=== PATIENT | female | born 1940 | race Caucasian/White ===

== ENCOUNTER → 2016-11-07 | Outpatient (CLI) | payer MEDICARE, OTHER ==
[~2016-11-07] MED LIST: BUPR150T5 PO; BUPR300T34 PO; CALCTAB97 PO; COLA100C PO; GLUC500C98 PO; HYDR1OI TOP; OMEP10CASR PO; ONE50TAB PO; PERCOCET PO; SERT-141 PO; SIMV10TA2 PO; TYLE325T5 PO; VITA-130 PO; VITA200016 PO; VITATAB73 PO
== END | disposition home or self-care (01) ==
LOC: M WUC 14:34
PROVIDERS: ATTEND Physician Assistant Medical
DX: M81.0 Age-related osteoporosis without current pathological fracture (principal)

== ENCOUNTER → 2016-12-14 | Outpatient (CLI) | payer OTHER ==
--- NOTE | 2016-12-14 13:03 | REP ---
Clinical: Contusion. Technique: PA and lateral. Comparison: 12/24/2015. Findings: Mediastinum and cardiac silhouette stable with tortuous thoracic aorta again noted. Lung mccracken demonstrate diffuse chronic interstitial changes without focal consolidation. A subtle 1 cm nodular density in the periphery of the left lower lung zone cannot be excluded and may warrant chest CT follow-up. No effusion. No pneumothorax. Skeletal structures stable. Impression: 1. Chronic stable changes. 2. Cannot exclude subtle 1 cm density in the left lower lung zone. Consider chest CT for follow-up. Signed by Froylan Hayward MD 12/14/2016 12:53 P
--- NOTE | 2016-12-14 13:29 | REP ---
Clinical: Trauma. Contusion. Technique: AP, lateral, bilateral oblique views of the right hand. Findings: There is no bleed fracture at the base of the fifth metacarpal bone with overlying soft tissue swelling. Age-related changes to the interphalangeal joints and carpometacarpal joints noted. Impression: Acute oblique fracture at the base of the fifth metacarpal bone. Age-related degenerative changes. Signed by Froylan Hayward MD 12/14/2016 01:20 P
--- NOTE | 2016-12-14 13:30 | REP ---
Clinical: Contusion. Technique: AP, lateral, bilateral oblique views. Findings: There is a comminuted fracture of the patella with overlying soft tissue swelling and joint effusion. Distal femur and proximal tibia / fibula demonstrate age-related degenerative changes without obvious acute fracture. Impression: Comminuted fracture of the patella with swelling and joint effusion. Signed by Froylan Hayward MD 12/14/2016 01:22 P
== END ==
LOC: M WUC 11:57
PROVIDERS: ATTEND Physician Assistant
DX: S60.221A Contusion of right hand, initial encounter (principal); S20.211A Contusion of right front wall of thorax, initial encounter; Y92.009 Unspecified place in unspecified non-institutional (private) residence as the place of occurrence of the external cause; W18.30XA Fall on same level, unspecified, initial encounter

== ENCOUNTER → 2017-02-17 | Outpatient (CLI) | payer MEDICARE, OTHER ==
[~2017-02-17] MED LIST changes: -COLA100C PO; +COLA100C3 PO; -SERT-141 PO; +SERT50TA PO
--- NOTE | 2017-02-17 16:45 | REP ---
SKULL, SIX VIEWS: HISTORY: Fall. There is no acute fracture or bone lesion. The sinuses are clear. IMPRESSION: There is no acute fracture or bone lesion. Signed by Jarod Shah MD 02/17/2017 04:58 P
== END ==
LOC: M WUC 14:50
PROVIDERS: ATTEND Nurse Practitioner Family
DX: S09.90XA Unspecified injury of head, initial encounter (principal); W01.0XXA Fall on same level from slipping, tripping and stumbling without subsequent striking against object, initial encounter; Y92.9 Unspecified place or not applicable; Y93.9 Activity, unspecified; Y99.9 Unspecified external cause status

== ENCOUNTER → 2017-04-10 | Outpatient (CLI) | payer MEDICARE, OTHER ==
--- NOTE | 2017-04-12 09:06 | DEXA ---
AP SPINE L1 - L4 1.147 -0.4 1.4 LT FEMUR TOTAL Hip fracture. RT FEMUR TOTAL 0.715 -2.3 -0.6 TOTAL BODY TOTAL OTHER DUAL FEMUR FRAX* ASSESSMENT Risk factors: History of adult fracture, secondary osteoporosis. 10 year probability of fracture Major osteoporotic fracture 24.0 % Hip fracture 7.1 % COMMENTS: Normal bone densitometry of the spine. There is low bone density of the right hip. The increased density of the spine does represent a significant change. The increased density of the right hip does represent a significant change. The density of the spine has increased 29.6% since the initial exam on 08/2004. The spine density has increased 12.9% since the most recent exam on 01/2015. The density of the right hip has decreased 5.8% since the initial exam on 2003. The density of the right hip has increased 4.8% since the most recent exam on 2014. FOLLOW-UP: Recommendation for the next bone density exam: 2 years. JAVON
== END ==
LOC: M WHC 10:07
PROVIDERS: ATTEND Internal Medicine
DX: Z13.820 Encounter for screening for osteoporosis (principal); M85.80 Other specified disorders of bone density and structure, unspecified site

== ENCOUNTER → 2017-05-11 | Outpatient (CLI) | payer MEDICARE, OTHER ==
[~2017-05-11] MED LIST changes: -COLA100C3 PO; +COLA100C5 PO; -VITA-130 PO; +VITA500T PO
== END ==
LOC: M WUC 11:19
PROVIDERS: ATTEND Internal Medicine Endocrinology, Diabetes & Metabolism
DX: M81.0 Age-related osteoporosis without current pathological fracture (principal)

== ENCOUNTER → 2017-08-30 | Outpatient (CLI) | payer MEDICARE, OTHER ==
--- NOTE | 2017-08-30 14:37 | REPMRS ---
Patient History The patient states she had a clinical breast exam in 01/06 Patient is postmenopausal and has history of skin cancer at age 67. Family history of prostate cancer in father at age 62. Benign excisional biopsy, 2000. Took unspecified hormones for 5 years. Digital Woman Screen Mammo: August 30, 2017 - Exam #: [id number] Bilateral CC and MLO view(s) were taken. Technologist: Evelyne Luis, Technologist Prior study comparison: August 17, 2016, digital woman screen mammo performed at [facility]. July 06, 2015, digital woman screen mammo performed at [facility]. July 03, 2014, bilateral bilat screen digital mammo, performed at [facility] ([facility]). FINDINGS: There are scattered fibroglandular densities. There has been no change in the appearance of the mammogram from the prior studies. There is a mild amount of scattered fibroglandular density which is fairly symmetric. There is no interval development of dominant mass, architectural distortion, or clustered microcalcification suggestive of malignancy. ASSESSMENT: BI-RADS/ACR category 1 mammogram. Negative. Recommendation Routine screening mammogram in 1 year (for women over age 40). This mammogram was interpreted with the aid of an FDA-approved computer-aided dectection system. Electronically Signed By: Severino Dimas MD 08/30/17 [id number]
== END ==
LOC: M WHC 12:54
PROVIDERS: ATTEND Internal Medicine
DX: Z12.31 Encounter for screening mammogram for malignant neoplasm of breast (principal)

== ENCOUNTER → 2017-11-22 | Outpatient (CLI) | payer MEDICARE, OTHER ==
[2017-11-22 13:17] LABS: TOTAL 25(OH) VITAMIN D 56.6 NG/ML (30.0-100.0)
[2017-11-22 13:22] LABS: CALCIUM LEVEL 9.5 MG/DL (8.8-10.2)
== END ==
LOC: M WUC 10:16
DX: M81.0 Age-related osteoporosis without current pathological fracture (principal); E55.9 Vitamin D deficiency, unspecified
CPT/HCPCS: 82310

== ENCOUNTER → 2018-05-28 | Outpatient (CLI) | payer MEDICARE, OTHER ==
[2018-05-28 17:17] LABS: CALCIUM LEVEL 9.1 MG/DL (8.8-10.2)
== END ==
LOC: M WUC 13:52
DX: M81.0 Age-related osteoporosis without current pathological fracture (principal)
CPT/HCPCS: 82310

== ENCOUNTER → 2018-10-01 | Outpatient (CLI) | payer MEDICARE, OTHER | LOC: M WHC 13:44 | DX: Z12.31 Encounter for screening mammogram for malignant neoplasm of breast (principal); Z80.42 Family history of malignant neoplasm of prostate; Z86.018 Personal history of other benign neoplasm; Z92.29 Personal history of other drug therapy | CPT/HCPCS: 77067 ==

== ENCOUNTER → 2018-12-04 | Outpatient (CLI) | payer MEDICARE, OTHER ==
[2018-12-04 12:57] LABS: CALCIUM LEVEL 9.2 MG/DL (8.8-10.2)
[2018-12-04 13:13] LABS: TOTAL 25(OH) VITAMIN D 58.3 NG/ML (30.0-100.0)
== END ==
LOC: M WUC 09:50
PROVIDERS: ATTEND Internal Medicine Endocrinology, Diabetes & Metabolism
DX: M81.0 Age-related osteoporosis without current pathological fracture (principal); E55.9 Vitamin D deficiency, unspecified

== ENCOUNTER → 2019-06-05 | Outpatient (CLI) | payer MEDICARE, OTHER ==
[~2019-06-05] MED LIST changes: -HYDR1OI TOP; +HYDR1OIN2 TOP; +SERT-141 PO; -SERT50TA PO
== END ==
LOC: M WUC 14:38
PROVIDERS: ATTEND Internal Medicine Endocrinology, Diabetes & Metabolism
DX: M81.0 Age-related osteoporosis without current pathological fracture (principal)

== ENCOUNTER → 2019-10-14 | Outpatient (CLI) | payer MEDICARE, OTHER ==
[~2019-10-14] MED LIST changes: -SIMV10TA2 PO; +SIMV10TA21 PO
--- NOTE | 2019-10-14 11:16 | REPMRS ---
Patient History The patient states she had a clinical breast exam in September 2019.Family history of prostate cancer at age 62 in father. Benign excisional biopsy, 2000. Took unspecified hormones for 5 years. 3D TOMOSYNTHESIS WAS PERFORMED. [facility] lifetime risk for breast cancer is 3.1%. Digital Woman Screen Mammo: October 14, 2019 - Exam #: [id number] Bilateral CC and MLO view(s) were taken. Technologist: Adry Willis, Technologist Prior study comparison: October 01, 2018, bilateral digital woman screen mammo performed at [facility]. August 30, 2017, digital woman screen mammo performed at [facility]. FINDINGS: The breast tissue is heterogeneously dense. This may lower the sensitivity of mammography. There has been no change in the appearance of the mammogram from the prior studies. There is a moderate amount of residual fibroglandular tissue which is fairly symmetric. There is no interval development of dominant mass, areas of architectural distortion, or clustered microcalcification typical of malignancy. Assessment: BI-RADS/ACR category 1 mammogram. Negative Mammogram. Recommendation Routine screening mammogram in 1 year (for women over age 40). This mammogram was interpreted with the aid of an FDA-approved computer-aided dectection system. Electronically Signed By: Anish Carbone MD 10/14/19 [id number]
== END ==
LOC: M WHC 10:03
PROVIDERS: ATTEND Internal Medicine
DX: Z12.31 Encounter for screening mammogram for malignant neoplasm of breast (principal)

== ENCOUNTER → 2019-12-11 | Outpatient (CLI) | payer MEDICARE, OTHER ==
[~2019-12-11] MED LIST changes: -BUPR300T34 PO; +BUPR300T92 PO
[2019-12-11 15:24] LABS: CALCIUM LEVEL 9.6 MG/DL (8.8-10.2)
[2019-12-11 15:38] LABS: TOTAL 25(OH) VITAMIN D 51.5 NG/ML (30.0-100.0)
== END ==
LOC: M WUC 12:22
PROVIDERS: ATTEND Internal Medicine Endocrinology, Diabetes & Metabolism
DX: M81.0 Age-related osteoporosis without current pathological fracture (principal)

== ENCOUNTER → 2020-01-02 | Outpatient (REF) | payer MEDICARE, OTHER ==
[2020-01-02 19:02] LABS: INFLUENZA A AMPLIFICATION NEGATIVE (NEGATIVE); INFLUENZA B AMPLIFICATION NEGATIVE (NEGATIVE)
== END ==
LOC: M LAB REF 17:48
PROVIDERS: ATTEND Internal Medicine
DX: R05 Cough (principal); R50.9 Fever, unspecified

== ENCOUNTER → 2020-03-08 | Outpatient (CLI) | payer MEDICARE, OTHER ==
[~2020-03-08] MED LIST changes: +VITA-243 PO; -VITA500T PO
--- NOTE | 2020-03-09 10:00 | REP ---
LEFT WRIST SERIES: FOUR VIEWS. REPEAT DICTATION. HISTORY: Wrist pain. Preliminary report is provided at the time of the exam by Dr. Hayward. FINDINGS: Four views of the left wrist demonstrate an intra-articular, slightly comminuted and impacted fracture of the distal radial metaphysis. There is diffuse osteopenia. Advanced osteoarthritis is seen in the navicular multangular and at the 1st carpometacarpal articulations. An old-appearing dorsal triquetral chip fracture is seen on the lateral radiograph. IMPRESSION: Acute, slightly impacted intra-articular fracture of the distal radius with associated swelling. Old chip fracture dorsal surface of the carpal triquetrum. Osteoarthritis and osteoporosis. Electronically Signed by Scooter Dimas MD 03/09/2020 10:26 A
== END ==
LOC: M WUC 15:08
PROVIDERS: ATTEND Nurse Practitioner Family
DX: S52.572A Other intraarticular fracture of lower end of left radius, initial encounter for closed fracture (principal); X58.XXXA Exposure to other specified factors, initial encounter; Y92.9 Unspecified place or not applicable

== ENCOUNTER → 2020-06-10 | Outpatient (CLI) | payer MEDICARE, OTHER | LOC: M WUC 13:21 | PROVIDERS: ATTEND Internal Medicine Endocrinology, Diabetes & Metabolism | DX: M81.0 Age-related osteoporosis without current pathological fracture (principal) ==

== ENCOUNTER → 2020-10-19 | Outpatient (CLI) | payer MEDICARE, OTHER ==
--- NOTE | 2020-10-19 11:49 | REPMRS ---
Patient History The patient states she had a clinical breast exam in 07/12 Family history of prostate cancer at age 62 in father. Benign excisional biopsy, 2000. Took unspecified hormones for 5 years. Digital Woman Screen Mammo: October 19, 2020 - Exam #: [id number] Bilateral CC and MLO view(s) were taken. Technologist: Evelyne Luis, Technologist Prior study comparison: October 14, 2019, bilateral digital woman screen mammo performed at [facility]. October 01, 2018, bilateral digital woman screen mammo performed at [facility]. August 30, 2017, digital woman screen mammo performed at [facility]. FINDINGS: There are scattered fibroglandular densities. The [employer] volumetric breast density category is:B. There has been no change in the appearance of the mammogram from the prior studies. There is a mild amount of scattered fibroglandular density which is fairly symmetric. There is no interval development of dominant mass, architectural distortion, or grouped microcalcification suggestive of malignancy. 3-D tomosynthesis shows no additional findings. Assessment: BI-RADS/ACR category 1 mammogram. Negative Mammogram. Recommendation Routine screening mammogram of both breasts in 1 year (for women over age 40). This patient's [facility] Lifetime Breast Cancer Risk is estimated at 2.8 %. This mammogram was interpreted with the aid of an FDA-approved computer-aided dectection system. Electronically Signed By: Severino Dimas MD 10/19/20 0844
== END ==
LOC: M WHC 10:59
PROVIDERS: ATTEND Internal Medicine
DX: Z12.31 Encounter for screening mammogram for malignant neoplasm of breast (principal)

== ENCOUNTER → 2020-12-15 | Outpatient (CLI) | payer MEDICARE, OTHER ==
[2020-12-15 11:57] LABS: CALCIUM LEVEL 9.7 MG/DL (8.8-10.2)
[2020-12-15 12:11] LABS: TOTAL 25(OH) VITAMIN D 73.9 NG/ML (30.0-100.0)
== END ==
LOC: M WUC 10:16
PROVIDERS: ATTEND Internal Medicine Endocrinology, Diabetes & Metabolism
DX: M81.0 Age-related osteoporosis without current pathological fracture (principal); E55.9 Vitamin D deficiency, unspecified

== ENCOUNTER 2021-06-07 16:41 | Inpatient (IN) | payer MEDICARE, OTHER ==
[~2021-06-07] VITALS: Ht 149.9 cm; Wt 54.1 kg
[2021-06-07] MEDS ORDERED: BUSP10TA PO (17:02)
[2021-06-07] MEDS ORDERED: AMLO2.5T3 PO (17:02)
--- NOTE | 2021-06-07 18:02 | REP ---
INDICATION: DYSPNEA/COUGH. COMPARISON: 04/20/2020 TECHNIQUE: Portable FINDINGS: The technique utilized in obtaining the radiograph has magnified the cardiac silhouette and accentuated the interstitial markings. There is cardiomegaly accentuated by technique. There is interstitial fibrosis status quo. New airspace opacities and interstitial opacities are seen in the left lung. There is chronic CP angle blunting bilaterally. The osseous structures are unchanged IMPRESSION: There is evidence of pneumonia on the left superimposed upon chronic fibrotic changes. There is cardiomegaly. <Electronically signed by Lefty Roberts > 06/07/21 [id number]
[2021-06-07 18:12] LABS: BASO % 0.4 % (0.0-1.0); EOS # 0.1 10^3/uL (0.0-0.5); EOS % 0.5 % (0.0-3.0); HEMATOCRIT 43.8 % (36.0-47.0); HEMOGLOBIN 14.6 g/dl (12.0-15.5); LYMPH # 0.5 10^3/uL (1.5-5.0); LYMPH % 4.9 % (24.0-44.0); MEAN CORPUSCULAR HGB CONC 33.3 g/dl (32.0-36.5); MEAN CORPUSCULAR VOLUME 89.9 fl (80.0-96.0); MONO # 1.1 10^3/uL (0.0-0.8); MONO % 9.7 % (2.0-8.0); NEUTROPHILS # 9.1 10^3/uL (1.5-8.5); NEUTROPHILS % 83.5 % (36.0-66.0); PLATELET COUNT, AUTOMATED 255 10^3/uL (150-450); RED BLOOD COUNT 4.87 10^6/uL (4.00-5.40); WHITE BLOOD COUNT 10.9 10^3/uL (4.0-10.0)
[2021-06-07] MEDS ORDERED: LevoFLOXacin IV 750 MG in IV 1 EA IV ONE (18:20)
[2021-06-07 18:49] LABS: ALBUMIN 2.9 GM/DL (3.2-5.2); ALT/SGPT 26 U/L (12-78); BILIRUBIN,DIRECT 0.2 MG/DL (0.0-0.2); BILIRUBIN,TOTAL 0.8 MG/DL (0.2-1.0); BLOOD UREA NITROGEN 23 MG/DL (7-18); CALCIUM LEVEL 8.4 MG/DL (8.8-10.2); CARBON DIOXIDE LEVEL 26 MEQ/L (21-32); CHLORIDE LEVEL 105 MEQ/L (98-107); CK-MB VALUE MASS 3.3 NG/ML (<3.6); CPK CREATINE PHOSPHOKINASE 72 U/L (26-192); CREATININE FOR GFR 1.22 MG/DL (0.55-1.30); GLOMERULAR FILTRATION RATE 45.4 (>39); GLUCOSE, FASTING 97 MG/DL (70-100); MB/CK RELATIVE INDEX 4.58 (< OR =4); NT-PRO BNP 17544 PG/ML (<450); SODIUM LEVEL 138 MEQ/L (136-145); THYROID STIMULATING HORMONE 0.611 uIU/ML (0.358-3.740); TOTAL PROTEIN 6.3 GM/DL (6.4-8.2); TROPONIN I < 0.02 NG/ML (< 0.10)
[2021-06-07 19:39] LABS: RSV AMPLIFICATION NEGATIVE (NEGATIVE)
[2021-06-07] MEDS ORDERED: MAALOX 30 ML SUSP *UDC PO PRN (20:25)
[2021-06-07] MEDS ORDERED: ACETAMINOPHEN TAB 650MG DOSE (2X325MG) PO PRN (20:25)
[2021-06-07] MEDS ORDERED: VANCOMYCIN HCL 1,000 MG, VIAL MATE ADAPTER 1 EACH in NS 250 ML IV SCH (20:25)
[2021-06-07] MEDS ORDERED: MOM 30ML SUSPENSION UDC PO PRN (20:25)
--- NOTE | 2021-06-07 20:34 | HPEPDOC ---
[facility] Medical History & Physical Date of Admission Jun 07, 2021 Date of Service: Jun 07, 2021 Primary Care Physician: Ree Barillas Attending Physician: MILTON MCHUGH MD History and Physical TIME OF SERVICE 845PM CHIEF COMPLAINT: shortness of breath HISTORY OF PRESENT ILLNESS: is a 80 yr old F who presented w c/o shortness of breath for 2 or 3 years. Over the last 2 weeks her shortness of breath became worse. She has also had a cough productive of green sputum. She denied having night sweats, f/c/n/v/d lower extremity swelling, muscle aches, chest pain, abdominal pain, rash, sick contacts or traveling out of the state recently. She saw her PCP who started on a 10 day course of Doxycycline and steroids on May 27. Today she had a follow up visit with her PCP who noted that the patient had hypoxemia with a PCO2 in the 70s so she sent to the ER. ROS: 10 point ROS neg except as listed in HPI PAST MEDICAL/SURGICAL HISTORY: Essential HTN, DLP, She denies being diagnosed with COPD, CHF, CVA, AK, DM or surgeries SOCIAL HISTORY: She quit smoking 20 yrs ago, drinks alcohol occasionally and lives alone FAMILY HISTORY: She denied having a family history of medical problems ALLERGIES: Please see below. HOME MEDICATIONS: Please see below. PHYSICAL EXAMINATION: Vital Signs Date Time Temp Pulse Resp B/P (MAP) Pulse Ox O2 Delivery O2 Flow Rate FiO2 06/07/21 16:41 99.2 102 20 121/74 (90) 80 Room Air 06/07/21 17:20 2.0 GENERAL APPEARANCE: well nourished and developed/ NAD HEENT: EOMI / NC in place / she doesn't have elevated JVP CARDIOVASCULAR: RRR/NMRG / I don't appreciate S3 or P-pulmonale / she doesn't have BLE edema LUNGS: She is not using accessory muscles / she is able to speak full sentences w/o having to pause and take a breath / she has scattered inspiratory rhonchi / there are no crackles ABDOMEN: flat / soft & NT with palpation MUSCULOSKELETAL: NCAT / CARMELA in back and all extremities NEUROLOGICAL: CN 2-12 grossly intact / speech not dysarthric PSYCHIATRIC: A&Ox 3 / able to understand and follow all commands LABORATORY DATA: Immature Granulocyte % (Auto) 1.0, Neutrophils (%) (Auto) 83.5H, Lymphocytes (%) (Auto) 4.9L, Monocytes (%) (Auto) 9.7H, Eosinophils (%) (Auto) 0.5, Basophils (%) (Auto) 0.4, Neutrophils # (Auto) 9.1H, Lymphocytes # (Auto) 0.5L, Monocytes # (Auto) 1.1H, Eosinophils # (Auto) 0.1, Basophils # (Auto) 0.0, Nucleated Red Blood Cells % (auto) 0.0, Anion Gap 7L, Glomerular Filtration Rate 45.4, Calcium Level 8.4L, Total Bilirubin 0.8, Direct Bilirubin 0.2, Aspartate Amino Transf (AST/SGOT) 17, Alanine Aminotransferase (ALT/SGPT) 26, Alkaline Phosphatase 63, Total Creatine Kinase 72, Creatine Kinase MB 3.3, Creatine Kinase MB Relative Index 4.58H, Troponin I < 0.02, FB-Iqu-O-Type Natriuretic Peptide 74631T, Total Protein 6.3L, Albumin 2.9L, Albumin/Globulin Ratio 0.9L, Thyroid Stimulating Hormone (TSH) 0.611 IMAGING: Chest xray "IMPRESSION: There is evidence of pneumonia on the left superimposed upon chronic fibrotic changes. There is cardiomegaly." MICROBIOLOGY: Coronavirus (COVID-19)(PCR) NEGATIVE, Influenza Type A (RT-PCR) NEGATIVE, Influenza Type B (RT-PCR) NEGATIVE, Respiratory Syncytial Virus (PCR) NEGATIVE / Blood cx neg ASSESSMENT: is a 80 yr old w a hx of Essential HTN & DLP who was sent from her PCP's office for evaluation of hypoxemia possibly due to worsening left sided PNA. PLAN: 1. Hypoxemia likely 2/2 left sided PNA Her CURB 65 score to determine if patient should be admitted is 2 points therefore in-patient admission is reasonable. Her DRIP Score to predict risk of drug resistant CAP and need for extended spectrum antibiotics is only 3 points which is low risk there for she doesn't need coverage with extended spectrum antibiotics Her EMY index for intubation after HFNC to predict the need for intubation score is only 14.29 which indicates that she is at low risk of progressing to needing intubation Plan: admit to medical floor / continuous pulse ox & supplemental O2/ f/u sputum culture ( will not order strep pneumo or legionella because she doesn't have SIRS) / c/w Levofloxacin and add Vancomycin pending MRSA results/ Acetaminophen PRN for fever / per 2019 IDSA/ATS guidelines for CAP will not check procalcitonin to distinguish between viral and bacterial pathogens prior to c/w antibiotics 2. Chronic Dyspnea She has been struggling with dyspnea for the last 2 years I suspect that that this may be due to ILD (based on the chest xray findings) or COPD. Despite the elevated BNP, she doesn't have JVD, crackles, S3 or BLE therefore I think it is less likely that she has CHF. The elevated BNP could be due to COPD or ILD Plan: supplemental O2 / continuous pulse oximetry / aspiration precautions / Solumedrol today then switch to prednisone / DuoNebs Q6H, Albuterol Q1HP / she is on Levofloxacin because she has green sputum / f/u Echo / if her dyspnea persists after the PNA has resolved, and the Echo is neg/ her PCP may consider ordering PFTs 3. Chronic HTN Plan: c/w amlodipine DVT Px w lovenox Dispo: home after more than 2 midnight's stay LACE Index for Readmission score is 8 points = moderate risk of readmission. PFS consult has been placed for discharge planning LATE ENTRY #Tachycardia w worsening hypoxemia Plan: f/u EKG / IVF / switch from albuterol to levalbuterol PRN / f/u CTA chest to r/o PE Home Medications Scheduled Amlodipine Besylate (Amlodipine Besylate) 2.5 Mg Tablet, 2.5 MG PO QHS Ascorbic Acid (Vitamin C) 500 Mg Tab, 500 MG PO DAILY Bupropion Hcl (Bupropion Xl) 150 Mg Tab.er.24h, 150 MG PO DAILY Buspirone HCl (Buspirone HCl) 10 Mg Tablet, 10 MG PO BID Fluticasone/Vilanterol (Breo Ellipta 100-25 Mcg INH) 1 Each Blst.w.dev, 1 PUFF INH DAILY Omeprazole (Omeprazole) 20 Mg Capsule.dr, 20 MG PO DAILY Sertraline Hcl (Zoloft) 100 Mg Tablet, 150 MG PO QHS Scheduled PRN Docusate Sodium (Colace) 100 Mg Cap, 100 MG PO BID PRN for CONSTIPATION Allergies Coded Allergies: No Known Allergies (Verified , 05/18/04) A-FIB/CHADSVASC A-FIB History Current/History of A-Fib/PAF?: No Current PO Anticoag Therapy: No MILTON MCHUGH MD Jun 07, 2021 20:34
[2021-06-07] MEDS ORDERED: BREO1INH INH (20:44)
[2021-06-07] MEDS ORDERED: ZOLO100T PO (20:44)
[2021-06-07] MEDS ORDERED: BUPR150T12 PO (20:44)
[2021-06-07] MEDS ORDERED: OMEP-218 PO (20:44)
[2021-06-07] MEDS ORDERED: HOME MED LIST COMPLETE! XX SCH (20:50)
[2021-06-07] MEDS ORDERED: DOCUSATE SODIUM 100MG CAPSULE PO PRN (21:15)
[2021-06-07] MEDS ORDERED: methylPREDNISolone 125MG 2ML VIAL IV STA (21:16)
[2021-06-07] MEDS: busPIRone 10 MG TAB PO SCH (21:49)
[2021-06-07] MEDS: SERTRALINE HCL 50 MG TAB PO SCH (21:49)
[2021-06-07] MEDS ORDERED: VANCOMYCIN HCL 1,000 MG, VIAL MATE ADAPTER 1 EACH in NS 250 ML IV ONE (22:00)
[2021-06-07] MEDS: IPRATROPIUM 0.5MG/ALBUTEROL 2.5MG INH SOL UD 3ML (DUONEB) NEB SCH (22:23)
[2021-06-07] MEDS ORDERED: ALBUTEROL SULFATE 2.5 MG/0.5 ML INH NEB SOLN NEB PRN (22:50)
[2021-06-07 23:27] LABS: ABG BASE EXCESS -3.1 (-2.0-2.0); ABG HCO3 19.9 MEQ/L (22.0-26.0); ABG O2 SATURATION 82.2 % (95.0-99.0); ABG PARTIAL PRESSURE CO2 30.2 mmHg (35.0-45.0); ABG STANDARD HCO3 21.6 MEQ/L (22.0-26.0); ABG TOTAL CO2 20.8 MEQ/L (23.0-31.0); ABG pH (ARTERIAL) 7.437 UNITS (7.350-7.450)
[2021-06-07 23:30] LABS: ABG PARTIAL PRESSURE O2 45.9 mmHg (75.0-100.0)
[2021-06-08] VITALS (17 sets, daily range): BP systolic 84–142; BP diastolic 50–97; O2SAT 84–94
[2021-06-08] MEDS ORDERED: IPRATROPIUM 0.02% SOLN 0.5MG 2.5ML NEB NEB SCH (02:00)
[2021-06-08] MEDS: IPRATROPIUM 0.5MG/ALBUTEROL 2.5MG INH SOL UD 3ML (DUONEB) NEB SCH (06:10)
[2021-06-08] MEDS ORDERED: NS 1,000 ML IV SCH (06:50)
[2021-06-08] MEDS ORDERED: LEVALBUTEROL 1.25 MG/0.5 ML CONCENTRATE NEB INH PRN (07:00)
[2021-06-08 07:01] LABS: HEMATOCRIT 43.1 % (36.0-47.0); HEMOGLOBIN 14.2 g/dl (12.0-15.5); MEAN CORPUSCULAR HEMOGLOBIN 29.3 pg (27.0-33.0); MEAN CORPUSCULAR HGB CONC 32.9 g/dl (32.0-36.5); PLATELET COUNT, AUTOMATED 274 10^3/uL (150-450); RED BLOOD COUNT 4.84 10^6/uL (4.00-5.40); WHITE BLOOD COUNT 12.7 10^3/uL (4.0-10.0)
[2021-06-08 07:23] LABS: CALCIUM LEVEL 8.2 MG/DL (8.8-10.2); CREATININE FOR GFR 0.99 MG/DL (0.55-1.30); GLOMERULAR FILTRATION RATE 57.8 (>39); POTASSIUM SERUM 4.5 MEQ/L (3.5-5.1)
[2021-06-08] MEDS ORDERED: ISOVUE-370 76% 100ML VIAL As Ordered ONE (07:34)
--- NOTE | 2021-06-08 07:35 | ECGEPIP ---
[facility] - ED Test Date: 2021-06-07 Pat Name: TIMI VAZQUEZ Department: Room: - Gender: Female Pharmacy Scheduler: : 1940 Requested By: ARIE FERNANDEZ Order Number: [id number] Reading MD: Arie Garcia Measurements Intervals Dixon Rate: 94 P: 28 RI: 146 QRS: 48 QRSD: 78 T: 25 QT: 374 QTc: 467 Interpretive Statements Normal sinus rhythm with sinus arrhythmia Anteroseptal infarct , age undetermined Nonspecific ST-T wave abnormalities Baseline artifact Comparison tracing not on file Electronically Signed on 06-08-2021 7:35:06 EDT by Arie Garcia
[2021-06-08] MEDS ORDERED: AMIODARONE HCL 150 MG in IV 1 EA IV STA (07:44)
[2021-06-08] MEDS: busPIRone 10 MG TAB PO SCH ×2 (07:56→21:36)
[2021-06-08] MEDS: buPROPion **XL** TABLET 150MG (WELLBUTRIN XL) PO SCH (07:56)
[2021-06-08] MEDS ORDERED: FUROSEMIDE 40MG/4ML VIAL (J1940) IV ONE (08:00)
[2021-06-08] MEDS ORDERED: atenoloL 50 MG TAB PO ONE (08:00)
[2021-06-08] MEDS ORDERED: SLF 3 ML SYR IV PRN (08:55)
[2021-06-08] MEDS ORDERED: ENOXAPARIN 40MG/0.4ML SYRINGE (J1650 PER 10MG) SC SCH (09:00)
[2021-06-08] MEDS ORDERED: OMEPRAZOLE 20 MG CAP PO SCH (09:00)
[2021-06-08] MEDS ORDERED: predniSONE 20 MG TAB PO SCH (09:00)
--- NOTE | 2021-06-08 11:22 | REP ---
INDICATION: tachycardia and hypoxemia COMPARISON: 09/29/2009 a standard contrast-enhanced chest CT TECHNIQUE: CT angiography of the chest after the intravenous administration of 75 cc Isovue 370. Attention pulmonary arteries. FINDINGS: There is excellent visualization of the pulmonary arterial vasculature. There are no focal filling defects present that would be considered consistent with acute pulmonary emboli. Limited evaluation of the thoracic aorta shows no significant change compared to the prior exam. There is no evidence of mediastinal or hilar adenopathy. There is a dilated content filled esophagus. There is a minimal left pleural effusion. There is no evidence of a pericardial effusion. The imaged upper abdomen shows a 3.2 cm sized infrarenal abdominal aortic aneurysm. There is also evidence of mild left-sided hydronephrosis. Bone window technique throughout the exam shows a grade 3/4 L1 compression fracture. A grade 2/3 L2 compression fracture. A grade 1/2 T12 compression fracture. A grade 1 superior endplate compression fracture of T11. There is a grade 3/4 compression fracture of T9. there is a grade 4 compression fracture of T8. There is a grade 2 compression fracture of T7 and T6. There is an exaggerated thoracic kyphosis with its apex at the T8-9 level. The bones are markedly demineralized. There is evidence of multiple bilateral old rib fractures. Evaluation of the lung mccracken shows advanced emphysematous changes with parenchymal bulla and pleural blebs. There are are scattered ground-glass opacities seen in conjunction with septal opacities in a mosaic type pattern. These densities could obscure a significant nodule. All the aforementioned lung field findings have worsened significantly compared to the prior exam. IMPRESSION: 1. There is no evidence of a pulmonary embolism. 2. Advanced chronic lung field changes as described above. Pulmonary consultation is recommended. 3. Osseous abnormalities as described above. The age of the aforementioned vertebral body compression fractures cannot be determined by this exam. 4. Dilated content filled esophagus. Further investigation may be warranted. 5. Evidence of left-sided hydronephrosis etiology uncertain. 6. Infrarenal abdominal aortic aneurysm as described above. 7. Other findings as described above. <Electronically signed by Lefty Roberts > 06/08/21 [id number]
--- NOTE | 2021-06-08 11:35 | IPNPDOC ---
Date Seen The patient was seen on 06/08/21. Progress Note SUBJECTIVE: Patient was emergently transferred to PCU due to A. fib with RVR ventricular rate of 1 40-1 60 with complaints of worsening dyspnea. Patient denies any chest pain pressure tightness complains of palpitations without dizziness lightheadedness or near syncopal episode. OBJECTIVE PHYSICAL EXAMINATION: VITAL SIGNS: Please see below. GENERAL: Mild respiratory distress and able to complete 8 word sentences HEENT: Positive JVD moist mucous membranes no thyromegaly or cervical lymphad enopathy CARDIOVASCULAR: S1-S2 irregularly irregular tachycardic ventricular rate of 1 40-1 60 at the bedside RESPIRATORY: Diminished breath sounds crackles bilaterally ABDOMINAL: Positive bowel sounds soft nontender nondistended EXTREMITIES: No cyanosis or clubbing LABORATORY DATA, IMAGING STUDIES, MICROBIOLOGY: Please see below. ASSESSMENT AND PLAN: 80-year-old female admitted 06/07/2021 with dyspnea Left-sided community-acquired pneumonia -Status post Levaquin -Start on ceftriaxone and azithromycin on 06/09/2021 -Check Legionella antigen and streptococcal pneumonia antigen blood cultures x2 sets -Keep O2 saturations greater than 90% Prior history of smoking with acute hypoxic respiratory failure -Empirically being treated for possible acute COPD exacerbation on IV steroids every 6 hourly Xopenex every 4 and every 2 as needed -Supplemental oxygen to keep saturation greater than 90% New onset CHF unknown ejection fraction -Started on Lasix 40 IV every 6 hourly for net negative goal balance daily of at least 1 L strict I's and O's Daily weights 2 L fluid restriction [facility] -Echo ordered New onset atrial fibrillation -Patient was given atenolol 50 mg x 1 and IV amiodarone due to low blood pressure -Rate control with atenolol 50 twice daily if blood pressure permits -If mean after pressures less than 70 may try midodrine 5 mg 3 times daily and titrate up to 10 3 times daily -Renally dose Eliquis twice daily -Check TSH CT chest rule out PE Pulmonary hypertension -History of smoking -Check 2D echo -Check CT chest rule out PE Hypertension -Controlled VS, I&O, 24H, Fishbone Vital Signs/I&O Vital Signs Date Time Temp Pulse Resp B/P (MAP) Pulse Ox O2 Delivery O2 Flow Rate FiO2 06/08/21 08:20 98.2 160 22 137/61 (86) 90 High Flow Cannula 10.0 06/07/21 23:30 100 I&O- Last 24 Hours up to 6 AM 06/08/21 06:00 Intake Total 460 ml Output Total 175 ml Balance 285 ml Laboratory Data 24H LABS Laboratory Tests 2 06/07/21 17:29: Immature Granulocyte % (Auto) 1.0, Neutrophils (%) (Auto) 83.5H, Lymphocytes (%) (Auto) 4.9L, Monocytes (%) (Auto) 9.7H, Eosinophils (%) (Auto) 0.5, Basophils (%) (Auto) 0.4, Neutrophils # (Auto) 9.1H, Lymphocytes # (Auto) 0.5L, Monocytes # (Auto) 1.1H, Eosinophils # (Auto) 0.1, Basophils # (Auto) 0.0, Nucleated Red Blood Cells % (auto) 0.0, Anion Gap 7L, Glomerular Filtration Rate 45.4, Calcium Level 8.4L, Total Bilirubin 0.8, Direct Bilirubin 0.2, Aspartate Amino Transf (AST/SGOT) 17, Alanine Aminotransferase (ALT/SGPT) 26, Alkaline Phosphatase 63, Total Creatine Kinase 72, Creatine Kinase MB 3.3, Creatine Kinase MB Relative Index 4.58H, Troponin I < 0.02, RE-Wvb-X-Type Natriuretic Peptide 98262L, Total Protein 6.3L, Albumin 2.9L, Albumin/Globulin Ratio 0.9L, Thyroid Stimulating Hormone (TSH) 0.611 06/07/21 17:40: Coronavirus (COVID-19)(PCR) NEGATIVE, Influenza Type A (RT-PCR) NEGATIVE, Influenza Type B (RT-PCR) NEGATIVE, Respiratory Syncytial Virus (PCR) NEGATIVE 06/07/21 21:46: Methicillin-Resist S.aureus DNA PCR NOT DETECTED 06/07/21 23:11: Blood Gas Bicarbonate Standard 21.6L, Arterial Blood pH 7.437, Arterial Blood Partial Pressure CO2 30.2L, Arterial Blood Partial Pressure O2 45.9*L, Arterial Blood Total CO2 20.8L, Arterial Blood HCO3 19.9L, Arterial Blood Base Excess - 3.1L, Arterial Blood Oxygen Saturation 82.2L 06/08/21 06:08: Nucleated Red Blood Cells % (auto) 0.0, Anion Gap 9, Glomerular Filtration Rate 57.8, Calcium Level 8.2L CBC/BMP Laboratory Tests 06/07/21 17:29 06/08/21 06:08 Microbiology Microbiology 06/07/21 Blood Culture, Received Pending 06/07/21 Blood Culture, Received Pending JOSE FLORES MD Jun 08, 2021 11:35
[2021-06-08] MEDS ORDERED: FUROSEMIDE 40MG/4ML VIAL (J1940) IV SCH (12:00)
[2021-06-08] MEDS: LEVALBUTEROL 1.25 MG/0.5 ML CONCENTRATE NEB INH SCH ×3 (12:00→20:51)
[2021-06-08] MEDS: LACTOBACILLUS ACIDOPHILUS CAP (BACID) PO SCH ×2 (13:20→18:00)
[2021-06-08] MEDS: APIXABAN 5 MG TAB (ELIQUIS) PO SCH ×2 (13:20→20:38)
[2021-06-08] MEDS: DOXYCYCLINE HYCLATE 100 MG in D5W MINI-BAG PLUS 100 ML IV SCH ×2 (13:22→23:43)
[2021-06-08] MEDS: methylPREDNISolone 125MG 2ML VIAL IV SCH ×3 (13:22→23:43)
[2021-06-08] MEDS: SLF 3 ML SYR IV SCH ×2 (14:00→21:36)
[2021-06-08] MEDS ORDERED: MIDODRINE 5 MG TAB PO ONE (14:05)
[2021-06-08] MEDS ORDERED: LIDOCAINE 1% MDV 20ML VIAL As Ordered ONE (14:23)
[2021-06-08 14:38] LABS: ABG BASE EXCESS -1.9 (-2.0-2.0); ABG HCO3 21.7 MEQ/L (22.0-26.0); ABG O2 SATURATION 90.3 % (95.0-99.0); ABG PARTIAL PRESSURE CO2 33.7 mmHg (35.0-45.0); ABG PARTIAL PRESSURE O2 56.5 mmHg (75.0-100.0); ABG STANDARD HCO3 22.7 MEQ/L (22.0-26.0); ABG TOTAL CO2 22.7 MEQ/L (23.0-31.0); ABG pH (ARTERIAL) 7.426 UNITS (7.350-7.450)
[2021-06-08 14:51] LABS: COMPLEMENT C3 115 MG/DL (90-180); COMPLEMENT C4 32 MG/DL (10-40); RHEUMATOID FACTOR QUANT < 10.0 IU/ML (<15.0)
--- NOTE | 2021-06-08 16:53 | CR.PDOC ---
General Date of Consultation: Jun 08, 2021 Referring Provider: JOSE FLORES MD Primary Care Physician: Cary Rodgers Attending Physician: JOSE FLORES MD Consultation REASON FOR CONSULTATION/CHIEF COMPLAINT: Hypoxic respiratory failure. HISTORY OF PRESENT ILLNESS: This is a 80-year-old lady with past medical history of tobacco abuse (quit smoking back in 2004), COPD, hypertension, hyperlipidemia who presented to the hospital on 06/07/2021 with shortness of breath. She has been experiencing the symptoms for the last 2 weeks. Her symptoms are progressive. Associated symptom include dry cough. She denies of fever, chills, chest pain, diaphoresis, orthopnea, PND, lower extremity swelling, hemoptysis, weight loss, night sweats. Upon arrival to the hospital patient was found to be profoundly hypoxic requiring significant amount of supplemental oxygen. There was no evidence of leukocytosis. Basic electrolytes are all within normal limit. She did have a chest x-ray that shows reticulation with interstitial pattern suggestive of pneumonia. This was follow-up with CT scan of the chest that shows bilateral groundglass opacities predominantly in the upper lobe with evidence of biapical emphysema. Patient was started on ceftriaxone and doxycycline for community- acquired pneumonia. She was also started on systemic corticosteroid. Pulmonary was consulted for further recommendation. Upon further questioning, patient has lived in the same house for the last 23 years. She has a cat at home for the last 3 years. She denies of any exposure to mold or mildew at home. She has not traveled anywhere recently. 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 She used to smoke for 30 years but quit smoking in 2004 as well. She denies any occupational exposure when she was working. She denies any new pets or allergy. She has not relocated anywhere recently. ALLERGIES: Please see below. HOME MEDICATIONS: Please see below. PAST MEDICAL HISTORY: 1. COPD. 2. Hypertension. 3. Hyperlipidemia. 4. Former tobacco abuse. PAST SURGICAL HISTORY: 1. Multiple joint surgeries including hip and knee surgery FAMILY HISTORY: Father: Healthy Mother: Her mother of emphysema. She used to be a smoker. Siblings: She has a sister who is healthy. Children: Her children are healthy. SOCIAL HISTORY: Marital status and/or living arrangements: Single living by herself. She is completely independent. Children: She has children. 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 Tobacco use: She used to smoke for 30 years but quit smoking in 2004. ETOH: Denies history of alcohol use Illicit drug use: Denies history of illicit drug use IV drug use: Denies history of IV drug use REVIEW OF SYSTEMS: CONSTITUTIONAL: Fatigue, denies fever, chill, night sweat, weight loss. HEENT: Denies sore throat or sinusitis. CARDIOVASCULAR: Denies chest pain or palpitation. RESPIRATORY: Positive for shortness of breath and dry cough. Denies hemoptysis, wheezing. GENITOURINARY: Denies dysuria. MUSCULOSKELETAL: Denies arthralgia or myalgia. Denies joint swelling GASTROINTESTINAL: Denies nausea, vomiting, abdominal pain, diarrhea. SKIN: Denies any skin rash or tattoo. NEUROLOGICAL: Denies any slurred speech or focal weakness. PSYCHIATRIC: Denies depression. ENDOCRINE: Denies weight change. HEMATOLOGIC/LYMPHATIC: Denies bleeding. PHYSICAL EXAMINATION: VITAL SIGNS: Please see below. GENERAL APPEARANCE: Appears stated age. Not in any acute distress. Alert and oriented x3. HEENT: Negative for cervical adenopathy. No evidence of JVD RESPIRATORY: Bilateral rhonchi predominantly in the upper lung field. CARDIOVASCULAR: Regular rate rhythm with no evidence of murmur. ABDOMEN: Soft nontender normoactive bowel sounds. EXTREMITIES: No evidence of clubbing of the fingers or lower extremity edema. NEUROLOGICAL: No focal neurological deficit. PSYCHIATRIC: Alert and oriented x3. LABORATORY DATA: Please see below. ASSESSMENT/PLAN: This is a 80-year-old lady with past medical history of tobacco abuse (quit s moking back in 2004), COPD, hypertension, hyperlipidemia who presented to the hospital on 06/07/2021 with shortness of breath. 1. Hypoxic respiratory failure. 2. Bilateral groundglass opacity predominantly in the upper lobe. 3. Suspected aspiration Plan: -Differential in her case include aspiration pneumonitis, ILD exacerbation, atypical pneumonia. If it is related to ILD, differential include hypersensitive pneumonitis, eosinophilic pneumonia, sarcoidosis. Her symptoms and presentation are fairly acute to subacute. I do not think this is a chronic process. Recommend sending autoimmune panel to look for CTDILD. I recommend continuing her on a short course of ceftriaxone and azithromycin as well as systemic cortical steroid. Also recommend speech and swallow evaluation. Vital Signs/I&O Vital Signs Date Time Temp Pulse Resp B/P (MAP) Pulse Ox O2 Delivery O2 Flow Rate FiO2 06/08/21 16:00 97.8 65 18 98/68 (78) 92 High Flow Cannula 8.0 06/07/21 23:30 100 I&O- Last 24 Hours up to 6 AM 06/08/21 06:00 Intake Total 460 ml Output Total 175 ml Balance 285 ml Laboratory Data Labs 24H Laboratory Tests 2 06/07/21 17:29: Immature Granulocyte % (Auto) 1.0, Neutrophils (%) (Auto) 83.5H, Lymphocytes (%) (Auto) 4.9L, Monocytes (%) (Auto) 9.7H, Eosinophils (%) (Auto) 0.5, Basophils (%) (Auto) 0.4, Neutrophils # (Auto) 9.1H, Lymphocytes # (Auto) 0.5L, Monocytes # (Auto) 1.1H, Eosinophils # (Auto) 0.1, Basophils # (Auto) 0.0, Nucleated Red Blood Cells % (auto) 0.0, Anion Gap 7L, Glomerular Filtration Rate 45.4, Calcium Level 8.4L, Total Bilirubin 0.8, Direct Bilirubin 0.2, Aspartate Amino Transf (AST/SGOT) 17, Alanine Aminotransferase (ALT/SGPT) 26, Alkaline Phosphatase 63, Total Creatine Kinase 72, Creatine Kinase MB 3.3, Creatine Kinase MB Relative Index 4.58H, Troponin I < 0.02, CT-Lad-I-Type Natriuretic Peptide 94969C, Total Protein 6.3L, Albumin 2.9L, Albumin/Globulin Ratio 0.9L, Thyroid Stimulating Hormone (TSH) 0.611 06/07/21 17:40: Coronavirus (COVID-19)(PCR) NEGATIVE, Influenza Type A (RT-PCR) NEGATIVE, Influenza Type B (RT-PCR) NEGATIVE, Respiratory Syncytial Virus (PCR) NEGATIVE 06/07/21 21:46: Methicillin-Resist S.aureus DNA PCR NOT DETECTED 06/07/21 23:11: Blood Gas Bicarbonate Standard 21.6L, Arterial Blood pH 7.437, Arterial Blood Partial Pressure CO2 30.2L, Arterial Blood Partial Pressure O2 45.9*L, Arterial Blood Total CO2 20.8L, Arterial Blood HCO3 19.9L, Arterial Blood Base Excess - 3.1L, Arterial Blood Oxygen Saturation 82.2L 06/08/21 06:08: Nucleated Red Blood Cells % (auto) 0.0, Anion Gap 9, Glomerular Filtration Rate 57.8, Calcium Level 8.2L 06/08/21 13:55: Erythrocyte Sedimentation Rate 43H, C-Reactive Protein, Quantitative 15.10H, Rheumatoid Factor < 10.0, Complement C3 115, Complement C4 32 06/08/21 14:30: Blood Gas Bicarbonate Standard 22.7, Arterial Blood pH 7.426, Arterial Blood Partial Pressure CO2 33.7L, Arterial Blood Partial Pressure O2 56.5L, Arterial Blood Total CO2 22.7L, Arterial Blood HCO3 21.7L, Arterial Blood Base Excess - 1.9, Arterial Blood Oxygen Saturation 90.3L CBC/BMP Laboratory Tests 06/07/21 17:29 06/08/21 06:08 Microbiology Microbiology 06/07/21 Blood Culture, Received Pending 06/07/21 Blood Culture, Received Pending Allergies Coded Allergies: No Known Allergies (Verified , 05/18/04) Home Medications Scheduled Amlodipine Besylate (Amlodipine Besylate) 2.5 Mg Tablet, 2.5 MG PO QHS, (Reported) Ascorbic Acid (Vitamin C) 500 Mg Tab, 500 MG PO DAILY, (Reported) Bupropion Hcl (Bupropion Xl) 150 Mg Tab.er.24h, 150 MG PO DAILY, (Reported) Buspirone HCl (Buspirone HCl) 10 Mg Tablet, 10 MG PO BID, (Reported) Fluticasone/Vilanterol (Breo Ellipta 100-25 Mcg INH) 1 Each Blst.w.dev, 1 PUFF INH DAILY, (Reported) Omeprazole (Omeprazole) 20 Mg Capsule.dr, 20 MG PO DAILY, (Reported) Sertraline Hcl (Zoloft) 100 Mg Tablet, 150 MG PO QHS, (Reported) Scheduled PRN Docusate Sodium (Colace) 100 Mg Cap, 100 MG PO BID PRN for CONSTIPATION, (Re ported) ROMAINE CAMERON MD Jun 08, 2021 16:53
[2021-06-08] MEDS ORDERED: VANCOMYCIN HCL 1,000 MG, VIAL MATE ADAPTER 1 EACH in NS 250 ML IV SCH (17:00)
--- NOTE | 2021-06-08 17:24 | REP ---
INDICATION: need levophed iv gtt dual lumen. COMPARISON: None. TECHNIQUE: The procedure was performed under the direct supervision of Dr. Carbone. The risks and benefits of the procedure were explained to the patient and informed consent was obtained. The right basilic vein was localized using ultrasound guidance. The skin was prepped and draped in a sterile fashion. 1 mL of 1% lidocaine was used as a local anesthetic. Using ultrasound guidance the basilic vein was cannulated and a 0.018 guidewire was inserted and advanced to the SVC using fluoroscopic guidance, and last image hold technology. The needle was removed and a 5 Syrian dilator and peel-away sheath was inserted over the guide wire. A 5 Syrian dual lumen catheter was cut to length of 35 cm. The dilator was removed and the catheter was inserted over the guide wire with the tip ending in the SVC. The peel-away sheath was removed and the catheter was flushed with heparinized saline as per Hospital protocol. The catheter was affixed to the skin and a sterile dressing was applied. Estimated blood loss: Less than 1 mL The patient tolerated the procedure well and there were no immediate complications. 0.5 minutes of fluoro time was utilized for this procedure. FINDINGS: None IMPRESSION: PICC line insertion right basilic vein with the tip ending in the SVC. <Electronically signed by Zachariah العلي > 06/08/21 [id number] <Electronically signed by Anish Carbone > 06/08/21 [id number]
[2021-06-08] MEDS ORDERED: LevoFLOXacin IV 750 MG in IV 1 EA IV SCH (18:00)
[2021-06-08 18:19] LABS: CALCIUM LEVEL 8.5 MG/DL (8.8-10.2); CREATININE FOR GFR 1.1 MG/DL (0.55-1.30); GLOMERULAR FILTRATION RATE 51.1 (>39); MAGNESIUM LEVEL 2.1 MG/DL (1.8-2.4); POTASSIUM SERUM 4.2 MEQ/L (3.5-5.1)
[2021-06-08] MEDS: SERTRALINE HCL 50 MG TAB PO SCH (20:39)
[2021-06-09] VITALS (12 sets, daily range): BP systolic 92–135; BP diastolic 61–77; O2SAT 76–92
[2021-06-09] MEDS: LEVALBUTEROL 1.25 MG/0.5 ML CONCENTRATE NEB INH SCH ×6 (04:00→20:21)
[2021-06-09] MEDS: SODIUM CHLORIDE 0.9% INJ 10 ML SYR IV SCH ×2 (05:08→17:43)
[2021-06-09] MEDS: SLF 3 ML SYR IV SCH ×2 (05:08→14:00)
[2021-06-09] MEDS: methylPREDNISolone 125MG 2ML VIAL IV SCH ×3 (05:09→17:42)
[2021-06-09 06:04] LABS: CALCIUM LEVEL 8.2 MG/DL (8.8-10.2); GLOMERULAR FILTRATION RATE 57.1 (>39); MAGNESIUM LEVEL 2.3 MG/DL (1.8-2.4); POTASSIUM SERUM 4.1 MEQ/L (3.5-5.1)
--- NOTE | 2021-06-09 08:40 | REP ---
INDICATION: sob. COMPARISON: 06/07/2021 also portable TECHNIQUE: Portable FINDINGS: The technique utilized in obtaining the radiograph has magnified the cardiac silhouette and accentuated the interstitial markings. The cardiomediastinal silhouette lung mccracken are unchanged. Bilateral lung field opacities again noted particularly right upper and left upper and lower lobe regions. No new abnormal opacities have developed. There is no change in the osseous structures. Since the last examination a right-sided PICC line catheter has been placed the tip of which is in the superior vena cava. IMPRESSION: No significant change in the chest. PICC line catheter as described above. <Electronically signed by Lefty Roberts > 06/09/21 [id number]
[2021-06-09] MEDS: cefTRIAXone SOD 2 GM in D5W MINI-BAG PLUS 50 ML IV SCH (10:00)
[2021-06-09] MEDS ORDERED: FUROSEMIDE injection 250 MG in D5W 225 ML IV SCH (10:00)
[2021-06-09] MEDS: APIXABAN 5 MG TAB (ELIQUIS) PO SCH ×2 (10:01→21:14)
[2021-06-09] MEDS: busPIRone 10 MG TAB PO SCH ×2 (10:01→21:14)
[2021-06-09] MEDS: LACTOBACILLUS ACIDOPHILUS CAP (BACID) PO SCH ×3 (10:01→17:42)
[2021-06-09] MEDS: OMEPRAZOLE 20 MG CAP PO SCH (10:01)
[2021-06-09] MEDS: buPROPion **XL** TABLET 150MG (WELLBUTRIN XL) PO SCH (10:01)
[2021-06-09] MEDS: SODIUM CHLORIDE 0.9% INJ 10 ML SYR IV PRN ×2 (11:11→14:59)
--- NOTE | 2021-06-09 11:57 | IPNPDOC ---
Date Seen The patient was seen on 06/09/21. Progress Note SUBJECTIVE: Patient continues to be hypoxic requiring 10 to 11 L of supplemental oxygen via nasal cannula due to low oxygen saturation of 88 to 90% on pulse oximetry. She continues to have increased secretions with persistent cough productive of white yellow-green sputum without fever chills overnight no significant change in her dyspnea despite IV steroids with Solu-Medrol and IV ceftriaxone and doxycycline. Denies any nausea vomiting headache chills or diarrhea. She complains of slight pleuritic chest pain with deep inspiration CT chest showed bilateral groundglass opacities and thoracic and lumbar compression fractures. Patient says she sees Dr. Farhan Hinojosa at [facility] who had operated on her previously she denies any neurological complaints of bilateral upper extremity paresthesias or motor dysfunction with weakness and does not wish this to be looked at during this admission. OBJECTIVE PHYSICAL EXAMINATION: VITAL SIGNS: Please see below. GENERAL: Mild respiratory distress some difficulty completing her sentences significant amount of oral secretions with frequent throat clearing HEENT: moist mucous membranes no thyromegaly or cervical lymphadenopathy CARDIOVASCULAR: S1-S2 irregularly irregular not tachycardic RESPIRATORY: Diminished breath sounds crackles bilaterally ABDOMINAL: Positive bowel sounds soft nontender nondistended EXTREMITIES: No cyanosis or clubbing LABORATORY DATA, IMAGING STUDIES, MICROBIOLOGY: Please see below. ASSESSMENT AND PLAN: 80-year-old female admitted 06/07/2021 with dyspnea Acute hypoxic respiratory failure secondary to possible atypical pneumonia versus pneumonitis -Chocolate Finisher consulted and recommended continuation of antibiotics and IV steroids with autoimmune or rheumatological work-up -Keep O2 sat at greater than 90% ideally 88 to 92% -May need Vapotherm with increasing FiO2 if saturations remain less than 88% on nasal cannula -CT chest showed no pulmonary embolism. -Groundglass opacities noted. Atypical pneumonia rule out aspiration pneumonia -Status post Levaquin -Started on ceftriaxone and azithromycin on 06/09/2021 -Awaiting results of urine Legionella antigen and streptococcal pneumonia antigen blood cultures x2 sets -Keep O2 saturations greater than 90% Bullous emphysema with acute COPD exacerbation -On supplemental oxygen IV steroids and antibiotics -Bronchodilators New onset CHF unknown ejection fraction -Awaiting echo report BNP was 17,000 most likely due to pulmonary hypertension from emphysema -Patient did not tolerate bolus Lasix with resultant low blood pressure of 85 mmHg yesterday given 1 dose of midodrine. -Diuresing well and will monitor for azotemia with repeat basic metabolic panel -BNP is improved to over 3000. Lasix drip to prevent hypoglycemia until patient is euvolemic New onset atrial fibrillation -Patient was given atenolol 50 mg x 1 and IV amiodarone due to low blood pressure -Rate controlled on atenolol 50 twice daily if blood pressure permits -On renally dose Eliquis twice daily -Reviewed TSH -Negative CT chest rule for PE Pulmonary hypertension -History of smoking -Awaiting report of 2D echo -Per rubber cutter acute groundglass opacities unlikely to be chronic illness Hypertension -Controlled Multiple thoracic and lumbar compression fractures -Assisted ambulation only -No neurological complaints -Medically unstable for any surgical intervention due to severe respiratory distress and hypoxia requiring 11 L of supplemental oxygen -Patient prefers to follow-up with her orthopedic surgeon Dr. Farhan Hinojosa of [facility] orthopedics once her respiratory status is improved VS, I&O, 24H, Fishbone Vital Signs/I&O Vital Signs Date Time Temp Pulse Resp B/P (MAP) Pulse Ox O2 Delivery O2 Flow Rate FiO2 06/09/21 11:37 130 108/77 (87) 92 High Flow Cannula 12.0 06/09/21 08:34 97.4 18 06/07/21 23:30 100 I&O- Last 24 Hours up to 6 AM 06/09/21 06:00 Intake Total 480 ml Output Total 700 ml Balance -220 ml Laboratory Data 24H LABS Laboratory Tests 2 06/08/21 13:55: Erythrocyte Sedimentation Rate 43H, C-Reactive Protein, Quantitative 15.10H, Rheumatoid Factor < 10.0, Complement C3 115, Complement C4 32 06/08/21 14:30: Blood Gas Bicarbonate Standard 22.7, Arterial Blood pH 7.426, Arterial Blood Partial Pressure CO2 33.7L, Arterial Blood Partial Pressure O2 56.5L, Arterial Blood Total CO2 22.7L, Arterial Blood HCO3 21.7L, Arterial Blood Base Excess - 1.9, Arterial Blood Oxygen Saturation 90.3L 06/08/21 17:44: Anion Gap 7L, Glomerular Filtration Rate 51.1, Calcium Level 8.5L, Magnesium Level 2.1 06/09/21 05:07: Anion Gap 8, Glomerular Filtration Rate 57.1, Calcium Level 8.2L, Magnesium Lev el 2.3, NQ-Wtn-G-Type Natriuretic Peptide 3861H CBC/BMP Laboratory Tests 06/08/21 17:44 06/09/21 05:07 Microbiology Microbiology 06/07/21 Blood Culture - Preliminary, Resulted No growth after 24 hours . All specim... 06/07/21 Blood Culture - Preliminary, Resulted No growth after 24 hours . All specim... JOSE FLORES MD Jun 09, 2021 11:55
[2021-06-09] MEDS: MIDODRINE 5 MG TAB PO SCH ×2 (12:00→17:42)
[2021-06-09] MEDS: DOXYCYCLINE HYCLATE 100 MG in D5W MINI-BAG PLUS 100 ML IV SCH (13:23)
[2021-06-09] MEDS ORDERED: AMIODARONE HCL 150 MG in IV 1 EA IV STA (14:17)
--- NOTE | 2021-06-09 16:43 | IPNPDOC ---
Subjective Date Seen The patient was seen on 06/09/21. Subjective Chief Complaint/HPI Patient states she's feeling better. She's less short of breath and not coughing as much. General: Denies: Chills, Fatigue Constitutional: Denies: Fever ENT: Denies: Post Nasal Drip, Sore Throat Skin: Denies: Rash Pulmonary: Reports: Dyspnea, Cough Cardiovascular: Denies: Chest Pain, Palpitations, Orthopnea Gastrointestinal: Denies: Nausea, Vomiting, Abdominal Pain Neurological: Denies: Weakness Objective Physical Examination General Exam: Positive: Alert, Cooperative, No Acute Distress Eye Exam: Negative: Sclera icteric ENT Exam: Positive: Atraumatic Neck Exam: Positive: Supple; Negative: JVD Chest Exam: Positive: Rales (bilateral rales) Heart Exam: Positive: Rate Normal, Regular Rhythm Abdomen Exam: Positive: Normal bowel sounds, Soft; Negative: Tenderness Extremity Exam: Negative: Clubbing, Cyanosis, Edema Skin Exam: Negative: Rash Neuro Exam: Positive: Normal Speech Psych Exam: Positive: Mental status NL, Oriented x 3 Assessment /Plan Assessment This is a 80-year-old lady with past medical history of tobacco abuse (quit smoking back in 2004), COPD, hypertension, hyperlipidemia who presented to the hospital on 06/07/2021 with shortness of breath. 1. Hypoxic respiratory failure. 2. 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 Suspected aspiration, hiatal hernia Plan/VTE VTE Prophylaxis Ordered?: Yes Plan -Differential in her case include aspiration pneumonitis, ILD exacerbation, atypical pneumonia. If it is related to ILD, differential include CTD-ILD, hypersensitive pneumonitis, eosinophilic pneumonia, sarcoidosis. Her symptoms and presentation are fairly acute to subacute. I do not think this is a chronic process. -pending swallow evaluation. She's going for Barium swallow tomorrow. -Autoimmune panel pending. -continue with sterid and abx. Disposition continue hospital care. VS, I&O, 24H, Fishbone Vital Signs/I&O Vital Signs Date Time Temp Pulse Resp B/P (MAP) Pulse Ox O2 Delivery O2 Flow Rate FiO2 06/09/21 14:07 144 18 110/70 (83) 93 High Flow Cannula 15.0 06/09/21 13:22 98.5 06/07/21 23:30 100 I&O- Last 24 Hours up to 6 AM 06/09/21 06:00 Intake Total 480 ml Output Total 700 ml Balance -220 ml Laboratory Data 24H LABS Laboratory Tests 2 06/08/21 17:44: Anion Gap 7L, Glomerular Filtration Rate 51.1, Calcium Level 8.5L, Magnesium Level 2.1 06/09/21 05:07: Anion Gap 8, Glomerular Filtration Rate 57.1, Calcium Level 8.2L, Magnesium Level 2.3, EE-Tzm-M-Type Natriuretic Peptide 3861H CBC/BMP Laboratory Tests 06/08/21 17:44 06/09/21 05:07 Microbiology Microbiology 06/07/21 Blood Culture - Preliminary, Resulted No growth after 24 hours . All specim... 06/07/21 Blood Culture - Preliminary, Resulted No growth after 24 hours . All specim... ROMAINE CAMERON MD Jun 09, 2021 16:43
[2021-06-09] MEDS ORDERED: LevoFLOXacin IV 750 MG in IV 1 EA IV SCH (18:00)
[2021-06-09] MEDS ORDERED: AMIODARONE HCL 150 MG in IV 1 EA IV ONE (19:00)
[2021-06-09] MEDS ORDERED: AMIODARONE HCL 360 MG in IV 1 EA IV SCH (19:00)
[2021-06-09] MEDS: SERTRALINE HCL 50 MG TAB PO SCH (21:14)
--- NOTE | 2021-06-09 23:32 | ECGEPIP ---
[facility] Test Date: 2021-06-08 Pat Name: TIMI VAZQUEZ Department: Room: [place] [address] Gender: Female Flare Maker: DAVID : 1940 Requested By: SERG Lanier Order Number: [id number] Reading MD: Arie Villasenor Measurements Intervals [place] Rate: 159 P: 83 NV: QRS: 128 QRSD: 82 T: -75 QT: 288 QTc: 468 Interpretive Statements Atrial fibrillation with rapid ventricle response. Right axis deviation Possible Anteroseptal infarct , age undetermined Nonspecific ST & T wave abnormality. Atrial fibrillation new compared with 06/07/2021. Electronically Signed on 06-09-2021 23:32:21 EDT by Arie Villasenor
--- NOTE | 2021-06-09 23:35 | ECGEPIP ---
[facility] Test Date: 2021-06-08 Pat Name: TIMI VAZQUEZ Department: Room: [place] [address] Gender: Female It Service Technician: hernan : 1940 Requested By: JOSE Mariano Order Number: [id number] Reading MD: Arie Villasenor Measurements Intervals [place] Rate: 147 P: [place]: QRS: 98 QRSD: 82 T: -56 QT: 296 QTc: 463 Interpretive Statements Atrial fibrillation with rapid ventricular response. Rightward axis Possible Anteroseptal infarct , age undetermined Nonspecific T Wave abnormality. No significant change compared with 06/08/2021 at 6:44 AM Electronically Signed on 06-09-2021 23:35:11 EDT by Arie Villasenor
[2021-06-10] VITALS (17 sets, daily range): BP systolic 118–140; BP diastolic 61–98; O2SAT 85–98
[2021-06-10] MEDS: LEVALBUTEROL 1.25 MG/0.5 ML CONCENTRATE NEB INH SCH ×6 (00:19→20:48)
[2021-06-10] MEDS: methylPREDNISolone 125MG 2ML VIAL IV SCH ×5 (00:56→23:16)
[2021-06-10] MEDS: SLF 3 ML SYR IV SCH ×4 (00:56→20:48)
[2021-06-10] MEDS: DOXYCYCLINE HYCLATE 100 MG in D5W MINI-BAG PLUS 100 ML IV SCH ×3 (00:57→23:17)
[2021-06-10] MEDS: AMIODARONE HCL 360 MG in IV 1 EA IV SCH ×2 (04:00→08:28)
[2021-06-10] MEDS: SODIUM CHLORIDE 0.9% INJ 10 ML SYR IV SCH ×2 (05:54→18:34)
[2021-06-10 06:43] LABS: CALCIUM LEVEL 8.2 MG/DL (8.8-10.2); CREATININE FOR GFR 1.06 MG/DL (0.55-1.30); GLOMERULAR FILTRATION RATE 53.4 (>39); MAGNESIUM LEVEL 2.3 MG/DL (1.8-2.4); POTASSIUM SERUM 3.9 MEQ/L (3.5-5.1)
[2021-06-10] MEDS: MIDODRINE 5 MG TAB PO SCH ×4 (08:00→16:00)
--- NOTE | 2021-06-10 08:00 | IPNPDOC ---
Date Seen The patient was seen on 06/10/21. Progress Note SUBJECTIVE: c/o confusion this am. says she didn't know where she was when she woke up this morning. on amiodarone iv gtt due to aflutter w rvr yesterday hr 140's bpm. improved today. no chest pain. sob same. still w productive cough and throat clearing all day yesterday. no fever or chills. OBJECTIVE PHYSICAL EXAMINATION: VITAL SIGNS: Please see below. GENERAL: mild distress but able to complete 6word sentences HEENT: moist mucous membranes no thyromegaly or cervical lymphadenopathy CARDIOVASCULAR: S1-S2 sinus today RESPIRATORY: Diminished breath sounds crackles bilaterally diminished AE. kyphosis ABDOMINAL: Positive bowel sounds soft nontender nondistended EXTREMITIES: No cyanosis or clubbing LABORATORY DATA, IMAGING STUDIES, MICROBIOLOGY: Please see below. ASSESSMENT AND PLAN: 80-year-old female admitted 06/07/2021 with dyspnea Acute hypoxic respiratory failure secondary to possible atypical pneumonia versus pneumonitis -on iv abx steroids -pulm consulted -keep o2 sat around 90% Atypical pneumonia rule out aspiration pneumonia -Status post Levaquin -on ceftriaxone and azithromycin on 06/09/2021 -checked urine Legionella antigen and streptococcal pneumonia antigen blood cultures x2 sets -Keep O2 saturations greater than 90% -awaiting modified barium swallow per speech recommendation Bullous emphysema with acute COPD exacerbation -On supplemental oxygen IV steroids and antibiotics -Bronchodilators New onset CHF unknown ejection fraction -on midodrine to increase MAP to allow diuresis. -did not tolerate lasix boluses -lasix iv gtt -keep net neg balance, i/o , weigh daily, 2l fluid restriction New onset atrial fibrillation/a flutter w rvr -refractory to atenolol -echo report pending -on eliquis -needed iv amio gtt for rate control due to low bp -started on midodrine to allow increase bp for beta johnny Pulmonary hypertension -History of smoking -Awaiting report of 2D echo -Per python programmer acute groundglass opacities appears acute Hypertension -Controlled Multiple thoracic and lumbar compression fractures -Assisted ambulation only -No neurological complaints -Medically unstable for any surgical intervention due to severe respiratory distress and hypoxia requiring 11 L of supplemental oxygen -Patient prefers to follow-up with her orthopedic surgeon Dr. Farhan Hinojosa of [facility] once her respiratory status is improved VS, I&O, 24H, Fishbonanita Vital Signs/I&O Vital Signs Date Time Temp Pulse Resp B/P (MAP) Pulse Ox O2 Delivery O2 Flow Rate FiO2 06/10/21 04:11 97.6 60 20 132/81 (98) 94 High Flow Cannula 15.0 06/07/21 23:30 100 I&O- Last 24 Hours up to 6 AM 06/10/21 06:00 Intake Total 1405 ml Output Total 1050 ml Balance 355 ml Laboratory Data 24H LABS Laboratory Tests 2 06/10/21 05:56: Anion Gap 6L, Glomerular Filtration Rate 53.4, Calcium Level 8.2L, Magnesium Level 2.3 CBC/BMP Laboratory Tests 06/10/21 05:56 Microbiology Microbiology 06/07/21 Blood Culture - Preliminary, Resulted No Growth after 48 hours. All Specime... 06/07/21 Blood Culture - Preliminary, Resulted No Growth after 48 hours. All Specime... JOSE FLORES MD Jun 10, 2021 08:00
[2021-06-10] MEDS: buPROPion **XL** TABLET 150MG (WELLBUTRIN XL) PO SCH (08:14)
[2021-06-10] MEDS: cefTRIAXone SOD 2 GM in D5W MINI-BAG PLUS 50 ML IV SCH (08:14)
[2021-06-10] MEDS: LACTOBACILLUS ACIDOPHILUS CAP (BACID) PO SCH ×3 (08:14→18:34)
[2021-06-10] MEDS: APIXABAN 5 MG TAB (ELIQUIS) PO SCH ×2 (08:14→20:47)
[2021-06-10] MEDS: OMEPRAZOLE 20 MG CAP PO SCH (08:14)
[2021-06-10] MEDS: busPIRone 10 MG TAB PO SCH ×2 (08:14→20:48)
[2021-06-10] MEDS ORDERED: VARIBAR PUDDING 40% w/v 230ML TUBE As Ordered ONE (10:20)
[2021-06-10] MEDS ORDERED: BARIUM SULFATE 700 MG TABLET (E-Z-DISK) As Ordered ONE (10:21)
[2021-06-10] MEDS ORDERED: VARIBAR NECTAR 40% w/v 240ML SUSP BTL As Ordered ONE (10:21)
[2021-06-10] MEDS ORDERED: E-Z-PAQUE 96% w/w SUSP 176GM BTL As Ordered ONE (10:21)
[2021-06-10] MEDS ORDERED: atenoloL 50 MG TAB PO SCH (11:20)
--- NOTE | 2021-06-10 11:29 | IPNPDOC ---
Subjective Date Seen The patient was seen on 06/10/21. Subjective Chief Complaint/HPI She states she's feeling better despite being on the same amount of oxygen. Has dry cough. Denies, fever, chills, chest pain, LE swelling. General: Denies: Chills Constitutional: Denies: Fever Skin: Denies: Rash Pulmonary: Reports: Dyspnea, Cough Cardiovascular: Denies: Chest Pain, Orthopnea, Edema Gastrointestinal: Denies: Nausea, Abdominal Pain, Diarrhea Objective Physical Examination General Exam: Positive: Alert, Cooperative, No Acute Distress Eye Exam: Negative: Sclera icteric ENT Exam: Positive: Atraumatic Neck Exam: Positive: Supple; Negative: JVD Chest Exam: Positive: Rales (bilateral rales), Rhonchi Heart Exam: Positive: Rate Normal, Regular Rhythm Abdomen Exam: Positive: Normal bowel sounds, Soft; Negative: Tenderness Extremity Exam: Negative: Clubbing, Cyanosis, Edema Skin Exam: Negative: Rash Neuro Exam: Positive: Normal Speech Psych Exam: Positive: Mental status NL, Oriented x 3 Assessment /Plan Assessment This is a 80-year-old lady with past medical history of tobacco abuse (quit smoking back in 2004), COPD, hypertension, hyperlipidemia who presented to the hospital on 06/07/2021 with shortness of breath. 1. Hypoxic respiratory failure. 2. 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 Suspected aspiration, hiatal hernia 4. New onset of A-fib Plan/VTE VTE Prophylaxis Ordered?: Yes Plan -Differential in her case include aspiration pneumonitis, ILD exacerbation, atypical pneumonia. If it is related to ILD, differential include CTD-ILD, hypersensitive pneumonitis, eosinophilic pneumonia, sarcoidosis. -pending swallow evaluation. She's going for Barium swallow today. -Autoimmune panel pending. -continue with sterid and abx. -would avoid pnuemotoxic drugs such as amiodarone if we can in the setting of acute respiratory failure and NSIP. Recommend alternative antiarrhythmic agent or rate control for her new onset of A-fib. Disposition continue hospital care. VS, I&O, 24H, Fishbone Vital Signs/I&O Vital Signs Date Time Temp Pulse Resp B/P (MAP) Pulse Ox O2 Delivery O2 Flow Rate FiO2 06/10/21 09:00 15.0 06/10/21 08:00 97.8 61 22 125/71 (89) 96 High Flow Cannula 06/07/21 23:30 100 I&O- Last 24 Hours up to 6 AM 06/10/21 06:00 Intake Total 1405 ml Output Total 1050 ml Balance 355 ml Laboratory Data 24H LABS Laboratory Tests 2 06/10/21 05:56: Anion Gap 6L, Glomerular Filtration Rate 53.4, Calcium Level 8.2L, Magnesium Level 2.3 CBC/BMP Laboratory Tests 06/10/21 05:56 Microbiology Microbiology 06/07/21 Blood Culture - Preliminary, Resulted No Growth after 48 hours. All Specime... 06/07/21 Blood Culture - Preliminary, Resulted No Growth after 48 hours. All Specime... ROMAINE CAMERON MD Jun 10, 2021 11:29
[2021-06-10] MEDS ORDERED: DIGOXIN INJ 0.5 MG/2 ML AMP (J1160) IV SCH (12:00)
[2021-06-10] MEDS: FUROSEMIDE injection 250 MG in D5W 225 ML IV SCH (12:41)
[2021-06-10] MEDS: METOPROLOL TART 25 MG TABLET PO SCH ×3 (12:42→23:17)
[2021-06-10 13:00] LABS: BASO % 0.1 % (0.0-1.0); HEMATOCRIT 40.2 % (36.0-47.0); HEMOGLOBIN 13.1 g/dl (12.0-15.5); LYMPH # 0.4 10^3/uL (1.5-5.0); LYMPH % 2.4 % (24.0-44.0); MEAN CORPUSCULAR HEMOGLOBIN 29.6 pg (27.0-33.0); MEAN CORPUSCULAR HGB CONC 32.6 g/dl (32.0-36.5); MONO # 0.4 10^3/uL (0.0-0.8); MONO % 2.8 % (2.0-8.0); NEUTROPHILS # 13.8 10^3/uL (1.5-8.5); NEUTROPHILS % 93.8 % (36.0-66.0); PLATELET COUNT, AUTOMATED 284 10^3/uL (150-450); RED BLOOD COUNT 4.42 10^6/uL (4.00-5.40); WHITE BLOOD COUNT 14.8 10^3/uL (4.0-10.0)
[2021-06-10] MEDS: SERTRALINE HCL 50 MG TAB PO SCH (20:48)
[2021-06-10] MEDS ORDERED: METOPROLOL 5 MG/5 ML VIAL IV STA (22:12)
[2021-06-11] VITALS (23 sets, daily range): BP systolic 96–140; BP diastolic 56–96; O2SAT 80–98
[2021-06-11] MEDS: LEVALBUTEROL 1.25 MG/0.5 ML CONCENTRATE NEB INH SCH ×6 (00:31→20:00)
[2021-06-11 05:15] LABS: BASO % 0.2 % (0.0-1.0); HEMATOCRIT 46.2 % (36.0-47.0); HEMOGLOBIN 15.4 g/dl (12.0-15.5); LYMPH # 0.5 10^3/uL (1.5-5.0); LYMPH % 3.1 % (24.0-44.0); MEAN CORPUSCULAR HEMOGLOBIN 29.8 pg (27.0-33.0); MEAN CORPUSCULAR HGB CONC 33.3 g/dl (32.0-36.5); MEAN CORPUSCULAR VOLUME 89.4 fl (80.0-96.0); MONO # 0.5 10^3/uL (0.0-0.8); NEUTROPHILS # 13.9 10^3/uL (1.5-8.5); NEUTROPHILS % 92.9 % (36.0-66.0); PLATELET COUNT, AUTOMATED 336 10^3/uL (150-450); RED BLOOD COUNT 5.17 10^6/uL (4.00-5.40)
[2021-06-11] MEDS: METOPROLOL TART 25 MG TABLET PO SCH ×4 (05:28→23:52)
[2021-06-11] MEDS: SODIUM CHLORIDE 0.9% INJ 10 ML SYR IV SCH ×2 (05:28→16:56)
[2021-06-11] MEDS: methylPREDNISolone 125MG 2ML VIAL IV SCH ×4 (05:29→23:53)
[2021-06-11] MEDS: SLF 3 ML SYR IV SCH ×3 (05:29→20:29)
[2021-06-11 05:33] LABS: CALCIUM LEVEL 8.3 MG/DL (8.8-10.2); CREATININE FOR GFR 1.28 MG/DL (0.55-1.30); GLOMERULAR FILTRATION RATE 42.9 (>39); MAGNESIUM LEVEL 2.2 MG/DL (1.8-2.4); POTASSIUM SERUM 3.7 MEQ/L (3.5-5.1)
--- NOTE | 2021-06-11 08:26 | REP ---
INDICATION: sob. COMPARISON: 06/09/2021. TECHNIQUE: Single portable AP view of the chest was performed. FINDINGS: Bilateral parenchymal opacities are stable. The heart mediastinum are unchanged. Right arm PICC line is again noted unchanged in position, with the tip in the superior vena cava. IMPRESSION: Stable exam. <Electronically signed by Anish Carbone > 06/11/21 0822
[2021-06-11] MEDS: cefTRIAXone SOD 2 GM in D5W MINI-BAG PLUS 50 ML IV SCH (08:33)
[2021-06-11] MEDS: MIDODRINE 5 MG TAB PO SCH ×3 (08:34→16:56)
[2021-06-11] MEDS: buPROPion **XL** TABLET 150MG (WELLBUTRIN XL) PO SCH (08:34)
[2021-06-11] MEDS: APIXABAN 5 MG TAB (ELIQUIS) PO SCH ×2 (08:34→20:28)
[2021-06-11] MEDS: LACTOBACILLUS ACIDOPHILUS CAP (BACID) PO SCH ×3 (08:34→16:56)
[2021-06-11] MEDS: OMEPRAZOLE 20 MG CAP PO SCH (08:34)
[2021-06-11] MEDS: busPIRone 10 MG TAB PO SCH ×2 (08:34→20:29)
[2021-06-11 09:22] LABS: ABG BASE EXCESS 4.7 (-2.0-2.0); ABG O2 SATURATION 91.5 % (95.0-99.0); ABG PARTIAL PRESSURE CO2 37.2 mmHg (35.0-45.0); ABG PARTIAL PRESSURE O2 59.2 mmHg (75.0-100.0); ABG STANDARD HCO3 28.5 MEQ/L (22.0-26.0); ABG TOTAL CO2 29.1 MEQ/L (23.0-31.0); ABG pH (ARTERIAL) 7.494 UNITS (7.350-7.450)
--- NOTE | 2021-06-11 10:18 | IPN ---
PROGRESS NOTE DATE: 06/11/2021 SUBJECTIVE: Sujatha is a 80-year-old female with severe hypoxic respiratory failure, prior history of emphysema and had a few days of not feeling well, presented to the Emergency Room with increased shortness of breath on the and since that time has had significant hypoxia. Currently, she is requiring 20 liters at 75% oxygen saturation on Vapotherm with her oxygen saturation being 93%. She is awake, talking full sentences without dyspnea. She is eating well. She states she feels better than she did when she first came in. She tells me that she is a DNR and would not want to be intubated on mechanical ventilation. She has an outpatient DNR. She states however she wants all therapy up until that point in time. She cannot recall having any preceding viral illnesses. No fevers. Her chest CT is consistent with increase interstitial markings and a pneumonitis type pattern at this point in time and it has not been determined whether this is a viral pneumonitis, hypersensitivity pneumonitis or an acute interstitial pneumonia. She is on high dose steroids. She remains on antibiotics. I discussed with the primary care physician about getting a procalcitonin and possibly deescalating off antibiotics as this does not appear to be bacterial in nature. She is not coughing up much sputum for testing, she states it is mostly clear thin mucous that she is coughing up. She has had no hemoptysis. She denies any chest pain. She has had no lower extremity edema although this is an occasional occurrence for her. OBJECTIVE: VITAL SIGNS: Temperature is 98.7, pulse 110, respiratory 18, blood pressure is 108/65 with a MAP of 79, oxygen saturations 93% on 20 liters at 0.75 FIO2 via Vapotherm. GENERAL: Awake, alert and oriented. Affect and mood appropriate. Nutrition and hygiene are good. HEENT: Oral and nasal mucosa pink and moist without lesions. Oropharynx without erythema or exudate. NECK: Supple. No tracheal deviation or mass. LYMPH NODES: No cervical, supraclavicular or axillary adenopathy. CARDIAC: Distant S1 without audible murmur, rub or gallop. No discernible elevated JVP. No systemic edema. PULMONARY: Decreased breath sounds throughout but surprisingly no rales. I do not auscultate any wheezes. There is increased thoracic kyphosis which causes an increased AP diameter of the chest. There is no prolongation of the expiratory phase. There is no accessory muscle use. Patient's breathing appears rested. ABDOMEN: Soft, nontender and nondistended. No hepatosplenomegaly. No masses or hernia. EXTREMITIES: No cyanosis, clubbing or edema. SKIN: No rashes, jaundice or bruising. MUSCULOSKELETAL: Normal for stated age with increased thoracic kyphosis as mentioned above, osteoarthritic changes without evidence of joint effusion. LABORATORY DATA: Laboratory evaluation shows a white blood cell count of 15.0, hemoglobin is 15.4, platelet count of 93, sodium is 140, potassium is 3.7, chloride 101, bicarbonate is 33, BUN 35, creatinine of 1.28. BNP was 3861. Glucose was 142. Chest CT from 06/08 shows diffuse emphysema in the background of a diffuse patchy ground-glass infiltrate. There are large amounts of food in the distal esophagus. There is no peripheral fibrosis to suggest IPF. Chest x-ray today shows increased interstitial markings without dependent edema. IMPRESSION: 1. Severe hypoxic respiratory failure likely from pneumonitis, it is difficult to know whether this is a viral pneumonitis, hypersensitivity pneumonitis or AIP. Workup has been initiated, I added a viral panel. Patient's prognosis is extremely guarded due to the severity of her hypoxia and her age, although clinically she appears better than her oxygen requirements tell us. I will add easy PAP and EzPAP and other devices to help recruit lung. 2. Advance directives. Patient states she is a DNR, does not want to be resuscitated and is willing to have therapy up until the point of resuscitation. At this point in time, this includes bilevel noninvasive therapy, however she is doing much better on Vapotherm.
[2021-06-11] MEDS: FUROSEMIDE injection 250 MG in D5W 225 ML IV SCH (12:00)
[2021-06-11] MEDS: DOXYCYCLINE HYCLATE 100 MG in D5W MINI-BAG PLUS 100 ML IV SCH ×2 (12:04→23:53)
[2021-06-11 12:12] LABS: ANA (HEP2) Negative (.); ANTI DS-DNA AB Negative (Negative); ANTINUCLEAR ANTIBODIES DIRECT Negative (Negative); CYCLIC CITRULLINATED PEPTIDE 4 units (0-19); RNP ANTIBODIES 0.3 AI (0.0-0.9); SJOGREN'S ANTI SS-A <0.2 AI (0.0-0.9); SJOGREN'S ANTI SS-B <0.2 AI (0.0-0.9); SMITH ANTIBODIES <0.2 AI (0.0-0.9)
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
[2021-06-11 17:49] LABS: IMMUNOGLOBULIN M 76.6 MG/DL (40-230)
[2021-06-11] MEDS: SERTRALINE HCL 50 MG TAB PO SCH (20:29)
[2021-06-12] VITALS (23 sets, daily range): BP systolic 105–148; BP diastolic 61–78; O2SAT 88–99
[2021-06-12] MEDS: LEVALBUTEROL 1.25 MG/0.5 ML CONCENTRATE NEB INH SCH ×7 (00:26→23:26)
[2021-06-12] MEDS: METOPROLOL TART 25 MG TABLET PO SCH ×4 (05:37→23:14)
[2021-06-12] MEDS: SLF 3 ML SYR IV SCH ×3 (05:38→20:25)
[2021-06-12] MEDS: SODIUM CHLORIDE 0.9% INJ 10 ML SYR IV SCH ×2 (05:38→18:07)
[2021-06-12] MEDS: methylPREDNISolone 125MG 2ML VIAL IV SCH ×4 (05:39→23:22)
[2021-06-12 06:16] LABS: BASO % 0.1 % (0.0-1.0); HEMOGLOBIN 14.1 g/dl (12.0-15.5); LYMPH # 0.3 10^3/uL (1.5-5.0); MEAN CORPUSCULAR HEMOGLOBIN 29.6 pg (27.0-33.0); MEAN CORPUSCULAR HGB CONC 33.6 g/dl (32.0-36.5); MEAN CORPUSCULAR VOLUME 88.1 fl (80.0-96.0); MONO # 0.4 10^3/uL (0.0-0.8); MONO % 3.6 % (2.0-8.0); NEUTROPHILS # 9.9 10^3/uL (1.5-8.5); NEUTROPHILS % 91.8 % (36.0-66.0); PLATELET COUNT, AUTOMATED 259 10^3/uL (150-450); RED BLOOD COUNT 4.77 10^6/uL (4.00-5.40); WHITE BLOOD COUNT 10.8 10^3/uL (4.0-10.0)
[2021-06-12 07:01] LABS: CALCIUM LEVEL 8.1 MG/DL (8.8-10.2); CREATININE FOR GFR 1.46 MG/DL (0.55-1.30); GLOMERULAR FILTRATION RATE 36.9 (>39); MAGNESIUM LEVEL 2.2 MG/DL (1.8-2.4); POTASSIUM SERUM 3.3 MEQ/L (3.5-5.1)
[2021-06-12] MEDS: MIDODRINE 5 MG TAB PO SCH ×3 (08:00→16:00)
[2021-06-12] MEDS ORDERED: POTASSIUM CHLORIDE 10 MEQ SR TABLET PO ONE (09:00)
[2021-06-12] MEDS: OMEPRAZOLE 20 MG CAP PO SCH (09:00)
[2021-06-12] MEDS: LACTOBACILLUS ACIDOPHILUS CAP (BACID) PO SCH ×3 (09:49→18:07)
[2021-06-12] MEDS: busPIRone 10 MG TAB PO SCH ×2 (09:50→20:24)
[2021-06-12] MEDS: cefTRIAXone SOD 2 GM in D5W MINI-BAG PLUS 50 ML IV SCH (09:50)
[2021-06-12] MEDS: buPROPion **XL** TABLET 150MG (WELLBUTRIN XL) PO SCH (09:51)
[2021-06-12] MEDS: APIXABAN 5 MG TAB (ELIQUIS) PO SCH ×2 (09:51→20:24)
--- NOTE | 2021-06-12 10:55 | IPN ---
PROGRESS NOTE DATE: 06/12/2021 SUBJECTIVE: Patient continues to require increasing amounts of oxygen, currently on Vapotherm with FIO2 of 75%. She still complains of shortness of breath, unable to get up and ambulate due to dyspnea. Patient denies any
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
--- NOTE | 2021-06-12 11:42 | IPN ---
PROGRESS NOTE DATE: 06/12/2021 SUBJECTIVE: Patient continues to require increasing amounts of oxygen, currently on Vapotherm with FIO2 of 75%. She still complains of shortness of breath, unable to get up and ambulate due to dyspnea. Cough is improved with decrease in sputum production. No fever or chills overnight. She denies any chest pain, pressure or tightness. OBJECTIVE: VITAL SIGNS: Temperature 96.8, pulse 58, respiratory rate 16, blood pressure 129/74, 91% on Vapotherm 20% flow rate, FIO2 of 75%. GENERAL: Patient is awake, alert and oriented to person, place and time. Positive use of respiratory accessory muscles, with conversational dyspnea of about 6-7 words. She currently has a face mask on Vapotherm. HEENT: Moist mucous membranes. No JVD, thyromegaly or cervical lymphadenopathy. LUNGS: Diminished bilateral crackles, kyphosis, diminished air entry bilaterally. HEART: S1, S2, irregularly irregular. Not tachycardic. No S3. ABDOMEN: Soft, nontender, nondistended. EXTREMITIES: No edema. INPUT/OUTPUT: Negative 1880 overnight. Current weight is 61.8 kilos. ASSESSMENT: This is a 80-year-old, do not resuscitate/do no intubate, female admitted with dyspnea on 06/07, found to have acute hypoxemic respiratory failure with Coronavirus being negative. Patient is found to have pneumonitis and possible atypical pneumonia. CURRENT ISSUES: 1. Acute hypoxic respiratory failure. 2. Atypical pneumonia. 3. Pneumonitis. 4. Bullous emphysema/COPD. 5. New onset CHF. 6. Atrial fibrillation with RVR; new onset. 7. Pulmonary hypertension. 8. Multiple thoracic and lumbar compression fractures. 9. Acute kidney injury secondary to over diuresis. 10.Hypokalemia secondary to Lasix. PLAN: Rheumatic workup was negative. DARRELL was negative. She is currently on I.V. steroids and being treated for atypical pneumonia. She is needing increasing amounts of supplemental oxygen, now at 75%. FIO2 on Vapotherm with saturation of 90% to 92%. Review of the CT by two pulmonologists; Dr. Dwight Melendez and Dr. Isaias Connelly, shows increase in interstitial markings. She has been diuresed and now has developed acute kidney injury and Lasix drip has been discontinued. Per pulmonologists, patient has a very poor oral prognosis due to her significant hypoxia. Await further recommendations from pulmonology. Patient has been given potassium supplement and Lasix has been discontinued. MTDD
[2021-06-12] MEDS: DOXYCYCLINE HYCLATE 100 MG in D5W MINI-BAG PLUS 100 ML IV SCH ×2 (12:05→23:22)
--- NOTE | 2021-06-12 16:42 | ECHO ---
ECHOCARDIOGRAM DATE OF PROCEDURE: 06/09/2021 Age: 80 Gender: Female Height: 150 cm Weight: 59 kg REFERRING PHYSICIAN: Dr. Roberta Avila INDICATION: Dyspnea unspecified MEASUREMENTS: Left atrium 3.9 cm Left atrial volume index 41 Intraventricular septum 1.31 cm Posterior wall 1.29 cm Aortic root 3.1 cm Aortic annulus 1.8 cm Inferior vena cava 1.2 cm 2D Doppler Measurements: No aortic regurgitation No aortic stenosis Aortic valve velocity 110 cm/s LVOT velocity 95.3 cm/s Very mild mitral regurgitation Severe tricuspid regurgitation Estimated right ventricular systolic pressure 64 mmHg Estimated aortic pressure 15 mmHg Pulmonic regurgitation MITRAL ANNULAR TISSUE DOPPLER E prime septal 6.2 cm/sec DESCRIPTION: Rhythm was either atrial flutter or atrial fibrillation with rapid ventricular response. No pericardial effusion. This was a moderately technically difficult echocardiogram. This was a 2D, M-mode, color flow Doppler and pulsed wave Doppler examination and included mitral annular tissue Doppler. CONCLUSIONS: 1. Hyperdynamic LV systolic function. LVEF 70-75% by visual estimate. Mild concentric left ventricular hypertrophy. No regional LV wall motion abnormalities. 2. Mild aortic valve sclerosis of a 3-cusp aortic valve. No aortic regurgitation. 3. Mild mitral annular calcification. Very mild mitral regurgitation. 4. Severe left atrial dilatation by left atrial volume index. 5. Suggestive of severe elevation of estimated right ventricular systolic pressure (estimated RV systolic pressure of 64 mmHg). Severe tricuspid regurgitation. Severe right atrial dilatation. Normal right ventricle size and systolic function.
[2021-06-12] MEDS: SERTRALINE HCL 50 MG TAB PO SCH (20:24)
[2021-06-13] VITALS (26 sets, daily range): BP systolic 105–170; BP diastolic 60–106; O2SAT 80–98
[2021-06-13] MEDS: LEVALBUTEROL 1.25 MG/0.5 ML CONCENTRATE NEB INH SCH ×6 (03:36→23:07)
[2021-06-13] MEDS: methylPREDNISolone 125MG 2ML VIAL IV SCH ×3 (05:06→17:14)
[2021-06-13] MEDS: METOPROLOL TART 25 MG TABLET PO SCH ×3 (05:06→17:15)
[2021-06-13] MEDS: SLF 3 ML SYR IV SCH (05:07)
[2021-06-13] MEDS: SODIUM CHLORIDE 0.9% INJ 10 ML SYR IV SCH ×2 (05:07→17:15)
[2021-06-13 05:33] LABS: HEMATOCRIT 40.5 % (36.0-47.0); HEMOGLOBIN 13.7 g/dl (12.0-15.5); LYMPH % 2.4 % (24.0-44.0); MEAN CORPUSCULAR HEMOGLOBIN 30.1 pg (27.0-33.0); MEAN CORPUSCULAR HGB CONC 33.8 g/dl (32.0-36.5); MONO % 3.8 % (2.0-8.0); NEUTROPHILS # 8.4 10^3/uL (1.5-8.5); NEUTROPHILS % 92.7 % (36.0-66.0); PLATELET COUNT, AUTOMATED 226 10^3/uL (150-450); RED BLOOD COUNT 4.55 10^6/uL (4.00-5.40); WHITE BLOOD COUNT 9.1 10^3/uL (4.0-10.0)
[2021-06-13 05:34] LABS: LYMPH # 0.2 10^3/uL (1.5-5.0); MONO # 0.3 10^3/uL (0.0-0.8)
[2021-06-13 05:58] LABS: CREATININE FOR GFR 1.1 MG/DL (0.55-1.30); GLOMERULAR FILTRATION RATE 51.1 (>39); MAGNESIUM LEVEL 2.4 MG/DL (1.8-2.4); POTASSIUM SERUM 3.9 MEQ/L (3.5-5.1)
--- NOTE | 2021-06-13 08:29 | IPNPDOC ---
Date Seen The patient was seen on 06/13/21. Progress Note SUBJECTIVE: decreased fio2 need overnight on vapotherm decreased from 75% to 65%. still sob but stable no cp, pressure. s no fever, cough, or chills. no pnd, orthopnea, or LE edema.still c/o kay. OBJECTIVE: VITAL SIGNS: see below GENERAL:conversational dyspnea no pallor or icterus HEENT: Moist mucous membranes. No JVD, thyromegaly or cervical lymphadenopathy. LUNGS:kyphosis no rales. diminished. b/l crackles unchanged HEART: S1, S2, irregularly irregular. Not tachycardic. No S3. ABDOMEN: Soft, nontender, nondistended. EXTREMITIES: No edema. INPUT/OUTPUT:reviewed ASSESSMENT: This is a 80-year-old, do not resuscitate/do no intubate, female admitted with dyspnea on 06/07, found to have acute hypoxemic respiratory failure with Coronavirus being negative. Patient is found to have pneumonitis and possible atypical pneumonia. CURRENT ISSUES: 1. Acute hypoxic respiratory failure. needing vapotherm 2. Atypical pneumonia. 3. Pneumonitis. r/o hypersensitivity pneumonitis 4. Bullous emphysema/COPD. 5. New onset CHF s/p lasix iv gtt 6. Atrial fibrillation with RVR; new onset, controlled 7. Pulmonary hypertension. 8. Multiple thoracic and lumbar compression fractures. 9. Acute kidney injury secondary to over diuresis, resolved 10.Hypokalemia secondary to Lasix, resolved PLAN: unknown etiology of pt's pneumonitis. hypersensitivy pneumonitis workup sent. pulmonolgist managing pt's acute hypoxia with conservative measures with iv abx w atypical coverage, iv steroids, but minimal clinical response. poor overall prognoses. afib is rate controlled and on eliquis. euvolemic off lasix due to recent hussein. cardiology dr orr recommended metoprolol. defer to pulm for further eval and mgt. pt is dnr dni. VS, I&O, 24H, Fishbone Vital Signs/I&O Vital Signs Date Time Temp Pulse Resp B/P (MAP) Pulse Ox O2 Delivery O2 Flow Rate FiO2 06/13/21 07:18 96 HVNI-Vapotherm 20.0 65 06/13/21 05:06 58 06/13/21 04:00 96.7 16 123/60 (81) I&O- Last 24 Hours up to 6 AM 06/13/21 06:00 Intake Total 1370 ml Output Total 650 ml Balance 720 ml Laboratory Data 24H LABS Laboratory Tests 2 06/12/21 09:57: 06/13/21 05:10: Immature Granulocyte % (Auto) 1.1, Neutrophils (%) (Auto) 92.7H, Lymphocytes (%) (Auto) 2.4L, Monocytes (%) (Auto) 3.8, Eosinophils (%) (Auto) 0.0, Basophils (%) (Auto) 0.0, Neutrophils # (Auto) 8.4, Lymphocytes # (Auto) 0.2L, Monocytes # (Auto) 0.3, Eosinophils # (Auto) 0.0, Basophils # (Auto) 0.0, Nucleated Red Blood Cells % (auto) 0.0, Anion Gap 4L, Glomerular Filtration Rate 51.1, Calcium Level 8.0L, Magnesium Level 2.4 CBC/BMP Laboratory Tests 06/13/21 05:10 Microbiology Microbiology 06/11/21 Respiratory Virus Panel (PCR) ([facility]) - Final, Complete 06/07/21 Blood Culture - Final, Complete NO GROWTH AFTER 5 DAYS 06/07/21 Blood Culture - Final, Complete NO GROWTH AFTER 5 DAYS JOSE FLORES MD Jun 13, 2021 08:13
[2021-06-13] MEDS: busPIRone 10 MG TAB PO SCH ×2 (08:31→20:15)
[2021-06-13] MEDS: APIXABAN 5 MG TAB (ELIQUIS) PO SCH ×2 (08:32→20:15)
[2021-06-13] MEDS: cefTRIAXone SOD 2 GM in D5W MINI-BAG PLUS 50 ML IV SCH (08:32)
[2021-06-13] MEDS: buPROPion **XL** TABLET 150MG (WELLBUTRIN XL) PO SCH (08:32)
[2021-06-13] MEDS: LACTOBACILLUS ACIDOPHILUS CAP (BACID) PO SCH ×3 (08:32→17:15)
[2021-06-13] MEDS: MIDODRINE 5 MG TAB PO SCH ×3 (08:32→15:52)
[2021-06-13] MEDS: OMEPRAZOLE 20 MG CAP PO SCH (08:32)
--- NOTE | 2021-06-13 10:19 | IPN ---
PULMONARY PROGRESS NOTE DATE OF SERVICE: 06/13/2021 SUBJECTIVE: Sujatha is resting when I come to her bedside. She states she is ambulating in her room. She continues to believe that she has slow improvement of her breathing. She is requiring less oxygen now at 0.65 at 20 liters minimal improvement. She has had no cough, fever, chills, no new respiratory symptoms, no lower extremity edema or calf pain. She remains on a Lasix drip and bicarb is increasing. This is prescribed by the primary team. OBJECTIVE: Temperature 96.7, pulse 58, respiratory rate 16, blood pressure 123/60, oxygen saturation 96% on 0.65 FiO2, 20 liters bled in. HEENT: Sclerae are clear and anicteric, pupils are equal and reactive to light. Mucous membranes are moist without lesions. Neck: Supple, no tracheal deviation or mass. No elevated JVP. No thyromegaly. Lymph: No cervical, supraclavicular or axillary adenopathy. Cardiac: Irregularly irregular S1 and S2 without audible murmur, rub or gallop. Pulmonary: Bibasilar rales, no rhonchi or wheeze, no dullness to percussion. Abdomen: Soft, nontender, nondistended, no hepatosplenomegaly, no masses or hernia. Extremities: No clubbing, cyanosis, or edema. Patient was net positive yesterday 870 mL; negative 1.8 liters the day before. LABORATORY DATA: Laboratory evaluation shows: Sodium 145, potassium 3.9, chloride 108, bicarb 33, BUN 51, creatinine 1.10. White count is down to 9.1, hemoglobin 13.7, hematocrit 40.5 with a platelet count of 226. RADIOLOGY STUDIES: No imaging today. IMPRESSION AND PLAN: Severe hypoxic respiratory failure likely secondary to acute interstitial pneumonia versus NSIP: A hypersensitive pneumonitis panel is still pending as part of the differential. There is no evidence of rheumatologic disease. Rheumatoid panel was unremarkable. Viral panel was also unremarkable. I do not believe she has evidence of bacterial infection. Awaiting procalcitonin level to deescalate antibiotics. I decreased her Solu-Medrol as she has had some clinical improvement to 60 q6h from 80 q6h. This should be tapered as the patient continues to improve. We will continue to follow.
[2021-06-13] MEDS: DOXYCYCLINE HYCLATE 100 MG in D5W MINI-BAG PLUS 100 ML IV SCH (11:55)
[2021-06-13] MEDS: SERTRALINE HCL 50 MG TAB PO SCH (20:15)
[2021-06-13] MEDS ORDERED: METOPROLOL 5 MG/5 ML VIAL IV STA (20:42)
[2021-06-14] VITALS (23 sets, daily range): BP systolic 111–140; BP diastolic 61–76; O2SAT 72–100
[2021-06-14] MEDS: methylPREDNISolone 125MG 2ML VIAL IV SCH ×4 (01:45→17:42)
[2021-06-14] MEDS: DOXYCYCLINE HYCLATE 100 MG in D5W MINI-BAG PLUS 100 ML IV SCH (01:45)
[2021-06-14] MEDS: LEVALBUTEROL 1.25 MG/0.5 ML CONCENTRATE NEB INH SCH ×6 (03:01→23:47)
[2021-06-14 04:17] LABS: BASO % 0.1 % (0.0-1.0); HEMATOCRIT 39.2 % (36.0-47.0); LYMPH # 0.3 10^3/uL (1.5-5.0); LYMPH % 1.9 % (24.0-44.0); MEAN CORPUSCULAR HEMOGLOBIN 29.7 pg (27.0-33.0); MEAN CORPUSCULAR HGB CONC 33.2 g/dl (32.0-36.5); MEAN CORPUSCULAR VOLUME 89.5 fl (80.0-96.0); MONO # 1.1 10^3/uL (0.0-0.8); MONO % 7.5 % (2.0-8.0); NEUTROPHILS % 89.7 % (36.0-66.0); PLATELET COUNT, AUTOMATED 214 10^3/uL (150-450); RED BLOOD COUNT 4.38 10^6/uL (4.00-5.40); WHITE BLOOD COUNT 14.5 10^3/uL (4.0-10.0)
[2021-06-14 04:37] LABS: BLOOD UREA NITROGEN 43 MG/DL (7-18); CARBON DIOXIDE LEVEL 32 MEQ/L (21-32); CHLORIDE LEVEL 107 MEQ/L (98-107); CREATININE FOR GFR 0.92 MG/DL (0.55-1.30); GLOMERULAR FILTRATION RATE > 60.0 (>39); GLUCOSE, FASTING 109 MG/DL (70-100); MAGNESIUM LEVEL 2.3 MG/DL (1.8-2.4); POTASSIUM SERUM 4.2 MEQ/L (3.5-5.1); SODIUM LEVEL 145 MEQ/L (136-145)
[2021-06-14] MEDS: METOPROLOL TART 25 MG TABLET PO SCH ×4 (05:18→17:41)
[2021-06-14] MEDS: SODIUM CHLORIDE 0.9% INJ 10 ML SYR IV SCH ×2 (05:19→17:42)
--- NOTE | 2021-06-14 08:10 | REP ---
INDICATION: pneumonitis COMPARISON: 06/11/2021 TECHNIQUE: PA and lateral. FINDINGS: Right PICC line in stable position. Mediastinum and cardiac silhouette are stable. Chronic changes with bilateral parenchymal opacities are relatively unchanged. No new acute process appreciated. Skeletal structures again demonstrate osteopenia, advanced kyphosis, chronic compression fractures, and old healed sternal fracture. IMPRESSION: No significant change from prior examination. <Electronically signed by Froylan Hayward > 06/14/21 0806
--- NOTE | 2021-06-14 09:27 | IPN ---
PROGRESS NOTE DATE: 06/07/2021 SUBJECTIVE: Patient said she had night sweats last night and heart rate was uncontrolled; given one dose of metoprolol; documented at 2053 to be 124 beats per minute; atrial fibrillation with rapid ventricular response (RVR). Patient otherwise denies any worsening shortness of breath. Remains on Vapotherm with FiO2 of 65%. Input and output have been reviewed. She remained in positive balance for the past three days. OBJECTIVE: Vital Signs: Temperature 97.3, pulse 54, respiratory 20, blood pressure 133/69, 87% on 65% FiO2 Vapotherm, 20 liters nasal cannula. GENERAL: Patient is sitting up, 45 degree angle, having her breakfast in bed. She has no tripod positioning today. She does continue to have some conversational dyspnea but able to speak about eight words before taking a deep breath. She appears to be much more comfortable. No jugular venous distension (JVD) noted. Dry mucous membranes. LUNGS: Diminished. She has some kyphosis and some coarse rhonchi bilaterally. HEART: S1, S2; irregularly irregular; bradycardic. ABDOMEN: Soft, nontender, nondistended. Positive bowel sounds. EXTREMITIES: No cyanosis, clubbing or pitting edema. Laboratory data, microbiology and imaging studies have been reviewed. ASSESSMENT AND PLAN: This is a 80-year-old female, DO NOT RESUSCITATE (DNR)/DO NOT INTUBATE (DNI) admitted on 06/07/2021 with complains of dyspnea; was found to have severe acute hypoxic respiratory failure with coronavirus being negative; initially treated for atypical pneumonia with doxycycline and ceftriaxone; started on IV steroids. CT chest showed atypical pneumonitis, possibly hypersensitivity but now diagnosed with acute interstitial pneumonia. CURRENT ACUTE ISSUES: 1. Acute hypoxic respiratory failure currently on Vapotherm, FiO2 of 65% followed by refractory manager, Dr. Connelly. Rheumatologic workup had been negative. Hypersensitivity panel has been sent. 2. Acute interstitial pneumonia Research Manager does not believe that this is a bacterial infection; awaiting procalcitonin level; currently being treated with ceftriaxone and doxycycline. Procalcitonin is still pending; will deescalate as needed. 3. Elevated brain natriuretic peptide (BNP) with new-onset congestive heart failure in the setting of atrial fibrillation with rapid ventricular response (RVR). Patient's echocardiogram has been reviewed. She has severe tricuspid regurgitation with ejection fraction of 70-75%; had been diuresed with IV Lasix due to hypotension and subsequently been negative; off Lasix now due to acute kidney injury with renal function coming back to normal at 0.92. Brain natriuretic peptide (BNP) level on admission was 17,544; brain natriuretic peptide (BNP) as of 06/11/2021 was 4594. Repeat chest x-ray is unchanged. 4. Atrial fibrillation with rapid ventricular response (RVR)/atrial flutter with rapid ventricular response (RVR). Dr. Schmitz had been consulted and agreed with metoprolol 25 every six hours. Due to prior hypotension, patient was kept on midodrine, which we will decrease to 5 mg three times a day today since her mean arterial pressure is greater than 90. 5. Chronic obstructive pulmonary disease (COPD)/emphysema complicating care, currently on IV steroids. MTDD
[2021-06-14] MEDS: buPROPion **XL** TABLET 150MG (WELLBUTRIN XL) PO SCH (09:42)
[2021-06-14] MEDS: LACTOBACILLUS ACIDOPHILUS CAP (BACID) PO SCH ×3 (09:42→17:41)
[2021-06-14] MEDS: cefTRIAXone SOD 2 GM in D5W MINI-BAG PLUS 50 ML IV SCH (09:42)
[2021-06-14] MEDS: OMEPRAZOLE 20 MG CAP PO SCH (09:42)
[2021-06-14] MEDS: APIXABAN 5 MG TAB (ELIQUIS) PO SCH ×2 (09:42→20:29)
[2021-06-14] MEDS: MIDODRINE 5 MG TAB PO SCH ×3 (09:42→15:49)
[2021-06-14] MEDS: busPIRone 10 MG TAB PO SCH ×2 (10:43→20:29)
[2021-06-14] MEDS ORDERED: CALCIUM CARBONATE 500 MG CHEW U/D PO PRN (12:30)
--- NOTE | 2021-06-14 13:34 | IPN ---
PULMONARY PROGRESS NOTE DATE: 06/14/2021 SUBJECTIVE: The patient was seen and examined this morning during bedside rounds. Patient reported yesterday overnight having an episode of heartburn and reflux. She was also noted to have an episode of tachycardia on telemetry with an episode of atrial fibrillation with rapid ventricular response with a heart rate in the 120s. She denied having any palpitations at that time, but felt her symptoms may have been triggered by her heartburn and reflux overnight. She does have a history of persistent heartburn and reflux symptoms chronically. She had not noticed any significant chest pain or worsening shortness of breath or dyspnea. She did not have any fevers overnight. She continued to have an occasional cough with no significant sputum production. She does in general feel her breathing has been improving in terms of her dyspnea. She has not had any abdominal pain, no nausea or vomiting and no symptoms of dysphagia. PHYSICAL EXAMINATION: Vitals: Temperature 97.3, pulse 54, respirations 20, blood pressure 133/69, O2 sat is 97% on 20 liters a minute and 65% FiO2. In 1.2 liters, out 1.2 liters. General: Patient is an elderly female sitting in bed in no acute distress. She is able to speak in short sentences and does not appear to be using any accessory muscles for respiration currently. Patient is awake, alert and oriented times 3. HEENT: Normocephalic, atraumatic. Pupils are reactive to light bilaterally. Moist mucous membranes noted. Neck: Supple, no palpable cervical adenopathy and no JVD appreciated. Cardiac: Irregularly irregular normal S1 and S2 with no appreciable murmurs. Pulmonary: There are fine crackles noted bilaterally in the bases. There is no significant rhonchi. There is a coarse intermittent inspiratory wheeze. Abdomen: Soft, nontender, nondistended. No palpable masses. Extremities: There is +1 to 2 pitting edema in the ankles bilaterally. LABS: WBC 14.5, hemoglobin 13, platelets 214. Chemistries: Sodium 145, potassium 4.2, chloride 107, bicarb 32, BUN 43, creatinine 0.92, glucose 109. IMAGING: No images today. ASSESSMENT AND PLAN: Miss Strickland is a 80-year-old female with a history of hypertension, hyperlipidemia and prior nicotine dependence who presented with worsening shortness of breath and dyspnea for several weeks as well as a cough. Patient was found to have acute hypoxemic respiratory failure on admission with concern on imaging for possible pneumonitis versus pneumonia or pulmonary edema. Acute hypoxemic respiratory failure: Patient's CT shows chronic emphysematous changes as well as some areas of fibrosis. Patient did have areas of bilateral ground glass opacity and so there was concern for a possible acute interstitial pneumonitis versus an NSIP. There was also suspicion initially for a possible infection or pulmonary edema and patient has been on broad spectrum antibiotics and was also on diuretics. Patient is on antibiotics currently with ceftriaxone and doxycycline. We will follow up the procalcitonin and if negative we will likely discontinue antibiotics. We will continue patient on corticosteroids. Her steroids have been tapered down to Solu-Medrol 60 mg q6h and we will continue tapering corticosteroids. We will continue patient on nebulized bronchodilators. Continue with incentive spirometer and acapella device. Patient is on high flow nasal cannula oxygen and we will continue to taper and wean her down on the oxygen supplementation to maintain an O2 sat above 90%. Patient's initial CT did show a dilated esophagus with material within it. She has a history of chronic heartburn and reflux and suspect she did have a degree of perhaps reflux and aspiration contributing to some of her findings clinically as well as a potential contribution to acute pneumonitis. We did discuss head of bed elevation and continue her on PPI. We will also add additional p.r.n. medication for her heartburn and reflux as needed. Patient was on diuretics initially given concern for possible pulmonary edema with increased BNP. She had developed some AMAURI so her diuretics were on-hold and her renal function has improved. She does have some pitting edema in her ankles today so would continue to closely monitor and consider p.r.n. diuretics as needed. DVT prophylaxis on AC with Eliquis. CODE STATUS: DNR/DNI.
[2021-06-14] MEDS: SERTRALINE HCL 50 MG TAB PO SCH (20:29)
[2021-06-15] VITALS (21 sets, daily range): BP systolic 100–152; BP diastolic 60–76; O2SAT 75–97
[2021-06-15] MEDS: methylPREDNISolone 125MG 2ML VIAL IV SCH ×5 (00:13→23:31)
[2021-06-15] MEDS: LEVALBUTEROL 1.25 MG/0.5 ML CONCENTRATE NEB INH SCH ×5 (03:05→19:57)
[2021-06-15 05:02] LABS: BASO % 0.1 % (0.0-1.0); HEMATOCRIT 40.4 % (36.0-47.0); LYMPH # 0.3 10^3/uL (1.5-5.0); LYMPH % 2.6 % (24.0-44.0); MEAN CORPUSCULAR HEMOGLOBIN 29.3 pg (27.0-33.0); MEAN CORPUSCULAR HGB CONC 32.2 g/dl (32.0-36.5); MEAN CORPUSCULAR VOLUME 91.2 fl (80.0-96.0); MONO # 0.4 10^3/uL (0.0-0.8); MONO % 3.9 % (2.0-8.0); NEUTROPHILS # 10.2 10^3/uL (1.5-8.5); NEUTROPHILS % 92.4 % (36.0-66.0); PLATELET COUNT, AUTOMATED 200 10^3/uL (150-450); RED BLOOD COUNT 4.43 10^6/uL (4.00-5.40); WHITE BLOOD COUNT 11.1 10^3/uL (4.0-10.0)
[2021-06-15 05:22] LABS: BLOOD UREA NITROGEN 36 MG/DL (7-18); CALCIUM LEVEL 7.8 MG/DL (8.8-10.2); CARBON DIOXIDE LEVEL 34 MEQ/L (21-32); CHLORIDE LEVEL 107 MEQ/L (98-107); CREATININE FOR GFR 0.75 MG/DL (0.55-1.30); GLOMERULAR FILTRATION RATE > 60.0 (>39); GLUCOSE, FASTING 114 MG/DL (70-100); MAGNESIUM LEVEL 2.4 MG/DL (1.8-2.4); POTASSIUM SERUM 4.6 MEQ/L (3.5-5.1); SODIUM LEVEL 143 MEQ/L (136-145)
[2021-06-15] MEDS: METOPROLOL TART 25 MG TABLET PO SCH ×3 (05:57→18:00)
[2021-06-15] MEDS: SODIUM CHLORIDE 0.9% INJ 10 ML SYR IV SCH ×2 (06:05→17:59)
[2021-06-15] MEDS: buPROPion **XL** TABLET 150MG (WELLBUTRIN XL) PO SCH (08:59)
[2021-06-15] MEDS: OMEPRAZOLE 20 MG CAP PO SCH (08:59)
[2021-06-15] MEDS: APIXABAN 5 MG TAB (ELIQUIS) PO SCH ×2 (08:59→20:20)
[2021-06-15] MEDS: MIDODRINE 5 MG TAB PO SCH ×3 (08:59→17:59)
[2021-06-15] MEDS: LACTOBACILLUS ACIDOPHILUS CAP (BACID) PO SCH ×3 (08:59→17:59)
[2021-06-15] MEDS: busPIRone 10 MG TAB PO SCH ×2 (09:00→20:20)
[2021-06-15] MEDS ORDERED: TORSEMIDE 20 MG TAB PO SCH ×2 (09:00→17:00)
--- NOTE | 2021-06-15 10:29 | IPN ---
PROGRESS NOTE DATE: 06/15/2021 SUBJECTIVE: Sujatha is seen in the PCU, I reviewed her hospitalization and records to date. She is a 80-year-old with COPD/emphysema admitted with hypersensitivity/acute interstitial pneumonia and tapering dose of steroids still requiring Vapotherm but decreasing oxygen requirements. She has been followed by Pulmonology, Dr. Schmitz from Cardiology has seen her as well, that note is still pending. She did have an exacerbation of diastolic congestive heart failure in the context of atrial fibrillation with rapid ventricular response. She seems to have diuresed her way out of that. She currently is on a stable dose of torsemide. She is anticoagulated with Eliquis, no epistaxis, rectal bleeding or urinary bleeding. She has had some bradycardic episodes on her metoprolol. Heart rates are down into the 40s. I am reducing the dose of her metoprolol today. Denies significant cough. She says she is still short of breath but better than yesterday. OBJECTIVE: VITAL SIGNS: Blood pressure 117/70, pulse 55, respiratory rate 20, 93% O2 saturation. GENERAL: She is alert and conversant. NECK: There is no JVD. LUNGS: Scattered rhonchi. HEART: Regular rate and rhythm, rate around 70. ABDOMEN: Soft, nontender, no masses. No peripheral edema. LABORATORY DATA: White count 11.1, hemoglobin 13, platelets 200,000. Sodium is 143, potassium is 4.6, BUN 36, creatinine is 0.75. Creatinine has been steadily improving from 06/12. IMPRESSION: 1. Acute interstitial pneumonia, clinically improved on her current regimen which includes intravenous steroids which are being tapered with the assistance of Pulmonology. 2. Atrial fibrillation, she is intermittently bradycardic now. I am reducing the dose of metoprolol. She is on Eliquis for DVT prophylaxis. 3. Congestive heart failure, preserved ejection fraction. She is currently stable on the current dose of torsemide. Renal function is improved on a daily basis. She got a little dry a few days ago and this is improved. 4. Acute kidney injury, this is resolved by reducing the dose of her diuretic. ADDENDUM: Antibiotics were discontinued yesterday, this was her first full day off antibiotic coverage.
[2021-06-15] MEDS: guaiFENesin ER 600 MG TAB PO SCH ×2 (10:54→20:20)
--- NOTE | 2021-06-15 13:56 | IPN ---
PULMONARY PROGRESS NOTE DATE: 06/15/2021 SUBJECTIVE: Patient was seen and examined this morning during bedside rounds. Overnight, the patient did not have any reported acute events. She denied noticing any significant chest pain or worsening dyspnea. She does continue to have an occasional cough and does feel that her mucous has been looser although she does have difficulty at times expectorating it. She does notice some more mucous production compared to previously. She has not had any fevers or chills overnight. She denied any abdominal pain, no nausea or vomiting. OBJECTIVE: VITAL SIGNS: Temperature is 97.5, pulse is 47, respirations are 20, blood pressure is 152/72. O2 sat is 97% on 18 liters a minute and 60% FIO2. INPUT AND OUTPUT: In 1.1 liters, out 200 ml, net positive 910 ml. GENERAL: Patient is an elderly female who is sitting in bed and speaking in short complete sentences. She does not appear to be in any acute respiratory distress but does occasionally have some pursed lip breathing. She is awake, alert and oriented x3. HEENT: Normocephalic, atraumatic. Pupils react to light bilaterally. Moist mucous membranes. NECK: Supple. No palpable cervical adenopathy. CARDIAC: Irregularly irregular. Normal S1 and S2 with no appreciable murmurs. PULMONARY: Patient has fine crackles noted in the bases bilaterally. She also has some coarse occasional rhonchi noted now bilaterally. ABDOMEN: Soft, nontender and nondistended. No palpable masses. EXTREMITIES: Patient has +1 pitting edema in the ankles bilaterally. LABORATORY DATA: WBC is 11.1, hemoglobin is 13.0, platelets are 200,000. Chemistries: Sodium is 143, potassium is 4.5, chloride is 107, bicarbonate is 34, BUN 36, creatinine 0.75, glucose is 114. Procalcitonin was less than 0.05. Hypersensitivity pneumonitis panel is pending. QuantiFERON gold is pending. ASSESSMENT AND PLAN: Mr. Strickland is a 80-year-old female with a history of hypertension, hyperlipidemia, and prior nicotine dependence who presented with worsening shortness of breath and dyspnea as well as a cough for several weeks. Patient had acute hypoxemic respiratory failure on admission with imaging findings concerning for possible pneumonitis versus pneumonia versus pulmonary edema. 1. Acute hypoxemic respiratory failure with CT imaging showing chronic emphysematous changes as well as some areas of fibrosis. There was also bilateral ground-glass opacity and concern for an acute interstitial pneumonitis versus NSIP. There was also a concern as well for pulmonary edema as the patient did have significantly elevated BNP on admission. She was treated with antibiotics as well as with high dose corticosteroids and initially was on Lasix for diuresis. She has been on high flow nasal cannula oxygen and has had some slow improvement in her oxygen requirements. Antibiotics have been discontinued with her normal procalcitonin. She has already received Ceftriaxone and Azithromycin for about a week. The patient is on Solu-Medrol, will be weaned down to 40 mg q. 6 hours but will need very slow tapering of corticosteroids. The patient has been noted to have some pitting edema in her ankles and lower extremities today. She did have significantly elevated BNP on admission which did improve with aggressive diuresis. She did develop AMAURI and so diuretics have been on hold and her renal function has now improved. Will restart with more gentle diuresis as she has been net positive. Will start her on torsemide 20 mg b.i.d. and continue to monitor her urine output and renal function. Will continue with high flow nasal cannula oxygen with Vapotherm and continue weaning down her FIO2 and flow rates as tolerated to maintain an O2 sat above 88%. Continue with aspiration precautions and head of bed elevation and with PPI. She was added additional medications for heartburn and reflux as needed. Will continue with nebulized bronchodilators. Will add Mucinex to help with her mucous clearance. She is using an Acapella device and incentive spirometer which we will encourage her to continue. 2. DVT prophylaxis, on anticoagulation with Eliquis. 3. Code Status: DNR/DNI.
[2021-06-15] MEDS: SERTRALINE HCL 50 MG TAB PO SCH (20:20)
[2021-06-16] VITALS (19 sets, daily range): BP systolic 99–134; BP diastolic 56–90; O2SAT 85–97
[2021-06-16] MEDS: LEVALBUTEROL 1.25 MG/0.5 ML CONCENTRATE NEB INH SCH ×6 (00:04→20:00)
[2021-06-16 05:25] LABS: BASO % 0.2 % (0.0-1.0); HEMATOCRIT 44.3 % (36.0-47.0); HEMOGLOBIN 14.5 g/dl (12.0-15.5); LYMPH # 0.4 10^3/uL (1.5-5.0); LYMPH % 3.1 % (24.0-44.0); MEAN CORPUSCULAR HEMOGLOBIN 29.4 pg (27.0-33.0); MEAN CORPUSCULAR HGB CONC 32.7 g/dl (32.0-36.5); MEAN CORPUSCULAR VOLUME 89.7 fl (80.0-96.0); MONO # 0.7 10^3/uL (0.0-0.8); MONO % 5.1 % (2.0-8.0); NEUTROPHILS # 11.7 10^3/uL (1.5-8.5); NEUTROPHILS % 90.4 % (36.0-66.0); PLATELET COUNT, AUTOMATED 240 10^3/uL (150-450); RED BLOOD COUNT 4.94 10^6/uL (4.00-5.40)
[2021-06-16] MEDS: METOPROLOL TART 25 MG TABLET PO SCH ×2 (06:00→17:36)
[2021-06-16] MEDS: methylPREDNISolone 125MG 2ML VIAL IV SCH ×3 (06:08→17:35)
[2021-06-16] MEDS: SODIUM CHLORIDE 0.9% INJ 10 ML SYR IV SCH ×2 (06:08→17:36)
[2021-06-16 06:23] LABS: CALCIUM LEVEL 9.4 MG/DL (8.8-10.2); CREATININE FOR GFR 1.19 MG/DL (0.55-1.30); GLOMERULAR FILTRATION RATE 46.7 (>39); POTASSIUM SERUM 4.1 MEQ/L (3.5-5.1)
[2021-06-16] MEDS: busPIRone 10 MG TAB PO SCH ×2 (08:30→21:06)
[2021-06-16] MEDS: buPROPion **XL** TABLET 150MG (WELLBUTRIN XL) PO SCH (08:30)
[2021-06-16] MEDS: LACTOBACILLUS ACIDOPHILUS CAP (BACID) PO SCH ×3 (08:30→17:36)
[2021-06-16] MEDS: OMEPRAZOLE 20 MG CAP PO SCH (08:30)
[2021-06-16] MEDS: MIDODRINE 5 MG TAB PO SCH ×3 (08:30→15:47)
[2021-06-16] MEDS: APIXABAN 5 MG TAB (ELIQUIS) PO SCH ×2 (08:31→21:06)
[2021-06-16] MEDS: guaiFENesin ER 600 MG TAB PO SCH ×2 (08:31→21:06)
--- NOTE | 2021-06-16 10:04 | IPN ---
PROGRESS NOTE DATE: 06/16/2021 SUBJECTIVE: Sujatha is feeling a little better, a little less short of breath. She was on high flow nasal inhaler with Vapotherm. She was given a little diuretic yesterday with good results. She had about a 900 ml net diuresis. Her creatinine has risen a little bit as a consequence so we are backing off on her diuretics today. Overall, she feels slightly better than yesterday, which is the second day in a row of improvement. OBJECTIVE: VITAL SIGNS: Afebrile, blood pressure 99/56, 93% O2 saturation on 25 liter high flow nasal. GENERAL APPEARANCE: Alert, conversant, in no distress at all. NECK: No JVD. LUNGS: Decreased breath sounds, a few rhonchi. HEART: Regular rate and rhythm. ABDOMEN: Soft, nontender. EXTREMITIES: No peripheral edema. LABORATORY DATA: White count __ on steroids, hemoglobin 14.5, platelets 240,000, sodium 141, potassium 4.1, BUN 55, creatinine is 1.1, it was 0.75 yesterday. IMPRESSION: 1. Acute respiratory hypoxic respiratory failure, suspected acute interstitial pneumonia versus nonspecific interstitial pneumonia. She is improved on intravenous steroids, those are being slowly weaned. She is still requiring high flow oxygen. I do not anticipate her discharge anytime before the weekend at the earliest. 2. Atrial fibrillation, rate is under adequate control. 3. Congestive heart failure with preserved ejection fraction. She had a good diuresis yesterday. We are going to hold her torsemide today. She had acute kidney injury secondary to diuresis earlier in her hospitalization. The case was discussed with Dr. Strickland with pulmonary consultation. I also spoke with Sujatha's daughter, Adry, I discussed the case at length and answered any questions she might have.
[2021-06-16] MEDS ORDERED: METOPROLOL 5 MG/5 ML VIAL IV ONE (12:50)
[2021-06-16] MEDS ORDERED: DIGOXIN INJ 0.5 MG/2 ML AMP (J1160) IV STA (12:59)
[2021-06-16] MEDS ORDERED: METOPROLOL TART 25 MG TABLET PO ONE (13:00)
--- NOTE | 2021-06-16 15:18 | REP ---
INDICATION: DYSPHAGIA R/O ASPIRATION. COMPARISON: NONE TECHNIQUE: The procedure was performed under the direct supervision of . The procedure was performed with Josefina hCeng from speech pathology present. 2.2 minutes of fluoroscopy time was utilized for this procedure. FINDINGS: The patient was assessed upon entering the room. The patient is in an upright position and conversing appropriately. A video pharyngo esophagram was then performed. Thin consistency: Patient was instructed to take a swallow from the cup. The patient was able to form a bolus by cupping of the tongue and manipulated the bolus well. There is minimal delay of triggering. Passavant's pad justine and shifted anteriorly normally with no nasopharyngeal aspiration. The patient was then instructed to take a swallow from a strong. Again the patient was able to form a bolus by cupping of the tongue and minute plated the bowel as well. There is a small amount of residual in the vallecula. Pudding consistency: The patient was able to form a bolus by cupping of the tongue and manipulated the bolus well. The patient cleared the bolus immediately. Passavant's pad justine and shifted anteriorly normally with no nasopharyngeal aspiration. Mixed fruit consistency: The patient was able to form a bolus by cupping of the tongue and manipulated the bolus well. There is delay in triggering. There was pooling in the vallecula. Passavant's pad justine and shifted anteriorly normally with no nasopharyngeal aspiration. Soft consistency: The patient was able to form a bolus by cupping of the tongue and manipulated the bolus well. There is delay of triggering. There is pooling in the vallecula. Passavant's pad justine and shifted anteriorly normally with no nasopharyngeal aspiration. Solid consistency: The patient was able to form a bolus by cupping of the tongue and manipulated the bolus well. There is delay of triggering. There is pooling in the vallecular. This cleared completely. Passavant's pad justine and shifted anteriorly normally with no nasopharyngeal aspiration. The patient was then given a barium pill with tap water. The barium pill passed without delay. A detailed report of this examination will be provided by speech pathology. IMPRESSION: With mixed fruit, soft and solid consistency barium there is delay in triggering. There is pooling in the vallecular. 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 A detailed report of this examination will be provided by speech pathology. <Electronically signed by Zachariah العلي > 06/10/21 [id number] <Electronically signed by Anish Carbone > 06/10/21 [id number]
[2021-06-16] MEDS ORDERED: DIGOXIN INJ 0.5 MG/2 ML AMP (J1160) IV ONE (15:35)
[2021-06-16] MEDS: SERTRALINE HCL 50 MG TAB PO SCH (21:06)
[2021-06-17] VITALS (16 sets, daily range): BP systolic 90–113; BP diastolic 53–77; O2SAT 90–98
[2021-06-17] MEDS: methylPREDNISolone 125MG 2ML VIAL IV SCH ×5 (00:02→23:43)
[2021-06-17] MEDS: LEVALBUTEROL 1.25 MG/0.5 ML CONCENTRATE NEB INH SCH ×6 (04:31→19:14)
[2021-06-17 04:56] LABS: BASO % 0.3 % (0.0-1.0); HEMATOCRIT 47.2 % (36.0-47.0); HEMOGLOBIN 15.3 g/dl (12.0-15.5); LYMPH # 0.5 10^3/uL (1.5-5.0); LYMPH % 3.5 % (24.0-44.0); MEAN CORPUSCULAR HEMOGLOBIN 29.7 pg (27.0-33.0); MEAN CORPUSCULAR HGB CONC 32.4 g/dl (32.0-36.5); MEAN CORPUSCULAR VOLUME 91.5 fl (80.0-96.0); MONO # 0.5 10^3/uL (0.0-0.8); MONO % 3.5 % (2.0-8.0); NEUTROPHILS % 91.5 % (36.0-66.0); PLATELET COUNT, AUTOMATED 257 10^3/uL (150-450); RED BLOOD COUNT 5.16 10^6/uL (4.00-5.40); WHITE BLOOD COUNT 15.3 10^3/uL (4.0-10.0)
[2021-06-17 05:18] LABS: CALCIUM LEVEL 9.4 MG/DL (8.8-10.2); CREATININE FOR GFR 1.15 MG/DL (0.55-1.30); GLOMERULAR FILTRATION RATE 48.6 (>39); POTASSIUM SERUM 4.6 MEQ/L (3.5-5.1)
--- NOTE | 2021-06-17 05:46 | IPN ---
PULMONARY PROGRESS NOTE DATE: 06/16/2021 SUBJECTIVE: Patient was seen and examined this morning during bedside rounds. Yesterday, the patient was started on torsemide and she did have urine output overnight. She denies noticing any worsening shortness of breath or dyspnea today. She does get short of breath with exertion and activity and does continue to have episodes of desaturation with any physical activity. She continues to have an occasional cough and mucous productive although feels that has been improving. She has not had any fevers or chills overnight. She denies any abdominal pain. No nausea or vomiting. OBJECTIVE: VITAL SIGNS: Temperature is 97.6, pulse is 60, respirations are 18, blood pressure is 99/56, O2 sat 93% on 25 liters a minute and 50% FIO2. INTAKE AND OUTPUT: In 1.4 liters, out 2.4 liters, net negative 985 ml. GENERAL: Patient is an elderly female who is sitting in bed and speaking in complete sentences. She does not appear to be in any acute respiratory distress at rest although she does get dyspneic with exertion. She is awake, alert and oriented x3. HEENT: Normocephalic, atraumatic. Pupils equal and reactive to light bilaterally. Moist membranes noted. NECK: Supple. No palpable cervical adenopathy. CARDIAC: Regular rate and rhythm. Normal S1 and S2 without appreciable murmurs. PULMONARY: Improvement in the rhonchorous breath sounds noted previously. There are a few crackles noted at the bases bilaterally although improved. ABDOMEN: Soft, nontender and nondistended. No palpable masses. EXTREMITIES: There is improvement in the previous pitting edema in the lower extremities bilaterally with very trace edema. LABORATORY DATA: WBC is 13.0, hemoglobin is 14.5, platelets are 240,000. Chemistries: Sodium is 141, potassium is 4.1, chloride is 99, bicarbonate is 38, BUN 55, creatinine is 1.19. Glucose is 143. HP panel pending QuantiFERON gold pending. ASSESSMENT AND PLAN: Ms. Strickland is a 80-year-old female with a history of hypertension, hyperlipidemia and prior nicotine dependence who presented with worsening shortness of breath and cough for several weeks prior to admission. The patient was found to have acute hypoxemic respiratory failure with imaging findings concerning for possible pneumonitis versus pneumonia versus pulmonary edema. 1. Acute hypoxemic respiratory failure with CT imaging initially showing chronic emphysematous changes as well as some areas of fibrosis. There is bilateral ground-glass opacity and concern for an acute interstitial pneumonitis versus NSIP from other ILD. There was also a concern for pulmonary edema. The patient did have a very significant elevated BNP on admission. She was treated with high doses of corticosteroids as well as antibiotics and was on IV Lasix as well for diuretics. She has had some improvement in her oxygen requirements although is still on Vapotherm currently. The patient's ILD panel in terms of connective tissue disease is negative. Her hypersensitivity pneumonitis panel is still pending. Patient has completed a course of Ceftriaxone and Azithromycin and has normal procalcitonin. She is off antibiotics now and will continue to monitor. Patient is on Solumedrol still at 40 mg q. 6 hours and will continue with the current dosage. The patient was given torsemide yesterday for diuretics given some increased lower extremity edema. She did have improvement in her edema with good urine output noted overnight, however did develop some mild increase in her BUN and creatinine today. Will hold her diuretics and continue to monitor and given p.r.n. doses as needed. Will continue the patient on Vapotherm and continue weaning down her settings to maintain an O2 sat above 88%. We did go over correct incentive spirometer usage as well to help with atelectasis and further weaning. Continue with aspiration precautions and head of bed elevation. Continue with PPI for a history of heartburn and reflux. Continue with nebulized bronchodilators and Acapella device as well as Mucinex for mucous clearance. She did have some improvement in her rhonchi noted today. DVT, on anticoagulation with Eliquis. Code status: DNR/DNI.
[2021-06-17] MEDS: SODIUM CHLORIDE 0.9% INJ 10 ML SYR IV SCH ×2 (06:07→18:27)
[2021-06-17] MEDS: METOPROLOL TART 25 MG TABLET PO SCH ×2 (06:15→18:27)
[2021-06-17] MEDS: buPROPion **XL** TABLET 150MG (WELLBUTRIN XL) PO SCH (08:10)
[2021-06-17] MEDS: OMEPRAZOLE 20 MG CAP PO SCH (08:10)
[2021-06-17] MEDS: busPIRone 10 MG TAB PO SCH ×2 (08:10→21:39)
[2021-06-17] MEDS: MIDODRINE 5 MG TAB PO SCH ×3 (08:10→16:20)
[2021-06-17] MEDS: LACTOBACILLUS ACIDOPHILUS CAP (BACID) PO SCH ×3 (08:10→18:27)
[2021-06-17] MEDS: guaiFENesin ER 600 MG TAB PO SCH ×2 (08:10→21:39)
[2021-06-17] MEDS: APIXABAN 5 MG TAB (ELIQUIS) PO SCH ×2 (08:10→21:39)
--- NOTE | 2021-06-17 13:31 | IPN ---
PROGRESS NOTE DATE: 06/17/2021 SUBJECTIVE: Sujatha continues to make slow progress. She feels a little better than yesterday. She said she had a rough time in the afternoon but seems to be a little better than she was yesterday. No fevers. OBJECTIVE: VITAL SIGNS: Afebrile. BP is 90/53. GENERAL: She is resting comfortably in no distress. Looks well perfused. LUNGS: Decreased breath sounds, scattered rhonchi. HEART: Regular rhythm. ABDOMEN: Soft, nontender. EXTREMITIES: No peripheral edema. LABORATORY DATA: CBC and CMP unremarkable. BUN/creatinine continue to rise some. BNP is down to 2035, it is about half of what it was six days ago. IMPRESSION: She is making slow gradual progress. I appreciate the input of pulmonology. I am hesitant to reduce her steroid dose at this point as I think she needs a very slow wean. Will continue with the Vapotherm, try to wean down her settings, continue the steroids, hold off on diuretics for now.
[2021-06-17] MEDS: SERTRALINE HCL 50 MG TAB PO SCH (21:39)
[2021-06-18] VITALS (18 sets, daily range): BP systolic 101–132; BP diastolic 59–97; O2SAT 92–99
[2021-06-18] MEDS: LEVALBUTEROL 1.25 MG/0.5 ML CONCENTRATE NEB INH SCH ×4 (01:28→19:13)
[2021-06-18] MEDS: methylPREDNISolone 125MG 2ML VIAL IV SCH ×4 (05:15→23:48)
[2021-06-18] MEDS: METOPROLOL TART 25 MG TABLET PO SCH ×2 (05:15→16:36)
[2021-06-18] MEDS: SODIUM CHLORIDE 0.9% INJ 10 ML SYR IV SCH ×2 (05:15→16:36)
[2021-06-18 05:41] LABS: BASO % 0.2 % (0.0-1.0); HEMATOCRIT 44.4 % (36.0-47.0); HEMOGLOBIN 14.5 g/dl (12.0-15.5); LYMPH # 0.6 10^3/uL (1.5-5.0); MEAN CORPUSCULAR HGB CONC 32.7 g/dl (32.0-36.5); MEAN CORPUSCULAR VOLUME 91.7 fl (80.0-96.0); MONO # 0.5 10^3/uL (0.0-0.8); MONO % 3.7 % (2.0-8.0); NEUTROPHILS # 13.1 10^3/uL (1.5-8.5); NEUTROPHILS % 90.4 % (36.0-66.0); PLATELET COUNT, AUTOMATED 226 10^3/uL (150-450); RED BLOOD COUNT 4.84 10^6/uL (4.00-5.40); WHITE BLOOD COUNT 14.5 10^3/uL (4.0-10.0)
[2021-06-18 06:07] LABS: BLOOD UREA NITROGEN 49 MG/DL (7-18); CALCIUM LEVEL 8.8 MG/DL (8.8-10.2); CARBON DIOXIDE LEVEL 34 MEQ/L (21-32); CHLORIDE LEVEL 101 MEQ/L (98-107); CREATININE FOR GFR 0.89 MG/DL (0.55-1.30); GLOMERULAR FILTRATION RATE > 60.0 (>39); GLUCOSE, FASTING 119 MG/DL (70-100); POTASSIUM SERUM 4.7 MEQ/L (3.5-5.1); SODIUM LEVEL 141 MEQ/L (136-145)
--- NOTE | 2021-06-18 06:19 | IPN ---
PROGRESS NOTE DATE: 06/17/2021 SUBJECTIVE: The patient was seen and examined this morning during bedside rounds. Yesterday, afternoon and evening, the patient was noted to have episodes of atrial fibrillation with a rapid ventricular response. She reports that she was asymptomatic during these episodes and denied noticing any chest pain or significant palpitations. She feels that she may have had some improvement in her shortness of breath and dyspnea. She does notice some improvement in her cough although she did not receive her nebulizer treatments yesterday evening due to her tachycardia. She had not had any fevers or chills overnight. She denies any abdominal pain. No nausea or vomiting. No significant lower extremity edema. OBJECTIVE: VITAL SIGNS: Temperature is 97.1, pulse is 95, respirations 20, blood pressure is 128/82. O2 sat 96% on 25 liters a minute and 65% FIO2. INTAKE AND OUT: In 240, out 350, net negative 100 ml. GENERAL: Patient is an elderly female who is sitting in bed, appears awake and alert and is speaking in complete sentences. She does not appear to be in any acute respiratory distress at rest. HEENT: Normocephalic, atraumatic. Pupils are equal and reactive to light bilaterally. Moist mucous membranes. NECK: Supple. No palpable lymphadenopathy. CARDIAC: Irregularly irregular, normal S1 and S2 without appreciable murmurs. PULMONARY: There are a few crackles noted at the bases bilaterally. No significant rhonchi or wheezing noted. ABDOMEN: Soft, nontender and nondistended. No palpable masses. EXTREMITIES: There is trace edema in the bilateral ankles. LABORATORY DATA: WBC is 15.3, hemoglobin is 15.3, platelets are 257,000. Chemistries: Sodium 140, potassium 4.6, chloride 102, bicarbonate 37, BUN 53, creatinine 1.15, glucose is 119, BNP trended down to 2036. ASSESSMENT AND PLAN: Mrs. Strickland is a 80-year-old female with a history of hypertension, hyperlipidemia and prior nicotine dependence who presented with worsening shortness of breath and cough for several weeks. She was found to have acute hypoxemic respiratory failure likely secondary to possible acute interstitial pneumonitis or other ILD versus pneumonia versus pulmonary edema. 1. Acute hypoxemic respiratory failure with CT findings on admission of bilateral ground-glass opacities with underlying chronic emphysematous and fibrotic changes concerning for an acute interstitial pneumonitis versus NSIP from other ILD. There is also the possibility of pulmonary edema as she had elevated BNP on admission. She was treated with high doses of IV corticosteroids as well as IV Lasix for diuretics. She was also given antibiotics and completed a seven day course of Ceftriaxone and Azithromycin. Patient has had some clinical improvement in her oxygen requirements. She was 96 to 98% now on her 25 liters a minute and 65% FIO2 and so would be able to continue with more aggressive weaning of her FIO2 and flow rates on the Vapotherm. Would continue to titrate for an O2 sat above 88%. Will continue patient on Solu-Medrol 40 mg IV q. 6 hours for now. If she has continued improvement tomorrow, would consider very slow weaning of steroid. Patient has been receiving diuretics intermittently. She did develop some AMAURI with her diuretic. Her renal function has improved and so will continue to monitor and give p.r.n. doses of diuretics when noted to have increasing lower extremity edema and other signs of fluid overload. Continue with incentive spirometry and with nebulized bronchodilators. Will change her Xopenex to q. 6 hours given her issues with atrial fibrillation and rapid ventricular response. I will continue with Acapella device as well as Mucinex and for mucous clearance. Continue aspirations, head of bed elevation. DVT prophylaxis on anticoagulation with Eliquis. Code status: DNR/DNI.
[2021-06-18 09:11] LABS: ASPERGILLUS FUMIGATUS AB Negative (Negative); AUREOBASIDIUM PULLULANS Negative (Negative); MICROPOLYSPORA FAENI AB Negative (Negative); PIGEON SERUM AB Negative (Negative); THERMOACTINOMYCES SACCHARI Negative (Negative); THERMOACTINOMYCES VULGARIS Negative (Negative)
--- NOTE | 2021-06-18 09:16 | IPN ---
PROGRESS NOTE DATE: 06/18/2021 SUBJECTIVE: Sujatha again feels incrementally better, less short of breath, feels she is a little stronger than yesterday. She is tolerating the wean of her steroids, really no new issues today. OBJECTIVE: VITAL SIGNS: Afebrile. Vital signs stable, 95% O2 saturation on Vapotherm. GENERAL APPEARANCE: Alert, conversant, smiling. LUNGS: Clear. Still some rhonchi and wheezes. HEART: Regular rhythm. ABDOMEN: Soft, nontender. No peripheral edema. IMPRESSION: 1. Acute hypoxic respiratory failure. I appreciate Dr. Strickland's involvement. We are trying to wean her with a goal O2 saturation of greater than 88%. Tomorrow would consider reducing the IV Solu-Medrol to 40 mg IV every 8 hours. 2. Volume overload/congestive heart failure with preserved ejection fraction. She developed acute kidney injury when she was diuresed earlier. I do not see much of any edema today. Her renal function is back to baseline. Her lower extremity edema seems to be a fairly good indicator when she needs more diuretic which she has required every few days.
[2021-06-18] MEDS: guaiFENesin ER 600 MG TAB PO SCH ×2 (09:17→20:39)
[2021-06-18] MEDS: MIDODRINE 5 MG TAB PO SCH ×3 (09:17→16:35)
[2021-06-18] MEDS: LACTOBACILLUS ACIDOPHILUS CAP (BACID) PO SCH ×3 (09:17→16:36)
[2021-06-18] MEDS: OMEPRAZOLE 20 MG CAP PO SCH (09:17)
[2021-06-18] MEDS: buPROPion **XL** TABLET 150MG (WELLBUTRIN XL) PO SCH (09:17)
[2021-06-18] MEDS: busPIRone 10 MG TAB PO SCH ×2 (09:17→20:38)
[2021-06-18] MEDS: APIXABAN 5 MG TAB (ELIQUIS) PO SCH ×2 (09:17→20:38)
[2021-06-18] MEDS: SERTRALINE HCL 50 MG TAB PO SCH (20:39)
[2021-06-19] VITALS (18 sets, daily range): BP systolic 105–124; BP diastolic 63–89; O2SAT 93–98
[2021-06-19] MEDS: LEVALBUTEROL 1.25 MG/0.5 ML CONCENTRATE NEB INH SCH ×4 (01:53→19:28)
[2021-06-19] MEDS: SODIUM CHLORIDE 0.9% INJ 10 ML SYR IV SCH ×2 (05:10→18:27)
[2021-06-19] MEDS: methylPREDNISolone 125MG 2ML VIAL IV SCH (05:21)
[2021-06-19] MEDS: METOPROLOL TART 25 MG TABLET PO SCH ×2 (05:25→18:26)
[2021-06-19 05:42] LABS: BASO % 0.2 % (0.0-1.0); HEMATOCRIT 44.1 % (36.0-47.0); HEMOGLOBIN 14.5 g/dl (12.0-15.5); LYMPH # 0.6 10^3/uL (1.5-5.0); LYMPH % 3.4 % (24.0-44.0); MEAN CORPUSCULAR HEMOGLOBIN 29.9 pg (27.0-33.0); MEAN CORPUSCULAR HGB CONC 32.9 g/dl (32.0-36.5); MEAN CORPUSCULAR VOLUME 90.9 fl (80.0-96.0); MONO # 0.6 10^3/uL (0.0-0.8); MONO % 3.7 % (2.0-8.0); NEUTROPHILS # 14.4 10^3/uL (1.5-8.5); NEUTROPHILS % 89.8 % (36.0-66.0); PLATELET COUNT, AUTOMATED 228 10^3/uL (150-450); RED BLOOD COUNT 4.85 10^6/uL (4.00-5.40); WHITE BLOOD COUNT 16.1 10^3/uL (4.0-10.0)
[2021-06-19 05:59] LABS: BLOOD UREA NITROGEN 40 MG/DL (7-18); CALCIUM LEVEL 8.8 MG/DL (8.8-10.2); CARBON DIOXIDE LEVEL 36 MEQ/L (21-32); CHLORIDE LEVEL 103 MEQ/L (98-107); CREATININE FOR GFR 0.78 MG/DL (0.55-1.30); GLOMERULAR FILTRATION RATE > 60.0 (>39); GLUCOSE, FASTING 121 MG/DL (70-100); POTASSIUM SERUM 4.9 MEQ/L (3.5-5.1); SODIUM LEVEL 140 MEQ/L (136-145)
[2021-06-19] MEDS: guaiFENesin ER 600 MG TAB PO SCH ×2 (08:30→20:47)
[2021-06-19] MEDS: LACTOBACILLUS ACIDOPHILUS CAP (BACID) PO SCH ×3 (08:30→17:19)
[2021-06-19] MEDS: APIXABAN 5 MG TAB (ELIQUIS) PO SCH ×2 (08:30→20:47)
[2021-06-19] MEDS: OMEPRAZOLE 20 MG CAP PO SCH (08:30)
[2021-06-19] MEDS: buPROPion **XL** TABLET 150MG (WELLBUTRIN XL) PO SCH (08:31)
[2021-06-19] MEDS: busPIRone 10 MG TAB PO SCH ×2 (08:31→20:47)
[2021-06-19] MEDS: MIDODRINE 5 MG TAB PO SCH ×3 (08:31→17:19)
--- NOTE | 2021-06-19 10:15 | REP ---
INDICATION: Hypoxemia COMPARISON: 06/14/2021 TECHNIQUE: Portable AP view of the chest FINDINGS: Examination is significantly limited by portable technique, underpenetration and positioning. Chronic appearing interstitial changes and chronic appearing pleuroparenchymal changes primarily involving the bilateral upper lung zones and to a lesser extent the left infrahilar region are again noted on unchanged. Findings may represent subtle acute on chronic process. No discrete consolidation. No obvious effusion. No pneumothorax. The mediastinum and cardiac silhouette are stable. Right PICC line again identified with tip in the SVC. Skeletal structures stable. IMPRESSION: Limited examination demonstrates presumed chronic and relatively stable changes. Subtle superimposed process cannot definitively be excluded. However, no discrete consolidation or effusion identified. <Electronically signed by Froylan Hayward > 06/19/21 1011
--- NOTE | 2021-06-19 11:29 | IPN ---
PULMONARY PROGRESS NOTE DATE: 06/19/2021 SUBJECTIVE: I attended Sujatha Strickland here in the progressive care unit. Patient has been examined, chart has been reviewed and I have spoken at length with the nurse at the bedside. She is feeling better this morning, she tells me. They have been able to wean her FiO2. OBJECTIVE: VITAL SIGNS: Maximum temperature (T-max) overnight 98.5, blood pressure generally 120s to 130s, heart rates in the 80s and 90s with atrial fibrillation as her rhythm, respirations generally in the mid to upper teens. Pulse oximetry generally in the upper 90s currently on 10 liters hi-flow. INTAKE AND OUTPUT: Midnight to midnight 1340 mL in with 700 mL out. PHYSICAL EXAMINATION: GENERAL: She is seated up in bed, quite comfortable and conversant. VITAL SIGNS: As outlined above. HEENT: Shows a nasal cannula oxygen in place. Pupils react. Sclerae clear. Trachea is midline. Airway is class 2-3. CHEST: Shows a very significant kyphosis. Hyperresonant to percussion. Breath sounds have a tendency to diminish. There is some occasional crackles at the bases that improve with inspiration. A faint end-expiratory wheeze that clears completely after cough and deep inspiration. No other focal adventitious breath sounds are identified. The expansion is markedly diminished but symmetric. CARDIAC EXAM: Distant. Irregularly irregular. Peripheral pulses are palpable. Minimal edema. ABDOMEN: Soft with active bowel sounds. No clear evidence of organomegaly or masses. EXTREMITIES: Without cyanosis or clubbing. NEUROLOGIC: She is awake, alert, and appropriate. PSYCHIATRIC: Shows a normal mood and affect. LABORATORY DATA: Most recent laboratories: White blood cell count 16.1, hemoglobin 14.5, platelet count 220,000, 89.9% segs, no bands. Sodium 140, potassium 4.9, chloride 103, CO2 36, BUN 40, creatinine 0.78, glucose 121. No recent imaging. Previous chest x-rays reviewed. She has a marked kyphosis with multiple wedge compression fractures. IMPRESSION: 1. Obstructive lung disease. 2. Previous tobacco history. 3. Atrial fibrillation. 4. Chronic anticoagulation. 5. Hypoxemic respiratory failure, acute on chronic, multifactorial. 6. Congestive heart failure. 7. Renal insufficiency, improved. PLAN: At this point, we will decrease her steroids. I believe much of her issues regarding her dyspnea is rate control with her atrial fibrillation, complicated by her underlying lung disease. I had a long discussion with her in this regard. At this point, I would continue general diuresis as she tolerates it from a renal function standpoint. We will continue to wean her steroids and I will place her on orals tomorrow. We will repeat her imaging. At this point, she does not require antibiotics, but we await her repeat imaging. I believe her elevated white count most likely is on the basis of her steroids. Her procalcitonin originally was less than 0.05. At this point, we will proceed as outlined above. Further recommendations will be made in the progress record as new information becomes available.
[2021-06-19] MEDS: methylPREDNISolone 40MG 1ML VIAL IV SCH ×2 (13:26→20:47)
--- NOTE | 2021-06-19 17:00 | IPNPDOC ---
Subjective Date Seen The patient was seen on 06/19/21. Subjective Chief Complaint/HPI Ms. Strickland reports she is feeling quite a bit better today. Nursing was able to wean her off the Vapotherm this morning and now she is maintaining her saturations on 5 L via nasal cannula. This is a substantial improvement. She is hopeful that she might be able to go home soon, although she is not pushing to be discharged before we think she is ready. Dr. Coppola of pulmonology saw her today. He is concerned that atrial fibrillation and heart failure plan larger role in her condition then we are acknowledging. He made some adjustments to her medications and we appreciate his assistance. General: Reports: Normal Appetite Constitutional: Denies: Chills, Fever Pulmonary: Reports: Dyspnea; Denies: Pleuritic Chest Pain Cardiovascular: Denies: Chest Pain, Palpitations, Lt Headedness Gastrointestinal: Denies: Nausea, Vomiting, Abdominal Pain, Diarrhea, Constipation Genitourinary: Denies: Dysuria, Hematuria Psych: Reports: Mood Normal Objective Physical Examination General Exam: Positive: Alert, Cooperative (sitting in her bed watching a yarsanism program on her tablet when I entered the room), No Acute Distress Eye Exam: Positive: Conjunctiva & lids normal; Negative: Sclera icteric ENT Exam: Positive: Atraumatic, Mucous membr. moist/pink Neck Exam: Positive: Supple; Negative: Lymphadenopathy Chest Exam: Positive: Rales (bilateral faint bibasilar crackles), Wheezing (expiratory), Diminished Heart Exam: Positive: Rate Normal, Regular Rhythm Abdomen Exam: Positive: Normal bowel sounds, Soft; Negative: Tenderness Extremity Exam: Negative: Cyanosis, Edema Skin Exam: Positive: Nl turgor and temperature; Negative: Rash Neuro Exam: Positive: Normal Speech, Normal Tone Psych Exam: Positive: Mental status NL, Oriented x 3 Assessment /Plan Problems (1) Acute on chronic respiratory failure with hypoxia Response to Treatment: Improving Discussed With: Nurse, Auto Brake Technician, Patient Problem Specific Plan: Consult Specialist, Monitor Clinically Problem Text: She seems to making good progress now. She is off Vapotherm and on 5 L of supplemental oxygen findings are cannula. Her steroids were changed to 40 mg every 8 hours IV today and she will start 40 mg of oral steroids daily tomorrow. (2) (HFpEF) heart failure with preserved ejection fraction Status: Chronic Response to Treatment: Compensated Problem Text: Clinically her heart failure is relatively well compensated. We will continue to monitor to see whether additional diuresis is needed, but it did not seem necessary today. (3) Atrial fibrillation Status: Chronic Problem Text: She is in atrial fibrillation at this time, but her rate is reasonably controlled in the 80s. She is on Eliquis. Continue current regimen, monitor. (4) COPD (chronic obstructive pulmonary disease) Status: Chronic Problem Text: She has COPD and seems to be getting over an exacerbation, however, I do not think that she has an underlying pulmonary infection. As Dr. Coppola noted her pro-calcitonin level was quite low on admission. We will continue the regimen as outlined above. (5) Leukocytosis Status: Acute Problem Text: Her leukocytosis is likely related to demargination rather than reaction to an infection. We will continue to monitor for other signs of infection. Plan/VTE VTE Prophylaxis Ordered?: Yes VS, I&O, 24H, Fishbone Vital Signs/I&O Vital Signs Date Time Temp Pulse Resp B/P (MAP) Pulse Ox O2 Delivery O2 Flow Rate FiO2 06/19/21 16:23 94 Nasal Cannula 4.0 06/19/21 16:00 98.3 91 20 105/65 (78) 06/19/21 04:08 45 I&O- Last 24 Hours up to 6 AM 06/19/21 06:00 Intake Total 1340 ml Output Total 1050 ml Balance 290 ml Laboratory Data 24H LABS Laboratory Tests 2 06/19/21 05:20: Immature Granulocyte % (Auto) 2.9, Neutrophils (%) (Auto) 89.8H, Lymphocytes (%) (Auto) 3.4L, Monocytes (%) (Auto) 3.7, Eosinophils (%) (Auto) 0.0, Basophils (%) (Auto) 0.2, Neutrophils # (Auto) 14.4H, Lymphocytes # (Auto) 0.6L, Monocytes # (Auto) 0.6, Eosinophils # (Auto) 0.0, Basophils # (Auto) 0.0, Nucleated Red Blood Cells % (auto) 0.0, Anion Gap 1L, Glomerular Filtration Rate > 60.0, Calcium Level 8.8 CBC/BMP Laboratory Tests 06/19/21 05:20 Microbiology Microbiology 06/11/21 Respiratory Virus Panel (PCR) ([facility]) - Final, Complete Efra Coyle MD Jun 19, 2021 5:00 pm
[2021-06-19] MEDS: SERTRALINE HCL 50 MG TAB PO SCH (20:47)
[2021-06-20] VITALS (16 sets, daily range): BP systolic 92–128; BP diastolic 59–86; O2SAT 91–99
[2021-06-20] MEDS: LEVALBUTEROL 1.25 MG/0.5 ML CONCENTRATE NEB INH SCH ×4 (01:56→19:19)
[2021-06-20] MEDS: METOPROLOL TART 25 MG TABLET PO SCH ×2 (05:03→18:05)
[2021-06-20] MEDS: SODIUM CHLORIDE 0.9% INJ 10 ML SYR IV SCH ×2 (05:32→18:06)
[2021-06-20 05:58] LABS: BASO # 0.1 10^3/uL (0.0-0.2); BASO % 0.5 % (0.0-1.0); HEMATOCRIT 44.7 % (36.0-47.0); HEMOGLOBIN 14.4 g/dl (12.0-15.5); LYMPH # 0.8 10^3/uL (1.5-5.0); LYMPH % 5.4 % (24.0-44.0); MEAN CORPUSCULAR HEMOGLOBIN 29.5 pg (27.0-33.0); MEAN CORPUSCULAR HGB CONC 32.2 g/dl (32.0-36.5); MEAN CORPUSCULAR VOLUME 91.6 fl (80.0-96.0); MONO # 0.8 10^3/uL (0.0-0.8); MONO % 5.4 % (2.0-8.0); NEUTROPHILS # 12.6 10^3/uL (1.5-8.5); NEUTROPHILS % 86.1 % (36.0-66.0); PLATELET COUNT, AUTOMATED 225 10^3/uL (150-450); RED BLOOD COUNT 4.88 10^6/uL (4.00-5.40); WHITE BLOOD COUNT 14.7 10^3/uL (4.0-10.0)
[2021-06-20 06:11] LABS: BLOOD UREA NITROGEN 43 MG/DL (7-18); CALCIUM LEVEL 8.4 MG/DL (8.8-10.2); CARBON DIOXIDE LEVEL 34 MEQ/L (21-32); CHLORIDE LEVEL 105 MEQ/L (98-107); CREATININE FOR GFR 0.77 MG/DL (0.55-1.30); GLOMERULAR FILTRATION RATE > 60.0 (>39); GLUCOSE, FASTING 107 MG/DL (70-100); POTASSIUM SERUM 4.9 MEQ/L (3.5-5.1); SODIUM LEVEL 140 MEQ/L (136-145)
[2021-06-20] MEDS: OMEPRAZOLE 20 MG CAP PO SCH (08:33)
[2021-06-20] MEDS: predniSONE 20 MG TAB PO SCH (08:33)
[2021-06-20] MEDS: APIXABAN 5 MG TAB (ELIQUIS) PO SCH ×2 (08:33→20:35)
[2021-06-20] MEDS: guaiFENesin ER 600 MG TAB PO SCH ×2 (08:33→20:35)
[2021-06-20] MEDS: LACTOBACILLUS ACIDOPHILUS CAP (BACID) PO SCH ×3 (08:33→18:05)
[2021-06-20] MEDS: buPROPion **XL** TABLET 150MG (WELLBUTRIN XL) PO SCH (08:33)
[2021-06-20] MEDS: busPIRone 10 MG TAB PO SCH ×2 (08:33→20:34)
[2021-06-20] MEDS: MIDODRINE 5 MG TAB PO SCH ×3 (08:33→16:26)
--- NOTE | 2021-06-20 08:56 | IPN ---
PROGRESS NOTE DATE: 06/20/2021 SUBJECTIVE: Sujatha is seen in PCU. She continues improved. Her oxygenation is stable on 2 liters nasal cannula. She notes that she feels a little less dyspneic every day. She feels she will be ready for discharge tomorrow. OBJECTIVE: VITAL SIGNS: Afebrile. Vital signs stable. LUNGS: Clear. HEART: Regular rate and rhythm. ABDOMEN: Soft and nontender. LABORATORY DATA: Labs look unremarkable. PLAN: Discharge tomorrow on prednisone.
[2021-06-20] MEDS: SERTRALINE HCL 50 MG TAB PO SCH (20:35)
[2021-06-21 00:08] VITALS: O2SAT 96
[2021-06-21 00:11] VITALS: O2SAT 97
[2021-06-21 00:24] VITALS: O2SAT 94
[2021-06-21] MEDS: LEVALBUTEROL 1.25 MG/0.5 ML CONCENTRATE NEB INH SCH ×3 (01:30→14:30)
[2021-06-21 05:05] VITALS: O2SAT 95
[2021-06-21] MEDS: SODIUM CHLORIDE 0.9% INJ 10 ML SYR IV SCH (05:30)
[2021-06-21 05:31] VITALS: BP 127/83
[2021-06-21] MEDS: METOPROLOL TART 25 MG TABLET PO SCH (05:31)
[2021-06-21 06:18] VITALS: BP 109/74
[2021-06-21 06:34] LABS: HEMATOCRIT 45.8 % (36.0-47.0); HEMOGLOBIN 14.7 g/dl (12.0-15.5); MEAN CORPUSCULAR HEMOGLOBIN 29.3 pg (27.0-33.0); MEAN CORPUSCULAR HGB CONC 32.1 g/dl (32.0-36.5); MEAN CORPUSCULAR VOLUME 91.2 fl (80.0-96.0); PLATELET COUNT, AUTOMATED 233 10^3/uL (150-450); RED BLOOD COUNT 5.02 10^6/uL (4.00-5.40); WHITE BLOOD COUNT 14.2 10^3/uL (4.0-10.0)
[2021-06-21 06:56] LABS: BLOOD UREA NITROGEN 34 MG/DL (7-18); CALCIUM LEVEL 8.7 MG/DL (8.8-10.2); CARBON DIOXIDE LEVEL 35 MEQ/L (21-32); CHLORIDE LEVEL 103 MEQ/L (98-107); CREATININE FOR GFR 0.91 MG/DL (0.55-1.30); GLOMERULAR FILTRATION RATE > 60.0 (>39); GLUCOSE, FASTING 84 MG/DL (70-100); POTASSIUM SERUM 4.9 MEQ/L (3.5-5.1); SODIUM LEVEL 139 MEQ/L (136-145)
[2021-06-21] MEDS: OMEPRAZOLE 20 MG CAP PO SCH (08:02)
[2021-06-21] MEDS: predniSONE 20 MG TAB PO SCH (08:02)
[2021-06-21] MEDS: buPROPion **XL** TABLET 150MG (WELLBUTRIN XL) PO SCH (08:02)
[2021-06-21] MEDS: guaiFENesin ER 600 MG TAB PO SCH (08:02)
[2021-06-21] MEDS: busPIRone 10 MG TAB PO SCH (08:02)
[2021-06-21] MEDS: LACTOBACILLUS ACIDOPHILUS CAP (BACID) PO SCH ×2 (08:02→12:42)
[2021-06-21] MEDS: MIDODRINE 5 MG TAB PO SCH ×2 (08:02→12:42)
[2021-06-21] MEDS: APIXABAN 5 MG TAB (ELIQUIS) PO SCH (08:02)
[2021-06-21] MEDS ORDERED: PRED20TA PO (10:05)
[2021-06-21] MEDS ORDERED: ELIQ5TAB PO (10:05)
[2021-06-21] MEDS ORDERED: METO1TAB87 PO (10:05)
[2021-06-21] MEDS ORDERED: MIDO5TA PO (10:05)
--- NOTE | 2021-06-21 11:26 | DSES ---
DISCHARGE SUMMARY DATE OF ADMISSION: 06/07/2021 DATE OF DISCHARGE: 06/21/2021 PRINCIPAL DIAGNOSIS: 1. Acute hypoxic respiratory failure, suspected acute interstitial pneumonia versus nonspecific interstitial pneumonia. 2. Atrial fibrillation. 3. Congestive heart failure with preserved ejection fraction. 4. Acute kidney injury secondary to diuresis. HISTORY: Sujatha Strickland was admitted with hypoxemia. Details per history and physical on admission. HOSPITAL COURSE: The patient was treated for bacterial pneumonia. She did not respond to prescribed therapy. She was in the ICU, followed by Pulmonology. It was also suspected that she had acute interstitial or nonspecific interstitial pneumonia. Antibiotics were discontinued. She was treated with steroids. She had a slow but gradual response to the intravenous steroids. She had an echocardiogram done that showed severe elevation of right sided pressure, severe pulmonary hypertension with a right ventricular systolic pressure of 64, severe right atrial dilatation, severe left atrial dilatation, aortic sclerosis without stenosis, left ventricular ejection fraction 70 to 75%. Angiographic CT showed no pulmonary embolism, chronic lung changes, vertebral compression fractures. The esophagus was dilated and contained food. She had a swallowing study done as well. PHYSICAL EXAMINATION: GENERAL: On the day of discharge she is eager to go home. VITAL SIGNS: Her BP is 109/74, pulse is 99, respiratory rate 15 to 18, 90% O2 saturation on 2 liters. LUNGS: Rales on both sides. HEART: Regular rhythm. ABDOMEN: Soft, nontender. EXTREMITIES: Trace peripheral edema. LABORATORY DATA: White count 14.2 on steroids, hemoglobin 14.7, platelets are 233,000. Sodium is 139, potassium is 4.9, BUN is 54, creatinine is 0.9, glucose is 84. Rheumatology panel was negative. DARRELL negative. Rheumatoid factor negative. Complement levels normal. TB GOLD test was indeterminate. It was due to the way the specimen was handled. I have ordered a repeat one, those results will need to be followed up as an outpatient. She has not had any known exposure or risk factors for this. DISPOSITION: She is discharged home in an improved and stable condition. She will follow-up with primary care provider in a week, activity as tolerated. She is on a 2 gram sodium diet, 1800 ml per day fluid restriction. DISCHARGE MEDICATIONS: O2 at 2 liters nasal cannula, Wellbutrin XL 150 mg daily, BuSpar 10 mg b.i.d., Breo Ellipta 100-25 one inhalation daily, omeprazole 20 mg daily, Sertraline 150 mg q.h.s. She remains on Eliquis 5 mg b.i.d. Metoprolol 25 mg q. 12 hours, Midodrine 5 mg three times a day, prednisone 20 mg tablets two daily (40 mg daily) with dose reduce through her primary care provider. She passed her home safety and is ready for discharge. Repeat TB GOLD test needs to be followed up as an outpatient.
[2021-06-21] MEDS ORDERED: NEOSPORIN TOP OINT 15GM TOP ONE (13:00)
== END 2021-06-21 15:38 | disposition home health service (06) | DRG 196 ==
LOC: M ED 16:41 → M ED INP 20:25 → M MSPAV 06-08 01:03 → M PCU 06-08 08:10 → M MSPAV 06-20 12:00
PROVIDERS: ADMIT Internal Medicine; ATTEND Family Medicine
PROC: 02HV33Z Insertion of Infusion Device into Superior Vena Cava, Percutaneous Approach (ICD-10-PCS; principal; 2021-06-08 14:13)
DX: J84.9 Interstitial pulmonary disease, unspecified (principal); J96.01 Acute respiratory failure with hypoxia; J44.0 Chronic obstructive pulmonary disease with (acute) lower respiratory infection; J44.1 Chronic obstructive pulmonary disease with (acute) exacerbation; N17.9 Acute kidney failure, unspecified; I50.32 Chronic diastolic (congestive) heart failure; I48.20 Chronic atrial fibrillation, unspecified; M48.56XA Collapsed vertebra, not elsewhere classified, lumbar region, initial encounter for fracture; M48.54XA Collapsed vertebra, not elsewhere classified, thoracic region, initial encounter for fracture; E78.5 Hyperlipidemia, unspecified; Z66 Do not resuscitate; I11.0 Hypertensive heart disease with heart failure; K44.9 Diaphragmatic hernia without obstruction or gangrene; K21.9 Gastro-esophageal reflux disease without esophagitis; E87.6 Hypokalemia; I27.20 Pulmonary hypertension, unspecified; T50.1X5A Adverse effect of loop [high-ceiling] diuretics, initial encounter; Z87.891 Personal history of nicotine dependence; Z20.822 Contact with and (suspected) exposure to COVID-19; Z79.899 Other long term (current) drug therapy

== ENCOUNTER 2021-06-25 11:30 | Inpatient (IN) | payer MEDICARE, OTHER ==
[~2021-06-25] VITALS: Ht 149.9 cm; Wt 56.5 kg
[~2021-06-25 11:30] MED LIST changes: +AMLO2.5T3 PO; +BREO1INH INH; +BUPR150T12 PO; +BUSP10TA PO; +ELIQ5TAB PO; +METO1TAB87 PO; +MIDO5TA PO; +OMEP-218 PO; +PRED20TA PO; +ZOLO100T PO
[2021-06-25 12:54] LABS: BASO % 0.1 % (0.0-1.0); EOS % 0.1 % (0.0-3.0); HEMATOCRIT 36.2 % (36.0-47.0); HEMOGLOBIN 11.8 g/dl (12.0-15.5); LYMPH # 0.3 10^3/uL (1.5-5.0); LYMPH % 1.2 % (24.0-44.0); MEAN CORPUSCULAR HEMOGLOBIN 29.5 pg (27.0-33.0); MEAN CORPUSCULAR HGB CONC 32.6 g/dl (32.0-36.5); MEAN CORPUSCULAR VOLUME 90.5 fl (80.0-96.0); MONO # 0.6 10^3/uL (0.0-0.8); NEUTROPHILS # 19.6 10^3/uL (1.5-8.5); NEUTROPHILS % 93.6 % (36.0-66.0); PLATELET COUNT, AUTOMATED 185 10^3/uL (150-450); WHITE BLOOD COUNT 20.9 10^3/uL (4.0-10.0)
--- NOTE | 2021-06-25 13:14 | REP ---
INDICATION: SOB. COMPARISON: Comparison chest x-ray June 19, 2021 and June 14, 2021. TECHNIQUE: Portable upright AP radiograph. FINDINGS: EKG electrodes are seen. The previously visible right-sided PICC line has been removed. Oxygen delivery tubing is seen. There is a moderate pattern of increased interstitial markings bilaterally. This appears more pronounced than on the June 19, 2021 study. Superimposed interstitial edema suspected versus progressive interstitial infiltrates. Moderate cardiomegaly is again observed. There is no evidence of pleural effusion. IMPRESSION: Progressive interstitial changes in the lung mccracken diffusely question interstitial edema superimposed on fibrosis. Cardiomegaly is observed. <Electronically signed by Severino Dimas > 06/25/21 1770
[2021-06-25 13:26] LABS: ALBUMIN 2.1 GM/DL (3.2-5.2); ALT/SGPT 40 U/L (12-78); BILIRUBIN,TOTAL 0.4 MG/DL (0.2-1.0); BLOOD UREA NITROGEN 20 MG/DL (7-18); CALCIUM LEVEL 8.6 MG/DL (8.8-10.2); CARBON DIOXIDE LEVEL 31 MEQ/L (21-32); CHLORIDE LEVEL 106 MEQ/L (98-107); CK-MB VALUE MASS 2.8 NG/ML (<3.6); CPK CREATINE PHOSPHOKINASE 36 U/L (26-192); CREATININE FOR GFR 0.77 MG/DL (0.55-1.30); GLOMERULAR FILTRATION RATE > 60.0 (>39); GLUCOSE, FASTING 158 MG/DL (70-100); MAGNESIUM LEVEL 2.1 MG/DL (1.8-2.4); MB/CK RELATIVE INDEX 7.78 (< OR =4); NT-PRO BNP 2681 PG/ML (<450); POTASSIUM SERUM 4.5 MEQ/L (3.5-5.1); SODIUM LEVEL 141 MEQ/L (136-145); TROPONIN I 0.02 NG/ML (< 0.10)
[2021-06-25] MEDS ORDERED: PRED20TA PO (13:51)
[2021-06-25] MEDS ORDERED: MIDO5TA PO (13:51)
[2021-06-25] MEDS ORDERED: ELIQ5TAB PO (13:51)
[2021-06-25] MEDS ORDERED: METO25TA4 PO (13:51)
[2021-06-25] MEDS ORDERED: LEVALBUTEROL 1.25 MG/0.5 ML CONCENTRATE NEB INH PRN (13:55)
--- NOTE | 2021-06-25 14:26 | REP ---
INDICATION: sob. COMPARISON: 06/08/2021. TECHNIQUE: CT chest performed without the use of intravenous contrast. Sagittal and coronal reconstruction images are performed. FINDINGS: Lungs: Once again noted in both lungs are advanced emphysematous and fibrotic changes. However the there is evidence of superimposed scattered ground-glass and interstitial infiltrate. These have improved in the upper lobes bilaterally. These have also improved in the left lower lobe, although there is mild patchy atelectasis or infiltrate in this region. There is increased ground-glass and interstitial infiltrate in the right middle lobe. Mediastinum: No gross adenopathy. Gaye: No gross adenopathy. Axilla: No gross adenopathy. Pleura: There is a very small left pleural effusion. Heart: Not enlarged. Thoracic aorta: No aneurysm. Upper abdominal structures: Grossly unremarkable. Visualized osseous structures: There are diffuse degenerative changes of the spine with multiple compression deformities appearing stable since the prior study. IMPRESSION: Advanced emphysematous and fibrotic changes in the lungs. Superimposed scattered ground-glass and interstitial infiltrates bilaterally have improved in the bilateral upper lobes and left lower lobe. However there is increased interstitial and ground-glass infiltrate in the right middle lobe compared to the prior study. There is mild patchy somewhat consolidative atelectasis or infiltrate in the left lower lobe. There is a very small left pleural effusion. <Electronically signed by Anish Carbone > 06/25/21 1400
[2021-06-25 14:32] LABS: ABG BASE EXCESS 5.1 (-2.0-2.0); ABG HCO3 28.5 MEQ/L (22.0-26.0); ABG O2 SATURATION 92.9 % (95.0-99.0); ABG PARTIAL PRESSURE CO2 37.5 mmHg (35.0-45.0); ABG PARTIAL PRESSURE O2 60.1 mmHg (75.0-100.0); ABG STANDARD HCO3 28.9 MEQ/L (22.0-26.0); ABG TOTAL CO2 29.6 MEQ/L (23.0-31.0); ABG pH (ARTERIAL) 7.498 UNITS (7.350-7.450)
[2021-06-25] MEDS ORDERED: SIMV10TA21 PO (14:32)
[2021-06-25] MEDS ORDERED: HOME MED LIST COMPLETE! XX SCH (14:35)
[2021-06-25] MEDS: LEVALBUTEROL 1.25 MG/0.5 ML CONCENTRATE NEB INH SCH ×2 (15:13→22:25)
[2021-06-25 15:41] VITALS: BP 120/64
[2021-06-25] MEDS: MIDODRINE 5 MG TAB PO SCH (16:00)
[2021-06-25 16:22] LABS: ERYTHROCYTE SEDIMENTATION RATE 49 mm/hr (0-30)
[2021-06-25 17:41] VITALS: O2SAT 88
--- NOTE | 2021-06-25 17:45 | HPEPDOC ---
[facility] Medical History & Physical Date of Admission Jun 25, 2021 Date of Service: Jun 25, 2021 History and Physical CHIEF COMPLAINT: shortness of breath HISTORY OF PRESENT ILLNESS: 80F brought in by ambulance w c/o worsening sob since hospital discharge on 06/21/21, when she was treated from 06/07-06/21/21 for idiopathic acute interstitial pneumonia versus nonspecific interstitial pneumonitis, new onset afib, and new onset chf w preserved systolic function, requiring 3liters supplemental oxygen at discharge. [employer] evaluation during that admission was done by Dr. Dwight Melendez, Dr. Connelly, Dr. Strickland, and Dr Coppola included negative rheumatolic workup, negative fungal, negative complement and ig deficiency workup, with slow improvement with steroids making hypersensitivity pneumonitis unlikely. Pt completed a full course of intravenous antibiotics, and tolerated tapering doses of steroids, with successful titration from vapotherm 75% fio2 to 3liters at discharge. Due to elevated bnp, she was diuresed but need ed midodrine due to hypotension, and developed hussein which resolved prior to discharge. Since discharge, pt has had increasing sob, PND, 2pillow orthopnea, kay, w/o cp, fever, chills, n/v/abd pain, diaphoresis, palpitations, lightheadedness, brbpr, melena, black tarry stools, hematemesis, coffee ground emesis. No weight changes, and denies LE edema. Pt admits to eating saltines to increase her appetite with peanut butter, and has not adhered to salt and water restriction, although she says she rarely drinks more than a liter of liquids a day. In the ER, pt was found to be at baseline 3l nc 94%o2 sat, but cxr: progressive interstitial changes with possible edema superimposed on fibrosis, cardiomegaly, steroid-induced wbc 20.9, bnp 2681, and neg troponin <0.2. EKG: sinus brady57 septal infact, age undetermined, nonspecific st-t changes. PAST MEDICAL HISTORY: acute interstitial pneumonia idiopathic interstitial pneumonitis Afib CHF w preserved EF 75% Emphysema/copd 3liter o2 dependent/chronic hypoxic respiratory failure severe tricuspid regurgitation pulmonary hypertension rv pressure 64mmhg on 06/09/21 echo-Dr. 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 FAMILY HISTORY: Father: healthy Mother: smoker, emphysema ALLERGIES: Please see below. REVIEW OF SYSTEMS: CONSTITUTIONAL: no wt gain/wt loss HEENT:no changes in vision, sore throat, ear pain/dc/tinnitus CARDIOVASCULAR: sob. denies cp, pressure,tightness, diaphoresis. admits to KAY RESPIRATORY: sob. dry cough. no hemoptysis GASTROINTESTINAL: denies n/v/abd pain/diarrhea/constipation GENITOURINARY: denies dysuria/urgency/frequency SKIN: denies rash. some bruising since eliquis started MUSCULOSKELETAL: chronic back pain, multiple compression wedge fractgures NEUROLOGICAL:denies confusion, ue/le paresthesias. left radiculopathy PSYCHIATRIC: anxiety depress ENDOCRINE:no h/o hypothyroidism or dm2. admits to dyslipidemia HEMATOLOGIC/LYMPHATIC: denies LAD, or symptoms of anemia. HOME MEDICATIONS: Please see below. PHYSICAL EXAMINATION: VITAL SIGNS: see below GENERAL APPEARANCE: AAOx3, answers questions appropriately. mild conversational dyspnea, but able to speak 7-8 words no cyanosis, pallor, or tripod positioning HEENT: mild JVD, moist mm, no carotid bruit, tracheal deviation, cervical LAD, thyromegaly CARDIOVASCULAR: S1S2, irregularly irregular. S3 . mildly displaced point of maximum impulse. LLSB HARVINDER 3/6. LUNGS: kyphosis. diminished air entry. coarse rhonchi b/l. ABDOMEN: +bs x 4 quadrants, soft, nt, nd. no hsm. EXTREMITIES: no pitting edema, cyanosis,or clubbing LABORATORY DATA: See below. IMAGING:see below EKG: AFib, Right axis deviation, anteroseptal changes, old MICROBIOLOGY: Please see below. ASSESSMENT: 80F brought in by ambulance w c/o worsening sob since hospital discharge on 06/21/21, when she was treated from 06/07-06/21/21 for idiopathic acute interstitial pneumonia versus nonspecific interstitial pneumonitis, new onset afib, and new onset chf w preserved systolic function, requiring 3liters supplemental oxygen at discharge. [employer] evaluation during that admission was done by Dr. Dwight Melendez, Dr. Connelly, Dr. Strickland, and Dr Coppola included negative rheumatolic workup, negative fungal, negative complement and ig deficiency workup, with slow improvement with steroids making hypersensitivity pneumonitis unlikely. Pt completed a full course of intravenous antibiotics, and tolerated tapering doses of steroids, with successful titration from vapotherm 75% fio2 to 3liters at discharge. Due to elevated bnp, she was diuresed but needed midodrine due to hypotension, and developed hussein which resolved prior to discharge. Since discharge, pt has had increasing sob, PND, 2pillow orthopnea, kay, w/o cp, fever, chills, n/v/abd pain, diaphoresis, palpitations, lightheadedness, brbpr, melena, black tarry stools, hematemesis, coffee ground emesis. No weight changes, and denies LE edema. Pt admits to eating saltines to increase her appetite with peanut butter, and has not adhered to salt and water restriction, although she says she rarely drinks more than a liter of liquids a day. In the ER, pt was found to be at baseline 3l nc 94%o2 sat, but cxr: progressive interstitial changes with possible edema superimposed on fibrosis, cardiomegaly, steroid-induced wbc 20.9, bnp 2681, and neg troponin <0.2. EKG: sinus brady57 septal infact, age undetermined, nonspecific st-t changes. Pt has been admitted for acute on chronic chf exacerbation due to dietary noncompliance. acute on chronic chf exacerbation w preserved EF 75% -lasix iv gtt due to episodes of hypotension -cycle card rivers q6hrs to r/o acs -telemetry -serial electrolytes monitoring to replete k, mg, ca if needed -strict i/o weigh daily 2liter fluid restriction -chf teaching and counselling to adhere to fluid and salt restriction -most likely due to cor pulmonale w severe pulm htn , severe TR and dietary and fluid indiscretion -metoprolol needed for rate control of afib, if becomes hypotensive midodrine to allow for diuresis w lasix severe TR -nonoperative -severe pulm htn rv pressure 64mmhg -med mgt emphysema -tapered dose of steroids -resume inhalers -nebs while awake chronic hypoxic resp failure -recently treated for acute interstitial pna and discharged on 3l o2 -keep sat 88-92% -diuresing for chf exacerbation -on tapering dose of prednisone -continue bronchodilators acute interstitial pneumonia idiopathic interstitial pneumonitis -oupt fu w pulm Afib paroxysmal -sinus -on metoprolol -on eliquis GERD Hiatal Hernia -ppi HTN -on metoprolol Dyslipidemia -statin Multiple wedge compression fractures chronic low back pain with left radiculopathy -pt/ot -prn pain meds-avoid opioids due to risk of co2 retention anxiety/depression -resumed home meds code status: dnr/dni hcp: sister Vital Signs Vital Signs Date Time Temp Pulse Resp B/P (MAP) Pulse Ox O2 Delivery O2 Flow Rate FiO2 06/25/21 11:53 3.0 06/25/21 11:51 57 18 122/70 (87) 94 Nasal Cannula Laboratory Data Labs 24H Laboratory Tests 2 06/25/21 12:40: Immature Granulocyte % (Auto) 2.0, Neutrophils (%) (Auto) 93.6H, Lymphocytes (%) (Auto) 1.2L, Monocytes (%) (Auto) 3.0, Eosinophils (%) (Auto) 0.1, Basophils (%) (Auto) 0.1, Neutrophils # (Auto) 19.6H, Lymphocytes # (Auto) 0.3L, Monocytes # (Auto) 0.6, Eosinophils # (Auto) 0.0, Basophils # (Auto) 0.0, Nucleated Red Blood Cells % (auto) 0.0, Anion Gap 4L, Glomerular Filtration Rate > 60.0, Calcium Level 8.6L, Magnesium Level 2.1, Total Bilirubin 0.4, Aspartate Amino Transf (AST/SGOT) 22, Alanine Aminotransferase (ALT/SGPT) 40, Alkaline Phosphatase 59, Total Creatine Kinase 36, Creatine Kinase MB 2.8, Creatine Kinase MB Relative Index 7.78H, Troponin I 0.02, HI-Qmy-F-Type Natriuretic Peptide 2681H, Total Protein 5.0L, Albumin 2.1L, Albumin/Globulin Ratio 0.7L CBC/BMP Laboratory Tests 06/25/21 12:40 Microbiology Microbiology 06/25/21 Respiratory Virus Panel (PCR) ([facility]) - Final, Complete Home Medications Scheduled Apixaban (Eliquis) 5 Mg Tablet, 5 MG PO BID Ascorbic Acid (Vitamin C) 500 Mg Tab, 500 MG PO DAILY Bupropion Hcl (Bupropion Xl) 150 Mg Tab.er.24h, 150 MG PO DAILY Buspirone HCl (Buspirone HCl) 10 Mg Tablet, 10 MG PO BID Fluticasone/Vilanterol (Breo Ellipta 100-25 Mcg INH) 1 Each Blst.w.dev, 1 PUFF INH DAILY Metoprolol Tartrate (Metoprolol Tartrate) 25 Mg Tablet, 25 MG PO BID Midodrine HCl (Midodrine HCl) 5 Mg Tablet, 5 MG PO TID 0800, 1200, 1600 Omeprazole (Omeprazole) 20 Mg Capsule.dr, 20 MG PO DAILY Prednisone (Prednisone) 20 Mg Tablet, 40 MG PO DAILY Sertraline Hcl (Zoloft) 100 Mg Tablet, 150 MG PO QHS Simvastatin (Simvastatin) 10 Mg Tablet, 10 MG PO QHS Scheduled PRN Docusate Sodium (Colace) 100 Mg Cap, 100 MG PO BID PRN for CONSTIPATION Allergies Coded Allergies: No Known Allergies (Verified , 05/18/04) A-FIB/CHADSVASC A-FIB History Current/History of A-Fib/PAF?: Yes Current PO Anticoag Therapy: Yes Age/Risk Factor Scoring CHADSVASC: CHADSVASC Response (Comments) Value Age Risk Factor Age >/= 75 years old 2 Gender Risk Factor Female 1 Hx of CHF Yes 1 Hx of HTN Yes 1 Hx of Stroke/TIA/or VTE No 0 Hx of Diabetes No 0 Hx of Vascular Disease No 0 Total 5 Treatment Treatment ordered: Apixaban JOSE FLORES MD Jun 25, 2021 14:46
[2021-06-25] MEDS ORDERED: FUROSEMIDE injection 250 MG in D5W 225 ML IV SCH (18:00)
[2021-06-25 18:41] VITALS: O2SAT 94
[2021-06-25 18:57] VITALS: BP 96/54
[2021-06-25 19:17] LABS: CK-MB VALUE MASS 3.2 NG/ML (<3.6); CPK CREATINE PHOSPHOKINASE 43 U/L (26-192); MB/CK RELATIVE INDEX 7.44 (< OR =4); TROPONIN I < 0.02 NG/ML (< 0.10)
[2021-06-25 20:00] VITALS: BP 98/55
[2021-06-25] MEDS ORDERED: NS 500 ML IV ONE (20:55)
[2021-06-25] MEDS: SIMVASTATIN 10 MG TAB PO SCH (21:00)
[2021-06-25] MEDS: METOPROLOL TART 25 MG TABLET PO SCH ×2 (21:00→22:58)
[2021-06-25] MEDS: busPIRone 10 MG TAB PO SCH (21:01)
[2021-06-25] MEDS: guaiFENesin ER 600 MG TAB PO SCH (21:01)
[2021-06-25] MEDS: SERTRALINE HCL 50 MG TAB PO SCH (21:01)
[2021-06-25] MEDS: APIXABAN 5 MG TAB (ELIQUIS) PO SCH (21:01)
[2021-06-25] MEDS: ADVAIR HFA 45/21MCG INHALER INH SCH (22:25)
[2021-06-26] VITALS (17 sets, daily range): BP systolic 108–128; BP diastolic 57–69; O2SAT 76–96
[2021-06-26 00:26] LABS: MB/CK RELATIVE INDEX 6.9 (< OR =4); TROPONIN I 0.02 NG/ML (< 0.10)
[2021-06-26 06:22] LABS: BASO % 0.2 % (0.0-1.0); EOS # 0.2 10^3/uL (0.0-0.5); EOS % 0.9 % (0.0-3.0); HEMATOCRIT 39.4 % (36.0-47.0); HEMOGLOBIN 12.9 g/dl (12.0-15.5); LYMPH # 0.6 10^3/uL (1.5-5.0); LYMPH % 3.4 % (24.0-44.0); MEAN CORPUSCULAR HEMOGLOBIN 29.3 pg (27.0-33.0); MEAN CORPUSCULAR HGB CONC 32.7 g/dl (32.0-36.5); MEAN CORPUSCULAR VOLUME 89.5 fl (80.0-96.0); MONO # 0.8 10^3/uL (0.0-0.8); MONO % 4.5 % (2.0-8.0); NEUTROPHILS # 15.8 10^3/uL (1.5-8.5); PLATELET COUNT, AUTOMATED 209 10^3/uL (150-450); WHITE BLOOD COUNT 17.7 10^3/uL (4.0-10.0)
[2021-06-26 06:53] LABS: BLOOD UREA NITROGEN 21 MG/DL (7-18); CARBON DIOXIDE LEVEL 36 MEQ/L (21-32); CHLORIDE LEVEL 101 MEQ/L (98-107); CK-MB VALUE MASS 1.7 NG/ML (<3.6); CPK CREATINE PHOSPHOKINASE 23 U/L (26-192); CREATININE FOR GFR 0.84 MG/DL (0.55-1.30); GLOMERULAR FILTRATION RATE > 60.0 (>39); GLUCOSE, FASTING 98 MG/DL (70-100); MB/CK RELATIVE INDEX 7.39 (< OR =4); POTASSIUM SERUM 3.8 MEQ/L (3.5-5.1); SODIUM LEVEL 141 MEQ/L (136-145); TROPONIN I < 0.02 NG/ML (< 0.10)
[2021-06-26] MEDS: LEVALBUTEROL 1.25 MG/0.5 ML CONCENTRATE NEB INH SCH ×4 (07:09→19:16)
[2021-06-26] MEDS: ADVAIR HFA 45/21MCG INHALER INH SCH ×2 (07:09→19:16)
[2021-06-26] MEDS: MIDODRINE 5 MG TAB PO SCH ×3 (08:00→16:32)
[2021-06-26] MEDS: guaiFENesin ER 600 MG TAB PO SCH ×2 (08:10→21:37)
[2021-06-26] MEDS: APIXABAN 5 MG TAB (ELIQUIS) PO SCH ×2 (08:10→21:37)
[2021-06-26] MEDS: OMEPRAZOLE 20 MG CAP PO SCH (08:10)
[2021-06-26] MEDS: busPIRone 10 MG TAB PO SCH ×2 (08:10→21:37)
[2021-06-26] MEDS: METOPROLOL TART 25 MG TABLET PO SCH ×2 (08:10→21:37)
[2021-06-26] MEDS: buPROPion **XL** TABLET 150MG (WELLBUTRIN XL) PO SCH (08:10)
[2021-06-26] MEDS ORDERED: predniSONE 20 MG TAB PO SCH (09:00)
--- NOTE | 2021-06-26 10:16 | IPNPDOC ---
Date Seen The patient was seen on 06/26/21. Progress Note SUBJECTIVE: despite net negative balance, pt has not seen much improvement w chronic dyspnea. still w KAY even going from bed to commode. no c/o dizziness, lightheadedness, chest pain. still wdifficult to expectorate sputum. no chills. no h/a,n/v, diaphoresis PHYSICAL EXAMINATION: VITAL SIGNS: see below GENERAL APPEARANCE: AAOx3,no pallor or cyanosis answers questions appropriately. mild conversational dyspnea, but able to speak 7-8 words no cyanosis, pallor, or tripod positioning. HEENT: mild JVD, moist mm, no carotid bruit, tracheal deviation, cervical LAD, thyromegaly CARDIOVASCULAR: S1S2, irregularly irregular. S3 . mildly displaced point of maximum impulse. LLSB HARVINDER 12/26. LUNGS: kyphosis. diminished air entry. coarse rhonchi b/l. ABDOMEN: +bs x 4 quadrants, soft, nt, nd. no hsm. EXTREMITIES: no pitting edema, cyanosis,or clubbing LABORATORY DATA: See below. IMAGING:see below EKG: AFib, Right axis deviation, anteroseptal changes, old MICROBIOLOGY: Please see below. ASSESSMENT: 80F brought in by ambulance w c/o worsening sob since hospital discharge on 06/21/21, when she was treated from 06/07-06/21/21 for idiopathic acute interstitial pneumonia versus nonspecific interstitial pneumonitis, new onset afib, and new onset chf w preserved systolic function, requiring 3liters supplemental oxygen at discharge. [employer] evaluation during that admission was done by Dr. Dwight Melendez, Dr. Connelly, Dr. Strickland, and Dr Coppola included negative rheumatolic workup, negative fungal, negative complement and ig deficiency workup, with slow improvement with steroids making hypersensitivity pneumonitis unlikely. Pt completed a full course of intravenous antibiotics, and tolerated tapering doses of steroids, with successful titration from vapotherm 75% fio2 to 3liters at discharge. Due to elevated bnp, she was diuresed but needed midodrine due to hypotension, and developed hussein which resolved prior to discharge. Since discharge, pt has had increasing sob, PND, 2pillow orthopnea, kay, w/o cp, fever, chills, n/v/abd pain, diaphoresis, palpitations, lightheadedness, brbpr, melena, black tarry stools, hematemesis, coffee ground emesis. No weight changes, and denies LE edema. Pt admits to eating saltines to increase her appetite with peanut butter, and has not adhered to salt and water restriction, although she says she rarely drinks more than a liter of liquids a day. In the ER, pt was found to be at baseline 3l nc 94%o2 sat, but cxr: progressive interstitial changes with possible edema superimposed on fibrosis, cardiomegaly, steroid-induced wbc 20.9, bnp 2681, and neg troponin <0.2. EKG: sinus brady57 septal infact, age undetermined, nonspecific st-t changes. Pt has been admitted for acute on chronic chf exacerbation due to dietary noncompliance. acute on chronic chf exacerbation w preserved EF 75% -lasix iv gtt due to episodes of hypotension was started from admission, but developed contraction alkalosis so changed to decreased daily dose of lasix to 20 mg iv q6hrs with holding parameters -telemetry -serial electrolytes monitoring to replete k, mg, ca if needed -strict i/o weigh daily 2liter fluid restriction -chf teaching and counselling to adhere to fluid and salt restriction -most likely due to cor pulmonale w severe pulm htn , severe TR and dietary and fluid indiscretion -metoprolol needed for rate control of afib,and midodrine added to have enough blood pressure to diurese with lasix Contraction alkalosis -due to lasix -decreased dose of lasix severe TR -nonoperative -severe pulm htn rv pressure 64mmhg -med mgt emphysema -tapered dose of steroids -resume inhalers -nebs while awake chronic hypoxic resp failure -recently treated for acute interstitial pna and discharged on 3l o2 -keep sat 88-92% -diuresing for chf exacerbation -on tapering dose of prednisone -continue bronchodilators acute interstitial pneumonia idiopathic interstitial pneumonitis -oupt fu w pulm Afib paroxysmal -sinus -on metoprolol -on eliquis GERD Hiatal Hernia -ppi HTN -on metoprolol Dyslipidemia -statin Multiple wedge compression fractures chronic low back pain with left radiculopathy -pt/ot -prn pain meds-avoid opioids due to risk of co2 retention anxiety/depression -resumed home meds code status: dnr/dni hcp: sister VS, I&O, 24H, [facility] Vital Signs/I&O Vital Signs Date Time Temp Pulse Resp B/P (MAP) Pulse Ox O2 Delivery O2 Flow Rate FiO2 06/26/21 08:10 61 112/68 06/26/21 07:21 97.7 20 91 Nasal Cannula 3.0 I&O- Last 24 Hours up to 6 AM 06/26/21 06:00 Intake Total 480 ml Output Total 2100 ml Balance -1620 ml Laboratory Data 24H LABS Laboratory Tests 2 06/25/21 12:40: Immature Granulocyte % (Auto) 2.0, Neutrophils (%) (Auto) 93.6H, Lymphocytes (%) (Auto) 1.2L, Monocytes (%) (Auto) 3.0, Eosinophils (%) (Auto) 0.1, Basophils (%) (Auto) 0.1, Neutrophils # (Auto) 19.6H, Lymphocytes # (Auto) 0.3L, Monocytes # (Auto) 0.6, Eosinophils # (Auto) 0.0, Basophils # (Auto) 0.0, Nucleated Red Blood Cells % (auto) 0.0, Erythrocyte Sedimentation Rate 49H, Anion Gap 4L, Glomerular Filtration Rate > 60.0, Calcium Level 8.6L, Magnesium Level 2.1, Total Bilirubin 0.4, Aspartate Amino Transf (AST/SGOT) 22, Alanine Aminotransferase (ALT/SGPT) 40, Alkaline Phosphatase 59, Total Creatine Kinase 36, Creatine Kinase MB 2.8, Creatine Kinase MB Relative Index 7.78H, Troponin I 0.02, C-Reactive Protein, Quantitative 14.10H, ZJ-Nyz-Q-Type Natriuretic Peptide 2681H, Total Protein 5.0L, Albumin 2.1L, Albumin/Globulin Ratio 0.7L, Procalcitonin 0.08 06/25/21 14:20: Blood Gas Bicarbonate Standard 28.9H, Arterial Blood pH 7.498H, Arterial Blood Partial Pressure CO2 37.5, Arterial Blood Partial Pressure O2 60.1L, Arterial Blood Total CO2 29.6, Arterial Blood HCO3 28.5H, Arterial Blood Base Excess 5.1H, Arterial Blood Oxygen Saturation 92.9L 06/25/21 18:03: Total Creatine Kinase 43, Creatine Kinase MB 3.2, Creatine Kinase MB Relative Index 7.44H, Troponin I < 0.02 06/25/21 23:34: Total Creatine Kinase 29, Creatine Kinase MB 2.0, Creatine Kinase MB Relative Index 6.90H, Troponin I 0.02 06/26/21 05:46: Immature Granulocyte % (Auto) 2.0, Neutrophils (%) (Auto) 89.0H, Lymphocytes (%) (Auto) 3.4L, Monocytes (%) (Auto) 4.5, Eosinophils (%) (Auto) 0.9, Basophils (%) (Auto) 0.2, Neutrophils # (Auto) 15.8H, Lymphocytes # (Auto) 0.6L, Monocytes # (Auto) 0.8, Eosinophils # (Auto) 0.2, Basophils # (Auto) 0.0, Nucleated Red Blood Cells % (auto) 0.0, Anion Gap 4L, Glomerular Filtration Rate > 60.0, Naif cium Level 9.0, Magnesium Level 2.0, Total Creatine Kinase 23L, Creatine Kinase MB 1.7, Creatine Kinase MB Relative Index 7.39H, Troponin I < 0.02 CBC/BMP Laboratory Tests 06/25/21 12:40 06/26/21 05:46 Microbiology Microbiology 06/25/21 Respiratory Virus Panel (PCR) ([facility]) - Final, Complete JOSE FLORES MD Jun 26, 2021 10:16
[2021-06-26 10:31] LABS: NT-PRO BNP 1598 PG/ML (<450)
--- NOTE | 2021-06-26 10:42 | REP ---
INDICATION: sob. COMPARISON: Portable chest, 06/25/2021. TECHNIQUE: Upright portable AP chest image was obtained. FINDINGS: There are findings of severe chronic interstitial lung disease. Some element of superimposed acute interstitial lung disease and/or congestive heart failure can not be excluded. There are no pleural effusions. IMPRESSION: Severe chronic interstitial lung disease. Superimposed acute interstitial lung disease and or congestive heart failure not excluded. No significant change. <Electronically signed by Eric Flores > 06/26/21 1038
[2021-06-26] MEDS: FUROSEMIDE 20MG/2ML VIAL (J1940) IV SCH ×2 (12:29→17:25)
[2021-06-26 18:55] LABS: CALCIUM LEVEL 8.9 MG/DL (8.8-10.2); CREATININE FOR GFR 1.08 MG/DL (0.55-1.30); GLOMERULAR FILTRATION RATE 52.2 (>39); MAGNESIUM LEVEL 1.9 MG/DL (1.8-2.4); POTASSIUM SERUM 3.4 MEQ/L (3.5-5.1)
[2021-06-26] MEDS: SIMVASTATIN 10 MG TAB PO SCH (21:37)
[2021-06-26] MEDS: SERTRALINE HCL 50 MG TAB PO SCH (21:37)
[2021-06-27] VITALS (8 sets, daily range): BP systolic 106–121; BP diastolic 63–82; O2SAT 74–90
[2021-06-27] MEDS: FUROSEMIDE 20MG/2ML VIAL (J1940) IV SCH ×3 (00:59→12:08)
[2021-06-27 05:24] LABS: BASO # 0.1 10^3/uL (0.0-0.2); BASO % 0.4 % (0.0-1.0); EOS # 0.2 10^3/uL (0.0-0.5); EOS % 1.3 % (0.0-3.0); HEMATOCRIT 41.2 % (36.0-47.0); HEMOGLOBIN 13.5 g/dl (12.0-15.5); LYMPH # 0.6 10^3/uL (1.5-5.0); LYMPH % 3.9 % (24.0-44.0); MEAN CORPUSCULAR HEMOGLOBIN 29.3 pg (27.0-33.0); MEAN CORPUSCULAR HGB CONC 32.8 g/dl (32.0-36.5); MEAN CORPUSCULAR VOLUME 89.4 fl (80.0-96.0); MONO # 0.7 10^3/uL (0.0-0.8); MONO % 4.1 % (2.0-8.0); NEUTROPHILS # 14.2 10^3/uL (1.5-8.5); NEUTROPHILS % 88.7 % (36.0-66.0); PLATELET COUNT, AUTOMATED 205 10^3/uL (150-450); RED BLOOD COUNT 4.61 10^6/uL (4.00-5.40)
[2021-06-27 05:48] LABS: CALCIUM LEVEL 8.4 MG/DL (8.8-10.2); CREATININE FOR GFR 0.98 MG/DL (0.55-1.30); GLOMERULAR FILTRATION RATE 58.4 (>39); POTASSIUM SERUM 3.6 MEQ/L (3.5-5.1)
[2021-06-27] MEDS: ADVAIR HFA 45/21MCG INHALER INH SCH ×2 (07:07→19:41)
[2021-06-27] MEDS: LEVALBUTEROL 1.25 MG/0.5 ML CONCENTRATE NEB INH SCH ×5 (07:07→19:41)
[2021-06-27] MEDS: buPROPion **XL** TABLET 150MG (WELLBUTRIN XL) PO SCH (08:33)
[2021-06-27] MEDS: guaiFENesin ER 600 MG TAB PO SCH ×2 (08:33→21:16)
[2021-06-27] MEDS: OMEPRAZOLE 20 MG CAP PO SCH (08:33)
[2021-06-27] MEDS: APIXABAN 5 MG TAB (ELIQUIS) PO SCH ×2 (08:33→21:13)
[2021-06-27] MEDS: MIDODRINE 5 MG TAB PO SCH ×3 (08:33→15:59)
[2021-06-27] MEDS: busPIRone 10 MG TAB PO SCH ×2 (08:33→21:13)
[2021-06-27] MEDS: METOPROLOL TART 25 MG TABLET PO SCH (08:34)
[2021-06-27] MEDS: methylPREDNISolone 125MG 2ML VIAL IV SCH ×3 (09:16→21:40)
--- NOTE | 2021-06-27 12:53 | REP ---
INDICATION: SOB. COMPARISON: Portable chest, 06/26/2021. TECHNIQUE: Upright AP portable chest image was obtained. FINDINGS: There is chronic interstitial lung disease. Some element of superimposed acute interstitial lung disease and/or congestive heart failure can not be excluded. There is no lobar consolidation or pleural effusion. The heart size is unclear. There is calcific vascular disease of the thoracic aorta. The upper abdominal bowel gas pattern is normal. IMPRESSION: Chronic interstitial lung disease. Some element of superimposed acute interstitial lung disease and/or congestive heart failure can not be excluded. There is no significant change. <Electronically signed by Eric Flores > 06/27/21 [id number]
[2021-06-27 13:00] LABS: ABG BASE EXCESS 7.7 (-2.0-2.0); ABG HCO3 31.1 MEQ/L (22.0-26.0); ABG O2 SATURATION 93.6 % (95.0-99.0); ABG PARTIAL PRESSURE CO2 39.2 mmHg (35.0-45.0); ABG PARTIAL PRESSURE O2 64.5 mmHg (75.0-100.0); ABG STANDARD HCO3 31.5 MEQ/L (22.0-26.0); ABG TOTAL CO2 32.4 MEQ/L (23.0-31.0); ABG pH (ARTERIAL) 7.518 UNITS (7.350-7.450)
--- NOTE | 2021-06-27 13:50 | IPN ---
PROGRESS NOTE DATE: 06/27/2021 SUBJECTIVE: Patient still complains of significant dyspnea despite being on intravenous (IV) Lasix. A net negative balance has been noted for the past few days. She denies any chest pain, pressure or tightness. She has a cough, but nonproductive. No fever or chills overnight. No nausea, vomiting, headache or diarrhea. Overnight, nursing has noted desaturation with oxygen saturation decreasing to 88% and was placed on hi-flow cannula. Nursing has noted apneic episodes. She did recover after a few minutes; however, she did dip down to 75% and was placed on Venturi mask. Patient has been given nebulizer treatments with some improvement as well as IV Solu-Medrol this morning. PHYSICAL EXAMINATION: VITAL SIGNS: Temperature 98.7, pulse 54, respiratory rate 24, blood pressure 106/63, 93% on Venturi mask 15 liters of oxygen. INTAKE AND OUTPUT: Has been negative 2.33 liters yesterday, negative 685 since midnight. Weight is 55.2 kg from admission weight of 57.2 kg. GENERAL: Patient is using her respiratory accessory muscles. She is sitting at a 45 degree elevation. HEENT: Mild jugular venous distention. No thyromegaly. Dry mucous membranes. LUNGS: Diminished with kyphosis. Crackles bilaterally noted. HEART: S1, S2. Sinus bradycardia. ABDOMEN: Soft, nontender, nondistended. EXTREMITIES: No cyanosis or clubbing. No pitting edema. LABORATORY DATA: Laboratory data and metabolic panel has been noted. BNP has been decreased from 1598 to 885. Respiratory panel is negative. ASSESSMENT: This is a 80-year-old female with history of idiopathic acute interstitial pneumonia admitted to the hospital 06/07/2021 to 06/21/2021, treated with antibiotics, Solu-Medrol, Vapotherm, as well as diuresis for congestive heart failure with preserved systolic function. Echocardiogram showed a pulmonary arterial pressure of 64 mmHg. Patient completed a full course of intravenous (IV) antibiotics and was discharged on a tapering dose of steroids when she represented with shortness of breath. At that time, she was discharged on 3 liters of oxygen. Patient admits to not having salt and water restriction at home, but said that she rarely drinks more than a liter of liquids a day. She was found to be at baseline oxygen saturation, 94%, 3 liters, in the emergency room, but chest x-ray showed progressive interstitial changes with possible edema superimposed on fibrosis. She had a white count of 20,000, which was thought to be steroid-induced, but BNP was elevated, 2681, with negative troponin. EKG was sinus bradycardia with ventricular rate of 57. Acute issues are as follows: 1. Chronic congestive heart failure with preserved systolic function with ejection fraction 75%. 2. Severe pulmonary hypertension with pulmonary artery (PA) pressure 64 mmHg. 3. Emphysema/chronic obstructive pulmonary disease (COPD). 4. Contraction alkalosis due to diuresis. 5. Severe tricuspid regurgitation. 6. Chronic hypoxic respiratory failure on 3 liters of oxygen at home. 7. Recent acute interstitial pneumonia/idiopathic interstitial pneumonitis. 8. Atrial fibrillation currently with sinus bradycardia. 9. Gastroesophageal reflux disease. 10. Hypertension. 11. Dyslipidemia. 12. Multiple wedge compression fractures. 13. Anxiety/depression. 14. Possible obstructive sleep apnea with nocturnal oxygen desaturation. PLAN: Patient is maximized on Lasix therapy and has had episodes of low blood pressure due to diuresis. In order to continue with diuresis to improve her respiratory status, she has been started on midodrine. Her atrial fibrillation is currently rate controlled and currently sinus bradycardia. Holding parameters have been placed on her beta johnny, and will decrease to 12.[address] Melendez, who is ourpulmonologist on all this weekend, patient is to be placed on the same medications she was on last time. Therefore, she has been placed on Solu-Medrol again. Procalcitonin is 0.08 and no antibiotics have been given. She is continued on Xopenex, supplemental oxygen and Lasix changed to iv gtt due to lower blood pressure despite midodrine. Vapotherm if needed to keep o2sat at 88-92%. We willneed to monitor her for electrolyte abnormalities and supplement as needed. Nocturnal oximetry this evening. Continue diuresis for now. Strict intake and output (I's and O's), fluid restriction and weigh the patient daily. DNR/DNI MTDD
[2021-06-27] MEDS ORDERED: FUROSEMIDE injection 250 MG in D5W 225 ML IV SCH (16:00)
[2021-06-27] MEDS: METOPROLOL TART 12.5 MG PER 1/2 TAB PO SCH (21:15)
[2021-06-27] MEDS: SIMVASTATIN 10 MG TAB PO SCH (21:16)
[2021-06-27] MEDS: SERTRALINE HCL 50 MG TAB PO SCH (21:17)
[2021-06-28] VITALS: BP 119/73
[2021-06-28] MEDS: LEVALBUTEROL 1.25 MG/0.5 ML CONCENTRATE NEB INH SCH ×7 (03:31→23:54)
[2021-06-28] MEDS: methylPREDNISolone 125MG 2ML VIAL IV SCH ×2 (03:45→10:32)
[2021-06-28 04:00] VITALS: BP 132/78
[2021-06-28 06:06] LABS: BASO % 0.2 % (0.0-1.0); HEMATOCRIT 38.9 % (36.0-47.0); LYMPH # 0.5 10^3/uL (1.5-5.0); LYMPH % 2.8 % (24.0-44.0); MEAN CORPUSCULAR HEMOGLOBIN 29.4 pg (27.0-33.0); MEAN CORPUSCULAR HGB CONC 33.4 g/dl (32.0-36.5); MONO # 0.2 10^3/uL (0.0-0.8); MONO % 1.1 % (2.0-8.0); NEUTROPHILS # 15.1 10^3/uL (1.5-8.5); NEUTROPHILS % 94.4 % (36.0-66.0); PLATELET COUNT, AUTOMATED 219 10^3/uL (150-450); RED BLOOD COUNT 4.42 10^6/uL (4.00-5.40)
[2021-06-28 06:26] LABS: CALCIUM LEVEL 8.5 MG/DL (8.8-10.2); CREATININE FOR GFR 1.06 MG/DL (0.55-1.30); GLOMERULAR FILTRATION RATE 53.4 (>39); MAGNESIUM LEVEL 2.1 MG/DL (1.8-2.4); POTASSIUM SERUM 3.5 MEQ/L (3.5-5.1)
[2021-06-28] MEDS: ADVAIR HFA 45/21MCG INHALER INH SCH ×2 (07:32→19:33)
[2021-06-28 08:00] VITALS: BP 113/70
[2021-06-28] MEDS: MIDODRINE 5 MG TAB PO SCH ×2 (08:00→17:36)
[2021-06-28] MEDS: METOPROLOL TART 12.5 MG PER 1/2 TAB PO SCH ×2 (09:00→21:39)
[2021-06-28] MEDS: guaiFENesin ER 600 MG TAB PO SCH ×2 (10:32→21:39)
[2021-06-28] MEDS: buPROPion **XL** TABLET 150MG (WELLBUTRIN XL) PO SCH (10:32)
[2021-06-28] MEDS: OMEPRAZOLE 20 MG CAP PO SCH (10:33)
[2021-06-28] MEDS: busPIRone 10 MG TAB PO SCH ×2 (10:33→21:38)
[2021-06-28] MEDS: APIXABAN 5 MG TAB (ELIQUIS) PO SCH ×2 (10:33→21:38)
[2021-06-28] MEDS ORDERED: MIDODRINE 5 MG TAB PO ONE (11:00)
[2021-06-28 12:00] VITALS: BP 100/65
--- NOTE | 2021-06-28 12:05 | IPNPDOC ---
Date Seen The patient was seen on 06/28/21. Progress Note ADDENDUM TO PROGRESS NOTE: Per bar welder recommendations secondary to: -Decrease Solu-Medrol -Review of CT chest shows possible aspiration in the right lung. Recheck esophagram but avoid barium. Ordered n.p.o. after midnight esophagram with Gastrografin on 06/29/2021 -Aspiration precautions. - decide on daily basis clinically if patient requires Lasix since she is diuresing well VS, I&O, 24H, Fishbone Vital Signs/I&O Vital Signs Date Time Temp Pulse Resp B/P (MAP) Pulse Ox O2 Delivery O2 Flow Rate FiO2 06/28/21 09:00 77 97/57 06/28/21 08:00 97.7 18 95 HVNI-Vapotherm 40.0 100 I&O- Last 24 Hours up to 6 AM 06/28/21 06:00 Intake Total 1020 ml Output Total 1925 ml Balance -905 ml Laboratory Data 24H LABS Laboratory Tests 2 06/27/21 12:56: Blood Gas Bicarbonate Standard 31.5H, Arterial Blood pH 7.518H, Arterial Blood Partial Pressure CO2 39.2, Arterial Blood Partial Pressure O2 64.5L, Arterial Blood Total CO2 32.4H, Arterial Blood HCO3 31.1H, Arterial Blood Base Excess 7.7H, Arterial Blood Oxygen Saturation 93.6L 06/28/21 05:05: Immature Granulocyte % (Auto) 1.5, Neutrophils (%) (Auto) 94.4H, Lymphocytes (%) (Auto) 2.8L, Monocytes (%) (Auto) 1.1L, Eosinophils (%) (Auto) 0.0, Basophils (%) (Auto) 0.2, Neutrophils # (Auto) 15.1H, Lymphocytes # (Auto) 0.5L, Monocytes # (Auto) 0.2, Eosinophils # (Auto) 0.0, Basophils # (Auto) 0.0, Nucleated Red Blood Cells % (auto) 0.0, Anion Gap 8, Glomerular Filtration Rate 53.4, Calcium Level 8.5L, Magnesium Level 2.1 CBC/BMP Laboratory Tests 06/28/21 05:05 Microbiology Microbiology 06/25/21 Respiratory Virus Panel (PCR) ([facility]) - Final, Complete JOSE FLORES MD Jun 28, 2021 12:05
--- NOTE | 2021-06-28 12:41 | IPN ---
PROGRESS NOTE DATE: 06/28/2021 SUBJECTIVE: The patient remains very dyspneic with significant dyspnea on exertion even from getting up from her bed to the bedside commode. Boles catheter had to be placed yesterday due to significant hypoxia with saturations dropping down to 77% on nasal cannula and face mask. She had to be placed on Vapotherm last night. Current FiO2 is 100% with O2 saturation of 92-95%, flow rate of 40 liters. The patient denies any chest pain but complains of dyspnea and dyspnea on exertion, no chest pressure or tightness. She felt a little lightheaded getting up yesterday. Blood pressure was 97 on midodrine. Lasix has been held due to low blood pressure yesterday. Output since midnight was only 235. Current weight is 53.3 kg from admission weight of 57.2. OBJECTIVE: VITAL SIGNS: Temperature 97.7, pulse 68, irregularly irregular, respiratory rate 18, blood pressure 97/57, 95% on 40 liters FiO2 100% on Vapotherm. GENERAL: Generally the patient is in distress. She is in tripod position at 90 degrees with positive use of respiratory accessory muscles without any cyanosis. She has five to six word conversational dyspnea, not able to complete her sentences. HEENT: Mild JVD, thyromegaly. LUNGS: Diminished breath sounds, fine crackles bilaterally. HEART: S1, S2, irregularly irregular, not tachycardic. ABDOMEN: Soft, nontender, nondistended. Positive bowel sounds. EXTREMITIES: No cyanosis, clubbing, or pitting edema. CBC, metabolic panel, microbiology, imaging studies have been reviewed. ASSESSMENT AND PLAN: This is a 80-year-old female with history of idiopathic acute interstitial pneumonia admitted to the hospital 06/07 to 06/21, treated with antibiotics, Solu-Medrol, Vapotherm, and diuresed for congestive heart failure with preserved systolic function. Echocardiogram showed pulmonary arterial pressures 64 mmHg. She completed a full course of antibiotics and discharged on tapering dose of steroids and supplemental oxygen 3 liters during the previous admission. She presents with dyspnea on exertion and has not been compliant with her salt and water restriction at home but says she rarely drinks a liter of liquids a day. The patient was found to be at baseline oxygen level on admission but required more and more oxygen, now on Vapotherm due to significant hypoxia dropping down to 77% on supplemental oxygen. Chest x-ray showed progressive interstitial changes with possible edema superimposed on fibrosis. She had a white count of 28,000 which was felt to be steroid-induced but BNP was elevated at 2681 with negative troponin. An EKG showed bradycardia with ventricular rate of 57. ACTIVE ISSUES ARE FOLLOWS: 1. Acute decompensated congestive heart failure with preserved systolic function, diastolic function, EF of 75% secondary to cor pulmonale with severe pulmonary hypertension and PA pressure 64 mmHg. The patient is currently kept on strict I's and O's, daily weights, and 2 liter fluid restriction. She admits to salt and dietary indiscretion with not following water restriction at home. She is currently net negative balance but blood pressure being low prevents use of Lasix. Lasix boluses have been discontinued due to sudden drop in her blood pressure. She has been placed on midodrine 10 mg three times a day and Lasix drip at 5 mg per hour if the mean arterial pressure is greater than 75. 2. Bqqvc-xf-ghkupws hypoxic respiratory failure. She was discharged home on 3 liters of oxygen now requiring Vapotherm due to severe emphysema as well as pulmonary hypertension and qwddk-oy-gyrzqxu diastolic congestive heart failure exacerbation. The patient is requiring 100% FiO2 with 40 liters of oxygen. Photography Colorist Dr. Dwight Melendez will be consulted. She is currently being treated conservatively with Solu-Medrol for COPD and pneumonitis as well as congestive heart failure with Lasix drip. 3. Emphysema. Recent acute interstitial pneumonitis. The patient has completed full course of antibiotics. Procalcitonin level is negative. No antibiotics have been restarted. She is currently on Solu-Medrol 100 mg every 6 hours with Xopenex every 4 hours and every 1 hour as needed and Vapotherm. 4. Severe pulmonary hypertension with PA pressure 64 mmHg complicating her care and causing cor pulmonale with right-sided heart failure, currently being diuresed. 5. Contraction alkalosis due to over-diuresis. At this time the patient is extremely hypoxic. We will continue with current Lasix drip so long as the blood pressure is well maintained with systolic pressure greater than 106. 6. Severe tricuspid regurg as a consequence of severe pulmonary hypertension, PA pressures 64 mmHg. No pulmonary embolism noted on CT chest. The patient is on chronic Eliquis for atrial fibrillation. Atrial fibrillation currently rate controlled on metoprolol which we decreased to 12.5 twice a day due to bradycardia with ventricular rate in the 50s. The patient is currently on telemetry with no acute issues. 7. Recent acute interstitial pneumonia. Idiopathic interstitial pneumonitis, currently on steroids. Photography Colorist Dr. Dwight Melendez has been re-consulted. 8. Gastroesophageal reflux on PPI. 9. Hypertension, currently on metoprolol with low blood pressure. Midodrine has been given. Metoprolol is continued for rate control for atrial fibrillation. 10. Multiple wedge compression fractures with kyphosis complicating her respiratory status. 11. Anxiety and depression, chronic. 12. Nocturnal oxygen desaturation. Cannot do a nocturnal oximetry study because she is currently on Vapotherm.
--- NOTE | 2021-06-28 13:06 | CR.PDOC ---
General Date of Consultation: Jun 28, 2021 Attending Physician: ROMAINE CAMERON MD Consultation REASON FOR CONSULTATION/CHIEF COMPLAINT: hypoxia HISTORY OF PRESENT ILLNESS: This is a 72-year-old elderly female who presents to [facility] ER for shortness of breath and cough productive of sparse brown sputum x2 to 3 days. Patient was recently discharged from the hospital on 06/21/2021 for a similar presentation. She was found to be in acute hypoxemic respiratory failure likely secondary to possible acute interstitial pneumonitis or other ILD versus versus pulmonary edema from HFpEF. Her CT findings show diffuse bilateral grou nd glass opacities with underlying chronic emphysematous and fibrotic changes. She was worked up for rheumatologic, fungal, immunodeficiency, all of which were unremarkable. She was given a course of antibiotics and corticosteroids and was able to be weaned off of high flow and was DC'd on 3 L of oxygen and a course of prednisone taper. She presents this hospital course with sob and orthponea and cough productive of sparse brown sputum. She states that she initially required 4L to breath comfort ably but was able to be weaned to 2L. She denies any recent travel or been in contact with anyone sick. She denies hemopytsis, difficulty swallowing, heart burn, abdominal pain, lower extremity edema. In the ER, was was satting >90% on 3L NC with CXR showing progressive interstitial changes with possible edema superimposed on fibrosis ad cardiomegaly and she was placed on supplemental oxygenation and admitted under hospitalist team for further workup. ALLERGIES: Please see below. HOME MEDICATIONS: Please see below. PAST MEDICAL HISTORY A. fib on anticoagulation COPD Hypertension. Hyperlipidemia. Former tobacco abuse PAST SURGICAL HISTORY: Multiple joint surgeries including hip and knee surgery FAMILY HISTORY: Father: Healthy Mother: Her mother passed from emphysema. She used to be a smoker Siblings: 1 sisterhealthy Children: Her children are healthy. SOCIAL HISTORY: Marital status and/or living arrangements: Single living by herself. She is completely independent. Children: She has children. 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 Tobacco use: She used to smoke for 30 years but quit smoking in 2004. ETOH: Denies history of alcohol use Illicit drug use: Denies history of illicit drug use IV drug use: Denies history of IV drug use REVIEW OF SYSTEMS General: Denies fever, shaking chills, unintentional weight loss HEENT: Denies changes in vision including blurry vision or double vision, or hearing loss nasal congestion or sore throat, dysphagia, odynophagia Heart: Denies chest pain or chest pressure or discomfort, or palpitations, or lower extremity edema Pulm: Cough productive of sparse brown sputum, orthopnea GI: Denies nausea vomiting diarrhea abdominal pain or bloody stools OBJECTIVE: VITAL SIGNS: See below INTAKE AND OUT: In 900 ; out approximate 2200; net negative proximately 1300ml GENERAL: Patient is an elderly female who is sitting in bed, on high flow Vapotherm 40 L 100% FiO2 satting above 90%. Awake alert speaking complete sentences without accessory muscle use. Does not appear in any acute respiratory distress appears at rest HEENT: Normocephalic, atraumatic. Pupils are equal and reactive to light bilaterally. Moist mucous membranes. NECK: Supple. No palpable lymphadenopathy. CARDIAC: Irregularly irregular, rate controlled, no significant murmurs gallops rubs appreciated. No JVD appreciated PULMONARY: There are a few crackles at the bases bilaterally. No tactile fremitus or dullness to percussion Diffuse expiratory wheezes more prominent in the upper lung ABDOMEN: Soft, nontender and nondistended. No palpable masses. EXTREMITIES: Trace edema in the bilateral ankles. LABORATORY DATA: Please see below. ASSESSMENT/PLAN: This is a 80-year-old female who presented with worsening shortness of breath and cough x2 to 3 days. She was found to have acute hypoxemic respiratory failure likely secondary to possible acute interstitial pneumonitis or other ILD versus versus pulmonary edema from HFpEF. She was placed on high-dose corticosteroids and lasix and pulmonary was consulted for persistent hypoxia. 1. Acute hypoxemic respiratory failure with CT findings on this admission of improved ground glass opacities on the left side; however, with new ground glass opacities in the R middle lobe compared to the previous CT of chest with still underlying chronic emphysematous and fibrotic changes. This is a concern for aspiration and on further review of CT neck region, there's food particles seen in the esophagus concerning for possible dysphagia and pulmonary aspiration. Patient did have a bedside swallow study last admission prior to discharge however would recommend an esophagram without barium as we do not want barium to extravasate and cause further lung irritation. Continue titrating O2 to maintain O2 saturation between 88 to 92%. Consider decreasing steroids to 50 to 60 mg IV daily and continue with incentive spirometry and with nebulized bronchodilators. Consider placing patient on aspiration precautions and elevate head of bed above 30 degrees. Again patient's BNP is elevated and possibility of pulmonary edema cannot be excluded. Patient is currently being diuresed with lasix and she has diuresed well with approximately net negative of 1.3 L. She can continue with diuretics intermittently with close monitoring of her ins and outs and renal function. She is not currently showing signs of fluid overload and has trace pedal edema. DVT prophylaxis with Eliquis CODE STATUS: DNR/DNI Thank you for this consultation please do not hesitate if you have any further questions. Attending attestation: This is a 80-year-old female with very remote history of tobacco smoking, atrial fibrillation, hypertension and hyperlipidemia presented to hospital with worsening shortness of breath. Patient is very well-known to me from previous hospital admission about 3 weeks ago with similar presentation. She was previously admitted for ILD/NSIP exacerbation. She briefly received 7 days course of empiric antibiotic for community-acquired pneumonia along with aggressive diuresis and systemic corticosteroid. Her hypoxia dramatically improved and she was sent home with 3 L oxygen and regimen for steroid taper. Extensive work-up was done during her last hospital admission including infectious work-up for tuberculosis, immunodeficiency, connective tissue disease, hypersensitivity panel which all came back within normal limits. Upon mission, patient was found to be profoundly hypoxic and was put on high flow nasal cannula. She has been getting diuretic therapy along with systemic corticosteroid. Repeat CT scan of the chest show dramatic improvement of bilateral groundglass opacity. However, there appears to be a new groundglass infiltrate in the right middle lobe along with dilated esophagus with air- fluid/food level. Pulmonary was consulted for further recommendation. Assessment and plan: 1. Hypoxic respiratory failure 2. ILD exacerbation 3. Decompensated right heart failure Recommendations: -Given dramatic improvement on the CT scan of the chest compared to 3 weeks ago, I recommend continue on with systemic corticosteroid at a lower dose than what she is currently getting with methylprednisolone 100 mg every 6 hours. I recommend dropping the dose to 50 mg every 6 hours. Bigger concern is the new groundglass infiltrate solely in the right middle lobe which could be attributed by aspiration. She did have a swallow evaluation done during her last hospitalization which was normal. I recommend patient to undergo esophagogram in order to assess her swallowing function. I recommend to continue on with a ggressive diuresis with close monitoring of I's and O's as well as renal function. Vital Signs/I&O Vital Signs Date Time Temp Pulse Resp B/P (MAP) Pulse Ox O2 Delivery O2 Flow Rate FiO2 06/28/21 09:00 77 97/57 06/28/21 08:00 97.7 18 95 HVNI-Vapotherm 40.0 100 I&O- Last 24 Hours up to 6 AM 06/28/21 06:00 Intake Total 1020 ml Output Total 1925 ml Balance -905 ml Laboratory Data Labs 24H Laboratory Tests 2 06/27/21 12:56: Blood Gas Bicarbonate Standard 31.5H, Arterial Blood pH 7.518H, Arterial Blood Partial Pressure CO2 39.2, Arterial Blood Partial Pressure O2 64.5L, Arterial Blood Total CO2 32.4H, Arterial Blood HCO3 31.1H, Arterial Blood Base Excess 7.7H, Arterial Blood Oxygen Saturation 93.6L 06/28/21 05:05: Immature Granulocyte % (Auto) 1.5, Neutrophils (%) (Auto) 94.4H, Lymphocytes (%) (Auto) 2.8L, Monocytes (%) (Auto) 1.1L, Eosinophils (%) (Auto) 0.0, Basophils (%) (Auto) 0.2, Neutrophils # (Auto) 15.1H, Lymphocytes # (Auto) 0.5L, Monocytes # (Auto) 0.2, Eosinophils # (Auto) 0.0, Basophils # (Auto) 0.0, Nucleated Red Blood Cells % (auto) 0.0, Anion Gap 8, Glomerular Filtration Rate 53.4, Calcium Level 8.5L, Magnesium Level 2.1 CBC/BMP Laboratory Tests 06/28/21 05:05 Microbiology Microbiology 06/25/21 Respiratory Virus Panel (PCR) ([facility]) - Final, Complete Allergies Coded Allergies: No Known Allergies (Verified , 05/18/04) Home Medications Scheduled Apixaban (Eliquis) 5 Mg Tablet, 5 MG PO BID, (Reported) Ascorbic Acid (Vitamin C) 500 Mg Tab, 500 MG PO DAILY, (Reported) Bupropion Hcl (Bupropion Xl) 150 Mg Tab.er.24h, 150 MG PO DAILY, (Reported) Buspirone HCl (Buspirone HCl) 10 Mg Tablet, 10 MG PO BID, (Reported) Fluticasone/Vilanterol (Breo Ellipta 100-25 Mcg INH) 1 Each Blst.w.dev, 1 PUFF INH DAILY, (Reported) Metoprolol Tartrate (Metoprolol Tartrate) 25 Mg Tablet, 25 MG PO BID, (Reported) Midodrine HCl (Midodrine HCl) 5 Mg Tablet, 5 MG PO TID, (Reported) 0800, 1200, 1600 Omeprazole (Omeprazole) 20 Mg Capsule.dr, 20 MG PO DAILY, (Reported) Prednisone (Prednisone) 20 Mg Tablet, 40 MG PO DAILY, (Reported) Sertraline Hcl (Zoloft) 100 Mg Tablet, 150 MG PO QHS, (Reported) Simvastatin (Simvastatin) 10 Mg Tablet, 10 MG PO QHS, (Reported) Scheduled PRN Docusate Sodium (Colace) 100 Mg Cap, 100 MG PO BID PRN for CONSTIPATION, (Reported) Paul Babcock DO Jun 28, 2021 10:46 ROMAINE CAMERON MD Jun 28, 2021 15:46
[2021-06-28] MEDS ORDERED: MOM 30ML SUSPENSION UDC PO PRN (13:10)
[2021-06-28] MEDS ORDERED: SENOKOT S TAB PO PRN (13:10)
[2021-06-28] MEDS ORDERED: METAMUCIL (PSYLLIUM) PACKET PO PRN (13:10)
--- NOTE | 2021-06-28 13:54 | ECGEPIP ---
[facility] - ED Test Date: 2021-06-25 Pat Name: TIMI VAZQUEZ Department: Room: - Gender: Female Machine Stuffer: SILVIA : 1940 Requested By: DAVID Mariano Order Number: [id number] Reading MD: Marta Rutledge Measurements Intervals [place] Rate: 57 P: 25 IN: 148 QRS: 3 QRSD: 80 T: 34 QT: 386 QTc: 375 Interpretive Statements Sinus bradycardia Septal infarct , age undetermined ST & T wave abnormality, consider anterior ischemia. clinical correlation 06/08/21 low voltage limb Electronically Signed on 06-28-2021 13:53:43 EDT by Marta Rutledge
[2021-06-28 16:00] VITALS: BP 123/72
[2021-06-28] MEDS ORDERED: FUROSEMIDE 20MG/2ML VIAL (J1940) IV SCH (17:00)
[2021-06-28] MEDS ORDERED: DIGOXIN INJ 0.5 MG/2 ML AMP (J1160) IV STA (17:53)
--- NOTE | 2021-06-28 17:56 | IPNPDOC ---
Date Seen The patient was seen on 06/28/21. Progress Note RN called re: afib w rvr 120 bpm sbp 112 mmhg. plan: Rn just gave lasix for chf. if blood pressure remains stable, may give iv lopressor 5mg for more immediate control. for longer rate control, additional metoprolol 12.5 mg po. if sbp low, may give digoxin 0.25 iv x 1, and repeat 0.125 mg iv in 6hrs, and check digoxin level in am. VS, I&O, [facility] Vital Signs/I&O Vital Signs Date Time Temp Pulse Resp B/P (MAP) Pulse Ox O2 Delivery O2 Flow Rate FiO2 06/28/21 16:00 97.9 93 20 123/72 (89) 100 HVNI-Vapotherm 35.0 100 I&O- Last 24 Hours up to 6 AM 06/28/21 06:00 Intake Total 1020 ml Output Total 1925 ml Balance -905 ml Laboratory Data 24H LABS Laboratory Tests 2 06/28/21 05:05: Immature Granulocyte % (Auto) 1.5, Neutrophils (%) (Auto) 94.4H, Lymphocytes (%) (Auto) 2.8L, Monocytes (%) (Auto) 1.1L, Eosinophils (%) (Auto) 0.0, Basophils (%) (Auto) 0.2, Neutrophils # (Auto) 15.1H, Lymphocytes # (Auto) 0.5L, Monocytes # (Auto) 0.2, Eosinophils # (Auto) 0.0, Basophils # (Auto) 0.0, Nucleated Red Blood Cells % (auto) 0.0, Anion Gap 8, Glomerular Filtration Rate 53.4, Calcium Level 8.5L, Magnesium Level 2.1 CBC/BMP Laboratory Tests 06/28/21 05:05 Microbiology Microbiology 06/25/21 Respiratory Virus Panel (PCR) ([facility]) - Final, Complete JOSE FLORES MD Jun 28, 2021 17:56
[2021-06-28] MEDS ORDERED: METOPROLOL 5 MG/5 ML VIAL IV PRN (18:00)
[2021-06-28 20:00] VITALS: BP 111/65
[2021-06-28] MEDS ORDERED: SENOKOT S TAB PO SCH (21:00)
[2021-06-28] MEDS ORDERED: methylPREDNISolone 40MG 1ML VIAL IV SCH (21:00)
[2021-06-28] MEDS: SIMVASTATIN 10 MG TAB PO SCH (21:39)
[2021-06-28] MEDS: DOCUSATE SODIUM 100MG CAPSULE PO SCH (21:40)
[2021-06-28] MEDS: SERTRALINE HCL 50 MG TAB PO SCH (21:40)
[2021-06-29] VITALS (16 sets, daily range): BP systolic 96–139; BP diastolic 59–90; O2SAT 84–100
[2021-06-29] MEDS: LEVALBUTEROL 1.25 MG/0.5 ML CONCENTRATE NEB INH SCH ×6 (03:49→23:24)
[2021-06-29 05:43] LABS: BASO % 0.2 % (0.0-1.0); HEMATOCRIT 38.6 % (36.0-47.0); HEMOGLOBIN 12.7 g/dl (12.0-15.5); LYMPH # 0.4 10^3/uL (1.5-5.0); LYMPH % 1.9 % (24.0-44.0); MEAN CORPUSCULAR HEMOGLOBIN 29.4 pg (27.0-33.0); MEAN CORPUSCULAR HGB CONC 32.9 g/dl (32.0-36.5); MEAN CORPUSCULAR VOLUME 89.4 fl (80.0-96.0); MONO # 0.4 10^3/uL (0.0-0.8); MONO % 2.2 % (2.0-8.0); NEUTROPHILS % 94.6 % (36.0-66.0); PLATELET COUNT, AUTOMATED 222 10^3/uL (150-450); RED BLOOD COUNT 4.32 10^6/uL (4.00-5.40); WHITE BLOOD COUNT 20.1 10^3/uL (4.0-10.0)
[2021-06-29 06:28] LABS: CALCIUM LEVEL 8.6 MG/DL (8.8-10.2); CREATININE FOR GFR 1.01 MG/DL (0.55-1.30); DIGOXIN LEVEL 0.8 NG/ML (0.5-2.0); GLOMERULAR FILTRATION RATE 56.4 (>39); MAGNESIUM LEVEL 2.3 MG/DL (1.8-2.4); POTASSIUM SERUM 3.6 MEQ/L (3.5-5.1)
[2021-06-29] MEDS: ADVAIR HFA 45/21MCG INHALER INH SCH ×2 (08:17→19:23)
[2021-06-29] MEDS: MIDODRINE 5 MG TAB PO SCH ×3 (09:23→16:58)
[2021-06-29] MEDS: methylPREDNISolone 125MG 2ML VIAL IV SCH ×3 (09:24→21:14)
[2021-06-29] MEDS: guaiFENesin ER 600 MG TAB PO SCH ×2 (09:24→21:16)
[2021-06-29] MEDS: METOPROLOL TART 12.5 MG PER 1/2 TAB PO SCH ×2 (09:24→21:00)
[2021-06-29] MEDS: busPIRone 10 MG TAB PO SCH ×2 (09:25→21:16)
[2021-06-29] MEDS: buPROPion **XL** TABLET 150MG (WELLBUTRIN XL) PO SCH (09:25)
[2021-06-29] MEDS: OMEPRAZOLE 20 MG CAP PO SCH (09:25)
[2021-06-29] MEDS: DOCUSATE SODIUM 100MG CAPSULE PO SCH ×2 (09:25→21:16)
[2021-06-29] MEDS: APIXABAN 5 MG TAB (ELIQUIS) PO SCH ×2 (09:31→21:16)
--- NOTE | 2021-06-29 10:54 | IPNPDOC ---
Subjective Date Seen The patient was seen on 06/29/21. Subjective Chief Complaint/HPI Patient has significant improvement in her respiratory symptoms. She is not coughing. She denies of fever chills, chest pain or palpitation. General: Denies: Chills Constitutional: Denies: Chills, Fever Skin: Denies: Rash Pulmonary: Reports: Dyspnea; Denies: Cough Cardiovascular: Denies: Chest Pain, Palpitations, Orthopnea Gastrointestinal: Denies: Nausea, Abdominal Pain, Diarrhea Neurological: Denies: Weakness Objective Physical Examination General Exam: Positive: Alert, Cooperative, No Acute Distress Eye Exam: Negative: Sclera icteric ENT Exam: Positive: Atraumatic Neck Exam: Positive: Supple; Negative: JVD Chest Exam: Positive: Rales (Bibasilar) Heart Exam: Positive: Rate Normal, Regular Rhythm, Murmurs Abdomen Exam: Positive: Normal bowel sounds, Soft, Tenderness Extremity Exam: Negative: Clubbing, Cyanosis, Edema Neuro Exam: Positive: Normal Speech Assessment /Plan Assessment This is a 80-year-old female with past medical history hypertension, hyperlipidemia, remote history of tobacco smoking, atrial fibrillation admitted to hospital with worsening shortness of breath. 1. Hypoxic respiratory failure 2. ILD with NSIP feature + exacerbation 3. Decompensated right heart failure Plan/VTE VTE Prophylaxis Ordered?: Yes Plan Given dramatic improvement on the CT scan of the chest compared to CT scan of the chest done 3 weeks ago, she should be continue systemic corticosteroid. She is currently on methylprednisolone 60 mg every 6 hours. Only exception to her improvement of her underlying ILD is a significant worsening of right middle lobe groundglass infiltrate which I suspect could be triggered by aspiration given dilated proximal esophagus. She should be evaluated by barium esophagogram to ensure she is not aspirating that may be triggering this exacerbation. Continue aggressive diuresis with strict monitoring I's and O's along with close monitoring of renal function. Disposition Continue hospital care. VS, I&O, 24H, Fishbone Vital Signs/I&O Vital Signs Date Time Temp Pulse Resp B/P (MAP) Pulse Ox O2 Delivery O2 Flow Rate FiO2 06/29/21 10:43 97 HVNI-Vapotherm 30.0 75 06/29/21 09:24 103 06/29/21 08:00 97.8 17 130/85 (100) l I&O- Last 24 Hours up to 6 AM 06/29/21 06:00 Intake Total 1270 ml Output Total 400 ml Balance 870 ml Laboratory Data 24H LABS Laboratory Tests 2 06/29/21 05:24: Immature Granulocyte % (Auto) 1.1, Neutrophils (%) (Auto) 94.6H, Lymphocytes (%) (Auto) 1.9L, Monocytes (%) (Auto) 2.2, Eosinophils (%) (Auto) 0.0, Basophils (%) (Auto) 0.2, Neutrophils # (Auto) 19.0H, Lymphocytes # (Auto) 0.4L, Monocytes # (Auto) 0.4, Eosinophils # (Auto) 0.0, Basophils # (Auto) 0.0, Nucleated Red Blood Cells % (auto) 0.0, Anion Gap 6L, Glomerular Filtration Rate 56.4, Calcium Level 8.6L, Magnesium Level 2.3, Digoxin Level 0.8 CBC/BMP Laboratory Tests 06/29/21 05:24 Microbiology Microbiology 06/25/21 Respiratory Virus Panel (PCR) ([facility]) - Final, Complete ROMAINE CAMERON MD Jun 29, 2021 10:54
--- NOTE | 2021-06-29 14:36 | IPNPDOC ---
Subjective Date Seen The patient was seen on 06/29/21. Subjective Chief Complaint/HPI Patient reports that her shortness of breath is a little better though she is very weak and tired. Denies any cough or phlegm. Says she is able to eat and denies any episodes of choking or aspiration. Objective Physical Examination General Exam: Positive: Alert, Cooperative, No Acute Distress Eye Exam: Positive: PERRLA, Conjunctiva & lids normal; Negative: Sclera icteric ENT Exam: Positive: Atraumatic, Mucous membr. moist/pink, Pharynx Normal Neck Exam: Positive: Supple; Negative: JVD Chest Exam: Positive: Rales (Bibasilar), Diminished Heart Exam: Positive: Tachycardic, Irregular Rhythm, Murmurs Telemetry: Positive: Atrial fibrillation Abdomen Exam: Positive: Normal bowel sounds, Soft; Negative: Tenderness Extremity Exam: Negative: Clubbing, Cyanosis, Edema Neuro Exam: Positive: Normal Speech, Strength at 5/5 X4 ext, Normal Tone Psych Exam: Positive: Memory Intact, Oriented x 3 Assessment /Plan Assessment This is a 80-year-old female with history of ILD ( acute interstitial pneumonitis vs Idiopathic interstitial pneumonitis), COPD/emphysema, diastolic CHF, severe pulmonary hypertension, chronic hypoxic respiratory failure was recently admitted to the hospital from 06/07 to 06/21, shortness of breath and dyspnea on exertion. During that admission she was treated with antibiotics steroids and diuretics. She improved somewhat and was discharged home with 3 L oxygen presents again this time on 06/25/2021 with ongoing shortness of breath and dyspnea on exertion and was diagnosed with ILD exacerbation and acute on chronic respiratory failure and possible diastolic CHF exacerbation. ILD exacerbation Appreciate pulmonary consultation Patient CT scan has improved this admission from that 3 weeks ago seems like he has responded well to steroids Solu-Medrol dose has been reduced Continue Vapotherm Possible aspiration Due to asymmetric changes in the CT scan Barium swallow ordered Leukocytosis Is due to steroids No other signs of infection Diastolic CHF exacerbation Patient seems to be euvolemic at this time Seems to have resolved Continue to monitor daily weights and intake and output. [id number] hypoxic respiratory failure. She was discharged home on 3 liters of oxygen now requiring Vapotherm Multifactorial due to ILD exacerbation on the background of severe emphysema and recent diastolic CHF exacerbation COPD/corpulmonale Continue neb and steroids Severe pulmonary hypertension /severe tricuspid regurgitation with PA pressure 64 mmHg complicating her care and causing cor pulmonale with right-sided heart failure, Atrial fibrillation/atrial flutter currently rate controlled on metoprolol which we decreased to 12.5 twice a day due to bradycardia with ventricular rate in the 50s. Continue Eliquis Gastroesophageal reflux on PPI. Hypertension On metoprolol Multiple wedge compression fractures with kyphosis complicating her respiratory status. Anxiety and depression, chronic. Plan/VTE VTE Prophylaxis Ordered?: Yes VS, I&O, 24H, Fishbone Vital Signs/I&O Vital Signs Date Time Temp Pulse Resp B/P (MAP) Pulse Ox O2 Delivery O2 Flow Rate FiO2 06/29/21 12:00 127/88 (101) HVNI-Vapotherm 06/29/21 11:25 97 30.0 70 06/29/21 09:24 103 06/29/21 08:00 97.8 17 I&O- Last 24 Hours up to 6 AM 06/29/21 06:00 Intake Total 1270 ml Output Total 400 ml Balance 870 ml Laboratory Data 24H LABS Laboratory Tests 2 06/29/21 05:24: Immature Granulocyte % (Auto) 1.1, Neutrophils (%) (Auto) 94.6H, Lymphocytes (%) (Auto) 1.9L, Monocytes (%) (Auto) 2.2, Eosinophils (%) (Auto) 0.0, Basophils (%) (Auto) 0.2, Neutrophils # (Auto) 19.0H, Lymphocytes # (Auto) 0.4L, Monocytes # (Auto) 0.4, Eosinophils # (Auto) 0.0, Basophils # (Auto) 0.0, Nucleated Red Blood Cells % (auto) 0.0, Anion Gap 6L, Glomerular Filtration Rate 56.4, Calcium Level 8.6L, Magnesium Level 2.3, Digoxin Level 0.8 CBC/BMP Laboratory Tests 06/29/21 05:24 Microbiology Microbiology 06/25/21 Respiratory Virus Panel (PCR) ([facility]) - Final, Complete Mirella Adams MD Jun 29, 2021 14:36
[2021-06-29] MEDS ORDERED: E-Z-PAQUE 96% w/w SUSP 176GM BTL As Ordered ONE (15:57)
[2021-06-29] MEDS ORDERED: E-Z-HD 98% w/w 340GM SUSP BTL As Ordered ONE (15:57)
[2021-06-29] MEDS ORDERED: E-Z-GAS II EFFERVESCENT PACKET (SODIUM BICARB./CITRIC ACID/SIMETHICONE) As Ordered ONE (15:57)
--- NOTE | 2021-06-29 17:06 | REP ---
INDICATION: possible aspiration pneumonia. COMPARISON: None. TECHNIQUE: This procedure was performed under the direct supervision of Dr. Carbone. Images were reviewed with Dr. Carbone. Liquid barium was erect position as well as liquid barium in the right lateral recumbent position in order to perform a single contrast esophagram examination. A combination of fluoroscopy, spot films and last image hold technology was utilized. 0.5 minutes of fluoro time was utilized for this procedure. FINDINGS: During the oral and pharyngeal stages of deglutition there is laryngeal penetration. There is cricopharyngeal hypertrophy. During esophageal transport there are tertiary waves demonstrated. There is tortuosity of the distal esophagus due to kyphosis. There is no esophagitis, stricture, mucosal ring or hiatal hernia. Gastroesophageal reflux is not demonstrated on this examination. IMPRESSION: 1. There is laryngeal penetration. 2. Cricopharyngeal hypertrophy. 3. Tertiary waves. There is tortuosity of the esophagus due to kyphosis. <Electronically signed by Zachariah العلي > 06/29/21 1701 <Electronically signed by Anish Carbone > 06/29/21 1700
[2021-06-29] MEDS: SERTRALINE HCL 50 MG TAB PO SCH (21:14)
[2021-06-29] MEDS: SIMVASTATIN 10 MG TAB PO SCH (21:16)
[2021-06-30] VITALS (11 sets, daily range): BP systolic 96–131; BP diastolic 65–76; O2SAT 86–96
[2021-06-30] MEDS: methylPREDNISolone 125MG 2ML VIAL IV SCH ×4 (01:41→21:07)
[2021-06-30] MEDS: LEVALBUTEROL 1.25 MG/0.5 ML CONCENTRATE NEB INH SCH ×4 (03:45→20:00)
[2021-06-30 05:58] LABS: BASO % 0.1 % (0.0-1.0); EOS % 0.1 % (0.0-3.0); HEMATOCRIT 39.3 % (36.0-47.0); HEMOGLOBIN 12.9 g/dl (12.0-15.5); LYMPH # 0.3 10^3/uL (1.5-5.0); LYMPH % 1.8 % (24.0-44.0); MEAN CORPUSCULAR HEMOGLOBIN 29.5 pg (27.0-33.0); MEAN CORPUSCULAR HGB CONC 32.8 g/dl (32.0-36.5); MEAN CORPUSCULAR VOLUME 89.7 fl (80.0-96.0); MONO # 0.2 10^3/uL (0.0-0.8); MONO % 1.4 % (2.0-8.0); NEUTROPHILS # 15.4 10^3/uL (1.5-8.5); NEUTROPHILS % 95.4 % (36.0-66.0); PLATELET COUNT, AUTOMATED 227 10^3/uL (150-450); RED BLOOD COUNT 4.38 10^6/uL (4.00-5.40); WHITE BLOOD COUNT 16.2 10^3/uL (4.0-10.0)
[2021-06-30 06:25] LABS: CREATININE FOR GFR 0.97 MG/DL (0.55-1.30); GLOMERULAR FILTRATION RATE 59.1 (>39); MAGNESIUM LEVEL 2.5 MG/DL (1.8-2.4); POTASSIUM SERUM 3.8 MEQ/L (3.5-5.1)
[2021-06-30] MEDS: ADVAIR HFA 45/21MCG INHALER INH SCH ×2 (07:20→20:13)
[2021-06-30] MEDS: guaiFENesin ER 600 MG TAB PO SCH ×2 (07:53→21:06)
[2021-06-30] MEDS: buPROPion **XL** TABLET 150MG (WELLBUTRIN XL) PO SCH (07:53)
[2021-06-30] MEDS: OMEPRAZOLE 20 MG CAP PO SCH ×2 (07:53→21:06)
[2021-06-30] MEDS: METOPROLOL TART 12.5 MG PER 1/2 TAB PO SCH ×2 (07:53→21:07)
[2021-06-30] MEDS: MIDODRINE 5 MG TAB PO SCH ×3 (07:53→16:03)
[2021-06-30] MEDS: busPIRone 10 MG TAB PO SCH ×2 (07:54→21:07)
[2021-06-30] MEDS: APIXABAN 5 MG TAB (ELIQUIS) PO SCH ×2 (07:54→21:07)
[2021-06-30] MEDS: DOCUSATE SODIUM 100MG CAPSULE PO SCH ×2 (07:54→21:06)
[2021-06-30] MEDS ORDERED: DIGOXIN INJ 0.5 MG/2 ML AMP (J1160) IV ONE ×2 (11:05→14:00)
--- NOTE | 2021-06-30 11:06 | IPNPDOC ---
Subjective Date Seen The patient was seen on 06/30/21. Subjective Chief Complaint/HPI Patient states she feeling better with in terms of her shortness of breath and cough. She denies of fever, chills, chest pain, palpitation, orthopnea. General: Denies: Chills Constitutional: Denies: Chills, Fever Skin: Denies: Rash Pulmonary: Reports: Dyspnea; Denies: Cough Cardiovascular: Denies: Chest Pain, Palpitations, Orthopnea Gastrointestinal: Denies: Nausea, Vomiting, Abdominal Pain, Diarrhea Neurological: Denies: Weakness, Numbness Objective Physical Examination General Exam: Positive: Alert, Cooperative, No Acute Distress Eye Exam: Positive: PERRLA, Conjunctiva & lids normal; Negative: Sclera icteric ENT Exam: Positive: Atraumatic, Mucous membr. moist/pink, Pharynx Normal Neck Exam: Positive: Supple; Negative: JVD Chest Exam: Positive: Rales (Bibasilar), Diminished Heart Exam: Positive: Tachycardic, Irregular Rhythm, Murmurs Telemetry: Positive: Atrial fibrillation Abdomen Exam: Positive: Normal bowel sounds, Soft; Negative: Tenderness Extremity Exam: Negative: Clubbing, Cyanosis, Edema Neuro Exam: Positive: Normal Speech, Strength at 5/5 X4 ext, Normal Tone Psych Exam: Positive: Memory Intact, Oriented x 3 Assessment /Plan Assessment This is a 80-year-old female with past medical history hypertension, hyperlipidemia, remote history of tobacco smoking, atrial fibrillation admitted to hospital with worsening shortness of breath. 1. Hypoxic respiratory failure 2. ILD with NSIP feature + exacerbation 3. Decompensated right heart failure 4. Aspiration Plan/VTE VTE Prophylaxis Ordered?: Yes Plan -Given dramatic improvement on the CT scan of the chest compared to CT scan of the chest done 3 weeks ago, she should be continue systemic corticosteroid. She is currently on methylprednisolone 60 mg every 6 hours. Only exception to her improvement of her underlying ILD is a significant worsening of right middle lobe groundglass infiltrate which I suspect could be triggered by aspiration given dilated proximal esophagus. She did have a barium esophagram which show there is evidence of laryngeal penetration which did confirm the suspicion of aspiration. -Continue aggressive diuresis with strict monitoring I's and O's along with close monitoring of renal function. Disposition continue hospital care. VS, I&O, 24H, Fishbone Vital Signs/I&O Vital Signs Date Time Temp Pulse Resp B/P (MAP) Pulse Ox O2 Delivery O2 Flow Rate FiO2 06/30/21 08:00 97.0 129 18 127/75 (92) 89 HVNI-Vapotherm 30.0 06/30/21 07:20 80 I&O- Last 24 Hours up to 6 AM 06/30/21 06:00 Intake Total 120 ml Output Total 425 ml Balance -305 ml Laboratory Data 24H LABS Laboratory Tests 2 06/30/21 05:10: Immature Granulocyte % (Auto) 1.2, Neutrophils (%) (Auto) 95.4H, Lymphocytes (%) (Auto) 1.8L, Monocytes (%) (Auto) 1.4L, Eosinophils (%) (Auto) 0.1, Basophils (%) (Auto) 0.1, Neutrophils # (Auto) 15.4H, Lymphocytes # (Auto) 0.3L, Monocytes # (Auto) 0.2, Eosinophils # (Auto) 0.0, Basophils # (Auto) 0.0, Nucleated Red Blood Cells % (auto) 0.0, Anion Gap 7L, Glomerular Filtration Rate 59.1, Calcium Level 9.0, Magnesium Level 2.5H CBC/BMP Laboratory Tests 06/30/21 05:10 Microbiology Microbiology 06/25/21 Respiratory Virus Panel (PCR) ([facility]) - Final, Complete ROMAINE CAMERON MD Jun 30, 2021 11:06
--- NOTE | 2021-06-30 11:14 | IPNPDOC ---
Subjective Date Seen The patient was seen on 06/30/21. Subjective Chief Complaint/HPI Respiratory status remains about the same. Still on Vapotherm 30 L/ 80%. Has pursed lip breathing. Objective Physical Examination General Exam: Positive: Alert, Cooperative, No Acute Distress Eye Exam: Positive: PERRLA, Conjunctiva & lids normal; Negative: Sclera icteric ENT Exam: Positive: Atraumatic, Mucous membr. moist/pink, Pharynx Normal Neck Exam: Positive: Supple; Negative: JVD Chest Exam: Positive: Diminished, Other (Diffuse bilateral crackles slightly more on the right, severe kyphosis) Heart Exam: Positive: Tachycardic, Irregular Rhythm, Murmurs Telemetry: Positive: Atrial fibrillation Abdomen Exam: Positive: Normal bowel sounds, Soft; Negative: Tenderness Extremity Exam: Negative: Clubbing, Cyanosis, Edema Neuro Exam: Positive: Normal Speech, Strength at 5/5 X4 ext, Normal Tone Psych Exam: Positive: Memory Intact, Oriented x 3 Assessment /Plan Assessment This is a 80-year-old female with recent diagnosis of ILD ( acute interstitial pneumonia vs Nonspecific interstitial pneumonia) in May 2021 responded to [facility], COPD/emphysema, diastolic CHF, severe pulmonary hypertension, chronic hypoxic respiratory failure was recently admitted to the hospital from 06/07 to 06/21, shortness of breath and dyspnea on exertion. During that admission she was treated with antibiotics, steroids and diuretics and finally diagnosed as ILD with negative rheumatological work up and negative hypersensitivity pneumonitis work up. She improved with steroids and was discharged home with 3 L oxygen presents again on 06/25/2021 with ongoing shortness of breath and dyspnea on exertion and was diagnosed with ILD exacerbation and acute on chronic respiratory failure and possible diastolic CHF exacerbation. ILD exacerbation Appreciate pulmonary consultation Patient CT scan has improved this admission from that 3 weeks ago seems like he has responded well to steroids Solu-Medrol dose has been reduced Continue Vapotherm Aspiration asymmetric changes in the CT scan Barium swallow showed laryngeal penetration. swallow evaluation Leukocytosis Is due to steroids No other signs of infection Diastolic CHF exacerbation Patient seems to be euvolemic at this time Continue to monitor daily weights and intake and output. [id number]-txujscw hypoxic respiratory failure. She was discharged home on 3 liters of oxygen now requiring Vapotherm Multifactorial due to ILD exacerbation on the background of severe emphysema and recent diastolic CHF exacerbation COPD/corpulmonale Continue neb and steroids Severe pulmonary hypertension /severe tricuspid regurgitation with PA pressure 64 mmHg complicating her care and causing cor pulmonale with right-sided heart failure, Atrial fibrillation/atrial flutter Rate not well controlled. Cannot increase metoprolol dose because of blood pressure Will start on dig loading Continue Eliquis Gastroesophageal reflux on PPI. Hypertension On metoprolol for rate control of A. fib If blood pressure drops will give midodrine Multiple wedge compression fractures with severe kyphosis complicating her respiratory status. Anxiety and depression, chronic. Plan/VTE VTE Prophylaxis Ordered?: Yes VS, I&O, 24H, Fishbone Vital Signs/I&O Vital Signs Date Time Temp Pulse Resp B/P (MAP) Pulse Ox O2 Delivery O2 Flow Rate FiO2 06/30/21 08:00 97.0 129 18 127/75 (92) 89 HVNI-Vapotherm 30.0 06/30/21 07:20 80 I&O- Last 24 Hours up to 6 AM 06/30/21 06:00 Intake Total 120 ml Output Total 425 ml Balance -305 ml Laboratory Data 24H LABS Laboratory Tests 2 06/30/21 05:10: Immature Granulocyte % (Auto) 1.2, Neutrophils (%) (Auto) 95.4H, Lymphocytes (%) (Auto) 1.8L, Monocytes (%) (Auto) 1.4L, Eosinophils (%) (Auto) 0.1, Basophils (%) (Auto) 0.1, Neutrophils # (Auto) 15.4H, Lymphocytes # (Auto) 0.3L, Monocytes # (Auto) 0.2, Eosinophils # (Auto) 0.0, Basophils # (Auto) 0.0, Nucleated Red Blood Cells % (auto) 0.0, Anion Gap 7L, Glomerular Filtration Rate 59.1, Calcium Level 9.0, Magnesium Level 2.5H CBC/BMP Laboratory Tests 06/30/21 05:10 Microbiology Microbiology 06/25/21 Respiratory Virus Panel (PCR) ([facility]) - Final, Complete Mirella Adams MD Jun 30, 2021 11:07
[2021-06-30] MEDS: SERTRALINE HCL 50 MG TAB PO SCH (21:06)
[2021-06-30] MEDS: SIMVASTATIN 10 MG TAB PO SCH (21:07)
[2021-07-01] VITALS: BP 120/76
[2021-07-01] MEDS: methylPREDNISolone 125MG 2ML VIAL IV SCH ×4 (01:12→20:06)
[2021-07-01] MEDS: LEVALBUTEROL 1.25 MG/0.5 ML CONCENTRATE NEB INH SCH ×4 (01:56→20:00)
[2021-07-01 04:00] VITALS: BP 133/89
[2021-07-01 05:58] LABS: BASO % 0.1 % (0.0-1.0); HEMATOCRIT 38.3 % (36.0-47.0); HEMOGLOBIN 12.7 g/dl (12.0-15.5); LYMPH # 0.3 10^3/uL (1.5-5.0); LYMPH % 2.2 % (24.0-44.0); MEAN CORPUSCULAR HEMOGLOBIN 29.7 pg (27.0-33.0); MEAN CORPUSCULAR HGB CONC 33.2 g/dl (32.0-36.5); MEAN CORPUSCULAR VOLUME 89.5 fl (80.0-96.0); MONO # 0.3 10^3/uL (0.0-0.8); MONO % 1.9 % (2.0-8.0); NEUTROPHILS # 13.5 10^3/uL (1.5-8.5); NEUTROPHILS % 94.5 % (36.0-66.0); PLATELET COUNT, AUTOMATED 212 10^3/uL (150-450); RED BLOOD COUNT 4.28 10^6/uL (4.00-5.40); WHITE BLOOD COUNT 14.2 10^3/uL (4.0-10.0)
[2021-07-01 06:20] LABS: BLOOD UREA NITROGEN 44 MG/DL (7-18); CALCIUM LEVEL 8.6 MG/DL (8.8-10.2); CARBON DIOXIDE LEVEL 32 MEQ/L (21-32); CHLORIDE LEVEL 103 MEQ/L (98-107); CREATININE FOR GFR 0.88 MG/DL (0.55-1.30); GLOMERULAR FILTRATION RATE > 60.0 (>39); GLUCOSE, FASTING 127 MG/DL (70-100); MAGNESIUM LEVEL 2.5 MG/DL (1.8-2.4); POTASSIUM SERUM 4.3 MEQ/L (3.5-5.1); SODIUM LEVEL 139 MEQ/L (136-145)
[2021-07-01] MEDS: ADVAIR HFA 45/21MCG INHALER INH SCH ×2 (07:16→20:00)
[2021-07-01 07:37] VITALS: BP 118/75
[2021-07-01] MEDS: MIDODRINE 5 MG TAB PO SCH ×3 (08:00→16:53)
[2021-07-01] MEDS: busPIRone 10 MG TAB PO SCH ×2 (10:03→20:05)
[2021-07-01] MEDS: APIXABAN 5 MG TAB (ELIQUIS) PO SCH ×2 (10:04→20:05)
[2021-07-01] MEDS: guaiFENesin ER 600 MG TAB PO SCH ×2 (10:04→20:05)
[2021-07-01] MEDS: OMEPRAZOLE 20 MG CAP PO SCH ×2 (10:04→20:05)
[2021-07-01] MEDS: buPROPion **XL** TABLET 150MG (WELLBUTRIN XL) PO SCH (10:04)
[2021-07-01] MEDS: DOCUSATE SODIUM 100MG CAPSULE PO SCH ×2 (10:04→20:06)
[2021-07-01] MEDS: METOPROLOL TART 12.5 MG PER 1/2 TAB PO SCH ×2 (10:06→20:06)
--- NOTE | 2021-07-01 10:49 | IPNPDOC ---
Subjective Date Seen The patient was seen on 07/01/21. Subjective Chief Complaint/HPI Patient is doing well with no complaint today. She's eating and drinking well. She denies fever, chills, cough, chest pain, palpitation. General: Denies: Chills Constitutional: Denies: Chills, Fever, Night Sweats Eyes: Denies: Pain ENT: Denies: Sore Throat Skin: Denies: Rash Pulmonary: Reports: Dyspnea; Denies: Cough Cardiovascular: Denies: Chest Pain, Palpitations, Orthopnea Gastrointestinal: Denies: Nausea, Abdominal Pain, Diarrhea Psych: Reports: Mood Normal Objective Physical Examination General Exam: Positive: Alert, Cooperative, No Acute Distress Eye Exam: Positive: PERRLA, Conjunctiva & lids normal; Negative: Sclera icteric ENT Exam: Positive: Atraumatic, Mucous membr. moist/pink, Pharynx Normal Neck Exam: Positive: Supple; Negative: JVD Chest Exam: Positive: Diminished, Other (Diffuse bilateral crackles slightly more on the right, severe kyphosis) Heart Exam: Positive: Rate Normal, Irregular Rhythm, Murmurs Abdomen Exam: Positive: Normal bowel sounds, Soft; Negative: Tenderness Extremity Exam: Negative: Clubbing, Cyanosis, Edema Neuro Exam: Positive: Normal Speech, Strength at 5/5 X4 ext, Normal Tone Psych Exam: Positive: Memory Intact, Oriented x 3 Assessment /Plan Assessment This is a 80-year-old female with past medical history hypertension, hyperlipidemia, remote history of tobacco smoking, atrial fibrillation admitted to hospital with worsening shortness of breath. 1. Hypoxic respiratory failure 2. ILD with NSIP feature + exacerbation 3. Decompensated right heart failure 4. Aspiration Plan/VTE VTE Prophylaxis Ordered?: Yes Plan -Significant laryngeal penetration on barium swallow. I believe this hospital admission with solely RML GGO infiltrate is likely due to aspiration pneumonitis . The rest of the lungs are improved compared to previous CT of the chest. Support care with Vapotherm to target oxygen Sat > 90%. Continue with systemic corticosteroid. No evidence of infectious etiology for this admission. -continue with diuresis with strict I&O and electrolytes. -Aspiration precaution. She'd benefit from daily speech therapy. Disposition continue hospital care. VS, I&O, 24H, Fishbone Vital Signs/I&O Vital Signs Date Time Temp Pulse Resp B/P (MAP) Pulse Ox O2 Delivery O2 Flow Rate FiO2 07/01/21 10:06 69 118/75 07/01/21 07:37 98.1 18 91 HVNI-Vapotherm 07/01/21 07:18 30.0 70 I&O- Last 24 Hours up to 6 AM 07/01/21 05:59 Intake Total 1620 ml Output Total 1100 ml Balance 520 ml Laboratory Data 24H LABS Laboratory Tests 2 07/01/21 05:28: Immature Granulocyte % (Auto) 1.3, Neutrophils (%) (Auto) 94.5H, Lymphocytes (%) (Auto) 2.2L, Monocytes (%) (Auto) 1.9L, Eosinophils (%) (Auto) 0.0, Basophils (%) (Auto) 0.1, Neutrophils # (Auto) 13.5H, Lymphocytes # (Auto) 0.3L, Monocytes # (Auto) 0.3, Eosinophils # (Auto) 0.0, Basophils # (Auto) 0.0, Nucleated Red Blood Cells % (auto) 0.0, Anion Gap 4L, Glomerular Filtration Rate > 60.0, Calcium Level 8.6L, Magnesium Level 2.5H CBC/BMP Laboratory Tests 07/01/21 05:28 Microbiology Microbiology 06/25/21 Respiratory Virus Panel (PCR) ([facility]) - Final, Complete ROMAINE CAMERON MD Jul 01, 2021 10:49
--- NOTE | 2021-07-01 11:01 | IPNPDOC ---
Subjective Date Seen The patient was seen on 07/01/21. Subjective Chief Complaint/HPI Overall feeling better sitting up in bed in no distress. Less conversational dyspnea today. We have been able to come down on her Vapotherm settings to 30 L/70% Objective Physical Examination General Exam: Positive: Alert, Cooperative, No Acute Distress Eye Exam: Positive: PERRLA, Conjunctiva & lids normal; Negative: Sclera icteric ENT Exam: Positive: Atraumatic, Mucous membr. moist/pink, Pharynx Normal Neck Exam: Positive: Supple; Negative: JVD Chest Exam: Positive: Diminished, Other (Diffuse bilateral crackles slightly more on the right, severe kyphosis) Heart Exam: Positive: Rate Normal, Irregular Rhythm, Murmurs Abdomen Exam: Positive: Normal bowel sounds, Soft; Negative: Tenderness Extremity Exam: Negative: Clubbing, Cyanosis, Edema Neuro Exam: Positive: Normal Speech, Strength at 5/5 X4 ext, Normal Tone Psych Exam: Positive: Memory Intact, Oriented x 3 Assessment /Plan Assessment This is a 80-year-old female with recent diagnosis of ILD ( acute interstitial pneumonia vs Nonspecific interstitial pneumonia) in May 2021 responded to [facility], COPD/emphysema, diastolic CHF, severe pulmonary hypertension, chronic hypoxic respiratory failure was recently admitted to the hospital from 06/07 to 06/21, shortness of breath and dyspnea on exertion. During that admission she was treated with antibiotics, steroids and diuretics and finally diagnosed as ILD with negative rheumatological work up and negative hypersensitivity pneumonitis work up. She improved with steroids and was discharged home with 3 L oxygen presents again on 06/25/2021 with ongoing shortness of breath and dyspnea on exertion and was diagnosed with ILD exacerbation and acute on chronic respiratory failure and possible diastolic CHF exacerbation. [id number] hypoxic respiratory failure. She was discharged home on 3 liters of oxygen now requiring Vapotherm Multifactorial due to ILD exacerbation on the background of severe emphysema and recent diastolic CHF exacerbation ILD exacerbation Appreciate pulmonary consultation Patient CT scan has improved this admission from that 3 weeks ago seems like he has responded well to steroids Solu-Medrol dose has been reduced Continue Vapotherm Aspiration with aspiration pneumonitis. asymmetric changes in the CT scan with involvement of the right middle lobe rest of the lung picture improved from prior CT last month. Barium swallow showed laryngeal penetration though no signs at bedside evaluation. So likely has silent aspiration episodes. ST to continue Atrial fibrillation/atrial flutter Rate not well controlled. Cannot increase metoprolol dose because of blood pressure continue dig 0.125 Continue Eliquis Diastolic CHF exacerbation Patient seems to be euvolemic at this time Continue to monitor daily weights and intake and output. Leukocytosis Is due to steroids No other signs of infection COPD/corpulmonale Continue neb and steroids Severe pulmonary hypertension /severe tricuspid regurgitation with PA pressure 64 mmHg complicating her care and causing cor pulmonale with right-sided heart failure, Gastroesophageal reflux on PPI. H/o Hypertension Now BP normal to low normal. On metoprolol for rate control of A. fib If blood pressure drops will give midodrine Multiple wedge compression fractures with severe kyphosis complicating her respiratory status. Anxiety and depression, chronic. Plan/VTE VTE Prophylaxis Ordered?: Yes VS, I&O, 24H, Fishbone Vital Signs/I&O Vital Signs Date Time Temp Pulse Resp B/P (MAP) Pulse Ox O2 Delivery O2 Flow Rate FiO2 07/01/21 10:06 69 118/75 07/01/21 07:37 98.1 18 91 HVNI-Vapotherm 07/01/21 07:18 30.0 70 I&O- Last 24 Hours up to 6 AM 07/01/21 05:59 Intake Total 1620 ml Output Total 1100 ml Balance 520 ml Laboratory Data 24H LABS Laboratory Tests 2 07/01/21 05:28: Immature Granulocyte % (Auto) 1.3, Neutrophils (%) (Auto) 94.5H, Lymphocytes (%) (Auto) 2.2L, Monocytes (%) (Auto) 1.9L, Eosinophils (%) (Auto) 0.0, Basophils (%) (Auto) 0.1, Neutrophils # (Auto) 13.5H, Lymphocytes # (Auto) 0.3L, Monocytes # (Auto) 0.3, Eosinophils # (Auto) 0.0, Basophils # (Auto) 0.0, Nucleated Red Blood Cells % (auto) 0.0, Anion Gap 4L, Glomerular Filtration Rate > 60.0, Calcium Level 8.6L, Magnesium Level 2.5H CBC/BMP Laboratory Tests 07/01/21 05:28 Microbiology Microbiology 06/25/21 Respiratory Virus Panel (PCR) ([facility]) - Final, Complete Mirella Adams MD Jul 01, 2021 11:01
[2021-07-01 11:27] VITALS: BP 96/62
[2021-07-01] MEDS: DIGOXIN 0.125 MG TAB PO SCH (14:21)
[2021-07-01 15:14] VITALS: BP 121/70
[2021-07-01 20:00] VITALS: BP 109/66
[2021-07-01] MEDS: SERTRALINE HCL 50 MG TAB PO SCH (20:05)
[2021-07-01] MEDS: SIMVASTATIN 10 MG TAB PO SCH (20:05)
[2021-07-02] VITALS (19 sets, daily range): BP systolic 103–139; BP diastolic 61–77; O2SAT 86–100
[2021-07-02] MEDS: LEVALBUTEROL 1.25 MG/0.5 ML CONCENTRATE NEB INH SCH ×4 (00:56→20:00)
[2021-07-02] MEDS: methylPREDNISolone 125MG 2ML VIAL IV SCH ×4 (02:58→20:17)
[2021-07-02 05:26] LABS: BASO % 0.2 % (0.0-1.0); HEMATOCRIT 36.7 % (36.0-47.0); HEMOGLOBIN 12.1 g/dl (12.0-15.5); LYMPH # 0.3 10^3/uL (1.5-5.0); LYMPH % 2.5 % (24.0-44.0); MEAN CORPUSCULAR HEMOGLOBIN 29.5 pg (27.0-33.0); MEAN CORPUSCULAR VOLUME 89.5 fl (80.0-96.0); MONO # 0.4 10^3/uL (0.0-0.8); MONO % 3.9 % (2.0-8.0); NEUTROPHILS % 91.6 % (36.0-66.0); PLATELET COUNT, AUTOMATED 214 10^3/uL (150-450)
[2021-07-02 05:46] LABS: BLOOD UREA NITROGEN 36 MG/DL (7-18); CALCIUM LEVEL 8.6 MG/DL (8.8-10.2); CARBON DIOXIDE LEVEL 35 MEQ/L (21-32); CHLORIDE LEVEL 103 MEQ/L (98-107); CREATININE FOR GFR 0.76 MG/DL (0.55-1.30); GLOMERULAR FILTRATION RATE > 60.0 (>39); GLUCOSE, FASTING 128 MG/DL (70-100); MAGNESIUM LEVEL 2.4 MG/DL (1.8-2.4); POTASSIUM SERUM 4.6 MEQ/L (3.5-5.1); SODIUM LEVEL 139 MEQ/L (136-145)
[2021-07-02] MEDS: ADVAIR HFA 45/21MCG INHALER INH SCH ×2 (07:26→19:39)
[2021-07-02] MEDS: DOCUSATE SODIUM 100MG CAPSULE PO SCH ×2 (09:12→20:17)
[2021-07-02] MEDS: APIXABAN 5 MG TAB (ELIQUIS) PO SCH ×2 (09:12→20:18)
[2021-07-02] MEDS: METOPROLOL TART 12.5 MG PER 1/2 TAB PO SCH ×2 (09:12→20:18)
[2021-07-02] MEDS: buPROPion **XL** TABLET 150MG (WELLBUTRIN XL) PO SCH (09:12)
[2021-07-02] MEDS: guaiFENesin ER 600 MG TAB PO SCH ×2 (09:12→20:18)
[2021-07-02] MEDS: DIGOXIN 0.125 MG TAB PO SCH (09:12)
[2021-07-02] MEDS: busPIRone 10 MG TAB PO SCH ×2 (09:12→21:46)
[2021-07-02] MEDS: OMEPRAZOLE 20 MG CAP PO SCH ×2 (09:12→20:18)
--- NOTE | 2021-07-02 11:39 | IPNPDOC ---
Subjective Date Seen The patient was seen on 07/02/21. Subjective Chief Complaint/HPI Patient has no complaint today. She is comfortable and denies of fever, chills, chest pain, shortness of breath, palpitation, orthopnea. General: Denies: Chills Constitutional: Denies: Chills, Fever ENT: Denies: Head Aches, Sore Throat Skin: Denies: Rash Pulmonary: Denies: Dyspnea, Cough Cardiovascular: Denies: Chest Pain, Palpitations, Orthopnea Gastrointestinal: Denies: Nausea, Abdominal Pain, Diarrhea Neurological: Denies: Weakness Objective Physical Examination General Exam: Positive: Alert, Cooperative, No Acute Distress Eye Exam: Positive: PERRLA, Conjunctiva & lids normal; Negative: Sclera icteric ENT Exam: Positive: Atraumatic, Mucous membr. moist/pink, Pharynx Normal Neck Exam: Positive: Supple; Negative: JVD Chest Exam: Positive: Other (Diffuse bilateral crackles slightly more on the right, severe kyphosis) Heart Exam: Positive: Rate Normal, Irregular Rhythm, Murmurs Abdomen Exam: Positive: Normal bowel sounds, Soft; Negative: Tenderness Extremity Exam: Negative: Clubbing, Cyanosis, Edema Neuro Exam: Positive: Normal Speech, Strength at 5/5 X4 ext, Normal Tone Psych Exam: Positive: Memory Intact, Oriented x 3 Assessment /Plan Assessment This is a 80-year-old female with past medical history hypertension, hyperlipidemia, remote history of tobacco smoking, atrial fibrillation admitted to hospital with worsening shortness of breath. 1. Hypoxic respiratory failure 2. ILD with NSIP feature + exacerbation 3. Decompensated right heart failure 4. Aspiration Plan/VTE VTE Prophylaxis Ordered?: Yes Plan -Continue with supportive care. Vapotherm can be weaned down to target oxygen saturation above 90%. Continue with current dose of steroid. She is currently off Lasix. She appears euvolemic. Recommend ongoing speech therapy for swallow training as she is high risk for aspiration with aspiration pneumonitis. -Optimize rate control for atrial fibrillation. Disposition Continue hospital care. VS, I&O, 24H, Fishbone Vital Signs/I&O Vital Signs Date Time Temp Pulse Resp B/P (MAP) Pulse Ox O2 Delivery O2 Flow Rate FiO2 07/02/21 10:00 95 30.0 70 07/02/21 09:12 86 07/02/21 08:00 HVNI-Vapotherm 07/02/21 08:00 97.4 20 116/77 (90) I&O- Last 24 Hours up to 6 AM0 07/02/21 06:00 Intake Total 480 ml Output Total 1000 ml Balance -520 ml Laboratory Data 24H LABS Laboratory Tests 2 07/02/21 04:58: Immature Granulocyte % (Auto) 1.8, Neutrophils (%) (Auto) 91.6H, Lymphocytes (%) (Auto) 2.5L, Monocytes (%) (Auto) 3.9, Eosinophils (%) (Auto) 0.0, Basophils (%) (Auto) 0.2, Neutrophils # (Auto) 10.0H, Lymphocytes # (Auto) 0.3L, Monocytes # (Auto) 0.4, Eosinophils # (Auto) 0.0, Basophils # (Auto) 0.0, Nucleated Red Blood Cells % (auto) 0.0, Anion Gap 1L, Glomerular Filtration Rate > 60.0, Calcium Level 8.6L, Magnesium Level 2.4 CBC/BMP Laboratory Tests 07/02/21 04:58 Microbiology Microbiology 06/25/21 Respiratory Virus Panel (PCR) ([facility]) - Final, Complete ROMAINE CAMERON MD Jul 02, 2021 11:39
--- NOTE | 2021-07-02 13:21 | IPNPDOC ---
Subjective Date Seen The patient was seen on 07/02/21. Subjective Chief Complaint/HPI No acute events overnight. Sitting up in bed comfortably. No conversational dyspnea with current setting of Vapotherm. Patient still on 30 L /70%. No fever or chills no cough or phlegm. Heart rate better controlled. Objective Physical Examination General Exam: Positive: Alert, Cooperative, No Acute Distress Eye Exam: Positive: PERRLA, Conjunctiva & lids normal; Negative: Sclera icteric ENT Exam: Positive: Atraumatic, Mucous membr. moist/pink, Pharynx Normal Neck Exam: Positive: Supple; Negative: JVD Chest Exam: Positive: Other (Diffuse bilateral crackles slightly more on the right, severe kyphosis) Heart Exam: Positive: Rate Normal, Irregular Rhythm, Murmurs Abdomen Exam: Positive: Normal bowel sounds, Soft; Negative: Tenderness Extremity Exam: Negative: Clubbing, Cyanosis, Edema Neuro Exam: Positive: Normal Speech, Strength at 5/5 X4 ext, Normal Tone Psych Exam: Positive: Memory Intact, Oriented x 3 Assessment /Plan Assessment This is a 80-year-old female with recent diagnosis of ILD ( acute interstitial pneumonia vs Nonspecific interstitial pneumonia) in May 2021 responded to steroids, COPD/emphysema, diastolic CHF, severe pulmonary hypertension, chronic hypoxic respiratory failure was recently admitted to the hospital from 06/07 to 06/21, shortness of breath and dyspnea on exertion. During that admission she was treated with antibiotics, steroids and diuretics and finally diagnosed as ILD with negative rheumatological work up and negative hypersensitivity pneumonitis work up. She improved with steroids and was discharged home with 3 L oxygen presents again on 06/25/2021 with ongoing shortness of breath and dyspnea on exertion and was diagnosed with ILD exacerbation and acute on chronic respiratory failure and possible diastolic CHF exacerbation. [id number] hypoxic respiratory failure. She was discharged home on 3 liters of oxygen now requiring Vapotherm Multifactorial due to ILD exacerbation on the background of severe emphysema and recent diastolic CHF exacerbation ILD exacerbation Appreciate pulmonary consultation Patient CT scan has improved this admission from that 3 weeks ago seems like he has responded well to steroids Solu-Medrol dose has been reduced Continue Vapotherm Aspiration with aspiration pneumonitis. asymmetric changes in the CT scan with involvement of the right middle lobe rest of the lung picture improved from prior CT last month. Barium swallow showed laryngeal penetration though no signs at bedside evaluation. So likely has silent aspiration episodes. ST to continue Atrial fibrillation/atrial flutter Rate better controlled Cannot increase metoprolol dose because of blood pressure so started on digoxin also Continue Eliquis Diastolic CHF exacerbation Patient seems to be euvolemic at this time Continue to monitor daily weights and intake and output. Leukocytosis Improving Is due to steroids No other signs of infection COPD/corpulmonale Continue neb and steroids Severe pulmonary hypertension /severe tricuspid regurgitation with PA pressure 64 mmHg complicating her care and causing cor pulmonale with right-sided heart failure, Gastroesophageal reflux on PPI. H/o Hypertension Now BP normal to low normal. On metoprolol for rate control of A. fib If blood pressure drops will stop her metoprolol Multiple wedge compression fractures with severe kyphosis complicating her respiratory status. Anxiety and depression, chronic. Plan/VTE VTE Prophylaxis Ordered?: Yes VS, I&O, 24H, Fishbone Vital Signs/I&O Vital Signs Date Time Temp Pulse Resp B/P (MAP) Pulse Ox O2 Delivery O2 Flow Rate FiO2 07/02/21 12:00 30.0 68 07/02/21 12:00 HVNI-Vapotherm 07/02/21 12:00 86 07/02/21 09:12 86 07/02/21 08:00 97.4 20 116/77 (90) I&O- Last 24 Hours up to 6 AM 07/02/21 05:59 Intake Total 480 ml Output Total 1000 ml Balance -520 ml Laboratory Data 24H LABS Laboratory Tests 2 07/02/21 04:58: Immature Granulocyte % (Auto) 1.8, Neutrophils (%) (Auto) 91.6H, Lymphocytes (%) (Auto) 2.5L, Monocytes (%) (Auto) 3.9, Eosinophils (%) (Auto) 0.0, Basophils (%) (Auto) 0.2, Neutrophils # (Auto) 10.0H, Lymphocytes # (Auto) 0.3L, Monocytes # (Auto) 0.4, Eosinophils # (Auto) 0.0, Basophils # (Auto) 0.0, Nucleated Red Blood Cells % (auto) 0.0, Anion Gap 1L, Glomerular Filtration Rate > 60.0, Calcium Level 8.6L, Magnesium Level 2.4 CBC/BMP Laboratory Tests 07/02/21 04:58 Microbiology Microbiology 9/3/21 Respiratory Virus Panel (PCR) ([facility]) - Final, Complete Mirella Adams MD Jul 02, 2021 13:21
[2021-07-02] MEDS: SIMVASTATIN 10 MG TAB PO SCH (20:17)
[2021-07-02] MEDS: SERTRALINE HCL 50 MG TAB PO SCH (20:18)
[2021-07-03] VITALS (15 sets, daily range): BP systolic 99–144; BP diastolic 61–86; O2SAT 86–99
[2021-07-03] MEDS: LEVALBUTEROL 1.25 MG/0.5 ML CONCENTRATE NEB INH SCH ×4 (01:27→20:02)
[2021-07-03] MEDS: methylPREDNISolone 125MG 2ML VIAL IV SCH ×4 (01:41→20:42)
[2021-07-03 04:35] LABS: HEMATOCRIT 36.8 % (36.0-47.0); MEAN CORPUSCULAR HEMOGLOBIN 29.3 pg (27.0-33.0); MEAN CORPUSCULAR HGB CONC 32.6 g/dl (32.0-36.5); MEAN CORPUSCULAR VOLUME 89.8 fl (80.0-96.0); PLATELET COUNT, AUTOMATED 199 10^3/uL (150-450); WHITE BLOOD COUNT 10.7 10^3/uL (4.0-10.0)
[2021-07-03 05:04] LABS: BLOOD UREA NITROGEN 33 MG/DL (7-18); CALCIUM LEVEL 8.5 MG/DL (8.8-10.2); CARBON DIOXIDE LEVEL 31 MEQ/L (21-32); CHLORIDE LEVEL 105 MEQ/L (98-107); CREATININE FOR GFR 0.66 MG/DL (0.55-1.30); GLOMERULAR FILTRATION RATE > 60.0 (>39); GLUCOSE, FASTING 118 MG/DL (70-100); POTASSIUM SERUM 4.7 MEQ/L (3.5-5.1); SODIUM LEVEL 139 MEQ/L (136-145)
[2021-07-03] MEDS: ADVAIR HFA 45/21MCG INHALER INH SCH ×2 (07:10→20:02)
[2021-07-03] MEDS: DOCUSATE SODIUM 100MG CAPSULE PO SCH ×2 (08:02→20:32)
[2021-07-03] MEDS: APIXABAN 5 MG TAB (ELIQUIS) PO SCH ×2 (08:02→20:32)
[2021-07-03] MEDS: busPIRone 10 MG TAB PO SCH ×2 (08:02→20:32)
[2021-07-03] MEDS: guaiFENesin ER 600 MG TAB PO SCH ×2 (08:02→20:31)
[2021-07-03] MEDS: DIGOXIN 0.125 MG TAB PO SCH (08:03)
[2021-07-03] MEDS: METOPROLOL TART 12.5 MG PER 1/2 TAB PO SCH ×2 (08:03→20:31)
[2021-07-03] MEDS: buPROPion **XL** TABLET 150MG (WELLBUTRIN XL) PO SCH (08:03)
[2021-07-03] MEDS: OMEPRAZOLE 20 MG CAP PO SCH ×2 (08:03→20:31)
--- NOTE | 2021-07-03 11:11 | IPNPDOC ---
Subjective Date Seen The patient was seen on 07/03/21. Subjective Chief Complaint/HPI No acute overnight events. Continues to require Vapotherm however slowly coming down. Patient is awake alert and oriented sitting up in chair in no distress. Objective Physical Examination General Exam: Positive: Alert, Cooperative, No Acute Distress Eye Exam: Positive: PERRLA, Conjunctiva & lids normal; Negative: Sclera icteric ENT Exam: Positive: Atraumatic, Mucous membr. moist/pink, Pharynx Normal Neck Exam: Positive: Supple; Negative: JVD Chest Exam: Positive: Other (Diffuse bilateral crackles slightly more on the right, severe kyphosis) Heart Exam: Positive: Rate Normal, Irregular Rhythm, Murmurs Abdomen Exam: Positive: Normal bowel sounds, Soft; Negative: Tenderness Extremity Exam: Negative: Clubbing, Cyanosis, Edema Neuro Exam: Positive: Normal Speech, Strength at 5/5 X4 ext, Normal Tone Psych Exam: Positive: Memory Intact, Oriented x 3 Assessment /Plan Assessment This is a 80-year-old female with recent diagnosis of ILD ( acute interstitial pneumonia vs Nonspecific interstitial pneumonia) in May 2021 responded to steroids, COPD/emphysema, diastolic CHF, severe pulmonary hypertension, chronic hypoxic respiratory failure was recently admitted to the hospital from 06/07 to 06/21, shortness of breath and dyspnea on exertion. During that admission she was treated with antibiotics, steroids and diuretics and finally diagnosed as ILD with negative rheumatological work up and negative hypersensitivity pneumonitis work up. She improved with steroids and was discharged home with 3 L oxygen presents again on 06/25/2021 with ongoing shortness of breath and dyspnea on exertion and was diagnosed with ILD exacerbation and acute on chronic respiratory failure and possible diastolic CHF exacerbation. [id number] hypoxic respiratory failure. She was discharged home on 3 liters of oxygen now requiring Vapotherm Multifactorial due to ILD exacerbation on the background of severe emphysema and recent diastolic CHF exacerbation ILD exacerbation Appreciate pulmonary consultation Patient CT scan has improved this admission from that 3 weeks ago seems like he has responded well to steroids continue Solu-Medrol 60 q 6 Continue Vapotherm Aspiration with aspiration pneumonitis. asymmetric changes in the CT scan with involvement of the right middle lobe rest of the lung picture improved from prior CT last month. Barium swallow showed laryngeal penetration though no signs at bedside evaluation. So likely has silent aspiration episodes. ST to continue Atrial fibrillation/atrial flutter Rate better controlled Cannot increase metoprolol dose because of blood pressure so started on digoxin also Continue Eliquis Diastolic CHF exacerbation Patient seems to be euvolemic at this time Continue to monitor daily weights and intake and output. Leukocytosis Improving Is due to steroids No other signs of infection COPD/corpulmonale Continue neb and steroids Severe pulmonary hypertension /severe tricuspid regurgitation with PA pressure 64 mmHg complicating her care and causing cor pulmonale with right-sided heart failure, Gastroesophageal reflux on PPI. H/o Hypertension Now BP normal to low normal. On metoprolol for rate control of A. fib If blood pressure drops will stop her metoprolol Multiple wedge compression fractures with severe kyphosis complicating her respiratory status. Anxiety and depression, chronic. Plan/VTE VTE Prophylaxis Ordered?: Yes VS, I&O, 24H, Fishbone Vital Signs/I&O Vital Signs Date Time Temp Pulse Resp B/P (MAP) Pulse Ox O2 Delivery O2 Flow Rate FiO2 07/03/21 10:00 95 HVNI-Vapotherm 30.0 66 07/03/21 08:03 90 07/03/21 08:03 108/72 07/03/21 08:00 97.1 16 I&O- Last 24 Hours up to 6 AM 07/03/21 06:00 Intake Total 680 ml Output Total 760 ml Balance -80 ml Laboratory Data 24H LABS Laboratory Tests 2 07/03/21 04:23: Nucleated Red Blood Cells % (auto) 0.0, Anion Gap 3L, Glomerular Filtration Rate > 60.0, Calcium Level 8.5L CBC/BMP Laboratory Tests 07/03/21 04:23 Microbiology Microbiology 06/25/21 Respiratory Virus Panel (PCR) ([facility]) - Final, Complete Mirella Adams MD Jul 03, 2021 11:11
[2021-07-03] MEDS: SIMVASTATIN 10 MG TAB PO SCH (20:32)
[2021-07-03] MEDS: SERTRALINE HCL 50 MG TAB PO SCH (20:32)
[2021-07-04] VITALS (24 sets, daily range): BP systolic 107–133; BP diastolic 69–86; O2SAT 85–99
[2021-07-04] MEDS: LEVALBUTEROL 1.25 MG/0.5 ML CONCENTRATE NEB INH SCH ×4 (01:10→19:30)
[2021-07-04] MEDS: methylPREDNISolone 125MG 2ML VIAL IV SCH ×4 (01:19→20:23)
[2021-07-04 03:27] LABS: HEMATOCRIT 40.6 % (36.0-47.0); HEMOGLOBIN 13.2 g/dl (12.0-15.5); MEAN CORPUSCULAR HEMOGLOBIN 29.2 pg (27.0-33.0); MEAN CORPUSCULAR HGB CONC 32.5 g/dl (32.0-36.5); MEAN CORPUSCULAR VOLUME 89.8 fl (80.0-96.0); PLATELET COUNT, AUTOMATED 240 10^3/uL (150-450); RED BLOOD COUNT 4.52 10^6/uL (4.00-5.40); WHITE BLOOD COUNT 14.4 10^3/uL (4.0-10.0)
[2021-07-04 04:23] LABS: BLOOD UREA NITROGEN 32 MG/DL (7-18); CALCIUM LEVEL 8.6 MG/DL (8.8-10.2); CARBON DIOXIDE LEVEL 27 MEQ/L (21-32); CHLORIDE LEVEL 106 MEQ/L (98-107); CREATININE FOR GFR 0.72 MG/DL (0.55-1.30); DIGOXIN LEVEL 1.5 NG/ML (0.5-2.0); GLOMERULAR FILTRATION RATE > 60.0 (>39); GLUCOSE, FASTING 164 MG/DL (70-100); POTASSIUM SERUM 4.5 MEQ/L (3.5-5.1); SODIUM LEVEL 140 MEQ/L (136-145)
[2021-07-04] MEDS: ADVAIR HFA 45/21MCG INHALER INH SCH ×2 (07:01→19:30)
[2021-07-04] MEDS: METOPROLOL TART 12.5 MG PER 1/2 TAB PO SCH ×2 (09:00→20:22)
[2021-07-04] MEDS: OMEPRAZOLE 20 MG CAP PO SCH ×2 (09:29→20:23)
[2021-07-04] MEDS: DIGOXIN 0.125 MG TAB PO SCH (09:29)
[2021-07-04] MEDS: buPROPion **XL** TABLET 150MG (WELLBUTRIN XL) PO SCH (09:29)
[2021-07-04] MEDS: busPIRone 10 MG TAB PO SCH ×2 (09:29→20:23)
[2021-07-04] MEDS: APIXABAN 5 MG TAB (ELIQUIS) PO SCH ×2 (09:29→20:23)
[2021-07-04] MEDS: DOCUSATE SODIUM 100MG CAPSULE PO SCH ×2 (09:29→20:23)
[2021-07-04] MEDS: guaiFENesin ER 600 MG TAB PO SCH ×2 (09:30→20:22)
--- NOTE | 2021-07-04 10:44 | IPNPDOC ---
Subjective Date Seen The patient was seen on 07/04/21. Subjective Chief Complaint/HPI Feels better today. We have been able to come down on the oxygen settings and Vapotherm. She denies any shortness of breath cough or phlegm. Remains on Solu-Medrol. Boles has been out and she has voided normally after that. Objective Physical Examination General Exam: Positive: Alert, Cooperative, No Acute Distress Eye Exam: Positive: PERRLA, Conjunctiva & lids normal; Negative: Sclera icteric ENT Exam: Positive: Atraumatic, Mucous membr. moist/pink, Pharynx Normal Neck Exam: Positive: Supple; Negative: JVD Chest Exam: Positive: Other (Diffuse bilateral crackles slightly more on the right, severe kyphosis) Heart Exam: Positive: Rate Normal, Irregular Rhythm, Murmurs Abdomen Exam: Positive: Normal bowel sounds, Soft; Negative: Tenderness Extremity Exam: Negative: Clubbing, Cyanosis, Edema Neuro Exam: Positive: Normal Speech, Strength at 5/5 X4 ext, Normal Tone Psych Exam: Positive: Memory Intact, Oriented x 3 Assessment /Plan Assessment This is a 80-year-old female with recent diagnosis of ILD ( acute interstitial pneumonia vs Nonspecific interstitial pneumonia) in May 2021 responded to steroids, COPD/emphysema, diastolic CHF, severe pulmonary hypertension, chronic hypoxic respiratory failure was recently admitted to the hospital from 06/07 to 06/21, shortness of breath and dyspnea on exertion. During that admission she was treated with antibiotics, steroids and diuretics and finally diagnosed as ILD with negative rheumatological work up and negative hypersensitivity pneumonitis work up. She improved with steroids and was discharged home with 3 L oxygen presents again on 06/25/2021 with ongoing shortness of breath and dyspnea on exertion and was diagnosed with ILD exacerbation and acute on chronic respiratory failure and possible diastolic CHF exacerbation. [id number] hypoxic respiratory failure. She was discharged home on 3 liters of oxygen now on Vapotherm Multifactorial due to ILD exacerbation on the background of severe emphysema and recent diastolic CHF exacerbation Oxygen requirement is coming down slowly. ILD exacerbation Appreciate pulmonary consultation Patient CT scan has improved this admission from that 3 weeks ago seems like he has responded well to steroids continue Solu-Medrol 60 q 6 Continue Vapotherm Aspiration with aspiration pneumonitis. asymmetric changes in the CT scan with involvement of the right middle lobe rest of the lung picture improved from prior CT last month. Barium swallow showed laryngeal penetration though no signs at bedside evaluation. So likely has silent aspiration episodes. ST to continue Atrial fibrillation/atrial flutter Rate better controlled Cannot increase metoprolol dose because of blood pressure so started on digoxin also Continue Eliquis Diastolic CHF exacerbation Patient seems to be euvolemic at this time Continue to monitor daily weights and intake and output. Leukocytosis Improving Is due to steroids No other signs of infection COPD/corpulmonale Continue neb and steroids Severe pulmonary hypertension /severe tricuspid regurgitation with PA pressure 64 mmHg complicating her care and causing cor pulmonale with right-sided heart failure, Gastroesophageal reflux on PPI. H/o Hypertension Now BP normal to low normal. On metoprolol for rate control of A. fib If blood pressure drops will stop her metoprolol Multiple wedge compression fractures with severe kyphosis complicating her respiratory status. Anxiety and depression, chronic. Plan/VTE VTE Prophylaxis Ordered?: Yes VS, I&O, 24H, Fishbone Vital Signs/I&O Vital Signs Date Time Temp Pulse Resp B/P (MAP) Pulse Ox O2 Delivery O2 Flow Rate FiO2 07/04/21 09:29 91 07/04/21 09:00 107/74 07/04/21 08:00 98.0 17 96 HVNI-Vapotherm 35.0 55 I&O- Last 24 Hours up to 6 AM 07/04/21 05:59 Intake Total 1150 ml Output Total 970 ml Balance 180 ml Laboratory Data 24H LABS Laboratory Tests 2 07/04/21 03:00: Nucleated Red Blood Cells % (auto) 0.0, Anion Gap 7L, Glomerular Filtration Rate > 60.0, Calcium Level 8.6L, Digoxin Level 1.5 CBC/BMP Laboratory Tests 07/04/21 03:00 Microbiology Microbiology 06/25/21 Respiratory Virus Panel (PCR) ([facility]) - Final, Complete Mirella Adams MD Jul 04, 2021 10:44
[2021-07-04] MEDS: SIMVASTATIN 10 MG TAB PO SCH (20:22)
[2021-07-04] MEDS: SERTRALINE HCL 50 MG TAB PO SCH (20:23)
[2021-07-05] VITALS (29 sets, daily range): BP systolic 103–132; BP diastolic 59–86; O2SAT 84–98
[2021-07-05] MEDS: methylPREDNISolone 125MG 2ML VIAL IV SCH (01:21)
[2021-07-05] MEDS: LEVALBUTEROL 1.25 MG/0.5 ML CONCENTRATE NEB INH SCH ×4 (03:08→19:22)
[2021-07-05 05:33] LABS: HEMATOCRIT 37.4 % (36.0-47.0); HEMOGLOBIN 12.3 g/dl (12.0-15.5); MEAN CORPUSCULAR HEMOGLOBIN 29.4 pg (27.0-33.0); MEAN CORPUSCULAR HGB CONC 32.9 g/dl (32.0-36.5); MEAN CORPUSCULAR VOLUME 89.5 fl (80.0-96.0); PLATELET COUNT, AUTOMATED 213 10^3/uL (150-450); RED BLOOD COUNT 4.18 10^6/uL (4.00-5.40); WHITE BLOOD COUNT 12.2 10^3/uL (4.0-10.0)
[2021-07-05 05:50] LABS: BLOOD UREA NITROGEN 28 MG/DL (7-18); CALCIUM LEVEL 8.7 MG/DL (8.8-10.2); CARBON DIOXIDE LEVEL 30 MEQ/L (21-32); CHLORIDE LEVEL 106 MEQ/L (98-107); CREATININE FOR GFR 0.53 MG/DL (0.55-1.30); GLOMERULAR FILTRATION RATE > 60.0 (>39); GLUCOSE, FASTING 145 MG/DL (70-100); POTASSIUM SERUM 4.9 MEQ/L (3.5-5.1); SODIUM LEVEL 141 MEQ/L (136-145)
[2021-07-05] MEDS: ADVAIR HFA 45/21MCG INHALER INH SCH ×2 (07:43→19:22)
[2021-07-05] MEDS: methylPREDNISolone 40MG 1ML VIAL IV SCH ×3 (09:10→20:43)
[2021-07-05] MEDS: DIGOXIN 0.125 MG TAB PO SCH (09:11)
[2021-07-05] MEDS: buPROPion **XL** TABLET 150MG (WELLBUTRIN XL) PO SCH (09:11)
[2021-07-05] MEDS: DOCUSATE SODIUM 100MG CAPSULE PO SCH ×2 (09:11→20:44)
[2021-07-05] MEDS: APIXABAN 5 MG TAB (ELIQUIS) PO SCH ×2 (09:11→20:44)
[2021-07-05] MEDS: guaiFENesin ER 600 MG TAB PO SCH ×2 (09:11→20:44)
[2021-07-05] MEDS: busPIRone 10 MG TAB PO SCH ×2 (09:12→20:45)
[2021-07-05] MEDS: OMEPRAZOLE 20 MG CAP PO SCH ×2 (09:12→20:43)
[2021-07-05] MEDS: METOPROLOL TART 12.5 MG PER 1/2 TAB PO SCH ×2 (09:12→20:44)
--- NOTE | 2021-07-05 12:05 | IPNPDOC ---
Subjective Date Seen The patient was seen on 07/05/21. Subjective Chief Complaint/HPI Patient is breathing better but unable to walk well or stand steady. She denies of cough, fever, chills, chest pain. Constitutional: Denies: Chills, Fever Eyes: Denies: Pain ENT: Denies: Head Aches Skin: Denies: Rash Pulmonary: Denies: Dyspnea, Cough Cardiovascular: Denies: Chest Pain, Palpitations, Orthopnea, Edema Neurological: Reports: Weakness (Bilateral lower extremity weakness) Psych: Reports: Mood Normal Objective Physical Examination General Exam: Positive: Alert, Cooperative, No Acute Distress Eye Exam: Positive: PERRLA, Conjunctiva & lids normal; Negative: Sclera icteric ENT Exam: Positive: Atraumatic, Mucous membr. moist/pink, Pharynx Normal Neck Exam: Positive: Supple; Negative: JVD Chest Exam: Positive: Normal air movement, Rales (Bibasilar), Other (Diffuse bilateral crackles slightly more on the right, severe kyphosis) Heart Exam: Positive: Rate Normal, Murmurs Abdomen Exam: Positive: Normal bowel sounds, Soft; Negative: Tenderness Extremity Exam: Negative: Clubbing, Cyanosis, Edema Neuro Exam: Positive: Normal Speech, Strength at 5/5 X4 ext, Normal Tone Psych Exam: Positive: Memory Intact, Oriented x 3 Assessment /Plan Assessment This is a 80-year-old female with past medical history hypertension, hyperlipidemia, remote history of tobacco smoking, atrial fibrillation admitted to hospital with worsening shortness of breath. 1. Hypoxic respiratory failure 2. ILD with NSIP feature + exacerbation 3. Decompensated right heart failure 4. Aspiration Plan/VTE VTE Prophylaxis Ordered?: Yes Plan -Improving with supportive care. She is down to 2 L oxygen to nasal cannula. -Recommend to taper steroid over the next 2 weeks. Extremely cautious with aspiration as she is high risk for aspiration. Continue with daily speech therapy. -DC planning. Disposition DC planning VS, I&O, 24H, Fishbone Vital Signs/I&O Vital Signs Date Time Temp Pulse Resp B/P (MAP) Pulse Ox O2 Delivery O2 Flow Rate FiO2 07/05/21 11:57 97.6 95 18 103/59 (74) 90 Nasal Cannula 3.0 07/05/21 00:00 I&O- Last 24 Hours up to 6 AM 07/05/21 06:00 Intake Total 750 ml Output Total 900 ml Balance -150 ml Laboratory Data 24H LABS Laboratory Tests 2 07/05/21 05:02: Nucleated Red Blood Cells % (auto) 0.0, Anion Gap 5L, Glomerular Filtration Rate > 60.0, Calcium Level 8.7L CBC/BMP Laboratory Tests 07/05/21 05:02 Microbiology Microbiology 06/25/21 Respiratory Virus Panel (PCR) ([facility]) - Final, Complete ROMAINE CAMERON MD Jul 05, 2021 12:05
--- NOTE | 2021-07-05 12:53 | IPNPDOC ---
Subjective Date Seen The patient was seen on 07/05/21. Subjective Chief Complaint/HPI Patient's oxygenation has improved significantly since yesterday she has been off Vapotherm and this morning she is only on 2 to 3 L oxygen by nasal cannula. She is extremely deconditioned condition and will need PT and OT and likely will need rehab before she can go home. Have started tapering Solu-Medrol which. Steroid should be tapered slowly over the next 2 weeks. No fever or chills. Pulse rate is controlled. Patient remains in a flutter. Objective Physical Examination General Exam: Positive: Alert, Cooperative, No Acute Distress Eye Exam: Positive: PERRLA, Conjunctiva & lids normal; Negative: Sclera icteric ENT Exam: Positive: Atraumatic, Mucous membr. moist/pink, Pharynx Normal Neck Exam: Positive: Supple; Negative: JVD Chest Exam: Positive: Normal air movement, Rales (Bibasilar), Other (Diffuse bilateral crackles slightly more on the right, severe kyphosis) Heart Exam: Positive: Rate Normal, Murmurs Abdomen Exam: Positive: Normal bowel sounds, Soft; Negative: Tenderness Extremity Exam: Negative: Clubbing, Cyanosis, Edema Neuro Exam: Positive: Normal Speech, Strength at 5/5 X4 ext, Normal Tone Psych Exam: Positive: Memory Intact, Oriented x 3 Assessment /Plan Assessment This is a 80-year-old female with recent diagnosis of ILD ( acute interstitial pneumonia vs Nonspecific interstitial pneumonia) in May 2021 responded to stero ids, COPD/emphysema, diastolic CHF, severe pulmonary hypertension, chronic hypoxic respiratory failure was recently admitted to the hospital from 06/07 to 06/21, shortness of breath and dyspnea on exertion. During that admission she was treated with antibiotics, steroids and diuretics and finally diagnosed as ILD with negative rheumatological work up and negative hypersensitivity pneumonitis work up. She improved with steroids and was discharged home with 3 L oxygen presents again on 06/25/2021 with ongoing shortness of breath and dyspnea on exertion and was diagnosed with ILD exacerbation and acute on chronic respiratory failure and possible diastolic CHF exacerbation. [id number] hypoxic respiratory failure. She was discharged home on 3 liters of oxygen now on Vapotherm Multifactorial due to ILD exacerbation on the background of severe emphysema and recent diastolic CHF exacerbation She is off Vapotherm since yesterday and currently only on 2 L by nasal cannula. ILD exacerbation Appreciate pulmonary consultation Patient CT scan has improved this admission from that 3 weeks ago seems like he has responded well to steroids Started tapering Solu-Medrol 40 q 6 As per Pulmonary slow taper of steroids over next 2 weeks. Aspiration with aspiration pneumonitis. asymmetric changes in the CT scan with involvement of the right middle lobe rest of the lung picture improved from prior CT last month. Barium swallow showed laryngeal penetration though no signs at bedside eval uation. So likely has silent aspiration episodes. ST to continue Atrial fibrillation/atrial flutter Rate better controlled Cannot increase metoprolol dose because of blood pressure so started on digoxin also. Dig level OK. Continue Eliquis Diastolic CHF exacerbation Patient seems to be euvolemic at this time Continue to monitor daily weights and intake and output. Leukocytosis Improving Is due to steroids No other signs of infection COPD/corpulmonale Continue neb and steroids Severe pulmonary hypertension /severe tricuspid regurgitation with PA pressure 64 mmHg complicating her care and causing cor pulmonale with right-sided heart failure, Gastroesophageal reflux on PPI. H/o Hypertension Now BP normal to low normal. On metoprolol for rate control of A. fib If blood pressure drops will stop her metoprolol Multiple wedge compression fractures with severe kyphosis complicating her respiratory status. Anxiety and depression, chronic. Plan/VTE VTE Prophylaxis Ordered?: Yes VS, I&O, 24H, Fishbone Vital Signs/I&O Vital Signs Date Time Temp Pulse Resp B/P (MAP) Pulse Ox O2 Delivery O2 Flow Rate FiO2 07/05/21 12:00 3.0 07/05/21 11:57 97.6 95 18 103/59 (74) 90 Nasal Cannula 07/05/21 00:00 I&O- Last 24 Hours up to 6 AM 07/05/21 05:59 Intake Total 750 ml Output Total 900 ml Balance -150 ml Laboratory Data 24H LABS Laboratory Tests 2 07/05/21 05:02: Nucleated Red Blood Cells % (auto) 0.0, Anion Gap 5L, Glomerular Filtration Rate > 60.0, Calcium Level 8.7L CBC/BMP Laboratory Tests 07/05/21 05:02 Microbiology Microbiology 06/25/21 Respiratory Virus Panel (PCR) ([facility]) - Final, Complete Mirella Adams MD Jul 05, 2021 12:53
[2021-07-05] MEDS: SERTRALINE HCL 50 MG TAB PO SCH (20:43)
[2021-07-05] MEDS: SIMVASTATIN 10 MG TAB PO SCH (20:44)
[2021-07-06] VITALS (18 sets, daily range): BP systolic 97–140; BP diastolic 60–98; O2SAT 85–98
[2021-07-06] MEDS: LEVALBUTEROL 1.25 MG/0.5 ML CONCENTRATE NEB INH SCH ×4 (00:28→20:00)
[2021-07-06] MEDS: methylPREDNISolone 40MG 1ML VIAL IV SCH ×4 (01:00→20:25)
[2021-07-06 05:37] LABS: HEMATOCRIT 36.9 % (36.0-47.0); HEMOGLOBIN 12.2 g/dl (12.0-15.5); MEAN CORPUSCULAR HEMOGLOBIN 29.5 pg (27.0-33.0); MEAN CORPUSCULAR HGB CONC 33.1 g/dl (32.0-36.5); MEAN CORPUSCULAR VOLUME 89.3 fl (80.0-96.0); PLATELET COUNT, AUTOMATED 234 10^3/uL (150-450); RED BLOOD COUNT 4.13 10^6/uL (4.00-5.40); WHITE BLOOD COUNT 10.8 10^3/uL (4.0-10.0)
[2021-07-06 06:10] LABS: BLOOD UREA NITROGEN 27 MG/DL (7-18); CALCIUM LEVEL 8.7 MG/DL (8.8-10.2); CARBON DIOXIDE LEVEL 30 MEQ/L (21-32); CHLORIDE LEVEL 107 MEQ/L (98-107); CREATININE FOR GFR 0.53 MG/DL (0.55-1.30); DIGOXIN LEVEL 1.6 NG/ML (0.5-2.0); GLOMERULAR FILTRATION RATE > 60.0 (>39); GLUCOSE, FASTING 147 MG/DL (70-100); POTASSIUM SERUM 5.1 MEQ/L (3.5-5.1); SODIUM LEVEL 140 MEQ/L (136-145)
[2021-07-06] MEDS: ADVAIR HFA 45/21MCG INHALER INH SCH ×2 (07:23→20:35)
[2021-07-06] MEDS: APIXABAN 5 MG TAB (ELIQUIS) PO SCH ×2 (09:07→20:28)
[2021-07-06] MEDS: METOPROLOL TART 12.5 MG PER 1/2 TAB PO SCH ×2 (09:07→20:27)
[2021-07-06] MEDS: busPIRone 10 MG TAB PO SCH ×2 (09:08→20:25)
[2021-07-06] MEDS: DOCUSATE SODIUM 100MG CAPSULE PO SCH ×2 (09:08→20:27)
[2021-07-06] MEDS: OMEPRAZOLE 20 MG CAP PO SCH ×2 (09:08→20:28)
[2021-07-06] MEDS: guaiFENesin ER 600 MG TAB PO SCH ×2 (09:08→20:28)
[2021-07-06] MEDS: buPROPion **XL** TABLET 150MG (WELLBUTRIN XL) PO SCH (09:08)
[2021-07-06] MEDS: DIGOXIN 0.125 MG TAB PO SCH (09:08)
--- NOTE | 2021-07-06 14:17 | IPNPDOC ---
Subjective Date Seen The patient was seen on 07/06/21. Subjective Chief Complaint/HPI Patient was seen and examined at bedside this morning. She reports significant improvement in her breathing since admission. However, did endorse feeling short of breath with movement/ambulation. She denied chest pain, abdominal pain, nausea, vomiting, problem with urination or bowel movements. Overnight no acute events were reported. Other systems 10 point review of system was negative except for what is noted in the HPI Objective Physical Examination Other physical findings General: Lying in bed, no acute distress Head/Neck/Throat: Trachea midline, mucous membranes moist Eyes: Sclera anicteric, no erythema or discharge appreciated bilaterally. Thorax: On 3 L nasal cannula, inspiratory crackles appreciated bilaterally Cardiovascular: Normal rate, regular rhythm, normal S1, S2; no S3, S4, rubs/gallops/murmurs Abdomen: Bowel sounds present, soft/nontender/nondistended Genitourinary: No CVA tenderness, no Boles in place Musculoskeletal: Moving all extremities, no edema Skin: Warm, dry Neurologic: AAOx3, speech fluent and goal-directed, no focal deficits, grossly intact Assessment /Plan Assessment #Acute on chronic respiratory failure -Multifactorial including ILD exacerbation, possible aspiration, and CHF exacerbation; she probably also has a component of restrictive lung disease secondary to her kyphosis -Management as below #ILD exacerbation -Continue with Solu-Medrol 40 mg every 6. She will require a slow taper upon discharge; continue levalbuterol. #Acute on chronic congestive heart failure -HFpEF. Echo on 06/09/21 noted LVEF of 75%. Euvolemic on exam -Furosemide as needed #Aspiration pneumonitis -Worked with speech therapy, signed off now. #Atrial fibrillation/atrial flutter -Rate is controlled with digoxin. Anticoagulated with apixaban. #Leukocytosis -Likely reactive, and secondary from the steroids she has received #COPD/corpulmonale -Continue nebulizer support and steroid #Severe pulmonary hypertension /severe tricuspid regurgitation -PA pressure 64 mmHg likely leading to cor pulmonale with right-sided heart failure. -She will need follow-up with grain picker as outpatient for ongoing ma nagement. #GERD -Continue PPI therapy #HTN -Metoprolol was discontinued due to her low blood pressure. Continue to monitor at this time as no additional antihypertensives are required as of now. #Anxiety and depression, -Continue sertraline #DVT ppx -Apixaban Plan/VTE VTE Prophylaxis Ordered?: Yes VS, I&O, 24H, Fishbone Vital Signs/I&O Vital Signs Date Time Temp Pulse Resp B/P (MAP) Pulse Ox O2 Delivery O2 Flow Rate FiO2 07/06/21 12:00 3.5 07/06/21 12:00 92 Nasal Cannula 07/06/21 09:08 81 07/06/21 09:07 132/86 07/06/21 08:00 96.8 20 07/05/21 00:00 I&O- Last 24 Hours up to 6 AM 07/06/21 06:00 Intake Total 240 ml Output Total 1350 ml Balance -1110 ml Laboratory Data 24H LABS Laboratory Tests 2 07/06/21 05:16: Nucleated Red Blood Cells % (auto) 0.0, Anion Gap 3L, Glomerular Filtration Rate > 60.0, Calcium Level 8.7L, Digoxin Level 1.6 CBC/BMP Laboratory Tests 07/06/21 05:16 ESTHELA BIARRA M.D. Jul 06, 2021 13:54
[2021-07-06] MEDS: SERTRALINE HCL 50 MG TAB PO SCH (20:25)
[2021-07-06] MEDS: SIMVASTATIN 10 MG TAB PO SCH (20:27)
[2021-07-07] VITALS (16 sets, daily range): BP systolic 93–134; BP diastolic 67–85; O2SAT 88–98
[2021-07-07] MEDS: LEVALBUTEROL 1.25 MG/0.5 ML CONCENTRATE NEB INH SCH ×4 (01:20→20:38)
[2021-07-07] MEDS: methylPREDNISolone 40MG 1ML VIAL IV SCH ×2 (02:49→09:03)
[2021-07-07 06:12] LABS: HEMATOCRIT 40.2 % (36.0-47.0); HEMOGLOBIN 13.1 g/dl (12.0-15.5); MEAN CORPUSCULAR HGB CONC 32.6 g/dl (32.0-36.5); MEAN CORPUSCULAR VOLUME 89.1 fl (80.0-96.0); PLATELET COUNT, AUTOMATED 278 10^3/uL (150-450); RED BLOOD COUNT 4.51 10^6/uL (4.00-5.40); WHITE BLOOD COUNT 12.1 10^3/uL (4.0-10.0)
[2021-07-07 06:24] LABS: BLOOD UREA NITROGEN 29 MG/DL (7-18); CALCIUM LEVEL 8.9 MG/DL (8.8-10.2); CARBON DIOXIDE LEVEL 28 MEQ/L (21-32); CHLORIDE LEVEL 106 MEQ/L (98-107); CREATININE FOR GFR 0.44 MG/DL (0.55-1.30); GLOMERULAR FILTRATION RATE > 60.0 (>39); GLUCOSE, FASTING 116 MG/DL (70-100); MAGNESIUM LEVEL 2.1 MG/DL (1.8-2.4); PHOSPHORUS LEVEL 3.4 MG/DL (2.5-4.9); POTASSIUM SERUM 5.1 MEQ/L (3.5-5.1); SODIUM LEVEL 140 MEQ/L (136-145)
[2021-07-07] MEDS: ADVAIR HFA 45/21MCG INHALER INH SCH ×2 (07:44→20:00)
[2021-07-07] MEDS: DOCUSATE SODIUM 100MG CAPSULE PO SCH ×2 (09:03→20:26)
[2021-07-07] MEDS: guaiFENesin ER 600 MG TAB PO SCH ×2 (09:03→20:27)
[2021-07-07] MEDS: buPROPion **XL** TABLET 150MG (WELLBUTRIN XL) PO SCH (09:04)
[2021-07-07] MEDS: DIGOXIN 0.125 MG TAB PO SCH (09:04)
[2021-07-07] MEDS: METOPROLOL TART 12.5 MG PER 1/2 TAB PO SCH ×2 (09:04→20:27)
[2021-07-07] MEDS: APIXABAN 5 MG TAB (ELIQUIS) PO SCH ×2 (09:04→20:24)
[2021-07-07] MEDS: busPIRone 10 MG TAB PO SCH ×2 (09:04→20:26)
[2021-07-07] MEDS: OMEPRAZOLE 20 MG CAP PO SCH ×2 (09:04→20:25)
[2021-07-07] MEDS ORDERED: DIGO0.123 PO (11:44)
[2021-07-07] MEDS ORDERED: PRED20TA PO (11:44)
[2021-07-07] MEDS ORDERED: METO1TAB32 PO (11:44)
[2021-07-07] MEDS ORDERED: METH40VIAL IV (11:44)
[2021-07-07] MEDS ORDERED: OMEP40CA4 PO (11:45)
--- NOTE | 2021-07-07 11:48 | DS.PDOC ---
Discharge Summary General Date of Admission Jun 25, 2021 at 13:44 Date of Discharge 07/07/21 Discharge Summary PROCEDURES PERFORMED DURING STAY: [None]. DISCHARGE DIAGNOSES: 1. Hypoxic respiratory failure 2. ILD exacerbation 3. CHF exacerbation 4. Atrial fibrillation with rapid ventricular response 5. GERD 6. Silent aspiration COMPLICATIONS/CHIEF COMPLAINT: Acute On Chronic Respiratory Failure With Hypoxia. HOSPITAL COURSE: Ms. Strickland, is a 80-year-old female who presented to [facility] on 06/25/2021 with complaints of shortness of breath. Of note, she was previously seen from 06/07-06/21 for which she was treated for idiopathic acute interstitial pneumonia versus nonspecific interstitial pneumonitis, new onset atrial fibrillation, and new onset congestive heart failure with preserved systolic function, and was discharged with supplemental oxygen. During this hospitalization, she had an exacerbation of her interstitial lung disease, CHF and possibly may be silently aspirating. For this, she was treated with IV steroids, Lasix, and was evaluated by speech therapy whom have recommended an appropriate diet. Of note, she also required supplemental oxygen with Vapotherm which she was liberated and at the time of discharge she was back to her baseline oxygen requirements of 3 L. She was followed by the pulmonology team and it was recommended for her to go on a 2-week steroid taper upon discharge, as well as to have aspiration precautions as there was laryngeal penetration seen on an esophagram barium swallow. She was evaluated by the ARU team and rehab was recommended. Therefore, she will be transferred to ARU where she would resume her steroid taper. Of note, at the time of discharge her white count was 12.1, this is likely reactive a repeat CBC is recommended in 2 to 3 days to ensure it is trending down. Of note, she had uncontrolled atrial fibrillation. However, due to her blood pressure her metoprolol dose was not able to be increased therefore she was started on digoxin. She is encouraged to follow-up with her inspector motor vehicles for further management of atrial fibrillation. Please note, her metoprolol tartrate 25 mg twice daily has been changed to metoprolol succinate 25 mg daily. Also, her omeprazole has been increased to 40 mg daily. Her blood pressure after adjustment to her metoprolol was stable. Her midodrine has been discontinued. She will go on a steroid taper as prescribed and to discharge medications. Please obtain speech therapy consult once in ARU. DISCHARGE MEDICATIONS: Please see below. ALLERGIES: Please see below. PHYSICAL EXAMINATION ON DISCHARGE: VITAL SIGNS: Please see below. General: Lying in bed, no acute distress Head/Neck/Throat: Trachea midline, mucous membranes moist Eyes: Sclera anicteric, no erythema or discharge appreciated bilaterally. Thorax: On 3 L nasal cannula, rhonchi appreciated bilaterally Cardiovascular: Normal rate, regular rhythm, normal S1, S2; no S3, S4, rubs/gallops/murmurs Abdomen: Bowel sounds present, soft/nontender/nondistended Genitourinary: No CVA tenderness, no Boles in place Musculoskeletal: Moving all extremities, no edema Skin: Warm, dry Neurologic: AAOx3, speech fluent and goal-directed, no focal deficits, grossly intact LABORATORY DATA: Please see below. IMAGIN06/27/2021 chest x-ray FINDINGS: There is chronic interstitial lung disease. Some element of superimposed acute interstitial lung disease and/or congestive heart failure can not be excluded. There is no lobar consolidation or pleural effusion. The heart size is unclear. There is calcific vascular disease of the thoracic aorta. The upper abdominal bowel gas pattern is normal. IMPRESSION: Chronic interstitial lung disease. Some element of superimposed acute inte rstitial lung disease and/or congestive heart failure can not be excluded. There is no significant change. 06/29/2021 barium esophagram FINDINGS: During the oral and pharyngeal stages of deglutition there is laryngeal penetration. There is cricopharyngeal hypertrophy. During esophageal transport there are tertiary waves demonstrated. There is tortuosity of the distal esophagus due to kyphosis. There is no esophagitis, stricture, mucosal ring or hiatal hernia. Gastroesophageal reflux is not demonstrated on this examination. IMPRESSION: 1. There is laryngeal penetration. 2. Cricopharyngeal hypertrophy. 3. Tertiary waves. There is tortuosity of the esophagus due to kyphosis. ACTIVITY: As tolerated DIET: Mechanical soft level 3 diet DISCHARGE PLAN: ARU DISCHARGE INSTRUCTIONS: 1. Patient is to follow-up with her primary care physician in 5 days of discharge 2. She will need to follow-up with a hospital pharmacist in 10 to 14 days of discharge for ongoing care of her interstitial lung disease as well as pulmonary hypertension 3. She will need follow-up with a inspector motor vehicles 10 to 14 days for ongoing care of her CHF ITEMS TO FOLLOWUP ON ON OUTPATIENT: 1. Repeat CBC in 2 to 3 days DISCHARGE CONDITION: [Stable]. TIME SPENT ON DISCHARGE: 30 minutes. Vital Signs/I&Os Vital Signs Date Time Temp Pulse Resp B/P (MAP) Pulse Ox O2 Delivery O2 Flow Rate FiO2 07/07/21 09:04 84 07/07/21 09:04 134/79 07/07/21 07:37 97.7 18 98 Nasal Cannula 3.0 07/05/21 00:00 I&O- Last 24 Hours up to 6 AM 07/07/21 06:00 Intake Total 660 ml Output Total 2050 ml Balance -1390 ml Laboratory Data Labs 24H Laboratory Tests 2 07/07/21 05:43: Nucleated Red Blood Cells % (auto) 0.0, Anion Gap 6L, Glomerular Filtration Rate > 60.0, Calcium Level 8.9, Phosphorus Level 3.4, Magnesium Level 2.1 CBC/BMP Laboratory Tests 07/07/21 05:43 Discharge Medications Scheduled Apixaban (Eliquis) 5 Mg Tablet, 5 MG PO BID, (Reported) Ascorbic Acid (Vitamin C) 500 Mg Tab, 500 MG PO DAILY, (Reported) Bupropion Hcl (Bupropion Xl) 150 Mg Tab.er.24h, 150 MG PO DAILY, (Reported) Buspirone HCl (Buspirone HCl) 10 Mg Tablet, 10 MG PO BID, (Reported) Digoxin (Digoxin) 125 Mcg Tablet, 0.125 MG PO DAILY Fluticasone/Vilanterol (Breo Ellipta 100-25 Mcg INH) 1 Each Blst.w.dev, 1 PUFF INH DAILY, (Reported) Methylprednisolone (Solu-Medrol 40 mg Vial) 40 Mg/1 Ml Vial, 40 MG IV Q8H 40mg q 8 x 2 days 40mg q 12 x 2 days 40mg daily x 2 Metoprolol Succinate (Metoprolol Succinate) 25 Mg Tab.er.24h, 1 TAB PO DAILY Metoprolol Tartrate (Metoprolol Tartrate) 25 Mg Tablet, 25 MG PO BID, (Reported) Midodrine HCl (Midodrine HCl) 5 Mg Tablet, 5 MG PO TID, (Reported) 0800, 1200, 1600 Omeprazole (Omeprazole) 40 Mg Capsule.dr, 40 MG PO DAILY Prednisone (Prednisone) 20 Mg Tablet, 40 MG PO DAILY, (Reported) Prednisone (Prednisone) 20 Mg Tablet, 20 MG PO ASDIRECTED To be started on 07/14/21 40mg x 1 day 30mg x 2 days 20mg x 2 days 10mg x 2 days Sertraline Hcl (Zoloft) 100 Mg Tablet, 150 MG PO QHS, (Reported) Simvastatin (Simvastatin) 10 Mg Tablet, 10 MG PO QHS, (Reported) Scheduled PRN Docusate Sodium (Colace) 100 Mg Cap, 100 MG PO BID PRN for CONSTIPATION, (Reported) Allergies Coded Allergies: No Known Allergies (Verified , 05/18/04) ESTHELA IBARRA M.D. Jul 07, 2021 11:33
[2021-07-07] MEDS ORDERED: methylPREDNISolone 40MG 1ML VIAL IV SCH (16:00)
[2021-07-07] MEDS: SERTRALINE HCL 50 MG TAB PO SCH (20:24)
[2021-07-07] MEDS: SIMVASTATIN 10 MG TAB PO SCH (20:26)
== END 2021-07-07 22:53 | DRG 177 ==
LOC: M ED 11:30 → M ED INP 13:44 → ENRESERV 14:49 → M PCU 15:35
PROVIDERS: ADMIT General Practice; ATTEND Internal Medicine
DX: J69.0 Pneumonitis due to inhalation of food and vomit (principal); I50.33 Acute on chronic diastolic (congestive) heart failure; J96.21 Acute and chronic respiratory failure with hypoxia; E87.3 Alkalosis; J84.9 Interstitial pulmonary disease, unspecified; I48.91 Unspecified atrial fibrillation; J43.9 Emphysema, unspecified; I27.29 Other secondary pulmonary hypertension; K21.9 Gastro-esophageal reflux disease without esophagitis; K44.9 Diaphragmatic hernia without obstruction or gangrene; I11.0 Hypertensive heart disease with heart failure; Z66 Do not resuscitate; E78.5 Hyperlipidemia, unspecified; I36.1 Nonrheumatic tricuspid (valve) insufficiency; F41.9 Anxiety disorder, unspecified; M54.16 Radiculopathy, lumbar region; F32.9 Major depressive disorder, single episode, unspecified; Z99.81 Dependence on supplemental oxygen; Z87.891 Personal history of nicotine dependence; Z91.14 Patient's other noncompliance with medication regimen; Z79.01 Long term (current) use of anticoagulants; Z79.52 Long term (current) use of systemic steroids; Z79.899 Other long term (current) drug therapy

== ENCOUNTER 2021-07-07 10:19 | Inpatient (IN) | payer MEDICARE, OTHER ==
[~2021-07-07] VITALS: Ht 149.9 cm; Wt 54.9 kg
[~2021-07-07 10:19] MED LIST changes: +METO25TA4 PO
[2021-07-07] MEDS ORDERED: METH40VIAL IV (11:44)
[2021-07-07] MEDS ORDERED: METO1TAB32 PO (11:44)
[2021-07-07] MEDS ORDERED: PRED20TA PO (11:44)
[2021-07-07] MEDS ORDERED: DIGO0.123 PO (11:44)
[2021-07-07] MEDS ORDERED: OMEP40CA4 PO (11:45)
[2021-07-07] MEDS ORDERED: GLUCOSE 4GM CHEW TABLET PO PRN (17:00)
[2021-07-07] MEDS ORDERED: BISACODYL 10 MG SUPP PR PRN (17:00)
[2021-07-07] MEDS ORDERED: DEXTROSE 50% 50 ML SYRINGE IV PRN (17:00)
[2021-07-07] MEDS ORDERED: ACETAMINOPHEN TAB 650MG DOSE (2X325MG) PO PRN (17:00)
[2021-07-07] MEDS ORDERED: LEVALBUTEROL HFA 45MCG/ACT 15 GM INHALER INH PRN (17:00)
[2021-07-07] MEDS ORDERED: MIRALAX *UNIT DOSE* 17GM PACKET PO PRN (17:00)
[2021-07-07] MEDS ORDERED: GLUCAGON INJ 1MG VIAL SC PRN (17:00)
[2021-07-07] MEDS: HumaLOG INSULIN (NovoLOG) PER UNIT SC SCH (21:00)
[2021-07-07 23:00] VITALS: BP 119/74
[2021-07-07] MEDS ORDERED: HOME MED LIST COMPLETE! XX SCH (23:25)
[2021-07-07] MEDS: DOCUSATE SODIUM 100MG CAPSULE PO SCH (23:41)
[2021-07-08] MEDS: APIXABAN 5 MG TAB (ELIQUIS) PO SCH ×3 (00:01→20:57)
[2021-07-08] MEDS: guaiFENesin ER 600 MG TAB PO SCH ×3 (00:02→20:57)
[2021-07-08] MEDS: METOPROLOL TART 12.5 MG PER 1/2 TAB PO SCH ×3 (00:02→20:10)
[2021-07-08] MEDS: HumaLOG INSULIN (NovoLOG) PER UNIT SC SCH ×5 (00:43→20:47)
[2021-07-08] MEDS: SIMVASTATIN 10 MG TAB PO SCH ×2 (00:44→20:57)
[2021-07-08] MEDS: busPIRone 10 MG TAB PO SCH ×3 (00:44→20:57)
[2021-07-08] MEDS: OMEPRAZOLE 20 MG CAP PO SCH ×3 (00:44→20:57)
[2021-07-08] MEDS: SERTRALINE HCL 50 MG TAB PO SCH ×2 (00:45→20:58)
[2021-07-08] MEDS: SENNA 8.6 MG TAB (SENOKOT) PO SCH ×2 (00:47→20:58)
[2021-07-08] MEDS: REMEDY PHYTOPLEX Z-GUARD PASTE 113GM TUBE (FROM STOREROOM PRODUCT) TOP SCH ×4 (00:47→20:58)
[2021-07-08] MEDS: methylPREDNISolone 40MG 1ML VIAL IV SCH ×3 (01:02→16:32)
[2021-07-08] MEDS: LEVALBUTEROL HFA 45MCG/ACT 15 GM INHALER INH SCH ×4 (02:11→19:59)
[2021-07-08 06:00] VITALS: BP 131/91
[2021-07-08 07:15] LABS: HEMATOCRIT 39.8 % (36.0-47.0); HEMOGLOBIN 12.9 g/dl (12.0-15.5); MEAN CORPUSCULAR HEMOGLOBIN 29.1 pg (27.0-33.0); MEAN CORPUSCULAR HGB CONC 32.4 g/dl (32.0-36.5); MEAN CORPUSCULAR VOLUME 89.8 fl (80.0-96.0); PLATELET COUNT, AUTOMATED 287 10^3/uL (150-450); RED BLOOD COUNT 4.43 10^6/uL (4.00-5.40); WHITE BLOOD COUNT 12.4 10^3/uL (4.0-10.0)
[2021-07-08] MEDS: ADVAIR HFA 45/21MCG INHALER INH SCH ×2 (07:22→19:58)
[2021-07-08 07:35] LABS: BLOOD UREA NITROGEN 30 MG/DL (7-18); CREATININE FOR GFR 0.64 MG/DL (0.55-1.30); GLUCOSE, FASTING 108 MG/DL (70-100)
[2021-07-08 07:36] LABS: ALBUMIN 2.2 GM/DL (3.2-5.2); ALT/SGPT 33 U/L (12-78); BILIRUBIN,TOTAL 0.4 MG/DL (0.2-1.0); CALCIUM LEVEL 8.7 MG/DL (8.8-10.2); CARBON DIOXIDE LEVEL 31 MEQ/L (21-32); CHLORIDE LEVEL 104 MEQ/L (98-107); GLOMERULAR FILTRATION RATE > 60.0 (>39); POTASSIUM SERUM 4.9 MEQ/L (3.5-5.1); SODIUM LEVEL 142 MEQ/L (136-145); TOTAL PROTEIN 5.2 GM/DL (6.4-8.2)
[2021-07-08 07:56] LABS: LYMPHOCYTES 8 % (16-44); METAMYELOCYTES 4 % (0-0); MONOCYTES 6 % (0-5); MYELOCYTES 1 % (0-0); NEUTROPHILS 80 % (28-66); OVALOCYTES 1+; PLATELET ESTIMATE NORMAL (NORMAL)
[2021-07-08] MEDS: DIGOXIN 0.125 MG TAB PO SCH (08:18)
[2021-07-08] MEDS: DOCUSATE SODIUM 100MG CAPSULE PO SCH ×2 (08:19→20:58)
[2021-07-08] MEDS: buPROPion **XL** TABLET 150MG (WELLBUTRIN XL) PO SCH (08:23)
--- NOTE | 2021-07-08 08:52 | HPEPDOC ---
Clinical Reimbursement Specialist Note DATE OF ADMISSION: 07-07-21 DATE OF SERVICE: 07-08-21 TIME OF ADMISSION: Please refer to physician's admission order. SOURCE OF ADMISSION INFORMATION: [facility] record and patient CHIEF COMPLAINT: new onset Afib and interstitial lung disease exacerbation HISTORY OF PRESENT ILLNESS: 80F pmh Afib, chronic diastolic CHF, COPD, pulmonary HTN, HLD, multiple wedge compression fractures ,chronic low back pain with left sided radiculopathy, anxiety/depression presented to [facility] ED on 06-25-21 with worsening shortness of breath after having been hospitalized and treated for interstitial PNA vs interstitial pneumonitis from 06/07-06/21. Rheumatologic work up was negative and she finished antibiotics and steroid taper however reported worsening shortness of breath, orthopnea with CXR on admission showing worsening interstitial lung changes with vascular edema and an elevated BNP. She was found to be in Afib with RVR for which she was started on digoxin and eventually eliquis. She was started back on IV steroids for interstitial lung disease vs Non-specific interstitial pneumonitis and provided with supplemental 02. She was diagnosed with aspiration pneumonitis for which speech therapy was consulted who downgraded her diet out of concern for fatigue. She had deficits in mobility and ADLs when evaluated by therapy and deemed medically appropriate for discharge to ARU. REVIEW OF SYSTEMS: The following is a completed review of systems and has been reviewed. Review of systems otherwise unremarkable. PAIN: Patient self reports no pain EYES: No recent vision changes EARS, NOSE, & THROAT: No throat pain, or dysphagia, or rhinorrhea CARDIOVASCULAR: Denies chest pain or palpitations PULMONARY: Denies shortness of breath GASTROINTESTINAL: [Denies constipation/diarrhea GENITOURINARY: denies dysuria MUSCULOSKELETAL: +generalized weakness NEUROLOGICAL:denies paresthesias HEMATOLOGICAL: denies easy bruising SKIN: denies rash PSYCHIATRIC: Unremarkable All other review of systems found to be negative. PAST MEDICAL HISTORY: as per HPI ALLERGIES: Please see below. MEDICATIONS: Please see below. FAMILY HISTORY: Emphysema SOCIAL HISTORY: Former smoker, no etoh/illicit drugs DIET: low sodium PHYSICAL EXAMINATION: VITAL SIGNS: Please see below. GENERAL: Pleasant and cooperative. No acute distress. HEENT: PERRL. Extraocular movements intact. Clear conjunctiva CARDIOVASCULAR: Irregular rate and rhythm. No murmurs, rubs, or gallops LUNGS: scattered wheeze ABDOMEN: Soft, nontender, nondistended. Positive bowel sounds. Normal active bowel sounds]. NEUROLOGICAL: Alert and oriented times three. Cranial nerves II through XII grossly intact. Sensation grossly intact EXTREMITIES: 5\5 strength bilateral upper extremities. 5\5 strength right lower extremity. 5/5 strength in left lower extremity. (+) scant edema LABORATORY DATA: Please see below. IMAGING:Imaging documentation personally reviewed by record FUNCTIONAL STATUS: Premorbid: Mod-Independent with all activities of daily life as well as mobility. On Admission: contact guard for bed mobility, functional transfers, toileting, ambulation, dressing GOALS: Mod-I for bed mobility, functional transfers, toileting, ambulation, dressing, bathing ASSESSMENT:80-year-old F with past medical history of COPD, HTN, CHF who presents status post weakness in setting of new osnet Afib and interstitial lung disease exacerbation PLAN: 1. Rehab- PT/OT advance mobility and ADLs, strengthen/stretch/maintain ROM all 4 limbs -REMEDIATION TECHNICIAN for dysphagia unrelated to stroke 2. Cardiac- AFib on digoxin, metoprolol, and eliquis 2.5 mg BID -diastolic CHF with recent exacerbation, daily weights, fluid restrict -HLD cont statin -medicine consulted to assist in overall management 3. resp-cont IV Solumedrol then transition to po steroids for interstitial lung disease/pneumonitits exacerbation, cont supportive care- guaifenasin -COPD cont Advair and Xopenex, supplemental 02 -f/u pulmonology for severe pulm HTN with cor pulmonal/right sided heart failure 4.GI ppx- omeprazole 5. DVT ppx- on eliquis 6. Psych- cont Zoloft and Buspar for depression and anxiety 7. Dispo-tbd POST ADMISSION PHYSICIAN EVALUATION: Medical and functional status: Description of medical status, medical assessment: As above. Rehabilitation diagnosis and current and prior cold morbid medical conditions as above. Risk of complications and plans to mitigate them as above. Description of functional status current status is as above. Prior status as above. Status compared to preadmission: There are no clinically significant differences between the patient's current status and the information described on the preadmission screening document. Treatment plan anticipated: Treatment plan is as described above. Required disciplines including physical therapy, occupational therapy, others as noted above. Intensity of services: 3 hours a day, 6 days a week. Special considerations: There are no specific special or safety considerations that would likely preclude immediate implementation of an intensive rehabilitation program or subsequently influence the plan of care. ATTESTATION: Considering all the information above, it is my best judgment that this patient requires intensive rehabilitation therapy as described above and an inpatient hospital environment due to the complexity of nursing, medical, and rehabilitation needs required by the patient. Furthermore, this patient can reasonably be expected to participate in an benefit from an inpatient rehabilitation stay with an interdisciplinary team approach to the delivery of rehabilitation care under the direction and supervision of rehabilitation physician. PROGNOSIS: good ESTIMATED LENGTH OF STAY:10-14 days. PROJECTED DISCHARGE DESTINATION: Home with family support and any durable medical equipment required to increase functional safety and mobility TIME SPENT COUNSELING AND COORDINATING INITIAL CARE: Greater than 70 minutes. Vital Signs Vital Sign - Last 24 Hours 07/07/21 07/07/21 07/08/21 07/08/21 23:00 23:00 06:00 08:18 Temp 97.8 97.8 97.1 Pulse 95 95 91 91 Resp 20 20 18 B/P (MAP) 119/74 (89) 119/74 (89) 131/91 (104) Pulse Ox 93 93 96 O2 Delivery Nasal Cannula Nasal Cannula Nasal Cannula O2 Flow Rate 3.0 3.0 3.0 07/08/21 08:18 Pulse 91 B/P (MAP) 131/91 Laboratory Data CBC/BMP Laboratory Tests 07/08/21 06:39 Labs 24H Laboratory Tests 2 07/08/21 06:04: Bedside Glucose (Misc Panel) 103 07/08/21 06:39: Immature Granulocyte % (Auto) , Neutrophils (%) (Auto) , Nucleated Red Blood Cells % (auto) 0.2H, Neutrophils 80H, Band Neutrophils 1, Lymphocytes (Manual) 8L, Monocytes (Manual) 6H, Metamyelocytes 4H, Myelocytes 1H, Ovalocytes 1+, Platelet Estimate NORMAL, Anion Gap 7L, Glomerular Filtration Rate > 60.0, Calcium Level 8.7L, Total Bilirubin 0.4, Aspartate Amino Transf (AST/SGOT) 11, Alanine Aminotransferase (ALT/SGPT) 33, Alkaline Phosphatase 74, Total Protein 5.2L, Albumin 2.2L, Albumin/Globulin Ratio 0.7L FSBS Laboratory Tests Test 07/08/21 06:04 Range/Units Bedside Glucose (Misc Panel) 103 83-110 MG/DL Home Medications Scheduled Apixaban (Eliquis) 5 Mg Tablet, 5 MG PO BID, (Reported) Ascorbic Acid (Vitamin C) 500 Mg Tab, 500 MG PO DAILY, (Reported) Bupropion Hcl (Bupropion Xl) 150 Mg Tab.er.24h, 150 MG PO DAILY, (Reported) Buspirone HCl (Buspirone HCl) 10 Mg Tablet, 10 MG PO BID, (Reported) Digoxin (Digoxin) 125 Mcg Tablet, 0.125 MG PO DAILY Docusate Sodium (Colace) 100 Mg Cap, 100 MG PO BID, (Reported) Fluticasone/Vilanterol (Breo Ellipta 100-25 Mcg INH) 1 Each Blst.w.dev, 1 PUFF INH DAILY, (Reported) Methylprednisolone (Solu-Medrol 40 mg Vial) 40 Mg/1 Ml Vial, 40 MG IV Q8H 40mg q 8 x 2 days 40mg q 12 x 2 days 40mg daily x 2 Metoprolol Succinate (Metoprolol Succinate) 25 Mg Tab.er.24h, 1 TAB PO DAILY Midodrine HCl (Midodrine HCl) 5 Mg Tablet, 5 MG PO TID, (Reported) 0800, 1200, 1600 Omeprazole (Omeprazole) 40 Mg Capsule.dr, 40 MG PO DAILY Sertraline Hcl (Zoloft) 100 Mg Tablet, 150 MG PO QHS, (Reported) Simvastatin (Simvastatin) 10 Mg Tablet, 10 MG PO QHS, (Reported) Allergies Coded Allergies: No Known Allergies (Verified , 05/18/04) A-FIB/CHADSVASC A-FIB History Current/History of A-Fib/PAF?: Yes Current PO Anticoag Therapy: Yes ROGERIO JJ MD Jul 08, 2021 08:52
[2021-07-08 14:00] VITALS: BP 129/75
--- NOTE | 2021-07-08 14:41 | IPNPDOC ---
Subjective Date Seen The patient was seen on 07/08/21. Subjective Chief Complaint/HPI Patient was seen in the rehab unit today. She had just worked with physical therapy and reported feeling minimally short of breath but tolerable. She denied chest pain, abdominal pain, nausea, vomiting, problem with urination or bowel movements. Other systems 10 point review of system was negative except for what is noted in the HPI Objective Physical Examination Other physical findings General: Lying in bed, no acute distress Head/Neck/Throat: Trachea midline, mucous membranes moist Eyes: Sclera anicteric, no erythema or discharge appreciated bilaterally. Thorax: On 3 L nasal cannula, inspiratory crackles appreciated bilaterally Cardiovascular: Normal rate, regular rhythm, normal S1, S2; no S3, S4, rubs/gallops/murmurs Abdomen: Bowel sounds present, soft/nontender/nondistended Genitourinary: No CVA tenderness, no Boles in place Musculoskeletal: Moving all extremities, no edema Skin: Warm, dry Neurologic: AAOx3, speech fluent and goal-directed, no focal deficits, grossly intact Assessment /Plan Assessment #Acute on chronic respiratory failure -Multifactorial including ILD exacerbation, possible aspiration, and CHF exace rbation; she probably also has a component of restrictive lung disease secondary to her kyphosis -Management as below #ILD exacerbation -Continue with Solu-Medrol 40 mg on taper. continue levalbuterol. #Acute on chronic congestive heart failure -HFpEF. Echo on 06/09/21 noted LVEF of 75%. Euvolemic on exam -Furosemide as needed #Aspiration pneumonitis -Worked with speech therapy, signed off now. -Continue with modified diet. #Atrial fibrillation/atrial flutter -Rate is controlled with digoxin. Anticoagulated with apixaban. #Leukocytosis -Likely reactive, and secondary from the steroids she has received #COPD/corpulmonale -Continue nebulizer support and steroid -We will add ipratropium #Severe pulmonary hypertension /severe tricuspid regurgitation -PA pressure 64 mmHg likely leading to cor pulmonale with right-sided heart failure. -She will need follow-up with medical receptionist biller as outpatient for ongoing management. #GERD -Continue PPI therapy #HTN -Continue with metoprolol #Anxiety and depression, -Continue sertraline #DVT ppx -Apixaban Plan/VTE VTE Prophylaxis Ordered?: Yes VS, I&O, 24H, Fishbone Vital Signs/I&O Vital Signs Date Time Temp Pulse Resp B/P (MAP) Pulse Ox O2 Delivery O2 Flow Rate FiO2 07/08/21 14:00 97.0 85 18 129/75 (93) 93 High Flow Cannula 07/08/21 08:00 3.0 Laboratory Data 24H LABS Laboratory Tests 2 07/08/21 06:04: Bedside Glucose (Misc Panel) 103 07/08/21 06:39: Immature Granulocyte % (Auto) , Neutrophils (%) (Auto) , Nucleated Red Blood Cells % (auto) 0.2H, Neutrophils 80H, Band Neutrophils 1, Lymphocytes (Manual) 8L, Monocytes (Manual) 6H, Metamyelocytes 4H, Myelocytes 1H, Ovalocytes 1+, Platelet Estimate NORMAL, Anion Gap 7L, Glomerular Filtration Rate > 60.0, Calcium Level 8.7L, Total Bilirubin 0.4, Aspartate Amino Transf (AST/SGOT) 11, Alanine Aminotransferase (ALT/SGPT) 33, Alkaline Phosphatase 74, Total Protein 5.2L, Albumin 2.2L, Albumin/Globulin Ratio 0.7L 07/08/21 11:28: Bedside Glucose (Misc Panel) 96 CBC/BMP Laboratory Tests 07/08/21 06:39 ESTHELA IBARRA M.D. Jul 08, 2021 14:38
[2021-07-08] MEDS: IPRATROPIUM HFA INHALER 12.9 GRAMS (ATROVENT HFA) INH SCH (19:58)
[2021-07-08 20:00] VITALS: BP 106/70
[2021-07-08] MEDS ORDERED: IPRATROPIUM 0.02% SOLN 0.5MG 2.5ML NEB INH SCH (20:00)
[2021-07-09] MEDS: methylPREDNISolone 40MG 1ML VIAL IV SCH ×3 (01:11→17:36)
[2021-07-09] MEDS: LEVALBUTEROL HFA 45MCG/ACT 15 GM INHALER INH SCH ×5 (02:00→20:00)
[2021-07-09] MEDS: IPRATROPIUM HFA INHALER 12.9 GRAMS (ATROVENT HFA) INH SCH ×4 (02:10→20:00)
[2021-07-09 06:00] VITALS: BP 128/74
[2021-07-09 06:40] LABS: HEMATOCRIT 39.3 % (36.0-47.0); HEMOGLOBIN 12.7 g/dl (12.0-15.5); MEAN CORPUSCULAR HGB CONC 32.3 g/dl (32.0-36.5); MEAN CORPUSCULAR VOLUME 89.7 fl (80.0-96.0); PLATELET COUNT, AUTOMATED 284 10^3/uL (150-450); RED BLOOD COUNT 4.38 10^6/uL (4.00-5.40); WHITE BLOOD COUNT 14.6 10^3/uL (4.0-10.0)
[2021-07-09 07:08] LABS: BLOOD UREA NITROGEN 29 MG/DL (7-18); CALCIUM LEVEL 8.6 MG/DL (8.8-10.2); CARBON DIOXIDE LEVEL 32 MEQ/L (21-32); CHLORIDE LEVEL 105 MEQ/L (98-107); CREATININE FOR GFR 0.51 MG/DL (0.55-1.30); GLOMERULAR FILTRATION RATE > 60.0 (>39); GLUCOSE, FASTING 105 MG/DL (70-100); POTASSIUM SERUM 4.7 MEQ/L (3.5-5.1); SODIUM LEVEL 140 MEQ/L (136-145)
[2021-07-09 07:11] LABS: ATYPICAL LYMPH 4 % (0-5); LYMPHOCYTES 3 % (16-44); MONOCYTES 4 % (0-5); MYELOCYTES 1 % (0-0); NEUTROPHILS 88 % (28-66)
[2021-07-09 07:12] LABS: PLATELET ESTIMATE NORMAL (NORMAL)
[2021-07-09] MEDS: ADVAIR HFA 45/21MCG INHALER INH SCH (07:12)
[2021-07-09] MEDS: HumaLOG INSULIN (NovoLOG) PER UNIT SC SCH (07:30)
[2021-07-09] MEDS: DOCUSATE SODIUM 100MG CAPSULE PO SCH ×2 (09:00→21:06)
[2021-07-09] MEDS: APIXABAN 5 MG TAB (ELIQUIS) PO SCH ×2 (09:16→21:06)
[2021-07-09] MEDS: OMEPRAZOLE 20 MG CAP PO SCH ×2 (09:16→21:06)
[2021-07-09] MEDS: METOPROLOL TART 12.5 MG PER 1/2 TAB PO SCH ×2 (09:16→21:07)
[2021-07-09] MEDS: guaiFENesin ER 600 MG TAB PO SCH ×2 (09:17→21:06)
[2021-07-09] MEDS: buPROPion **XL** TABLET 150MG (WELLBUTRIN XL) PO SCH (09:17)
[2021-07-09] MEDS: DIGOXIN 0.125 MG TAB PO SCH (09:17)
[2021-07-09] MEDS: busPIRone 10 MG TAB PO SCH ×2 (09:20→21:06)
[2021-07-09] MEDS: REMEDY PHYTOPLEX Z-GUARD PASTE 113GM TUBE (FROM STOREROOM PRODUCT) TOP SCH ×3 (09:20→21:08)
--- NOTE | 2021-07-09 12:33 | IPNPDOC ---
PM&R Progress Note DATE OF SERVICE: Jul 09, 2021 [employer] [employer] [place] Progress Note Subjective: Patient stating she thinks her breathing is not getting worse overall, but she did have some trouble keeping her oxygen levels up in therapy. She was educated on prolonging her exhalation and to activate her core for more diaphragmatic breathing rather than breathing into the top of her lungs when she feels short of breath. REVIEW OF SYSTEMS: The following is a completed review of systems and has been reviewed. Review of systems otherwise unremarkable. PAIN: Patient self reports no pain EYES: No recent vision changes EARS, NOSE, & THROAT: No throat pain, or dysphagia, or rhinorrhea CARDIOVASCULAR: Denies chest pain or palpitations PULMONARY: + shortness of breath with exertion GASTROINTESTINAL: Denies constipation/diarrhea GENITOURINARY: denies dysuria MUSCULOSKELETAL: +generalized weakness NEUROLOGICAL:denies paresthesias HEMATOLOGICAL: denies easy bruising SKIN: denies rash PSYCHIATRIC: Unremarkable All other review of systems found to be negative. PHYSICAL EXAMINATION: VITAL SIGNS: Please see below. GENERAL: Pleasant and cooperative. No acute distress. HEENT: PERRL. Extraocular movements intact. Clear conjunctiva CARDIOVASCULAR: Irregular rate and rhythm. No murmurs, rubs, or gallops LUNGS: scattered wheeze ABDOMEN: Soft, nontender, nondistended. Positive bowel sounds. Normal active bowel sounds]. NEUROLOGICAL: Alert and oriented times three. Cranial nerves II through XII grossly intact. Sensation grossly intact EXTREMITIES: 5\5 strength bilateral upper extremities. 5\5 strength right lower extremity. 5/5 strength in left lower extremity. (+) scant edema ASSESSMENT:80-year-old F with past medical history of COPD, HTN, CHF who presents status post weakness in setting of new osnet Afib and interstitial lung disease exacerbation PLAN: 1. 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 Cardiac- AFib on digoxin, metoprolol, and eliquis 2.5 mg BID -diastolic CHF with recent exacerbation, daily weights, fluid restrict -HLD cont statin -medicine consulted to assist in overall management 3. resp-cont IV Solumedrol then transition to po steroids for interstitial lung disease/pneumonitits exacerbation, cont supportive care- guaifenasin -COPD cont Advair (will increase dosage) and Xopenex, supplemental 02 (patient may need script home 02) -f/u pulmonology for severe pulm HTN with cor pulmonal/right sided heart failure 4.GI ppx- omeprazole 5. DVT ppx- on eliquis 6. Psych- cont Zoloft and Buspar for depression and anxiety 7. Dispo-tbd Allergies Coded Allergies: No Known Allergies (Verified , 05/18/04) Vital Signs Vital Signs Date Time Temp Pulse Resp B/P (MAP) Pulse Ox O2 Delivery O2 Flow Rate FiO2 07/09/21 09:17 88 07/09/21 09:16 128/74 07/09/21 06:00 97.5 19 95 Nasal Cannula 3.0 Laboratory Data CBC/BMP Laboratory Tests 07/09/21 05:43 Labs 24H Laboratory Tests 2 07/08/21 16:25: Bedside Glucose (Misc Panel) 119H 07/08/21 20:28: Bedside Glucose (Misc Panel) 145H 07/09/21 05:43: Immature Granulocyte % (Auto) , Neutrophils (%) (Auto) , Nucleated Red Blood Cells % (auto) 0.0, Neutrophils 88H, Lymphocytes (Manual) 3L, Monocytes (Manual) 4, Myelocytes 1H, Atypical Lymphocytes 4, Red Blood Cell Morphology NORMAL, Platelet Estimate NORMAL, Anion Gap 3L, Glomerular Filtration Rate > 60.0, Calcium Level 8.6L 07/09/21 06:34: Bedside Glucose (Misc Panel) 108 07/09/21 11:25: Bedside Glucose (Misc Panel) 122H Current Medications Current Medications Current Medications Medications (Trade) Dose Ordered Sig/Wendy Route PRN Reason Start Time Stop Time Status Last Admin Dose Admin Acetaminophen (Tylenol Tab) 650 mg Q4HP PRN PO fever/MILD PAIN (PS 1-4) 07/07/21 17:00 Apixaban (Eliquis) 5 mg BID PO 07/07/21 21:00 07/09/21 09:16 Bisacodyl (Dulcolax Suppository) 10 mg DAILYPRN PRN [place] CONSTIPATION 07/07/21 17:00 Bupropion HCl (Wellbutrin Xl) 150 mg DAILY PO 07/08/21 09:00 07/09/21 09:17 Buspirone HCl (Buspar) 10 mg BID PO 07/07/21 21:00 07/09/21 09:20 Dextrose (Dextrose 50%) 25 ml ASDIRECTED PRN IV SEE LABEL COMMENTS 07/07/21 17:00 07/09/21 12:26 DC Digoxin (Lanoxin) 0.125 mg DAILY PO 07/08/21 09:00 07/09/21 09:17 Docusate Sodium (Colace) 100 mg BID PO 07/07/21 21:00 Glucagon (Glucagon) 1 mg ASDIRECTED PRN SC SEE LABEL COMMENTS 07/07/21 17:00 07/09/21 12:26 DC Glucose (Glucose) 16 GM ASDIRECTED PRN PO SEE LABEL COMMENTS 07/07/21 17:00 07/09/21 12:26 DC Guaifenesin (Mucinex Tab Er) 1,200 mg BID PO 07/07/21 21:00 07/09/21 09:17 Home Med (Home Med List Complete!) ASDIRECTED XX 07/07/21 23:25 07/07/21 23:34 DC Insulin Human Lispro (HumaLOG INSULIN) SEE PROTOCOL TABLE AC SC 07/07/21 17:30 07/09/21 12:26 DC 07/08/21 16:32 Insulin Human Lispro (HumaLOG INSULIN) SEE PROTOCOL TABLE QHS SC 07/07/21 21:00 07/09/21 12:26 DC Ipratropium [place] (Atrovent 0.02%) 0.5 mg RQ6H INH 07/08/21 20:00 07/08/21 15:16 DC Ipratropium [place] (Atrovent Hfa) 2 puff RQ6H INH 07/08/21 20:00 07/09/21 02:10 Levalbuterol HCl (Xopenex Hfa) 2 puff Q4HP PRN INH SHORTNESS OF BREATH 07/07/21 17:00 Levalbuterol HCl (Xopenex Hfa) 2 puff RQ6H INH 07/08/21 02:00 07/09/21 02:15 Methylprednisolone (SOLU medrol) 40 mg Q8H IV 07/08/21 01:00 07/09/21 09:17 Metoprolol Tartrate (Lopressor) 12.5 mg BID PO 07/07/21 21:00 07/09/21 09:16 Omeprazole (PriLOSEC) 20 mg BID PO 07/07/21 21:00 07/09/21 09:16 Polyethylene Glycol (Miralax) 1 pkt DAILY PRN PO CONSTIPATION 07/07/21 17:00 Salmeterol Xinafoate/ Fluticasone (Advair Hfa 45-21 Mcg/Act) 2 puff RBID INH 07/08/21 08:00 07/09/21 07:12 Senna (Senokot) 1 tab QHS PO 07/07/21 21:00 Sertraline HCl (Zoloft) 150 mg QHS PO 07/07/21 21:00 07/08/21 20:58 Simvastatin (Zocor) 10 mg QPM PO 07/07/21 21:00 07/08/21 20:57 ROGERIO JJ MD Jul 09, 2021 12:33
[2021-07-09 14:00] VITALS: BP 100/61
[2021-07-09 18:10] VITALS: BP 100/61
[2021-07-09 20:00] VITALS: BP 123/67
[2021-07-09] MEDS: ADVAIR HFA 230/21MCG INHALER INH SCH (20:14)
[2021-07-09] MEDS: SENNA 8.6 MG TAB (SENOKOT) PO SCH (21:06)
[2021-07-09] MEDS: SIMVASTATIN 10 MG TAB PO SCH (21:06)
[2021-07-09] MEDS: SERTRALINE HCL 50 MG TAB PO SCH (21:07)
[2021-07-10] MEDS: methylPREDNISolone 40MG 1ML VIAL IV SCH ×3 (00:13→16:57)
[2021-07-10] MEDS: IPRATROPIUM HFA INHALER 12.9 GRAMS (ATROVENT HFA) INH SCH ×4 (05:04→18:24)
[2021-07-10] MEDS: LEVALBUTEROL HFA 45MCG/ACT 15 GM INHALER INH SCH ×4 (05:05→18:24)
[2021-07-10 06:00] VITALS: BP 158/85
[2021-07-10] MEDS: ADVAIR HFA 230/21MCG INHALER INH SCH ×2 (07:20→18:24)
[2021-07-10] MEDS: OMEPRAZOLE 20 MG CAP PO SCH ×2 (09:31→21:01)
[2021-07-10] MEDS: buPROPion **XL** TABLET 150MG (WELLBUTRIN XL) PO SCH (09:32)
[2021-07-10] MEDS: DOCUSATE SODIUM 100MG CAPSULE PO SCH ×2 (09:32→21:00)
[2021-07-10] MEDS: busPIRone 10 MG TAB PO SCH ×2 (09:32→21:00)
[2021-07-10] MEDS: APIXABAN 5 MG TAB (ELIQUIS) PO SCH ×2 (09:32→21:00)
[2021-07-10] MEDS: METOPROLOL TART 12.5 MG PER 1/2 TAB PO SCH ×2 (09:34→21:00)
[2021-07-10] MEDS: DIGOXIN 0.125 MG TAB PO SCH (09:34)
[2021-07-10] MEDS: guaiFENesin ER 600 MG TAB PO SCH ×2 (09:35→21:00)
[2021-07-10] MEDS: REMEDY PHYTOPLEX Z-GUARD PASTE 113GM TUBE (FROM STOREROOM PRODUCT) TOP SCH ×3 (09:36→21:01)
[2021-07-10 14:00] VITALS: BP 119/70
[2021-07-10 20:00] VITALS: BP 115/44
[2021-07-10] MEDS: SERTRALINE HCL 50 MG TAB PO SCH (20:59)
[2021-07-10] MEDS: SENNA 8.6 MG TAB (SENOKOT) PO SCH (21:00)
[2021-07-10] MEDS: SIMVASTATIN 10 MG TAB PO SCH (21:01)
[2021-07-11] MEDS: methylPREDNISolone 40MG 1ML VIAL IV SCH ×2 (00:45→09:13)
[2021-07-11 05:01] VITALS: BP 135/79
[2021-07-11] MEDS: LEVALBUTEROL HFA 45MCG/ACT 15 GM INHALER INH SCH ×3 (08:00→19:46)
[2021-07-11] MEDS: IPRATROPIUM HFA INHALER 12.9 GRAMS (ATROVENT HFA) INH SCH ×3 (08:00→19:46)
[2021-07-11] MEDS: ADVAIR HFA 230/21MCG INHALER INH SCH ×2 (08:18→21:00)
[2021-07-11] MEDS: DOCUSATE SODIUM 100MG CAPSULE PO SCH ×2 (09:00→21:00)
[2021-07-11] MEDS: busPIRone 10 MG TAB PO SCH ×2 (09:13→21:19)
[2021-07-11] MEDS: APIXABAN 5 MG TAB (ELIQUIS) PO SCH ×2 (09:13→21:19)
[2021-07-11] MEDS: guaiFENesin ER 600 MG TAB PO SCH ×2 (09:14→21:19)
[2021-07-11] MEDS: buPROPion **XL** TABLET 150MG (WELLBUTRIN XL) PO SCH (09:14)
[2021-07-11] MEDS: METOPROLOL TART 12.5 MG PER 1/2 TAB PO SCH ×2 (09:14→21:20)
[2021-07-11] MEDS: OMEPRAZOLE 20 MG CAP PO SCH ×2 (09:14→21:19)
[2021-07-11] MEDS: DIGOXIN 0.125 MG TAB PO SCH (09:14)
[2021-07-11] MEDS: REMEDY PHYTOPLEX Z-GUARD PASTE 113GM TUBE (FROM STOREROOM PRODUCT) TOP SCH ×3 (09:15→21:00)
[2021-07-11 14:00] VITALS: BP 121/67
[2021-07-11 20:00] VITALS: BP 112/64
[2021-07-11] MEDS: SENNA 8.6 MG TAB (SENOKOT) PO SCH (21:00)
[2021-07-11] MEDS: SERTRALINE HCL 50 MG TAB PO SCH (21:19)
[2021-07-11] MEDS: SIMVASTATIN 10 MG TAB PO SCH (21:19)
[2021-07-12] MEDS: IPRATROPIUM HFA INHALER 12.9 GRAMS (ATROVENT HFA) INH SCH ×4 (02:58→17:55)
[2021-07-12] MEDS: LEVALBUTEROL HFA 45MCG/ACT 15 GM INHALER INH SCH ×4 (02:59→17:56)
[2021-07-12 06:04] LABS: HEMATOCRIT 38.6 % (36.0-47.0); HEMOGLOBIN 12.5 g/dl (12.0-15.5); MEAN CORPUSCULAR HEMOGLOBIN 29.2 pg (27.0-33.0); MEAN CORPUSCULAR HGB CONC 32.4 g/dl (32.0-36.5); MEAN CORPUSCULAR VOLUME 90.2 fl (80.0-96.0); PLATELET COUNT, AUTOMATED 251 10^3/uL (150-450); RED BLOOD COUNT 4.28 10^6/uL (4.00-5.40); WHITE BLOOD COUNT 13.3 10^3/uL (4.0-10.0)
[2021-07-12 06:29] LABS: BLOOD UREA NITROGEN 29 MG/DL (7-18); CALCIUM LEVEL 8.7 MG/DL (8.8-10.2); CARBON DIOXIDE LEVEL 30 MEQ/L (21-32); CHLORIDE LEVEL 105 MEQ/L (98-107); CREATININE FOR GFR 0.49 MG/DL (0.55-1.30); GLOMERULAR FILTRATION RATE > 60.0 (>39); GLUCOSE, FASTING 68 MG/DL (70-100); POTASSIUM SERUM 4.6 MEQ/L (3.5-5.1); SODIUM LEVEL 142 MEQ/L (136-145)
[2021-07-12 06:31] VITALS: BP 104/56
[2021-07-12 06:54] LABS: ATYPICAL LYMPH 3 % (0-5); LYMPHOCYTES 6 % (16-44); MONOCYTES 1 % (0-5); NEUTROPHILS 88 % (28-66); PLATELET ESTIMATE NORMAL (NORMAL)
[2021-07-12] MEDS: ADVAIR HFA 230/21MCG INHALER INH SCH ×2 (07:40→17:56)
[2021-07-12] MEDS: METOPROLOL TART 12.5 MG PER 1/2 TAB PO SCH ×2 (09:00→21:11)
[2021-07-12] MEDS: methylPREDNISolone 40MG 1ML VIAL IV SCH (09:09)
[2021-07-12] MEDS: DIGOXIN 0.125 MG TAB PO SCH (09:10)
[2021-07-12] MEDS: guaiFENesin ER 600 MG TAB PO SCH ×2 (09:11→21:10)
[2021-07-12] MEDS: busPIRone 10 MG TAB PO SCH ×2 (09:11→21:11)
[2021-07-12] MEDS: buPROPion **XL** TABLET 150MG (WELLBUTRIN XL) PO SCH (09:11)
[2021-07-12] MEDS: APIXABAN 5 MG TAB (ELIQUIS) PO SCH ×2 (09:11→21:11)
[2021-07-12] MEDS: OMEPRAZOLE 20 MG CAP PO SCH ×2 (09:13→21:11)
[2021-07-12] MEDS: REMEDY PHYTOPLEX Z-GUARD PASTE 113GM TUBE (FROM STOREROOM PRODUCT) TOP SCH ×3 (09:14→21:12)
[2021-07-12] MEDS: DOCUSATE SODIUM 100MG CAPSULE PO SCH ×2 (09:14→21:10)
--- NOTE | 2021-07-12 09:34 | IPNPDOC ---
PM&R Progress Note DATE OF SERVICE: Jul 12, 2021 [place] Progress Note Subjective: Patient seen in her room stating her breathing is about the same and she feels she is getting stronger. She denies fever or productive cough REVIEW OF SYSTEMS: The following is a completed review of systems and has been reviewed. Review of systems otherwise unremarkable. PAIN: Patient self reports no pain EYES: No recent vision changes EARS, NOSE, & THROAT: No throat pain, or dysphagia, or rhinorrhea CARDIOVASCULAR: Denies chest pain or palpitations PULMONARY: + shortness of breath with exertion GASTROINTESTINAL: Denies constipation/diarrhea GENITOURINARY: denies dysuria MUSCULOSKELETAL: +generalized weakness NEUROLOGICAL:denies paresthesias HEMATOLOGICAL: denies easy bruising SKIN: denies rash PSYCHIATRIC: Unremarkable All other review of systems found to be negative. PHYSICAL EXAMINATION: VITAL SIGNS: Please see below. GENERAL: Pleasant and cooperative. No acute distress. HEENT: PERRL. Extraocular movements intact. Clear conjunctiva CARDIOVASCULAR: Irregular rate and rhythm. No murmurs, rubs, or gallops LUNGS: scattered wheeze ABDOMEN: Soft, nontender, nondistended. Positive bowel sounds. Normal active bowel sounds. NEUROLOGICAL: Alert and oriented times three. Cranial nerves II through XII grossly intact. Sensation grossly intact EXTREMITIES: 5\5 strength bilateral upper extremities. 5\5 strength right lower extremity. 5/5 strength in left lower extremity. (+) scant edema ASSESSMENT:80-year-old F with past medical history of COPD, HTN, CHF who presents status post weakness in setting of new osnet Afib and interstitial lung disease exacerbation PLAN: 1. 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 Cardiac- AFib on digoxin, metoprolol, and eliquis 2.5 mg BID -diastolic CHF with recent exacerbation, daily weights, fluid restrict -HLD cont statin -medicine consulted to assist in overall management 3. resp-cont IV Solumedrol then transition to po steroids for interstitial lung disease/pneumonitits exacerbation, cont supportive care- guaifenasin -COPD cont Advair (increased dosage) and Xopenex, supplemental 02 (patient may need script home 02) -f/u pulmonology for severe pulm HTN with cor pulmonal/right sided heart failure 4.GI ppx- omeprazole 5. DVT ppx- on eliquis 6. Psych- cont Zoloft and Buspar for depression and anxiety 7. Dispo-tbd Allergies Coded Allergies: No Known Allergies (Verified , 05/18/04) Vital Signs Vital Signs Date Time Temp Pulse Resp B/P (MAP) Pulse Ox O2 Delivery O2 Flow Rate FiO2 07/12/21 09:10 77 07/12/21 09:00 108/60 07/12/21 06:31 97.5 56 97 Nasal Cannula 3.0 Laboratory Data CBC/BMP Laboratory Tests 07/12/21 05:15 Labs 24H Laboratory Tests 2 07/12/21 05:15: Immature Granulocyte % (Auto) , Neutrophils (%) (Auto) , Nucleated Red Blood Cells % (auto) 0.0, Neutrophils 88H, Band Neutrophils 2, Lymphocytes (Manual) 6L, Monocytes (Manual) 1, Atypical Lymphocytes 3, Red Blood Cell Morphology NORMAL, Platelet Estimate NORMAL, Anion Gap 7L, Glomerular Filtration Rate > 60.0, Calcium Level 8.7L Current Medications Current Medications Current Medications Medications (Trade) Dose Ordered Sig/Wendy Route PRN Reason Start Time Stop Time Status Last Admin Dose Admin Acetaminophen (Tylenol Tab) 650 mg Q4HP PRN PO fever/MILD PAIN (PS 1-4) 07/07/21 17:00 Apixaban (Eliquis) 5 mg BID PO 07/07/21 21:00 07/12/21 09:11 Bisacodyl (Dulcolax Suppository) 10 mg DAILYPRN PRN [place] CONSTIPATION 07/07/21 17:00 Bupropion HCl (Wellbutrin Xl) 150 mg DAILY PO 07/08/21 09:00 07/12/21 09:11 Buspirone HCl (Buspar) 10 mg BID PO 07/07/21 21:00 07/12/21 09:11 Dextrose (Dextrose 50%) 25 ml ASDIRECTED PRN IV SEE LABEL COMMENTS 07/07/21 17:00 07/09/21 12:26 DC Digoxin (Lanoxin) 0.125 mg DAILY PO 07/08/21 09:00 07/12/21 09:10 Docusate Sodium (Colace) 100 mg BID PO 07/07/21 21:00 07/12/21 09:14 Glucagon (Glucagon) 1 mg ASDIRECTED PRN SC SEE LABEL COMMENTS 07/07/21 17:00 07/09/21 12:26 DC Glucose (Glucose) 16 GM ASDIRECTED PRN PO SEE LABEL COMMENTS 07/07/21 17:00 07/09/21 12:26 DC Guaifenesin (Mucinex Tab Er) 1,200 mg BID PO 07/07/21 21:00 07/12/21 09:11 Home Med (Home Med List Complete!) ASDIRECTED XX 07/07/21 23:25 07/07/21 23:34 DC Insulin Human Lispro (HumaLOG INSULIN) SEE PROTOCOL TABLE AC SC 07/07/21 17:30 07/09/21 12:26 DC 07/08/21 16:32 Insulin Human Lispro (HumaLOG INSULIN) SEE PROTOCOL TABLE QHS SC 07/07/21 21:00 07/09/21 12:26 DC Ipratropium [place] (Atrovent 0.02%) 0.5 mg RQ6H INH 07/08/21 20:00 07/08/21 15:16 DC Ipratropium [place] (Atrovent Hfa) 2 puff RQ6H INH 07/08/21 20:00 07/12/21 07:39 Levalbuterol HCl (Xopenex Hfa) 2 puff Q4HP PRN INH SHORTNESS OF BREATH 07/07/21 17:00 Levalbuterol HCl (Xopenex Hfa) 2 puff RQ6H INH 07/08/21 02:00 07/12/21 07:38 Methylprednisolone (SOLU medrol) 40 mg DAILY IV 07/12/21 09:00 07/14/21 08:59 07/12/21 09:09 Methylprednisolone (SOLU medrol) 40 mg Q8H IV 07/08/21 01:00 07/11/21 13:42 DC 07/11/21 09:13 Metoprolol Tartrate (Lopressor) 12.5 mg BID PO 07/07/21 21:00 07/11/21 21:20 Omeprazole (PriLOSEC) 20 mg BID PO 07/07/21 21:00 07/12/21 09:13 Polyethylene Glycol (Miralax) 1 pkt DAILY PRN PO CONSTIPATION 07/07/21 17:00 Prednisone (Deltasone) 40 mg Taper DAILY PO 07/14/21 09:00 07/22/21 08:59 Salmeterol Xinafoate/ Fluticasone (Advair Hfa 45-21 Mcg/Act) 2 puff RBID INH 07/08/21 08:00 07/09/21 13:30 DC 07/09/21 07:12 Salmeterol Xinafoate/ Fluticasone (Advair Hfa 230/ 21) 2 puff BID INH 07/09/21 21:00 07/12/21 07:40 Senna (Senokot) 1 tab QHS PO 07/07/21 21:00 07/09/21 21:06 Sertraline HCl (Zoloft) 150 mg QHS PO 07/07/21 21:00 07/11/21 21:19 Simvastatin (Zocor) 10 mg QPM PO 07/07/21 21:00 07/11/21 21:19 ROGERIO JJ MD Jul 12, 2021 09:34
[2021-07-12 14:00] VITALS: BP 114/55
[2021-07-12 20:00] VITALS: BP 118/71
[2021-07-12] MEDS: SENNA 8.6 MG TAB (SENOKOT) PO SCH (21:10)
[2021-07-12] MEDS: SERTRALINE HCL 50 MG TAB PO SCH (21:11)
[2021-07-12] MEDS: SIMVASTATIN 10 MG TAB PO SCH (21:11)
[2021-07-13] MEDS: IPRATROPIUM HFA INHALER 12.9 GRAMS (ATROVENT HFA) INH SCH ×4 (02:00→20:20)
[2021-07-13] MEDS: LEVALBUTEROL HFA 45MCG/ACT 15 GM INHALER INH SCH ×4 (02:00→20:19)
[2021-07-13 06:00] VITALS: BP 133/77
[2021-07-13] MEDS: ADVAIR HFA 230/21MCG INHALER INH SCH ×2 (07:48→17:46)
[2021-07-13] MEDS ORDERED: TIOTROPIUM INHALER/CAPSULE (SPIRIVA) INH SCH (08:00)
[2021-07-13] MEDS: DIGOXIN 0.125 MG TAB PO SCH (08:23)
[2021-07-13] MEDS: busPIRone 10 MG TAB PO SCH ×2 (08:23→21:00)
[2021-07-13] MEDS: guaiFENesin ER 600 MG TAB PO SCH ×2 (08:23→21:01)
[2021-07-13] MEDS: OMEPRAZOLE 20 MG CAP PO SCH ×2 (08:23→21:01)
[2021-07-13] MEDS: buPROPion **XL** TABLET 150MG (WELLBUTRIN XL) PO SCH (08:23)
[2021-07-13] MEDS: APIXABAN 5 MG TAB (ELIQUIS) PO SCH ×2 (08:23→21:00)
[2021-07-13] MEDS: REMEDY PHYTOPLEX Z-GUARD PASTE 113GM TUBE (FROM STOREROOM PRODUCT) TOP SCH ×3 (08:24→21:01)
[2021-07-13] MEDS: METOPROLOL TART 12.5 MG PER 1/2 TAB PO SCH ×2 (08:24→20:56)
[2021-07-13] MEDS: DOCUSATE SODIUM 100MG CAPSULE PO SCH ×2 (08:24→21:00)
[2021-07-13] MEDS: methylPREDNISolone 40MG 1ML VIAL IV SCH ×2 (08:24→21:01)
[2021-07-13] MEDS: FUROSEMIDE 20 MG TAB PO SCH (09:00)
--- NOTE | 2021-07-13 10:28 | IPNPDOC ---
PM&R Progress Note DATE OF SERVICE: Jul 13, 2021 [facility] Special[facility] Progress Note Subjective: Patient seen in her room stating she has not been coughing and that her breathing is about the same, but overall still labored with exertion. REVIEW OF SYSTEMS: The following is a completed review of systems and has been reviewed. Review of systems otherwise unremarkable. PAIN: Patient self reports no pain EYES: No recent vision changes EARS, NOSE, & THROAT: No throat pain, or dysphagia, or rhinorrhea CARDIOVASCULAR: Denies chest pain or palpitations PULMONARY: + shortness of breath with exertion GASTROINTESTINAL: Denies constipation/diarrhea GENITOURINARY: denies dysuria MUSCULOSKELETAL: +generalized weakness NEUROLOGICAL:denies paresthesias HEMATOLOGICAL: denies easy bruising SKIN: denies rash PSYCHIATRIC: Unremarkable All other review of systems found to be negative. PHYSICAL EXAMINATION: VITAL SIGNS: Please see below. GENERAL: Pleasant and cooperative. No acute distress. HEENT: PERRL. Extraocular movements intact. Clear conjunctiva CARDIOVASCULAR: Irregular rate and rhythm. No murmurs, rubs, or gallops LUNGS: scattered wheeze ABDOMEN: Soft, nontender, nondistended. Positive bowel sounds. Normal active bowel sounds. NEUROLOGICAL: Alert and oriented times three. Cranial nerves II through XII grossly intact. Sensation grossly intact EXTREMITIES: 5\5 strength bilateral upper extremities. 5\5 strength right lower extremity. 5/5 strength in left lower extremity. (+) bilat calf edema ASSESSMENT:80-year-old F with past medical history of COPD, HTN, CHF who present s status post weakness in setting of new osnet Afib and interstitial lung disease exacerbation PLAN: 1. 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 Cardiac- AFib on digoxin, metoprolol, and eliquis 2.5 mg BID -diastolic CHF with recent exacerbation, daily weights, fluid restrict- will start lasix 20mg daily and consider renal consult for fluid management -HLD cont statin -medicine consulted to assist in overall management 3. resp-cont IV Solumedrol then transition to po steroids for interstitial lung disease/pneumonitits exacerbation, cont supportive care- guaifenasin -COPD cont Advair (increased dosage) and Xopenex, supplemental 02 goal 88- 92%(patient may need script home 02) -patient with desats in therapy requiring 10L 02, but asymptomatic, CXR negative for infiltrates will increase frequency of IV solumedrol from daily to BID (discussed with hospitalist) -f/u pulmonology for severe pulm HTN with cor pulmonal/right sided heart failure 4.GI ppx- omeprazole 5. DVT ppx- on eliquis 6. Psych- cont Zoloft and Buspar for depression and anxiety 7. [id number] to home Allergies Coded Allergies: No Known Allergies (Verified , 05/18/04) Vital Signs Vital Signs Date Time Temp Pulse Resp B/P (MAP) Pulse Ox O2 Delivery O2 Flow Rate FiO2 07/13/21 08:24 66 133/77 07/13/21 08:00 5.0 07/13/21 06:00 97.7 16 94 Nasal Cannula Current Medications Current Medications Current Medications Medications (Trade) Dose Ordered Sig/Wendy Route PRN Reason Start Time Stop Time Status Last Admin Dose Admin Acetaminophen (Tylenol Tab) 650 mg Q4HP PRN PO fever/MILD PAIN (PS 1-4) 07/07/21 17:00 Apixaban (Eliquis) 5 mg BID PO 07/07/21 21:00 07/13/21 08:23 Bisacodyl (Dulcolax Suppository) [address] CONSTIPATION 07/07/21 17:00 Bupropion HCl (Wellbutrin Xl) 150 mg DAILY PO 07/08/21 09:00 07/13/21 08:23 Buspirone HCl (Buspar) 10 mg BID PO 07/07/21 21:00 07/13/21 08:23 Dextrose (Dextrose 50%) 25 ml ASDIRECTED PRN IV SEE LABEL COMMENTS 07/07/21 17:00 07/09/21 12:26 DC Digoxin (Lanoxin) 0.125 mg DAILY PO 07/08/21 09:00 07/13/21 08:23 Docusate Sodium (Colace) 100 mg BID PO 07/07/21 21:00 07/12/21 21:10 Glucagon (Glucagon) 1 mg ASDIRECTED PRN SC SEE LABEL COMMENTS 07/07/21 17:00 07/09/21 12:26 DC Glucose (Glucose) 16 GM ASDIRECTED PRN PO SEE LABEL COMMENTS 07/07/21 17:00 07/09/21 12:26 DC Guaifenesin (Mucinex Tab Er) 1,200 mg BID PO 07/07/21 21:00 07/13/21 08:23 Home Med (Home Med List Complete!) ASDIRECTED XX 07/07/21 23:25 07/07/21 23:34 DC Insulin Human Lispro (HumaLOG INSULIN) SEE PROTOCOL TABLE AC SC 07/07/21 17:30 07/09/21 12:26 DC 07/08/21 16:32 Insulin Human Lispro (HumaLOG INSULIN) SEE PROTOCOL TABLE QHS SC 07/07/21 21:00 07/09/21 12:26 DC Ipratropium [place] (Atrovent 0.02%) 0.5 mg RQ6H INH 07/08/21 20:00 07/08/21 15:16 DC Ipratropium [place] (Atrovent Hfa) 2 puff RQ6H INH 07/08/21 20:00 07/12/21 17:55 Levalbuterol HCl (Xopenex Hfa) 2 puff Q4HP PRN INH SHORTNESS OF BREATH 07/07/21 17:00 Levalbuterol HCl (Xopenex Hfa) 2 puff RQ6H INH 07/08/21 02:00 07/12/21 17:56 Methylprednisolone (SOLU medrol) 40 mg DAILY IV 07/12/21 09:00 07/14/21 08:59 07/13/21 08:24 Methylprednisolone (SOLU medrol) 40 mg Q8H IV 07/08/21 01:00 07/11/21 13:42 DC 07/11/21 09:13 Metoprolol Tartrate (Lopressor) 12.5 mg BID PO 07/07/21 21:00 07/13/21 08:24 Omeprazole (PriLOSEC) 20 mg BID PO 07/07/21 21:00 07/13/21 08:23 Polyethylene Glycol (Miralax) 1 pkt DAILY PRN PO CONSTIPATION 07/07/21 17:00 Prednisone (Deltasone) 40 mg Taper DAILY PO 07/14/21 09:00 07/22/21 08:59 Salmeterol Xinafoate/ Fluticasone (Advair Hfa 45-21 Mcg/Act) 2 puff RBID INH 07/08/21 08:00 07/09/21 13:30 DC 07/09/21 07:12 Salmeterol Xinafoate/ Fluticasone (Advair Hfa 230/ 21) 2 puff BID INH 07/09/21 21:00 07/13/21 07:48 Senna (Senokot) 1 tab QHS PO 07/07/21 21:00 07/12/21 21:10 Sertraline HCl (Zoloft) 150 mg QHS PO 07/07/21 21:00 07/12/21 21:11 Simvastatin (Zocor) 10 mg QPM PO 07/07/21 21:00 07/12/21 21:11 Tiotropium [place] (Spiriva Handihaler) 1 inhalation DAILY@08 INH 07/13/21 10:15 ROGERIO MCCRARY MD Jul 13, 2021 10:28
--- NOTE | 2021-07-13 12:17 | REP ---
INDICATION: new infiltrate?. COMPARISON: Multiple the latest 06/27/2021 a portable exam TECHNIQUE: PA and lateral FINDINGS: The cardiomediastinal silhouette is unchanged. There is evidence of thoracic aortic tortuosity and ectasia. There is no significant change in appearance of the lung mccracken. Chronic interstitial fibrotic changes are again noted with possible superimposed interstitial edema.. No definite acute patchy parenchymal opacities or pleural effusions have developed. Advanced chronic changes are seen involving the imaged spine. These appear stable compared to the lateral view of 06/14/2021. There is an old left 7th rib fracture. IMPRESSION: No significant change with findings as described above. <Electronically signed by Lefty Roberts > 07/13/21 121
[2021-07-13 14:00] VITALS: BP 103/66
[2021-07-13 20:00] VITALS: BP 109/60
[2021-07-13] MEDS: SENNA 8.6 MG TAB (SENOKOT) PO SCH (21:00)
[2021-07-13] MEDS: SIMVASTATIN 10 MG TAB PO SCH (21:00)
[2021-07-13] MEDS: SERTRALINE HCL 50 MG TAB PO SCH (21:01)
[2021-07-14] MEDS: IPRATROPIUM HFA INHALER 12.9 GRAMS (ATROVENT HFA) INH SCH ×3 (03:10→14:16)
[2021-07-14] MEDS: LEVALBUTEROL HFA 45MCG/ACT 15 GM INHALER INH SCH ×3 (03:10→14:16)
[2021-07-14 05:25] LABS: ABG BASE EXCESS 2.1 (-2.0-2.0); ABG HCO3 25.6 MEQ/L (22.0-26.0); ABG O2 SATURATION 93.4 % (95.0-99.0); ABG PARTIAL PRESSURE CO2 36.1 mmHg (35.0-45.0); ABG PARTIAL PRESSURE O2 66.4 mmHg (75.0-100.0); ABG STANDARD HCO3 26.2 MEQ/L (22.0-26.0); ABG TOTAL CO2 26.7 MEQ/L (23.0-31.0); ABG pH (ARTERIAL) 7.468 UNITS (7.350-7.450)
[2021-07-14 06:00] VITALS: BP 145/71
--- NOTE | 2021-07-14 06:08 | REPVR ---
PROCEDURE INFORMATION: Exam: XR Chest Exam date and time: 07/14/2021 5:30 AM Age: 80 years old Clinical indication: Shortness of breath; Additional info: Inc o2 demand TECHNIQUE: Imaging protocol: XR of the chest. Views: 1 view. COMPARISON: CR Chest, 2 view PA, Lat 07/13/2021 11:20 AM FINDINGS: Lungs: There is low lung volume with significant bilateral interstitial lung infiltrates with slight peripheral predominance. Pleural spaces: Unremarkable. No pleural effusion. No pneumothorax. Heart/Mediastinum: Unremarkable. No cardiomegaly. Bones/joints: There is thoraco lumbar spine scoliosis and multilevel DJD. IMPRESSION: Interval worsening of lung aeration with significant bilateral interstitial lung infiltrate with slight peripheral predominance. Findings are nonspecific can be seen with multiple infectious and inflammatory etiologies including COVID 19 pneumonia. Electronically signed by: Jason Shook On 07/14/2021 06:07:41 AM
[2021-07-14 06:46] LABS: HEMATOCRIT 37.6 % (36.0-47.0); HEMOGLOBIN 12.2 g/dl (12.0-15.5); MEAN CORPUSCULAR HEMOGLOBIN 28.9 pg (27.0-33.0); MEAN CORPUSCULAR HGB CONC 32.4 g/dl (32.0-36.5); MEAN CORPUSCULAR VOLUME 89.1 fl (80.0-96.0); PLATELET COUNT, AUTOMATED 215 10^3/uL (150-450); RED BLOOD COUNT 4.22 10^6/uL (4.00-5.40); WHITE BLOOD COUNT 17.8 10^3/uL (4.0-10.0)
[2021-07-14] MEDS: ADVAIR HFA 230/21MCG INHALER INH SCH (07:12)
[2021-07-14 07:13] LABS: BLOOD UREA NITROGEN 26 MG/DL (7-18); CALCIUM LEVEL 8.8 MG/DL (8.8-10.2); CARBON DIOXIDE LEVEL 30 MEQ/L (21-32); CHLORIDE LEVEL 105 MEQ/L (98-107); CREATININE FOR GFR 0.57 MG/DL (0.55-1.30); GLOMERULAR FILTRATION RATE > 60.0 (>39); GLUCOSE, FASTING 86 MG/DL (70-100); NT-PRO BNP 960 PG/ML (<450); POTASSIUM SERUM 4.1 MEQ/L (3.5-5.1); SODIUM LEVEL 140 MEQ/L (136-145)
[2021-07-14 07:20] LABS: LYMPHOCYTES 4 % (16-44); MONOCYTES 1 % (0-5); NEUTROPHILS 92 % (28-66)
[2021-07-14 07:21] LABS: PLATELET ESTIMATE NORMAL (NORMAL)
[2021-07-14 08:20] VITALS: BP 108/64
[2021-07-14] MEDS: FUROSEMIDE 20 MG TAB PO SCH (08:21)
[2021-07-14] MEDS: buPROPion **XL** TABLET 150MG (WELLBUTRIN XL) PO SCH (08:21)
[2021-07-14] MEDS: guaiFENesin ER 600 MG TAB PO SCH (08:21)
[2021-07-14] MEDS: OMEPRAZOLE 20 MG CAP PO SCH (08:21)
[2021-07-14] MEDS: busPIRone 10 MG TAB PO SCH (08:21)
[2021-07-14] MEDS: methylPREDNISolone 40MG 1ML VIAL IV SCH (08:21)
[2021-07-14] MEDS: DIGOXIN 0.125 MG TAB PO SCH (08:21)
[2021-07-14] MEDS: APIXABAN 5 MG TAB (ELIQUIS) PO SCH (08:22)
[2021-07-14] MEDS: DOCUSATE SODIUM 100MG CAPSULE PO SCH (08:22)
[2021-07-14 08:23] VITALS: BP 108/64
[2021-07-14] MEDS: METOPROLOL TART 12.5 MG PER 1/2 TAB PO SCH (08:23)
[2021-07-14] MEDS: REMEDY PHYTOPLEX Z-GUARD PASTE 113GM TUBE (FROM STOREROOM PRODUCT) TOP SCH ×2 (08:23→16:21)
[2021-07-14] MEDS ORDERED: predniSONE 10 MG TAB PO SCH (09:00)
[2021-07-14] MEDS ORDERED: LevoFLOXacin IV 750 MG in IV 1 EA IV SCH (09:30)
--- NOTE | 2021-07-14 11:16 | IPNPDOC ---
PM&R Progress Note DATE OF SERVICE: Jul 14, 2021 Managed Care Liaison Progress Note Subjective: Patient seen in her room with ventimask saturating 94%, stating she felt ok, was tired and had a cough today. She denies fevers or chills. REVIEW OF SYSTEMS: The following is a completed review of systems and has been reviewed. Review of systems otherwise unremarkable. PAIN: Patient self reports no pain EYES: No recent vision changes EARS, NOSE, & THROAT: No throat pain, or dysphagia, or rhinorrhea CARDIOVASCULAR: Denies chest pain or palpitations PULMONARY: + shortness of breath with exertion GASTROINTESTINAL: Denies constipation/diarrhea GENITOURINARY: denies dysuria MUSCULOSKELETAL: +generalized weakness NEUROLOGICAL:denies paresthesias HEMATOLOGICAL: denies easy bruising SKIN: denies rash PSYCHIATRIC: Unremarkable All other review of systems found to be negative. PHYSICAL EXAMINATION: VITAL SIGNS: Please see below. GENERAL: Pleasant and cooperative. No acute distress. HEENT: PERRL. Extraocular movements intact. Clear conjunctiva CARDIOVASCULAR: Irregular rate and rhythm. No murmurs, rubs, or gallops LUNGS: mostly CTA with shallow inhalation ABDOMEN: Soft, nontender, nondistended. Positive bowel sounds. Normal active bowel sounds. NEUROLOGICAL: Alert and oriented times three. Cranial nerves II through XII grossly intact. Sensation grossly intact EXTREMITIES: 5\5 strength bilateral upper extremities. 5\5 strength right lower extremity. 5/5 strength in left lower extremity. (+) bilat calf edema ASSESSMENT:80-year-old F with past medical history of COPD, HTN, CHF who presents status post weakness in setting of new osnet Afib and interstitial lung disease exacerbation PLAN: 1. Rehab- PT/OT advance mobility and ADLs, strengthen/stretch/maintain ROM all 4 limbs, ambulating with RW, will switch to wheelchair level as patient cannot tolerate walking far from pulmonary perspective -PRESS LEADER for dysphagia unrelated to stroke 2. Cardiac- AFib on digoxin, metoprolol, and eliquis 2.5 mg BID -diastolic CHF with recent exacerbation, daily weights, fluid restrict- cont lasix 20mg daily, renal consulted for fluid management -HLD cont statin -medicine consulted to assist in overall management 3. resp- patient with worsening hypoxia overnight with repeat CXR showing bilat infiltrates, Resp panel negative, Lactic acid elevated to 2.3, discussed case with hospitalist and starting Cefepime for HAP, increasing solumedrol back up to 40mg IV q8h- PRESS LEADER to re-eval, patient appears stable at this time cont supportive care- guaifenesin -f/u blood cx, sputum cx, recent MRSA screen negative -COPD cont Advair (increased dosage) and Xopenex, supplemental 02 goal 88- 92%(patient will need script home 02) -f/u pulmonology for severe pulm HTN with cor pulmonal/right sided heart failure 4.GI ppx- omeprazole 5. DVT ppx- on eliquis 6. Psych- cont Zoloft and Buspar for depression and anxiety 7. Bluia-26-7-21 to home -discussed case and acre with patient';s sister and daughter, Adry who will be able to stay with her mother for a period of time after discharge -medical hold 07-14-21 for new PNA Allergies Coded Allergies: No Known Allergies (Verified , 05/18/04) Vital Signs Vital Signs Date Time Temp Pulse Resp B/P (MAP) Pulse Ox O2 Delivery O2 Flow Rate FiO2 07/14/21 08:23 104 108/64 07/14/21 08:00 15.0 50 07/14/21 06:04 22 91 Venturi Mask 07/14/21 06:00 97.6 Laboratory Data CBC/BMP Laboratory Tests 07/14/21 06:10 Labs 24H Laboratory Tests 2 07/14/21 05:08: Blood Gas Bicarbonate Standard 26.2H, Arterial Blood pH 7.468H, Arterial Blood Partial Pressure CO2 36.1, Arterial Blood Partial Pressure O2 66.4L, Arterial Blood Total CO2 26.7, Arterial Blood HCO3 25.6, Arterial Blood Base Excess 2.1H, Arterial Blood Oxygen Saturation 93.4L 07/14/21 06:10: Immature Granulocyte % (Auto) , Neutrophils (%) (Auto) , Nucleated Red Blood Cells % (auto) 0.0, Neutrophils 92H, Band Neutrophils 3, Lymphocytes (Manual) 4L, Monocytes (Manual) 1, Red Blood Cell Morphology NORMAL, Platelet Estimate NORMAL, Anion Gap 5L, Glomerular Filtration Rate > 60.0, Calcium Level 8.8, EH-Clu-D-Type Natriuretic Peptide 960H 07/14/21 06:51: Procalcitonin <0.05 07/14/21 08:12: Lactic Acid Level 2.3*H Microbiology Microbiology 07/14/21 Blood Culture, Received Pending 07/14/21 Respiratory Virus Panel (PCR) (ALFIE) - Final, Complete Current Medications Current Medications Current Medications Medications (Trade) Dose Ordered Sig/Wendy Route PRN Reason Start Time Stop Time Status Last Admin Dose Admin Acetaminophen (Tylenol Tab) 650 mg Q4HP PRN PO fever/MILD PAIN (PS 1-4) 07/07/21 17:00 Apixaban (Eliquis) 5 mg BID PO 07/07/21 21:00 07/14/21 08:22 Bisacodyl (Dulcolax Suppository) 10 mg DAILYPRN PRN [place] CONSTIPATION 07/07/21 17:00 Bupropion HCl (Wellbutrin Xl) 150 mg DAILY PO 07/08/21 09:00 07/14/21 08:21 Buspirone HCl (Buspar) 10 mg BID PO 07/07/21 21:00 07/14/21 08:21 Cefepime HCl 2 gm/ Dextrose 50 ml @ 100 mls/hr Q8HP IV 07/14/21 09:20 UNV Dextrose (Dextrose 50%) 25 ml ASDIRECTED PRN IV SEE LABEL COMMENTS 07/07/21 17:00 07/09/21 12:26 DC Digoxin (Lanoxin) 0.125 mg DAILY PO 07/08/21 09:00 07/14/21 08:21 Docusate Sodium (Colace) 100 mg BID PO 07/07/21 21:00 07/12/21 21:10 Furosemide (Lasix) 20 mg DAILY PO 07/13/21 09:00 07/14/21 08:21 Glucagon (Glucagon) 1 mg ASDIRECTED PRN SC SEE LABEL COMMENTS 07/07/21 17:00 07/09/21 12:26 DC Glucose (Glucose) 16 GM ASDIRECTED PRN PO SEE LABEL COMMENTS 07/07/21 17:00 07/09/21 12:26 DC Guaifenesin (Mucinex Tab Er) 1,200 mg BID PO 07/07/21 21:00 07/14/21 08:21 Home Med (Home Med List Complete!) ASDIRECTED XX 07/07/21 23:25 07/07/21 23:34 DC Insulin Human Lispro (HumaLOG INSULIN) SEE PROTOCOL TABLE AC SC 07/07/21 17:30 07/09/21 12:26 DC 07/08/21 16:32 Insulin Human Lispro (HumaLOG INSULIN) SEE PROTOCOL TABLE QHS SC 07/07/21 21:00 07/09/21 12:26 DC Ipratropium Berry (Atrovent 0.02%) 0.5 mg RQ6H INH 07/08/21 20:00 07/08/21 15:16 DC Ipratropium Berry (Atrovent Hfa) 2 puff RQ6H INH 07/08/21 20:00 07/14/21 07:12 Levalbuterol HCl (Xopenex Hfa) 2 puff Q4HP PRN INH SHORTNESS OF BREATH 07/07/21 17:00 07/14/21 04:46 Levalbuterol HCl (Xopenex Hfa) 2 puff RQ6H INH 07/08/21 02:00 07/14/21 07:12 Levofloxacin 750 mg/IV Miscellaneous Supplies 150 ml @ 100 mls/hr Q24H IV 07/14/21 09:30 UNV Methylprednisolone (SOLU medrol) 40 mg BID IV 07/13/21 21:00 07/14/21 09:31 DC 07/14/21 08:21 Methylprednisolone (SOLU medrol) 40 mg DAILY IV 07/12/21 09:00 07/13/21 14:27 DC 07/13/21 08:24 Methylprednisolone (SOLU medrol) 40 mg Q8H IV 07/08/21 01:00 07/11/21 13:42 DC 07/11/21 09:13 Methylprednisolone (SOLU medrol) 40 mg Q8H IV 07/14/21 17:00 Metoprolol Tartrate (Lopressor) 12.5 mg BID PO 07/07/21 21:00 07/13/21 08:24 Omeprazole (PriLOSEC) 20 mg BID PO 07/07/21 21:00 07/14/21 08:21 Polyethylene Glycol (Miralax) 1 pkt DAILY PRN PO CONSTIPATION 07/07/21 17:00 Prednisone (Deltasone) 40 mg Taper DAILY PO 07/14/21 09:00 07/13/21 14:27 DC Prednisone (Deltasone) 40 mg Taper DAILY PO 07/16/21 21:00 07/14/21 09:31 DC Salmeterol Xinafoate/ Fluticasone (Advair Hfa 45-21 Mcg/Act) 2 puff RBID INH 07/08/21 08:00 07/09/21 13:30 DC 07/09/21 07:12 Salmeterol Xinafoate/ Fluticasone (Advair Hfa 230/ 21) 2 puff BID INH 07/09/21 21:00 07/13/21 10:30 DC 07/13/21 07:48 Salmeterol Xinafoate/ Fluticasone (Advair Hfa 230/ 21) 2 puff BID@0700,1700 INH 07/13/21 17:00 07/14/21 07:12 Senna (Senokot) 1 tab QHS PO 07/07/21 21:00 07/12/21 21:10 Sertraline HCl (Zoloft) 150 mg QHS PO 07/07/21 21:00 07/13/21 21:01 Simvastatin (Zocor) 10 mg QPM PO 07/07/21 21:00 07/13/21 21:00 Tiotropium Berry (Spiriva Handihaler) 1 inhalation DAILY@08 INH 07/13/21 08:00 07/13/21 10:48 ROGERIO BURGESS MD Jul 14, 2021 11:16
[2021-07-14] MEDS ORDERED: SODIUM CHLORIDE 0.9% 1000ML IV ONE (12:00)
[2021-07-14] MEDS ORDERED: CEFEPIME HCL 2 GM in D5W MINI-BAG PLUS 50 ML IV SCH (13:00)
[2021-07-14 14:00] VITALS: BP 104/59
--- NOTE | 2021-07-14 15:24 | REP ---
INDICATION: r/o infiltrate. COMPARISON: 06/25/2021. TECHNIQUE: CT chest performed without the use of intravenous contrast. Sagittal and coronal reconstruction images are performed. FINDINGS: Lungs: There are underlying advanced emphysematous and fibrotic changes. There is scattered ground-glass infiltrate in the right upper lobe, slightly increased superiorly but improved inferiorly. Diffuse ground-glass infiltrate in the right middle lobe is slightly improved. Ground-glass and patchy infiltrate in the right lower lobe has increased. There is increased ground-glass and mild patchy infiltrate in the lingula. There is improvement of patchy posterior left lower lobe atelectasis/infiltrate since the prior study, with mild residual. There is increased ground-glass infiltrate in the superior left lower lobe. Mediastinum: No gross adenopathy. Gaye: No gross adenopathy. Axilla: No gross adenopathy. Pleura: No effusion. Heart: Not enlarged. Thoracic aorta: No aneurysm. Upper abdominal structures: There is a small hiatal hernia. Visualized osseous structures: Multiple thoracic compression deformities are stable. IMPRESSION: Waxing and waning pattern of diffuse bilateral infiltrates as discussed in detail above. Some areas have improved while other areas have increased. <Electronically signed by Anish Carbone > 07/14/21 [id number]
--- NOTE | 2021-07-14 15:56 | CR.PDOC ---
General Date of Consultation: Jul 14, 2021 Referring Provider: ROGERIO JJ MD Consultation REASON FOR CONSULTATION/CHIEF COMPLAINT: Respiratory failure. HISTORY OF PRESENT ILLNESS: 80-year-old female with A. fib on Eliquis, chronic hypoxic respiratory failure multifactorial secondary to COPD, pulmonary hyperte nsion likely group 3, nonspecific interstitial lung disease, chronic aspiration initially presented to the hospital with progressive shortness of breath from home. Up until May 2021 she denies known medical problems. Starting May of this year she has had recurrent hospitalizations for respiratory failure. She has been admitted for presumed exacerbation of interstitial lung disease secondary to chronic aspiration. She shows clinical improvement in response to steroids during each episode. Her most recent hospitalization 2 weeks prior was for acute on chronic respiratory failure and she responded to steroids and short course of antibiotics. She was discharged to ARU on July 07. For the week she spent in ARU she says that she was working with therapy but she was feeling progressive dyspnea throughout the week stay. Her Solu-Medrol was being tapered and in the last 24 hours it was tapered to once daily. ARU staff noticed that this morning she was more hypoxic than usual and she was desatting on 2 to 3 L oxygen nasal cannula and needed to be placed on Venturi mask 50%. She says that she had one episode of hemoptysis where she coughed up bright red blood tinged sputum that was about 1 teaspoon. Otherwise she denies fevers, headache, abdominal pain , symptoms ,diarrhea, leg pains or swelling. ALLERGIES: Please see below. HOME MEDICATIONS: Please see below. PAST MEDICAL HISTORY: See above PAST SURGICAL HISTORY: Multiple orthopedic surgeries. FAMILY HISTORY: No significant cardiopulmonary disease. Emphysema in mother SOCIAL HISTORY: Former smoker quit 15 years ago. Smoked about 1 pack/day for 30 years. REVIEW OF SYSTEMS: CONSTITUTIONAL: No fever. No chills. No dizziness. No weakness. EYES: No pain, erythema, or discharge. No blurring of vision. ENT: No sore throat, URI symptoms. No epistaxis. No tinnitus. CARDIOVASCULAR: No chest pain. No palpitations. No lower extremity edema. RESPIRATORY: See HPI. GASTROINTESTINAL: No nausea, vomiting, diarrhea. No pain. No bloating. No melena. GENITOURINARY: No frequency, urgency, nocturia. No hematuria or dysuria. MUSCULOSKELETAL: No arthralgias or myalgias. INTEGUMENTARY: No swelling. No bruising. No contusions. No abrasions. No lymphangitis. NEUROLOGIC: No headache. No neck pain. No numbness or tingling of the extremities. No weakness. PSYCHIATRIC: No confusion. ENDOCRINE: No fatigue. No weakness. No history of thyroid, diabetes or adrenal problems. HEMATOLOGICAL: No petechiae. No bruising. PHYSICAL EXAMINATION: VITAL SIGNS: Please see below. Pulse ox is 91% on 50% Venturi mask GENERAL APPEARANCE: Alert and awake. . HEENT: no thyromegaly, trachea midline, PERRLA. normal mucous membranes . RESPIRATORY: Bibasilar crackles Velcro-like, faint expiratory wheeze bilateral, good air entry. CARDIOVASCULAR: Tachycardia +s1 s2, no murmurs. ABDOMEN: nontender, not distended. EXTREMITIES: 1+ pitting edema bilaterally, no erythema. NEUROLOGICAL: no sensory or motor deficits, orientedx3. LABORATORY DATA: Please see below. Imaging personally reviewed by me. ASSESSMENT: 1. Acute on chronic hypoxic respiratory failure possibly secondary to ILD exacerbation precipitated by premature tapering of steroid versus superimposed infection given leukocytosis (bacterial versus fungal). She has been on steroids on and off since May thus PJP needs to be in the differential. Prior work-up including connective tissue disease and hypersensitivity panel were unremarkable. She appears euvolemic on exam and BNP is 960 which is within normal limits for her age. 2. History of COPD with emphysematous changes on CT chest. Not in exacerbation. New diagnosis never seen desktop support engineer outpatient and no PFTs to review. 3. Pulmonary hypertension on echo likely group 3 4. A. fib on anticoagulation and rate controlled 5. Chronic aspiration with evidence of laryngeal penetration on prior barium swallow PLAN: SEC ACCOUNTANT: No neurological issues PULM: Restart solumedrol 40 IV q8h, bronchodilators ATC and PRN, HOB 30 degrees. Maintain Sp02 89-94%. Titrate down oxygen as tolerated. Repeat CT chest noncontrast. Patient is not stable to undergo bronchoscopy at this time CARDIO: Maintain MAPs 60-65. Continue with rate controlling medications and Eliquis. Gentle diuresis with Lasix 40 IV daily, keep I<O, strict I and O GI: Recall speech and swallow and advance PO diet as tolerate. GI prophylaxis RENAL: Follow-up lytes daily ID: Start cefepime, send MRSA nares, check procalcitonin and fungitell. Check LDH. Blood culture. ENDO: Monitor FS per routine. Goal range 140-180. HEME: trend WBC DVT/GI PPX continue with Eliquis continue with PPI CODE STATUS: DNR DNI DISPOSITION: Recommend transfer to ICU Vital Signs/I&O Vital Signs Date Time Temp Pulse Resp B/P (MAP) Pulse Ox O2 Delivery O2 Flow Rate FiO2 07/14/21 14:00 97.1 104 24 104/59 (74) 90 Venturi Mask 15.0 50 I&O- Last 24 Hours up to 6 AM 07/14/21 06:00 Intake Total 2300 ml Balance 2300 ml Laboratory Data Labs 24H Laboratory Tests 2 07/14/21 05:08: Blood Gas Bicarbonate Standard 26.2H, Arterial Blood pH 7.468H, Arterial Blood Partial Pressure CO2 36.1, Arterial Blood Partial Pressure O2 66.4L, Arterial Blood Total CO2 26.7, Arterial Blood HCO3 25.6, Arterial Blood Base Excess 2.1H, Arterial Blood Oxygen Saturation 93.4L 07/14/21 06:10: Immature Granulocyte % (Auto) , Neutrophils (%) (Auto) , Nucleated Red Blood Cells % (auto) 0.0, Neutrophils 92H, Band Neutrophils 3, Lymphocytes (Manual) 4L, Monocytes (Manual) 1, Red Blood Cell Morphology NORMAL, Platelet Estimate NORMAL, Anion Gap 5L, Glomerular Filtration Rate > 60.0, Calcium Level 8.8, JE-Ald-B-Type Natriuretic Peptide 960H 07/14/21 06:51: Procalcitonin <0.05 07/14/21 08:12: Lactic Acid Level 2.3*H 07/14/21 12:33: Lactic Acid Followup at 4 Hours 1.8 CBC/BMP Laboratory Tests 07/14/21 06:10 Microbiology Microbiology 07/14/21 Blood Culture, Received Pending 07/14/21 Blood Culture, Received Pending 07/14/21 Respiratory Virus Panel (PCR) (ALFIE) - Final, Complete Allergies Coded Allergies: No Known Allergies (Verified , 05/18/04) Home Medications Scheduled Apixaban (Eliquis) 5 Mg Tablet, 5 MG PO BID, (Reported) Ascorbic Acid (Vitamin C) 500 Mg Tab, 500 MG PO DAILY, (Reported) Bupropion Hcl (Bupropion Xl) 150 Mg Tab.er.24h, 150 MG PO DAILY, (Reported) Buspirone HCl (Buspirone HCl) 10 Mg Tablet, 10 MG PO BID, (Reported) Digoxin (Digoxin) 125 Mcg Tablet, 0.125 MG PO DAILY, #30 Docusate Sodium (Colace) 100 Mg Cap, 100 MG PO BID, (Reported) Fluticasone/Vilanterol (Breo Ellipta 100-25 Mcg INH) 1 Each Blst.w.dev, 1 PUFF INH DAILY, (Reported) Methylprednisolone (Solu-Medrol 40 mg Vial) 40 Mg/1 Ml Vial, 40 MG IV Q8H for 6 Days, #12 40mg q 8 x 2 days 40mg q 12 x 2 days 40mg daily x 2 Metoprolol Succinate (Metoprolol Succinate) 25 Mg Tab.er.24h, 1 TAB PO DAILY for 30 Days, #30 Midodrine HCl (Midodrine HCl) 5 Mg Tablet, 5 MG PO TID, (Reported) 0800, 1200, 1600 Omeprazole (Omeprazole) 40 Mg Capsule.dr, 40 MG PO DAILY for 30 Days, #30 Sertraline Hcl (Zoloft) 100 Mg Tablet, 150 MG PO QHS, (Reported) Simvastatin (Simvastatin) 10 Mg Tablet, 10 MG PO QHS, (Reported) FILIBERTO OSORIO MD Jul 14, 2021 15:56
[2021-07-14] MEDS ORDERED: methylPREDNISolone 40MG 1ML VIAL IV SCH (17:00)
[2021-07-14] MEDS ORDERED: SODIUM CHLORIDE HYPERTONIC 3% 15ML NEB SOL INH PRN (19:25)
--- NOTE | 2021-07-14 23:55 | CR ---
CONSULTATION DATE: 07/14/2021 REQUESTING PHYSICIAN: Dr. Nell Zee CONSULTING PHYSICIAN: Dr. Darshan Newell REASON FOR CONSULTATION: Management of diuretics and volume status in this patient with respiratory distress. CHIEF COMPLAINT: Patient was transferred to rehab after treatment of CHF, pneumonia and interstitial lung disease. HISTORY OF PRESENT ILLNESS: Note: History was obtained from patient's chart and from the rehab services. Patient is unable to provide any reliable history. Sujatha Strickland is a 80-year-old female with past medical history of diastolic congestive heart failure, COPD, pulmonary hypertension, and multiple other comorbidities as mentioned below. She has recently been treated for interstitial pneumonia and interstitial pneumonitis. She was given tapering antibiotics and steroids. Later on, she was found to be in atrial fibrillation with RVR. She was given Eliquis and Digoxin. She was given another course of I.V. steroids. She was also found to have aspiration pneumonitis. Diet was changed and because of her recurrent admissions, she was found to have mobility issues and transferred to rehab service, however in the rehab service overnight, her shortness of breath has gotten worse. She was requiring Ventimask. She was started on antibiotics and I.V. steroids again. Nephrology service was called for further help in the management of this patient's fluid status and help with diuretics. I saw and evaluated the patient at the bedside. She was wearing Ventimask. She was able to answer my questions and follow commands. PAST MEDICAL HISTORY: COPD, chronic diastolic congestive heart failure, atrial fibrillation, pulmonary hypertension, hyperlipidemia, wedge compressions of vertebrae, low back pain, anxiety and depression, and interstitial pneumonitis. PAST SURGICAL HISTORY: No significant past surgical history. ALLERGIES: No known drug allergies. FAMILY HISTORY: Positive for emphysema. SOCIAL HISTORY: She is an ex-smoker. No history of alcohol abuse or drug abuse. REVIEW OF SYSTEMS: CONSTITUTIONAL: She denies any fevers and chills. EYES: She denies any blurry vision, double vision. ENT: She denies any dysphagia, odynophagia. CVS: She denies any chest pain. RESPIRATORY: She reports shortness of breath. GI: She denies any nausea or vomiting. MUSCULOSKELETAL: She denies any muscle aches and pains. SKIN: She denies any rashes or ulcers. HEMATOLOGICAL/ONCOLOGICAL: Denies any easy bleeding or bruising. GINGER FARMER: Denies any weakness or seizures. All other review of systems is negative. PHYSICAL EXAMINATION: GENERAL: Patient is awake, alert, oriented x3, lying in bed, mild respiratory distress. VITAL SIGNS: Temperature 97.1 degrees Fahrenheit, blood pressure 104/59, pulse 104, respiratory rate 24, and saturating 90% on Ventimask at 15 liters. HEAD/NECK: Extraocular muscles intact. Pupils equally round and reactive to light. Mucous membranes are moist. Neck is supple. No significant JVD. CARDIOVASCULAR: S1, S2, tachycardia. 1+ edema of the bilateral ankles. RESPIRATORY: Mild inspiratory crackles bilaterally from upper to lower lung zones. ABDOMEN: Soft, positive bowel sounds, nontender. No organomegaly. MUSCULOSKELETAL: No clubbing or cyanosis. Edema of the lower extremities; 1+ at the ankles was noted. GINGER FARMER: No focal deficit. Power is 5/5 in all extremities. LABORATORY REVIEW: CBC showed WBC 17.8, hemoglobin 12.2, platelets 215,000. BMP showed sodium 140, potassium 4.1, chloride 105, bicarb 30, BUN 26, creatinine 0.5. Calcium 8.7. Lactic acid 2.3. BNP 960. Procalcitonin is less than 0.05. MICROBIOLOGY: Blood cultures are pending. Respiratory viral panel is negative. IMAGING STUDIES: A chest x-ray was done, which showed interval worsening of the lung aeration with significant bilateral interstitial lung infiltrates, slight peripheral markings. Findings are nonspecific, can be seen with multiple infectious and inflammatory etiologies. A CT of the chest was also done without contrast to rule out infiltrate, which showed waxing and waning pattern of diffuse bilateral infiltrates. ASSESSMENT AND PLAN: 1. Acute hypoxic respiratory failure: Patient does not have any signs of fluid overload. I do not think that patient needs aggressive diuresis at this time. She had elevated lactic acid level. I actually gave her a small bolus of 250 cc of saline. I am stopping the diuretic at this time. 2. Bilateral interstitial infiltrates: I want to do a urinalysis on the patient to make sure she does not have proteinuria or hematuria, to rule out pulmonary renal syndrome, however, renal function is normal. If patient has proteinuria or hematuria, we need to rule out vasculitis. The patient is already empirically on I.V. antibiotics and steroids. Management is as per the medical team. 3. Atrial fibrillation: Heart rate is controlled. She continues to be on I.V. Digoxin and Metoprolol 12.5 mg p.o. twice a day. 4. Chronic diastolic congestive heart failure: Volume status is optimal, no signs of fluid overload. As mentioned above, no need of aggressive diuresis at this time. Thank you for involving me in the care of this patient. I shall be happy to follow the patient along with you tomorrow morning. JAVON
[2021-07-16] MEDS ORDERED: predniSONE 10 MG TAB PO SCH (21:00)
== END 2021-07-14 19:55 | disposition short-term general hospital (02) | DRG 947 ==
LOC: M PM&R 23:05
PROVIDERS: ADMIT Physical Medicine & Rehabilitation; ATTEND Physical Medicine & Rehabilitation
DX: R53.1 Weakness (principal); J96.21 Acute and chronic respiratory failure with hypoxia; I50.32 Chronic diastolic (congestive) heart failure; J84.9 Interstitial pulmonary disease, unspecified; E87.2 Acidosis; I48.91 Unspecified atrial fibrillation; J44.9 Chronic obstructive pulmonary disease, unspecified; I27.29 Other secondary pulmonary hypertension; E78.5 Hyperlipidemia, unspecified; M54.16 Radiculopathy, lumbar region; F41.9 Anxiety disorder, unspecified; Z66 Do not resuscitate; I50.810 Right heart failure, unspecified; R13.10 Dysphagia, unspecified; F32.9 Major depressive disorder, single episode, unspecified; Z74.09 Other reduced mobility; Z74.1 Need for assistance with personal care; Z87.891 Personal history of nicotine dependence; Z79.01 Long term (current) use of anticoagulants; Z79.899 Other long term (current) drug therapy

== ENCOUNTER 2021-07-14 18:10 | Inpatient (IN) | payer MEDICARE, OTHER ==
[~2021-07-14] VITALS: Ht 149.9 cm; Wt 54.9 kg
[~2021-07-14 18:10] MED LIST changes: +DIGO0.123 PO; +METH40VIAL IV; +METO1TAB32 PO; +OMEP40CA4 PO
[2021-07-14] MEDS ORDERED: LEVALBUTEROL HFA 45MCG/ACT 15 GM INHALER INH PRN (18:20)
--- NOTE | 2021-07-14 18:30 | HPEPDOC ---
[facility] Medical History & Physical Date of Admission Jul 14, 2021 Date of Service: Jul 14, 2021 History and Physical HPI: Ms. Strickland, is a 80-year-old female who presented to [facility] on 06/25/2021 with complaints of shortness of breath. Of note, she was previously seen from 06/07-06/21 for which she was treated for idiopathic acute interstitial pneumonia versus nonspecific interstitial pneumonitis, new onset atrial fibr illation, and new onset congestive heart failure with preserved systolic function, and was discharged with supplemental oxygen. During this hospitalization, she had an exacerbation of her interstitial lung disease, CHF and possibly may be silently aspirating. For this, she was treated with IV steroids, Lasix, and was evaluated by speech therapy whom have recommended an appropriate diet. Of note, she also required supplemental oxygen with Vapotherm which she was liberated and at the time of discharge she was back to her baseline oxygen requirements of 3 L. She was followed by the pulmonology team and it was recommended for her to go on a 2-week steroid taper upon discharge, as well as to have aspiration precautions as there was laryngeal penetration seen on an esophagram barium swallow. She was evaluated by the ARU team and rehab was recommended. Therefore, she will be transferred to ARU on 07/08/2021. However, on 07/13 patient began to experience shortness of breath and had a productive cough. She was started on broad-spectrum antibiotics including cefepime for pneumonia as her chest x-ray showed bilateral infiltrates. She was evaluated by the pulmonology team and it was recommended for her to be transferred to the ICU as her oxygen requirements increased throughout the day in order for her to be placed on high flow nasal cannula. Presently, she reports feeling better with increased oxygen, steroids, and antibiotics. She denied chest pain, abdominal pain, nausea, vomiting, problems with urination or bowel movements Past medical history As mentioned above Past surgical history Multiple knee and hip surgeries EGD Colonoscopy Social history Former smoker. 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 Denies alcohol and recreational drug Family history Mother had a history of emphysema Review of system 10 point review of system was negative except for what is noted in the HPI PHYSICAL EXAMINATION ON DISCHARGE: VITAL SIGNS: Please see below. General: Lying in bed, no acute distress Head/Neck/Throat: Trachea midline, mucous membranes moist Eyes: Sclera anicteric, no erythema or discharge appreciated bilaterally. Thorax: On Venturi mask, rhonchi appreciated bilaterally Cardiovascular: Normal rate, regular rhythm, normal S1, S2; no S3, S4, rubs/gall ops/murmurs Abdomen: Bowel sounds present, soft/nontender/nondistended Genitourinary: No CVA tenderness, no Boles in place Musculoskeletal: Moving all extremities, no edema Skin: Warm, dry Neurologic: AAOx3, speech fluent and goal-directed, no focal deficits, grossly intact LABORATORY DATA: Please see below. IMAGIN06/27/2021 chest x-ray FINDINGS: There is chronic interstitial lung disease. Some element of superimposed acute interstitial lung disease and/or congestive heart failure can not be excluded. There is no lobar consolidation or pleural effusion. The heart size is unclear. There is calcific vascular disease of the thoracic aorta. The upper abdominal bowel gas pattern is normal. IMPRESSION: Chronic interstitial lung disease. Some element of superimposed acute interstitial lung disease and/or congestive heart failure can not be excluded. There is no significant change. 06/29/2021 barium esophagram FINDINGS: During the oral and pharyngeal stages of deglutition there is laryngeal penetration. There is cricopharyngeal hypertrophy. During esophageal transport there are tertiary waves demonstrated. There is tortuosity of the distal esophagus due to kyphosis. There is no esophagitis, stricture, mucosal ring or hiatal hernia. Gastroesophageal reflux is not demonstrated on this examination. Assessment/plan #Acute on chronic respiratory failure -Multifactorial including ILD exacerbation, possible aspiration, and CHF exacerbation; she probably also has a component of restrictive lung disease secondary to her kyphosis -Management as below -Repeat CT scan of the chest noted waxing and waning pattern diffuse infiltrates; ?crytopgenic pna, to discuss with pulm. #ILD exacerbation -Continue with Solu-Medrol dosage has been increased to 40 mg every 8 hour. -Nebulizer treatment -Appreciate pulmonary recommendations #Pneumonia -Considering she was hospitalized, we will treat this as hospital-acquired pneumonia. Start cefepime. -Obtain sputum culture/respiratory panel #Chronic congestive heart failure -HFpEF. Echo on 06/09/21 noted LVEF of 75%. Euvolemic on exam -Furosemide as needed #Aspiration pneumonitis -Worked with speech therapy, signed off now. -Continue with modified diet. #Atrial fibrillation/atrial flutter -Rate is controlled with digoxin. Anticoagulated with apixaban. #COPD/corpulmonale -Continue nebulizer support and steroid #Severe pulmonary hypertension /severe tricuspid regurgitation -PA pressure 64 mmHg likely leading to cor pulmonale with right-sided heart failure. -She will need follow-up with procurement forester as outpatient for ongoing management. #GERD -Continue PPI therapy #HTN -Continue with metoprolol #Anxiety and depression, -Continue sertraline #DVT ppx -Apixaban Home Medications Scheduled Apixaban (Eliquis) 5 Mg Tablet, 5 MG PO BID Ascorbic Acid (Vitamin C) 500 Mg Tab, 500 MG PO DAILY Bupropion Hcl (Bupropion Xl) 150 Mg Tab.er.24h, 150 MG PO DAILY Buspirone HCl (Buspirone HCl) 10 Mg Tablet, 10 MG PO BID Digoxin (Digoxin) 125 Mcg Tablet, 0.125 MG PO DAILY Docusate Sodium (Colace) 100 Mg Cap, 100 MG PO BID Fluticasone/Vilanterol (Breo Ellipta 100-25 Mcg INH) 1 Each Blst.w.dev, 1 PUFF INH DAILY Methylprednisolone (Solu-Medrol 40 mg Vial) 40 Mg/1 Ml Vial, 40 MG IV Q8H 40mg q 8 x 2 days 40mg q 12 x 2 days 40mg daily x 2 Metoprolol Succinate (Metoprolol Succinate) 25 Mg Tab.er.24h, 1 TAB PO DAILY Midodrine HCl (Midodrine HCl) 5 Mg Tablet, 5 MG PO TID 0800, 1200, 1600 Omeprazole (Omeprazole) 40 Mg Capsule.dr, 40 MG PO DAILY Sertraline Hcl (Zoloft) 100 Mg Tablet, 150 MG PO QHS Simvastatin (Simvastatin) 10 Mg Tablet, 10 MG PO QHS Allergies Coded Allergies: No Known Allergies (Verified , 05/18/04) A-FIB/CHADSVASC A-FIB History Current/History of A-Fib/PAF?: Yes Current PO Anticoag Therapy: Yes ESTHELA IBARRA M.D. Jul 14, 2021 18:17
[2021-07-14 19:53] VITALS: BP 130/83
[2021-07-14 20:00] VITALS: O2SAT 89
[2021-07-14] MEDS: IPRATROPIUM 0.02% SOLN 0.5MG 2.5ML NEB INH SCH (20:00)
[2021-07-14] MEDS ORDERED: HOME MED LIST COMPLETE! XX SCH (20:10)
[2021-07-14] MEDS: SERTRALINE HCL 50 MG TAB PO SCH (20:40)
[2021-07-14] MEDS: methylPREDNISolone 40MG 1ML VIAL IV SCH (20:40)
[2021-07-14] MEDS: APIXABAN 5 MG TAB (ELIQUIS) PO SCH (20:40)
[2021-07-14] MEDS: METOPROLOL TART 12.5 MG PER 1/2 TAB PO SCH (20:40)
[2021-07-14] MEDS: CEFEPIME HCL 2 GM in D5W MINI-BAG PLUS 50 ML IV SCH (20:41)
[2021-07-14] MEDS: guaiFENesin ER 600 MG TAB PO SCH (20:41)
[2021-07-14 21:00] VITALS: O2SAT 86
[2021-07-14] MEDS ORDERED: SIMVASTATIN 10 MG TAB PO SCH (21:00)
[2021-07-14 22:00] VITALS: O2SAT 93
[2021-07-15] MEDS: busPIRone 10 MG TAB PO SCH ×4 (00:01→21:00)
[2021-07-15] MEDS: IPRATROPIUM 0.02% SOLN 0.5MG 2.5ML NEB INH SCH ×6 (03:24→20:00)
[2021-07-15 04:00] VITALS: BP 113/63
[2021-07-15] MEDS: methylPREDNISolone 40MG 1ML VIAL IV SCH (04:18)
[2021-07-15] MEDS: CEFEPIME HCL 2 GM in D5W MINI-BAG PLUS 50 ML IV SCH (04:18)
[2021-07-15 08:20] VITALS: O2SAT 92
[2021-07-15 08:24] VITALS: BP 133/82
[2021-07-15] MEDS: guaiFENesin ER 600 MG TAB PO SCH ×3 (08:56→21:00)
[2021-07-15] MEDS: APIXABAN 5 MG TAB (ELIQUIS) PO SCH (08:56)
[2021-07-15] MEDS ORDERED: FUROSEMIDE 40 MG TAB PO SCH (09:00)
[2021-07-15] MEDS ORDERED: OMEPRAZOLE 20 MG CAP PO SCH (09:00)
[2021-07-15] MEDS ORDERED: APIXABAN 2.5 MG TAB (ELIQUIS) PO SCH (09:00)
[2021-07-15] MEDS: buPROPion **XL** TABLET 150MG (WELLBUTRIN XL) PO SCH ×2 (09:04→10:45)
[2021-07-15] MEDS: METOPROLOL TART 12.5 MG PER 1/2 TAB PO SCH ×3 (09:04→21:00)
[2021-07-15] MEDS: DIGOXIN 0.125 MG TAB PO SCH (09:04)
[2021-07-15] MEDS: OMEPRAZOLE 20 MG CAP PO SCH ×2 (09:05→10:46)
[2021-07-15] MEDS ORDERED: FUROSEMIDE 40MG/4ML VIAL (J1940) IV ONE (09:40)
[2021-07-15 09:53] LABS: VENOUS BASE EXCESS -0.2 (-2.0-2.0); VENOUS HCO3 26.1 MEQ/L (23.0-27.0); VENOUS O2 SATURATION 51.7 % (60.0-80.0); VENOUS PARTIAL PRESSURE CO2 49.2 mmHg (38.0-50.0); VENOUS PARTIAL PRESSURE O2 28.6 mmHg (30.0-50.0); VENOUS PH 7.342 UNITS (7.330-7.430); VENOUS STANDARD HCO3 23.3 MEQ/L; VENOUS TOTAL CO2 27.6 MEQ/L (24.0-28.0)
[2021-07-15 09:58] LABS: BASO % 0.2 % (0.0-1.0); HEMATOCRIT 36.1 % (36.0-47.0); HEMOGLOBIN 11.8 g/dl (12.0-15.5); LYMPH # 0.3 10^3/uL (1.5-5.0); LYMPH % 1.3 % (24.0-44.0); MEAN CORPUSCULAR HEMOGLOBIN 29.3 pg (27.0-33.0); MEAN CORPUSCULAR HGB CONC 32.7 g/dl (32.0-36.5); MEAN CORPUSCULAR VOLUME 89.6 fl (80.0-96.0); MONO # 0.4 10^3/uL (0.0-0.8); MONO % 1.7 % (2.0-8.0); NEUTROPHILS # 20.5 10^3/uL (1.5-8.5); PLATELET COUNT, AUTOMATED 202 10^3/uL (150-450); RED BLOOD COUNT 4.03 10^6/uL (4.00-5.40); WHITE BLOOD COUNT 21.8 10^3/uL (4.0-10.0)
--- NOTE | 2021-07-15 10:10 | REP ---
INDICATION: hypoxia. COMPARISON: Comparison study July 14, 2021. TECHNIQUE: Portable upright AP chest radiograph. FINDINGS: The lungs are again noted to be exposed at a low level of inspiration unchanged. Increased interstitial markings are seen throughout the lung mccracken unchanged from the 07/14/2021 study and consistent with acute on chronic interstitial lung disease. Oxygen delivery tubing and EKG monitoring electrodes are seen. Cardiac enlargement is again noted unchanged. IMPRESSION: Prominent interstitial lung disease changes bilaterally. No significant change from 07/14/2021. Cardiomegaly. <Electronically signed by Severino Dimas > 07/15/21 1003
[2021-07-15 10:28] LABS: ALBUMIN 2.1 GM/DL (3.2-5.2); ALT/SGPT 30 U/L (12-78); BILIRUBIN,TOTAL 0.6 MG/DL (0.2-1.0); BLOOD UREA NITROGEN 27 MG/DL (7-18); CALCIUM LEVEL 9.5 MG/DL (8.8-10.2); CARBON DIOXIDE LEVEL 31 MEQ/L (21-32); CHLORIDE LEVEL 107 MEQ/L (98-107); CREATININE FOR GFR 0.66 MG/DL (0.55-1.30); GLOMERULAR FILTRATION RATE > 60.0 (>39); GLUCOSE, FASTING 118 MG/DL (70-100); POTASSIUM SERUM 4.3 MEQ/L (3.5-5.1); SODIUM LEVEL 142 MEQ/L (136-145); TOTAL PROTEIN 6.2 GM/DL (6.4-8.2)
[2021-07-15] MEDS: methylPREDNISolone 125MG 2ML VIAL IV SCH ×3 (10:47→23:00)
[2021-07-15 10:50] VITALS: BP 138/77
--- NOTE | 2021-07-15 11:39 | IPNPDOC ---
Text Note Date of Service The patient was seen on 07/15/21. NOTE Subjective: Nursing staff had been calling the [facility] office asking with the provider was for patient. Due to some confusion, the answer was unclear. As the patient was acutely ill, I attended to the bedside of the patient. Patient had become acutely hypoxic. Patient had been transferred from the acute rehabilitation unit to the floor last evening due to worsening hypoxia. Patient had been on a Venturi mask for most of the night and then when she was switched over to Vapotherm high flow nasal cannula, her oxygen saturation decreased to 55%. Patient was placed on a nonrebreather over the Vapotherm and her action saturations recovered. By the time I made to the patient's bedside, the patient's oxygen saturation was 98 to 100% on this oxygen set up. Patient was having some shortness of breath and stated that she felt worse than she did yesterday. Patient denied any chest pain or headaches. Patient denied any abdominal pain or pain with urination. Patient did state that her legs felt mildly swollen. Patient denied any fevers Physical exam: Vitals: See below General: Alert and oriented female patient who was taking short shallow breaths with an open mouth using accessory muscles when I walked into the room. Patient had Vapotherm nasal cannula and nonrebreather on. Patient appeared to be in moderate distress. HEENT: Normocephalic, atraumatic, moist mucous membranes. Neck: No lymphadenopathy or thyromegaly Cardiac: Regular rate and rhythm, no murmurs, normal S1, normal S2 Pulm: Bilateral crackles in the bases of the lungs with rhonchi scattered in the upper part of the lung mccracken Abd: Nondistended, nontender to palpation, normal bowel sounds Ext: 1+ pitting edema around the ankles with trace edema up to the hips bilaterally Labs: See below Imaging: Chest x-ray performed 07/15/2021 is reported to show prominent interstitial lung disease changes bilaterally. No significant change from 07/12/2021. Cardiomegaly Assessment/plan: 80-year-old female who I was urgently called to the bedside to assess for hypoxia 1. Acute hypoxemic respiratory failure. Patient was requiring max Vapotherm therapy with nonrebreather on top of it in order to maintain oxygen saturations above 90%. Patient had a VBG which shows that the patient has a PO2 of 28.6. Patient was stable on the nonrebreather with the VBG. Chest x-ray was ordered and shows findings as above. The decision was made to give the patient 40 of IV furosemide as the patient does appear to be mildly fluid overloaded which may be exacerbating the patient's already underlying interstitial lung disease. I did speak with Dr. Strickland who is the patient's emt i/99 who will also add IV steroids to the patient's treatment for her interstitial inflammatory lung disease. Patient may also need opportunistic infection coverage with either Bactrim or atovaquone for PCP prophylaxis. Sputum cultures are pending. Patient has laboratory studies which shows an elevated white count and an elevated NT proBNP. After speaking with Dr. Strickland, the patient, and the patient's daughter patient's care was transferred to Dr. Solano. I spoke with Dr. Solano about the acute event of her acute hypoxemic respiratory failure. VS,Fishbone, I+O VS, Fishbone, I+O Laboratory Tests 07/15/21 09:43 Vital Signs Date Time Temp Pulse Resp B/P (MAP) Pulse Ox O2 Delivery O2 Flow Rate FiO2 07/15/21 11:04 99 HVNI-Vapotherm 40.0 100 07/15/21 10:50 105 138/77 07/15/21 08:24 97.8 20 I&O- Last 24 Hours up to 6 AM 07/15/21 06:00 Intake Total 240 ml Output Total 350 ml Balance -110 ml CHUCK RICE DO Jul 15, 2021 11:39
[2021-07-15 11:42] VITALS: BP 123/82
[2021-07-15] MEDS: SODIUM CHLORIDE NASAL 0.65% SPRAY BTL (OCEAN) SCH ×3 (12:47→21:00)
--- NOTE | 2021-07-15 13:48 | CCN ---
CRITICAL CARE NOTE DATE: 07/15/2021 SUBJECTIVE: Patient was seen and examined this morning during bedside rounds. Yesterday, she was seen while in ARU for her worsening hypoxia and respiratory distress. She was transferred to the PCU on Ventimask with a plan to start her on high flow nasal cannula. This morning when the patient was changed from the Ventimask which was at 50% to the high flow nasal cannula, she was noted to have desaturation despite being on 40 liters a minute and 100% FIO2. She then had a non-rebreather placed over the Vapotherm with improvement in her oxygenation up to 98 to 100%. This morning, she does report worsening shortness of breath and dyspnea compared to yesterday. She denies any chest pain, has not noticed any significant wheezing. She does have some occasional cough and mucous production and yesterday she did report an episode of about a teaspoon of bright-red blood in her mucous. She otherwise states her mucous has been clear and thin. She does also notice some more leg swelling today she feels. She has not had any fevers or chills overnight. Yesterday, when she was seen by the Pulmonary Team, she was increased on her steroids to higher dose of Solu-Medrol. There was also a recommendation for IV Lasix for gentle diuresis, however her Lasix was discontinued and with her mildly elevated lactate yesterday of 2.3, she was given small 250 ml of fluid bolus. OBJECTIVE: VITAL SIGNS: Temperature 97.8, pulse 84, respirations 20, blood pressure 133/82, O2 sat is 98% on Vapotherm at 40 liters a minute and 100% FIO2 with non-rebreather. INPUT AND OUTPUT: In 240, out 350 ml. GENERAL: Patient is an elderly female, is sitting in the bed with mild respiratory distress. She appears tachypneic and is using some mild accessory muscles with respiration with open mouth and shallow breathing. She is able to speak in short sentences. HEENT: Normocephalic, atraumatic. There are moist mucous membranes noted. NECK: Supple. Trachea is midline. No palpable adenopathy. CARDIAC: Somewhat distant heart sounds with regular rate and rhythm, normal S1 and S2, unable to clearly auscultate any murmurs. PULMONARY: There are crackles noted bilaterally with a few coarse rhonchi. ABDOMEN: Obese, nontender and nondistended. No palpable masses. EXTREMITIES: There is +1 pitting edema in the lower extremities with trace sacral edema. LABORATORY DATA: WBC 21.8, hemoglobin 11.8, platelets are 202,000. Chemistries: Sodium is 142, potassium 4.3, chloride 107, bicarbonate 31, BUN 27, creatinine 0.66, glucose 118, albumin is 2.1. Lactic acid yesterday was 1.8. BNP this morning was 966. ANCAs are pending. IMAGING: A chest x-ray this morning shows increased interstitial markings diffusely bilaterally with low lung volumes, no significant change from yesterday's chest x-ray. ASSESSMENT AND PLAN: Ms. Strickland is a 80-year-old female with a past medical history of atrial fibrillation on anticoagulation, history of CHF, history of interstitial lung disease with chronic hypoxic respiratory failure and pulmonary hypertension as well as a history of chronic aspiration who was transferred from ARU for worsening hypoxemic respiratory failure. The patient has had recurrent hospitalizations for respiratory failure since May. Initially, she was found to have evidence of a steroid responsive interstitial lung disease, perhaps acute interstitial pneumonitis with the possibility of some contribution from chronic aspiration. She was also found previously to have episodes of decompensated heart failure which contributed as well to her worsening hypoxia. She was most recently discharged to ARU with her Solu-Medrol being tapered to once a day. Patient was noted to be more hypoxic than usual with her normal 2 to 3 liters nasal cannula oxygen. She did also have an episode of hemoptysis as well. Here, the patient has had some increased leukocytosis. Her CT initially did show some new areas of ground-glass but there were some other areas that had improved with waxing and waning ground-glass opacities. There is evidence of fibrotic changes and there does appear to be some increasing areas of cystic changes versus some honeycombing in the lungs as well with worsening of the interstitial lung disease. Acute on chronic hypoxemic respiratory failure secondary to worsening interstitial lung disease versus superimposed infection given her immunosuppression, bacterial versus fungal. There is also the possibility of pulmonary edema or perhaps pulmonary hemorrhage contributing as she is on anticoagulation. Patient's corticosteroids were increased yesterday. Will increase her even further to 60 mg q. 6 hours for her steroids. Patient has also been on steroids and sometimes very high doses of steroids for the past two months and there is the possibility of superimposed opportunistic infection, perhaps fungal such as PCP. She does have some increased cystic changes on imaging as well. Will check sputum cytology for PCP, may need to induce with hypertonic saline and Albuterol nebulizer to get an adequate sample. Will start her in the meantime with Atovaquone for PCP prophylaxis, however could consider stepping up to treatment dose perhaps with Bactrim with close monitoring of her renal function. Continue with broad-spectrum antibiotics with Cefepime. Her procalcitonin was negative. Would consider deescalating over the next days depending on improvement. Would follow-up her Fungitell and her LDH. Her MRSA screen was negative. Patient does have a history of decompensated heart failure and with the ground-glass on imaging there is also the possibility of pulmonary edema. Her BNP is mildly elevated and she does have some pitting edema on exam. Would given Lasix 40 mg IV for gentle diuresis with close monitoring of her renal function and ins and outs. Patient does have pulmonary hypertension and would therefore keep her on the rice drier operator side if possible particularly with her worsening hypoxia. Patient is on Eliquis for anticoagulation with her atrial fibrillation. She appears to be adequately rate controlled. With the evidence of hemoptysis and with her age, would step her down to the lower dose of Eliquis at 2.5 mg b.i.d. for now. Continue patient on Vapotherm. She does appear to have some mouth-breathing and so may need Ventimask on top of the Vapotherm as well. Would maintain O2 sats 88 to 92%. Continue with bronchodilators and with saline nasal spray to help with nasal congestion. Continue with aspiration precautions. DVT prophylaxis with Eliquis. Code Status: DNR/DNI. Patient's family is planning to visit this afternoon and continued discussions of goals of care. Total Critical Care Time spent not including procedures: Approximately 1 hour. JAVON
[2021-07-15] MEDS ORDERED: ATOVAQUONE SUSP 750MG/5ML 210 ML BTL PO SCH (14:00)
[2021-07-15] MEDS ORDERED: SCOPOLAMINE 1MG TRANSDERMAL PATCH TOP PRN (14:25)
[2021-07-15] MEDS ORDERED: ONDANSETRON 4 MG ORAL DISINTEGRATING TAB PO PRN (14:25)
[2021-07-15] MEDS ORDERED: HYOSCYAMINE SULFATE 0.125 MG SUBL TABLET PO PRN (14:25)
[2021-07-15] MEDS ORDERED: CEFEPIME HCL 2 GM in D5W MINI-BAG PLUS 50 ML IV SCH (16:00)
[2021-07-15] MEDS: LORazepam 1 MG TAB PO PRN (17:52)
--- NOTE | 2021-07-15 20:43 | IPNPDOC ---
Text Note Date of Service The patient was seen on 07/15/21. NOTE Hospitalist Progress Note Subjective: I also came to see and evaluate the patient. She had 2 family members at the bedside. They had been talking about comfort measures. I did discuss their options with them, and left them to discuss amongst themselves. I was called back to the bedside a few hours later, and the patient with the support of her family has decided that she would prefer to be comfort measures only at this time. I will discontinue therapeutic agents, we will continue with oxygen supplementation for comfort, as well as a few of her other medications. She will be transferred to a [facility] floor. She does not wish to go to the hospice house at this time, but would prefer to remain here. Objective: Physical examination deferred Assessment: Acute on chronic hypoxemic respiratory failure Acute decompensation CHF in the setting of chronic diastolic congestive heart failure ILD exacerbation Pneumonia Aspiration pneumonitis Atrial fibrillation/atrial flutter COPD Cor pulmonale Severe pulmonary hypertension Severe tricuspid regurgitation GERD Hypertension Anxiety Depression Plan: Orders placed to switch her over to comfort measures only. New MOLST form updated and signed by the patient herself. VS,Dwightbone, I+O VS, Dwightbone, I+O Laboratory Tests 07/15/21 09:43 Vital Signs Date Time Temp Pulse Resp B/P (MAP) Pulse Ox O2 Delivery O2 Flow Rate FiO2 07/15/21 17:30 15.0 07/15/21 15:35 95 HVNI-Vapotherm 100 07/15/21 11:42 99.0 96 20 123/82 (96) I&O- Last 24 Hours up to 6 AM 07/15/21 06:00 Intake Total 240 ml Output Total 350 ml Balance -110 ml ROSIE GUTIERREZ DO Jul 15, 2021 20:43
[2021-07-15] MEDS: SERTRALINE HCL 50 MG TAB PO SCH (21:00)
--- NOTE | 2021-07-15 21:04 | IPNPDOC ---
Subjective CC/HPI The patient is a 80-year-old female admitted with a reason for visit of Respiratory Disorder,Non Ventilator Dependent. Events since last encounter Pt was seen in PCU today AM. She was transferred out of ARU to PCU sec to hyp oxic respiratory failure. She was seen by pulm. She is on Steroids. She was also give one dose of IV lasix40 mg today AM. She reports no improvement in respiratory distress since yesterday. General: Reports: Fatigue, Malaise; Denies: Chills, Night Sweats, Normal Appetite Constitutional: Reports: Malaise, Weakness; Denies: Chills, Fever, Night Sweats Eyes: Denies: Pain, Vision change ENT: Denies: Head Aches, Ear Pain, Dysphagia Skin: Denies: Rash, Lesions, Breakdown Pulmonary: Reports: Dyspnea, Cough Cardiovascular: Reports: Orthopnea, Edema; Denies: Chest Pain, Palpitations Gastrointestinal: Denies: Nausea, Vomiting, Abdominal Pain Genitourinary: Denies: Dysuria, Frequency, Incontinence Hematologic: Denies: Bruising, Bleeding Excessively Musculoskeletal: Denies: Neck Pain, Back Pain Neurological: Reports: Weakness Psych: Reports: Depression Objective Physical Examination General Exam: Alert, Moderate Distress (Resp distress) EYE EXAM: PERRLA, Conjunctiva & lids normal, EOMI ENT EXAM: Atraumatic, Mucous membr. moist/pink, Pharynx Normal Neck Exam: Supple; No: JVD, thyromegaly Chest Exam: Other (Mild crepitations all over the lungs, currently on vapotherm.) Heart Exam: Tachycardic, Normal S1, Normal S2 ABDOMEN EXAM: Normal bowel sounds, Soft; No: Tenderness Extremity Exam: Edema (2+ in legs); No: Clubbing Skin Exam: Nl turgor and temperature; No: Rash, Breakdown Neuro Exam: Strength at 5/5 X4 ext Psych Exam: Oriented x 3; No: Mood NL (Depressed mood) Vital Signs/I&O Vital Signs Date Time Temp Pulse Resp B/P (MAP) Pulse Ox O2 Delivery O2 Flow Rate FiO2 07/15/21 17:30 15.0 07/15/21 15:35 95 HVNI-Vapotherm 100 07/15/21 11:42 99.0 96 20 123/82 (96) I&O- Last 24 Hours up to 6 AM 07/15/21 06:00 Intake Total 240 ml Output Total 350 ml Balance -110 ml Laboratory Data Labs 24H Laboratory Tests 2 07/14/21 23:35: 07/15/21 09:41: Blood Gas Bicarbonate Standard 23.3, Venous Blood pH 7.342, Venous Blood Partial Pressure CO2 49.2, Venous Blood Partial Pressure O2 28.6L, Venous Blood Total Carbon Dioxide 27.6, Venous Blood HCO3 26.1, Venous Blood Oxygen Saturation 51.7L, Venous Blood Base Excess -0.2 07/15/21 09:43: Immature Granulocyte % (Auto) 2.8, Neutrophils (%) (Auto) 94.0H, Lymphocytes (%) (Auto) 1.3L, Monocytes (%) (Auto) 1.7L, Eosinophils (%) (Auto) 0.0, Basophils (%) (Auto) 0.2, Neutrophils # (Auto) 20.5H, Lymphocytes # (Auto) 0.3L, Monocytes # (Auto) 0.4, Eosinophils # (Auto) 0.0, Basophils # (Auto) 0.0, Nucleated Red Blood Cells % (auto) 0.0, Anion Gap 4L, Glomerular Filtration Rate > 60.0, Calcium Level 9.5, Total Bilirubin 0.6, Aspartate Amino Transf (AST/SGOT) 16, Alanine Aminotransferase (ALT/SGPT) 30, Alkaline Phosphatase 65, [id number]-Type Natriuretic Peptide 966H, Total Protein 6.2L, Albumin 2.1L, Albumin/Globulin Ratio 0.5L, Procalcitonin <0.05 CBC/BMP Laboratory Tests 07/15/21 09:43 Current Medications Current Medications Medications (Trade) Dose Ordered Sig/Wendy Route PRN Reason Start Time Stop Time Status Last Admin Dose Admin Apixaban (Eliquis) 2.5 mg BID PO 07/15/21 09:00 07/15/21 14:28 DC 07/15/21 10:46 Apixaban (Eliquis) 5 mg BID PO 07/14/21 21:00 07/15/21 09:58 DC 07/14/21 20:40 Atovaquone (Mepron 750mg/ 5ml Suspension) 1,500 mg DAILY PO 07/15/21 14:00 07/15/21 14:28 DC Bupropion HCl (Wellbutrin Xl) 150 mg DAILY PO 07/15/21 09:00 07/15/21 10:45 Buspirone HCl (Buspar) 10 mg BID PO 07/14/21 21:00 07/15/21 10:46 Cefepime HCl 2 gm/ Dextrose 50 ml @ 100 mls/hr Q12H IV 07/15/21 16:00 07/15/21 14:28 DC Cefepime HCl 2 gm/ Dextrose 50 ml @ 100 mls/hr Q8H IV 07/14/21 21:00 07/15/21 09:50 DC 07/15/21 04:18 Digoxin (Lanoxin) 0.125 mg DAILY PO 07/15/21 09:00 07/15/21 09:04 Furosemide (Lasix) 20 mg DAILY PO 07/16/21 09:00 Furosemide (Lasix) 40 mg DAILY PO 07/15/21 09:00 07/15/21 16:33 DC Guaifenesin (Mucinex Tab Er) 600 mg BID PO 07/14/21 21:00 07/15/21 10:45 Home Med (Home Med List Complete!) ASDIRECTED XX 07/14/21 20:10 07/14/21 20:09 DC Hyoscyamine Sulfate (Levsin) 0.125 mg Q4HP PRN PO TERMINAL SECRETIONS 07/15/21 14:25 Ipratropium [place] (Atrovent 0.02%) 0.5 mg RQ4H INH 07/14/21 20:00 07/15/21 15:35 Levalbuterol HCl (Xopenex Hfa) 2 puff Q4HP PRN INH SHORTNESS OF BREATH 07/14/21 18:20 Lorazepam (Ativan) 1 mg Q2HP PRN PO ANXIETY 07/15/21 14:25 07/15/21 17:52 Methylprednisolone (SOLU medrol) 40 mg Q8H IV 07/14/21 21:00 07/15/21 09:58 DC 07/15/21 04:18 Methylprednisolone (SOLUmedrol) 60 mg Q6H IV 07/15/21 11:00 07/15/21 17:08 Metoprolol Tartrate (Lopressor) 12.5 mg BID PO 07/14/21 21:00 07/15/21 10:50 Miscellaneous (Unresolved Clarification Entry) SEE LABEL COMMENTS DAILY XX 07/14/21 09:00 07/15/21 12:21 DC Morphine Sulfate (Morphine Sulfate Inj) 2 mg Q2H PRN IV SEVERE PAIN (PS 8-10) 07/15/21 14:25 Morphine Sulfate (Roxanol) 2 mg Q2HP PRN SL SEVERE PAIN (PS 8-10) 07/15/21 14:25 Omeprazole (PriLOSEC) 20 mg DAILY PO 07/15/21 09:00 07/15/21 02:03 DC Omeprazole (PriLOSEC) 40 mg DAILY PO 07/15/21 09:00 07/15/21 10:46 Ondansetron HCl (Zofran Odt) 4 mg Q6HP PRN PO NAUSEA OR VOMITING 07/15/21 14:25 Scopolamine (Scopolamine) 1 mg Q3DP PRN TOP EXCESSIVE SECRETIONS 07/15/21 14:25 Sertraline HCl (Zoloft) 150 mg QHS PO 07/14/21 21:00 07/14/21 20:40 Simvastatin (Zocor) 10 mg QHS PO 07/14/21 21:00 07/15/21 14:28 DC 07/14/21 20:40 Sodium Chloride ([place] Nasal [place]) 2 spray TID NA 07/15/21 09:00 07/15/21 17:08 Allergies Coded Allergies: No Known Allergies (Verified , 05/18/04) Assessment/Plan Date Seen The patient was seen on 07/15/21 in AM. Plan / VTE VTE Prophylaxis Ordered?: Yes Plan Orders past 48 Hours Orders Admission / Observation Status (07/14/21 18:17) Telemetry 48 Hr Order (07/14/21 18:17) Code Status (07/14/21 18:17) Vital Signs Standard Of Care (07/14/21 18:17) Activity As Tolerated (07/14/21 18:17) Saline Lock Iv (07/14/21 18:17) Notify Provider If: (07/14/21 18:17) Oxygen Therapy Orders (07/14/21 18:17) Pt Eval & Tx As Needed (07/14/21 18:17) Ot Eval & Treat As Needed (07/14/21 18:17) St Eval & Treat As Needed (07/14/21 18:17) Omeprazole (Prilosec) (07/15/21 09:00) Guaifenesin Er Tablet (Mucinex Tab Er) (07/14/21 21:00) Apixaban (Eliquis) (07/14/21 21:00) Bupropion Xl (Wellbutrin Xl) (07/15/21 09:00) Buspirone Hcl (Buspar) (07/14/21 21:00) Levalbuterol (Xopenex Hfa) (07/14/21 18:20) Metoprolol Tartrate (Lopressor) (07/14/21 21:00) Sertraline Hcl (Zoloft) (07/14/21 21:00) Ipratropium Br 0.02% Inh Soln (Atrovent (07/14/21 20:00) Methylprednisolone (Solu Medrol) (07/14/21 21:00) Cefepime Hcl (Maxipime) (07/14/21 21:00) Hvni (Vapotherm) (07/14/21 18:19) Digoxin (Lanoxin) (07/15/21 09:00) Simvastatin (Zocor) (07/14/21 21:00) Elevate Head Of Bed 30 Degrees (07/14/21 18:27) Furosemide (Lasix) (07/15/21 09:00) Physician Consult (Other) (07/14/21 18:29) Resp Order Cpoe (07/14/21 ) Home Med List Complete! (Home Med List C (07/14/21 20:10) Problem Sorter Operator (Unresolved Clarific (07/14/21 09:00) Spot Urine (Maternity Only) (07/14/21 23:06) * Nursing Order * (07/14/21 23:06) Anca Panel With Mpo & Pr3 (07/14/21 23:08) Glomerular Basement Regine Igg (07/14/21 23:08) Nephrology Consult (07/15/21 01:17) Omeprazole (Prilosec) (07/15/21 09:00) Transfer (In House) (07/15/21 04:26) Soft Mechanical Diet (07/15/21 Breakfast) Cbc With Differential (07/15/21 08:43) Complete Comphrensive Metaboli (07/15/21 08:43) Portable Chest X-Ray (07/15/21 09:20) Nt-Probnp (07/15/21 09:26) Procalcitonin (07/15/21 09:26) Furosemide Injection (Lasix Injection) (07/15/21 09:40) Sodium Chloride Nasal [place] ([place] Nasal (07/15/21 09:00) * Nursing Order * (07/15/21 09:38) Venous Blood Gas (07/15/21 09:41) Cefepime Hcl (Maxipime) (07/15/21 16:00) Apixaban (Eliquis) (07/15/21 09:00) Methylprednisolone (Solumedrol) (07/15/21 11:00) Attending Doctor Change: (07/15/21 11:32) Atovaquone Susp (Mepron 750mg/5ml Suspen (07/15/21 14:00) Code Status (07/15/21 14:23) Comfort Measures Only Diving Instructor (07/15/21 14:23) Dc Vital Signs (07/15/21 14:23) Activity As Tolerated (07/15/21 14:23) Suctioning (07/15/21 14:23) Saline Lock Iv (07/15/21 14:23) Scopolamine (Scopolamine) (07/15/21 14:25) Morphine Sulfate Oral Conc. (Roxanol) (07/15/21 14:25) Morphine Sulfate Inj (Morphine Sulfate I (07/15/21 14:25) Lorazepam (Ativan) (07/15/21 14:25) Ondansetron Odt (Zofran Odt) (07/15/21 14:25) Hyoscyamine Sulfate (Levsin) (07/15/21 14:25) No Labs (07/15/21 14:23) No X-Rays (07/15/21 14:23) Furosemide (Lasix) (07/16/21 09:00) Urinary Catheter DOCUMENT BID (07/15/21 18:23) Plan Text Hypoxic Respiratory Failure HFpEF, LVEF~70%, Pulm HTN Interstitial Pneumonitis Afib LE Edema Pt clinically worse today. No significant improvement. IV Lasix 40 mg given in AM. I sent ANCA and anti GBM Ab, rest of serology done during previous hospitalization was all reviewed by myself. UA and urine protein pending. R/o Vasculitis and Goodpasture Disease. Renal function is stable at this time. Since pulmonary service is managing the hypoxia now. Nephrology service is going to sign off the case. DEVONTE HALL MD Jul 15, 2021 21:04
[2021-07-16] MEDS: IPRATROPIUM 0.02% SOLN 0.5MG 2.5ML NEB INH SCH ×6 (03:20→18:17)
[2021-07-16] MEDS: methylPREDNISolone 125MG 2ML VIAL IV SCH ×4 (04:48→22:49)
[2021-07-16] MEDS: SODIUM CHLORIDE NASAL 0.65% SPRAY BTL (OCEAN) SCH ×3 (09:00→21:00)
[2021-07-16] MEDS: FUROSEMIDE 20 MG TAB PO SCH (09:00)
[2021-07-16] MEDS: guaiFENesin ER 600 MG TAB PO SCH ×2 (10:14→20:39)
[2021-07-16] MEDS: busPIRone 10 MG TAB PO SCH ×2 (10:15→20:39)
[2021-07-16] MEDS: OMEPRAZOLE 20 MG CAP PO SCH (10:15)
[2021-07-16] MEDS: buPROPion **XL** TABLET 150MG (WELLBUTRIN XL) PO SCH (10:15)
[2021-07-16] MEDS: DIGOXIN 0.125 MG TAB PO SCH (10:16)
[2021-07-16] MEDS: METOPROLOL TART 12.5 MG PER 1/2 TAB PO SCH ×2 (10:16→20:39)
[2021-07-16] MEDS: SERTRALINE HCL 50 MG TAB PO SCH (20:39)
[2021-07-16] MEDS: LORazepam 1 MG TAB PO PRN (20:39)
[2021-07-17] MEDS: IPRATROPIUM 0.02% SOLN 0.5MG 2.5ML NEB INH SCH ×6 (01:10→20:00)
[2021-07-17] MEDS: methylPREDNISolone 125MG 2ML VIAL IV SCH (05:46)
[2021-07-17] MEDS: FUROSEMIDE 20 MG TAB PO SCH (09:00)
[2021-07-17] MEDS: buPROPion **XL** TABLET 150MG (WELLBUTRIN XL) PO SCH (09:48)
[2021-07-17] MEDS: METOPROLOL TART 12.5 MG PER 1/2 TAB PO SCH (09:49)
[2021-07-17] MEDS: busPIRone 10 MG TAB PO SCH (09:49)
[2021-07-17] MEDS: OMEPRAZOLE 20 MG CAP PO SCH (09:49)
[2021-07-17] MEDS: DIGOXIN 0.125 MG TAB PO SCH (09:50)
[2021-07-17] MEDS: SODIUM CHLORIDE NASAL 0.65% SPRAY BTL (OCEAN) SCH ×3 (09:52→21:00)
[2021-07-17] MEDS: LORazepam 1 MG TAB PO PRN ×4 (11:26→22:33)
[2021-07-17] MEDS: MORPHINE 10MG/0.5ML ORAL CONCENTRATE SOLUTION U/D SL PRN ×2 (11:49→14:18)
[2021-07-18] MEDS: LORazepam 1 MG TAB PO PRN ×8 (03:03→21:47)
[2021-07-18] MEDS: IPRATROPIUM 0.02% SOLN 0.5MG 2.5ML NEB INH SCH ×6 (05:47→20:00)
[2021-07-18] MEDS: SODIUM CHLORIDE NASAL 0.65% SPRAY BTL (OCEAN) SCH ×3 (09:00→20:46)
[2021-07-18] MEDS: MORPHINE 10MG/0.5ML ORAL CONCENTRATE SOLUTION U/D SL PRN ×8 (09:44→23:38)
[2021-07-18] MEDS: MORPHINE 2 MG/ML 1ML VIAL (J2270) IV PRN ×2 (13:03→15:47)
[2021-07-19] MEDS: LORazepam 1 MG TAB PO PRN ×3 (01:43→13:56)
[2021-07-19] MEDS: MORPHINE 10MG/0.5ML ORAL CONCENTRATE SOLUTION U/D SL PRN ×4 (01:43→16:14)
[2021-07-19] MEDS: IPRATROPIUM 0.02% SOLN 0.5MG 2.5ML NEB INH SCH ×5 (03:02→15:27)
[2021-07-19] MEDS: SODIUM CHLORIDE NASAL 0.65% SPRAY BTL (OCEAN) SCH ×2 (08:58→16:00)
[2021-07-19] MEDS ORDERED: MORPHINE 10MG/0.5ML ORAL CONCENTRATE SOLUTION U/D SL PRN (16:50)
--- NOTE | 2021-07-19 18:53 | DS.PDOC ---
Discharge Summary General Date of Admission Jul 14, 2021 at 19:45 Date of Discharge 07/19/2021 Discharge Summary PRIMARY CARE PHYSICIAN: Ree Barillas ATTENDING AT TIME OF DISCHARGE: Dr. Rosie Solano, DISCHARGE DIAGNOS(E)S: Acute on chronic hypoxemic respiratory failure Acute decompensation CHF in the setting of chronic diastolic congestive heart failure ILD exacerbation Pneumonia Aspiration pneumonitis Atrial fibrillation/atrial flutter COPD Cor pulmonale Severe pulmonary hypertension Severe tricuspid regurgitation GERD Hypertension Anxiety Depression HPI & HOSPITAL COURSE: Ms. Strickland, is a 80-year-old female who presented to [facility] on 06/25/2021 with complaints of shortness of breath. Of note, she was previously seen from 06/07-06/21 for which she was treated for idiopathic acute interstitial pneumonia versus nonspecific interstitial pneumonitis, new onset atrial fibrillation, and new onset congestive heart failure with preserved systolic function, and was discharged with supplemental oxygen. During this hospitaliz ation, she had an exacerbation of her interstitial lung disease, CHF and possibly may be silently aspirating. For this, she was treated with IV steroids, Lasix, and was evaluated by speech therapy whom have recommended an appropriate diet. Of note, she also required supplemental oxygen with Vapotherm which she was liberated and at the time of discharge she was back to her baselin e oxygen requirements of 3 L. She was followed by the pulmonology team and it was recommended for her to go on a 2-week steroid taper upon discharge, as well as to have aspiration precautions as there was laryngeal penetration seen on an esophagram barium swallow. She was evaluated by the ARU team and rehab was recommended. Therefore, she will be transferred to ARU on 07/08/2021. However, on 07/13 patient began to experience shortness of breath and had a productive cough. She was started on broad-spectrum antibiotics including cefepime for pneumonia as her chest x-ray showed bilateral infiltrates. She was evaluated by the pulmonology team and it was recommended for her to be transferred to the ICU as her oxygen requirements increased throughout the day in order for her to be placed on high flow nasal cannula. On 07/15/21 patient had become acutely hypoxic. Patient had been on a Venturi mask for most of the night and then when she was switched over to Vapotherm high flow nasal cannula, her oxygen saturation decreased to 55%. Patient was placed on a nonrebreather over the Vapotherm and her oxygen saturations recovered. Advance therapeutic measures were discussed with the patient and her family, however this has been quite a prolonged hospitalization for her, and the patient and her family discussed all other options someone some cells, and came to the agreement that the patient would like to pursue comfort measures only. Therefore, a MOLST form was signed by the patient herself later that evening on 07/15/2021 indicating that she wished comfort measures only, appropriate orders were entered into the computer. Patient subsequently at approximately 1752pm on 07/19/2020 DISPOSITION: February release body to the [facility] – [place], [place] Vital Signs/I&Os Vital Signs Date Time Temp Pulse Resp B/P (MAP) Pulse Ox O2 Delivery O2 Flow Rate FiO2 07/19/21 12:05 4.0 07/17/21 09:50 70 07/15/21 15:35 95 HVNI-Vapotherm 100 07/15/21 11:42 99.0 20 123/82 (96) I&O- Last 24 Hours up to 6 AM 07/19/21 06:00 Intake Total 0 ml Balance 0 ml Discharge Medications Scheduled Apixaban (Eliquis) 5 Mg Tablet, 5 MG PO BID, (Reported) Ascorbic Acid (Vitamin C) 500 Mg Tab, 500 MG PO DAILY, (Reported) Bupropion Hcl (Bupropion Xl) 150 Mg Tab.er.24h, 150 MG PO DAILY, (Reported) Buspirone HCl (Buspirone HCl) 10 Mg Tablet, 10 MG PO BID, (Reported) Digoxin (Digoxin) 125 Mcg Tablet, 0.125 MG PO DAILY Docusate Sodium (Colace) 100 Mg Cap, 100 MG PO BID, (Reported) Fluticasone/Vilanterol (Breo Ellipta 100-25 Mcg INH) 1 Each Blst.w.dev, 1 PUFF INH DAILY, (Reported) Methylprednisolone (Solu-Medrol 40 mg Vial) 40 Mg/1 Ml Vial, 40 MG IV Q8H 40mg q 8 x 2 days 40mg q 12 x 2 days 40mg daily x 2 Metoprolol Succinate (Metoprolol Succinate) 25 Mg Tab.er.24h, 1 TAB PO DAILY Midodrine HCl (Midodrine HCl) 5 Mg Tablet, 5 MG PO TID, (Reported) 0800, 1200, 1600 Omeprazole (Omeprazole) 40 Mg Capsule.dr, 40 MG PO DAILY Sertraline Hcl (Zoloft) 100 Mg Tablet, 150 MG PO QHS, (Reported) Simvastatin (Simvastatin) 10 Mg Tablet, 10 MG PO QHS, (Reported) Allergies Coded Allergies: No Known Allergies (Verified , 05/18/04) ROSIE SOLANO DO Jul 19, 2021 18:53
== END 2021-07-19 16:45 | disposition expired | DRG 196 ==
LOC: M PCU 19:45 → M MSPAV 07-15 17:30
PROVIDERS: ADMIT Internal Medicine; ATTEND Neuromusculoskeletal Medicine & OMM
DX: J84.9 Interstitial pulmonary disease, unspecified (principal); J69.0 Pneumonitis due to inhalation of food and vomit; J96.21 Acute and chronic respiratory failure with hypoxia; I50.33 Acute on chronic diastolic (congestive) heart failure; J18.9 Pneumonia, unspecified organism; I48.92 Unspecified atrial flutter; J44.9 Chronic obstructive pulmonary disease, unspecified; I48.91 Unspecified atrial fibrillation; I27.29 Other secondary pulmonary hypertension; K21.9 Gastro-esophageal reflux disease without esophagitis; Z51.5 Encounter for palliative care; Z66 Do not resuscitate; I36.1 Nonrheumatic tricuspid (valve) insufficiency; I11.0 Hypertensive heart disease with heart failure; F41.9 Anxiety disorder, unspecified; F32.9 Major depressive disorder, single episode, unspecified; Z87.891 Personal history of nicotine dependence; Z79.01 Long term (current) use of anticoagulants; Z79.899 Other long term (current) drug therapy